=== PATIENT | male | born 1955 | race Caucasian/White ===

== ENCOUNTER → 2016-10-13 | Outpatient (CLI) | payer OTHER ==
[~2016-10-13] MED LIST: ATEN50TA PO; CIPR-255 PO; COLC0.6T54 PO; LISI2.5T5 PO; ROSU5TAB PO; SENNTAB23 PO; TAMS0.4C59 PO; potassium PO; trilipix PO
--- NOTE | 2016-10-13 13:36 | DIAGNOSTIC IMAGING REPORT ---
WHOLE BODY BONE SCAN HISTORY: Renal carcinoma. RADIOTRACER: 26 mCi Tc-99m MDP STUDY/IMAGES: Planar anterior and posterior whole body imaging was performed 3 hours following the intravenous administration of radiotracer. COMPARISON: Abdomen and pelvis CT 09/24/2015. FINDINGS: Radiotracer uptake seen within the shoulders, AC joint, right L4-L5 facet, knees, ankles, and feet are likely due to degenerative change. The left kidney is surgically absent. No suspicious areas of radiotracer uptake to suggest metastatic disease. Faint area of radiotracer uptake seen within the proximal right tibia is likely due to an old, healed fracture. IMPRESSION: 1. No evidence for metastatic disease within the axial or appendicular skeleton. 2. Patchy area of faint radiotracer uptake seen within the proximal shaft of the right tibia favors an old, healed fracture. Clinical correlation or radiographic follow up can be used for confirmation. Electronically signed by: Misha Cardona M.D. 10/13/2016 1:35 PM Dictated Date/Time: 10/13/2016 1:32 PM
== END | disposition home or self-care (01) ==
LOC: C.NUCL 09:30
PROVIDERS: ATTEND Urology
DX: C64.9 Malignant neoplasm of unspecified kidney, except renal pelvis (principal)

== ENCOUNTER 2019-04-15 13:21 | Observation (INO) ==
[2019-04-15 14:24] LABS: Basophils # (auto) 0.04 K/uL (0-0.2); Basophils % (auto) 0.4 %; Eosinophils # (auto) 0.18 K/uL (0-0.5); Eosinophils % (auto) 1.9 %; Hematocrit (blood only) 36.5 % (42-52); Hemoglobin 12.2 g/dL (14.0-18.0); Immature Granulocytes # (auto) 0.04 K/uL (0.00-0.02); Immature Granulocytes % (auto) 0.4 %; Lymphocytes # (auto) 1.27 K/uL (1.2-3.4); Lymphocytes % (auto) 13.3 %; Mean Corpuscular Hemoglobin 28.4 pg (25-34); Mean Corpuscular Hgb Conc 33.4 g/dL (32-36); Mean Corpuscular Volume 85.1 fL (80-100); Mean Platelet Volume 11.8 fL (7.4-10.4); Monocytes # (auto) 1.04 K/uL (0.11-0.59); Monocytes % (auto) 10.9 %; Neutrophils % (auto) 73.1 %; Platelet Count 193 K/uL (130-400); RDW Coefficient of Variation 16.4 % (11.5-14.5); RDW Standard Deviation 50.5 fL (36.4-46.3); Red Blood Count 4.29 M/uL (4.7-6.1); White Blood Count 9.57 K/uL (4.8-10.8)
[2019-04-15 14:34] LABS: Alanine Aminotransferase 19 U/L (12-78); Albumin Level 3.9 gm/dl (3.4-5.0); Aspartate Aminotransferase 14 U/L (15-37); BUN Creatinine Ratio 16.4 (10-20); Blood Urea Nitrogen 30 mg/dl (7-18); Calcium 9.8 mg/dl (8.5-10.1); Carbon Dioxide 19 mmol/L (21-32); Chloride 114 mmol/L (98-107); Creatinine Clr Calc Pharmacy 57.7 ml/min; Est GFR (African American) 44.8; Est GFR (Non-African American) 38.7; Glucose 96 mg/dl (70-99); Lipase 306 U/L (73-393); Magnesium 2.2 mg/dl (1.8-2.4); Potassium 4.4 mmol/L (3.5-5.1); Sodium 141 mmol/L (136-145)
--- NOTE | 2019-04-15 14:39 | XRay Report ---
XR chest 1V portable CLINICAL HISTORY: Chest pain. COMPARISON STUDY: Chest CT August 03, 2012. FINDINGS: Lung volumes are normal. There is no pneumothorax or pleural effusion. Note is made of mode rate cardiomegaly. There is no evidence for pulmonary edema. IMPRESSION: 1. No acute cardiopulmonary findings. 2. Moderate cardiomegaly. Electronically signed by: Terrell Jefferson M.D. 04/15/2019 2:38 PM
[2019-04-15] MEDS ORDERED: ACETAMINOPHEN 1,000 MG/100 ML VIAL IV STA (14:41)
[2019-04-15] MEDS ORDERED: FAMOTIDINE 20MG/5ML IV PUSH IV STA (14:41)
[2019-04-15 14:45] LABS: Albumin Globulin Ratio 1.1 (0.9-2); Alkaline Phosphatase 55 U/L (45-117); Bilirubin,Total 0.4 mg/dl (0.2-1); Globulin 3.5 gm/dl (2.5-4.0); NT Pro B Type Natriuretic Pept 357 pg/ml (0-900); Total Protein 7.4 gm/dl (6.4-8.2); Troponin I < 0.015 ng/ml (0-0.045)
--- NOTE | 2019-04-15 15:42 | Emergency Department Note ---
Entered by Joni Hoyt acting as a scribe for History of Present Illness General Chief complaint: Chest Pain Time Seen by Provider: 04/15/19 13:36 Source: patient History of Present Illness Provider complaint: Chest pain Onset (ago): week(s) (1.5) Location: chest and left Radiation: back Pain Consistency: + constant Maximum Pain Intensity: 2 Current Pain Intensity: 2 Relieved By: + none Exacerbated By: + movement and + other (Deep breaths) Associated symptoms: + shortness of breath; no cough and no fever/chills The patient is a 63 year old male who presents to the Emergency Room with complaints of constant left sided chest pain that started about a week and a half ago. The patient currently rates the pain as a 2/10 but notes it was more severe last night. The patient reports the pain radiates into his back and is worse with movement and deep breaths. The patient endorses some shortness of breath with the pain. The patient has a history of CAD and has needed a cardiac cath in the past however he has never had symptoms like this in the past. The patient denies any lower extremity swelling or family history of blood clots. The patient follows with Dr. Brooks for cardiology. His last visit with him was about a month ago and he mentioned that he had an echo done in May as well as one scheduled for June 2019. The patient also has a history of CML for the past 2 years as well as renal carcinoma that required a nephrectomy. The patient has a family history of CAD and [place] with both his father and brother passing away at a young age from [facility]. Home Medications Home Medications Medication Instructions Recorded Confirmed Type aspirin [Aspirin Low Dose] 81 mg PO DAILY 08/28/18 04/15/19 History docusate sodium [Stool Softener] 100 mg PO BID 08/28/18 04/15/19 History febuxostat [Uloric] 40 mg PO DAILY 08/28/18 04/15/19 History gemfibrozil 600 mg PO BIDM 08/28/18 04/15/19 History hydrochlorothiazide 50 mg PO BID 08/28/18 04/15/19 History omega-3 acid ethyl esters 1 tab PO BID 08/28/18 04/15/19 History rosuvastatin [Crestor] 10 mg PO DAILY 08/28/18 04/15/19 History tamsulosin 0.4 mg capsule 0.4 mg PO DAILY #90 cap 12/22/18 04/15/19 Rx bosutinib 500 mg tablet 500 mg PO DAILY tab 02/04/19 04/15/19 History metformin 1,000 mg tablet,extended 500 mg PO BID tab 02/04/19 04/15/19 History release 24hr Bosulif 100 mg PO DAILY 04/15/19 04/15/19 History amlodipine 10 mg PO DAILY 04/15/19 04/15/19 History lisinopril 10 mg PO DAILY 04/15/19 04/15/19 History carvedilol 3.125 mg PO BID 30 Days #60 tab 04/16/19 Rx hydralazine 50 mg PO TID 30 Days #90 tab 04/16/19 Rx Allergies Allergy/AdvReac Type Severity Reaction Status Date / Time allopurinol Allergy Unknown ` Verified 04/15/19 15:00 Past Med/Surg History Medical History Aortic stenosis, mild BPH (benign prostatic hyperplasia) Chronic kidney disease, stage 3 (Chronic) CML (chronic myelocytic leukemia) (Chronic) Diabetes mellitus, type II Gout History of nephrolithiasis (Chronic) Hyperlipidemia (Chronic) Hypertension (Chronic) MEE (obstructive sleep apnea) Renal carcinoma (Chronic) Renal cell carcinoma Vitamin D deficiency (Chronic) Surgical History (Updated 04/15/19 @ 18:13 by Destiny Reilly PA-C) History of cataract surgery History of nephrectomy 2011 Family History (Updated 04/15/19 @ 18:14 by Destiny Reilly PA-C) Brother Coronary heart disease fatal [place] age 51 Father FH: brain aneurysm age 60 Social History (Updated 04/15/19 @ 18:14 by Destiny Reilly PA-C) Preferred Language: Argentine Communication Ability: Effective 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 and A total of 10 systems reviewed and were otherwise negative Physical Exam Vital Signs Vital Signs - 24 hr 04/15/19 13:25 04/15/19 13:30 04/15/19 13:35 Temperature 36.8 C Temperature Source Oral Pulse Rate 55 L 54 L 55 L Pulse Rate [Apical] Pulse Rate from SpO2 Sensor 53 L 54 L Pulse Rhythm [Apical] Respiratory Rate 20 23 19 Respiratory Effort / Characteristics SOB on Exertion Respiratory Depth Normal Respiratory Pattern Blood Pressure 151/72 H 151/72 H Blood Pressure [Right Arm] Blood Pressure Mean 98 110 Blood Pressure Mean [Right Arm] Blood Pressure Position Sitting Blood Pressure Position [Right Arm] Pulse Oximetry 98 97 97 Oxygen Delivery Method Room Air Sepsis Recent Fever Within 48 Hours No Sepsis New/Unexplained Change in Mental Status No Sepsis Action Taken by Nursing No Action Required 04/15/19 14:00 04/15/19 14:03 04/15/19 15:00 Temperature Temperature Source Pulse Rate 49 L 48 L 47 L Pulse Rate [Apical] Pulse Rate from SpO2 Sensor 49 L 49 L 46 L Pulse Rhythm [Apical] Respiratory Rate 17 16 18 Respiratory Effort / Characteristics Respiratory Depth Respiratory Pattern Blood Pressure 147/84 H Blood Pressure [Right Arm] Blood Pressure Mean 117 Blood Pressure Mean [Right Arm] Blood Pressure Position Blood Pressure Position [Right Arm] Pulse Oximetry 95 95 94 Oxygen Delivery Method Sepsis Recent Fever Within 48 Hours Sepsis New/Unexplained Change in Mental Status Sepsis Action Taken by Nursing 04/15/19 15:01 04/15/19 15:10 04/15/19 15:20 Temperature Temperature Source Pulse Rate 46 L 46 L 44 L Pulse Rate [Apical] 45 L Pulse Rate from SpO2 Sensor 46 L 46 L 44 L Pulse Rhythm [Apical] Regular Respiratory Rate 14 17 16 Respiratory Effort / Characteristics Non-Labored Respiratory Depth Normal Respiratory Pattern Regular Blood Pressure 132/64 Blood Pressure [Right Arm] 132/64 Blood Pressure Mean 88 Blood Pressure Mean [Right Arm] 86 Blood Pressure Position Blood Pressure Position [Right Arm] Sitting Pulse Oximetry 95 96 96 Oxygen Delivery Method Room Air Sepsis Recent Fever Within 48 Hours Sepsis New/Unexplained Change in Mental Status Sepsis Action Taken by Nursing 04/15/19 15:30 04/15/19 15:31 Temperature Temperature Source Pulse Rate 46 L 46 L Pulse Rate [Apical] Pulse Rate from SpO2 Sensor 46 L 46 L Pulse Rhythm [Apical] Respiratory Rate 21 20 Respiratory Effort / Characteristics Respiratory Depth Respiratory Pattern Blood Pressure 141/68 H Blood Pressure [Right Arm] Blood Pressure Mean 107 Blood Pressure Mean [Right Arm] Blood Pressure Position Blood Pressure Position [Right Arm] Pulse Oximetry 96 97 Oxygen Delivery Method Sepsis Recent Fever Within 48 Hours Sepsis New/Unexplained Change in Mental Status Sepsis Action Taken by Nursing GENERAL: alert, well appearing, well nourished, no distress, non-toxic EYE EXAM: normal conjunctiva, PERRL and EOM's grossly intact OROPHARYNX: no exudate, no erythema, lips, buccal mucosa, and tongue normal and mucous membranes are moist NECK: supple, no nuchal rigidity, no adenopathy, non-tender LUNGS: Clear to auscultation. Normal chest wall mechanics, no w/r/r HEART: no murmurs, S1 normal and S2 normal CHEST: No reproducible chest wall tenderness. ABDOMEN: abdomen soft, non-tender, normo-active bowel sounds, no masses, no re bound or guarding. BACK: Back is symmetrical on inspection and there is no deformity, no midline tenderness, no CVA tenderness. SKIN: no rashes and no bruising UPPER EXTREMITIES: upper extremities are grossly normal. FROM, nml pulses b/l. LOWER EXTREMITIES: No pitting edema. FROM, nml pulses b/l. NEURO EXAM: Normal sensorium, cranial nerves II-XII grossly intact, normal speech, no gross weakness of arms, no gross weakness of legs. Course Course 1340: Past medical records reviewed. The patient was evaluated in room B04B, and a complete history and physical examination were performed. 1535: Pt updated on results so far. Pt awaiting V/Q scan. States felt improved after tylenol. Discussed plan. If V/Q negative, I feel pt could be safely discharged to outpt f/u unless symptoms returned. 1645: Pt signed out to Dr Bonilla awaiting V/Q scan. Administered Medications Discontinued Medications Amlodipine Besylate (Norvasc) 10 mg PO DAILY [facility], [facility]1983 Stop: 05/16/19 08:59 Last Admin: 04/16/19 09:05 Dose: 10 mg Documented by: [id number] Aspirin (Ecotrin Ectab) 81 mg PO DAILY [facility], [facility]1983 Stop: 05/16/19 08:59 Last Admin: 04/16/19 09:04 Dose: 81 mg Documented by: [id number] Carvedilol (Coreg) 6.25 mg PO NOW STA Stop: 04/15/19 18:36 Last Admin: 04/15/19 19:45 Dose: 6.25 mg Documented by: [id number] Carvedilol (Coreg) 6.25 mg PO BID [facility], [facility]1983 Stop: 05/15/19 20:59 Last Admin: 04/16/19 09:04 Dose: Not Given Documented by: [id number] Admin: 04/15/19 21:54 Dose: Not Given Documented by: [id number] Carvedilol (Coreg) 3.125 mg PO BID [facility]1983 Stop: 05/16/19 11:44 Last Admin: 04/16/19 12:11 Dose: 3.125 mg Documented by: [id number] Docusate Sodium (Colace) 100 mg PO BID [facility]1983 Stop: 05/15/19 20:59 Last Admin: 04/16/19 09:04 Dose: 100 mg Documented by: [id number] Admin: 04/15/19 21:49 Dose: 100 mg Documented by: [id number] Famotidine (Pepcid 20mg Iv Push) 20 mg IV ONE STA Stop: 04/15/19 14:42 Last Admin: 04/15/19 15:09 Dose: 20 mg Documented by: [id number] Fish Oil (David-3 (Purified Fish Oil)) 1 gm PO BID [facility] Stop: 05/16/19 08:59 Last Admin: 04/16/19 09:05 Dose: 1 gm Documented by: [id number] Gadobutrol (Gadavist 65ml) 12 ml IV ONCE PRN PRN Reason: Interaction Checking Stop: 04/19/19 20:27 Last Admin: 04/15/19 20:28 Dose: 12 ml Documented by: [id number] Gemfibrozil (Lopid) 600 mg PO BIDM [facility]1983 Stop: 05/16/19 07:59 Last Admin: 04/16/19 09:03 Dose: 600 mg Documented by: [id number] Hydralazine HCl (Apresoline) 25 mg PO NOW STA Stop: 04/15/19 18:36 Last Admin: 04/15/19 19:45 Dose: 25 mg Documented by: [id number] Hydralazine HCl (Apresoline) 25 mg PO TID [facility] Stop: 05/15/19 20:59 Last Admin: 04/16/19 09:03 Dose: 25 mg Documented by: [id number] Admin: 04/15/19 21:49 Dose: 25 mg Documented by: [id number] Hydralazine HCl (Apresoline) 50 mg PO TID SÁNCHEZ Stop: 05/16/19 13:59 Last Admin: 04/16/19 13:31 Dose: 50 mg Documented by: [id number] Hydrochlorothiazide (Hctz) 50 mg PO NOW STA Stop: 04/15/19 18:36 Last Admin: 04/15/19 22:48 Dose: 50 mg Documented by: [id number] Hydrochlorothiazide (Hctz) 50 mg PO BID17 SÁNCHEZ Stop: 05/16/19 08:59 Last Admin: 04/16/19 10:18 Dose: 50 mg Documented by: [id number] Acetaminophen (Ofirmev) 1,000 mg in 100 mls @ 400 mls/hr IV NOW STA Stop: 04/15/19 14:55 Last Infusion: 04/15/19 15:34 Dose: 0 mls/hr Documented by: [id number] Admin: 04/15/19 15:09 Dose: 400 mls/hr Documented by: [id number] Sodium Chloride (Nss 1000ml) 1,000 mls @ 125 mls/hr IV .Q8H SÁNCHEZ Stop: 05/15/19 18:44 Last Admin: 04/15/19 21:16 Dose: Not Given Documented by: [id number] Insulin Aspart (Novolog Flexpen) 0 units SC ACHS SÁNCHEZ Stop: 05/15/19 20:59 Last Admin: 04/16/19 12:10 Dose: 4 units Documented by: [id number] Cosigned by: [id number] Admin: 04/16/19 09:02 Dose: Not Given Documented by: [id number] Cosigned by: [id number] Admin: 04/15/19 21:54 Dose: 4 units Documented by: [id number] Cosigned by: [id number] Lisinopril (Zestril) 10 mg PO DAILY SÁNCHEZ Stop: 05/16/19 08:59 Last Admin: 04/16/19 09:06 Dose: 10 mg Documented by: [id number] Lorazepam (Ativan) 0.5 mg PO Q6H PRN PRN Reason: Anxiety Last Admin: 04/15/19 19:45 Dose: 0.5 mg Documented by: [id number] Miscellaneous (Order Awaiting Action) 1 ea N/A QS SÁNCHEZ Stop: 05/16/19 00:00 Last Admin: 04/16/19 09:03 Dose: Not Given Documented by: [id number] Admin: 04/15/19 23:20 Dose: Not Given Documented by: [id number] Miscellaneous (Order Awaiting Action) 1 ea N/A QS SÁNCHEZ Stop: 05/16/19 00:00 Last Admin: 04/16/19 09:03 Dose: Not Given Documented by: [id number] Admin: 04/15/19 23:20 Dose: Not Given Documented by: [id number] Nitroglycerin (Nitro-Bid 2%) 0.5 inch EXT Q6 SÁNCHEZ Stop: 05/15/19 18:27 Last Admin: 04/16/19 12:14 Dose: Not Given Documented by: [id number] Admin: 04/16/19 05:46 Dose: 0.5 inch Documented by: [id number] Admin: 04/16/19 00:17 Dose: 0.5 inch Documented by: [id number] Admin: 04/15/19 20:54 Dose: 0.5 inch Documented by: [id number] Rosuvastatin Calcium (Crestor) 10 mg PO DAILY SÁNCHEZ Stop: 05/16/19 08:59 Last Admin: 04/16/19 09:04 Dose: 10 mg Documented by: [id number] Tamsulosin HCl (Flomax) 0.4 mg PO DAILY SÁNCHEZ Stop: 05/16/19 08:59 Last Admin: 04/16/19 09:05 Dose: 0.4 mg Documented by: [id number] Medical Decision Making Differential Diagnosis Differential diagnoses includes but is not limited to acute coronary syndrome, myocardial infarction, pericarditis, pulmonary embolus, aortic dissection, pneumonia, pneumothorax, musculoskeletal, shingles, esophageal. Medical Records Attestation: I reviewed the patient's medical records. Home Medications Current Medication List: was personally reviewed by me Laboratory Data Attestation: I reviewed the patient's lab results. Result diagrams: 04/16/19 03:21 04/16/19 03:21 Lab Results 04/15/19 04/15/19 04/15/19 Range/Units 14:00 14:00 14:00 WBC 9.57 (4.8-10.8) K/uL RBC 4.29 L (4.7-6.1) M/uL Hgb 12.2 L (14.0-18.0) g/dL Hct 36.5 L (42-52) % MCV 85.1 (80-100) fL MCH 28.4 (25-34) pg MCHC 33.4 (32-36) g/dL RDW Std Deviation 50.5 H (36.4-46.3) fL RDW Coeff of Joce 16.4 H (11.5-14.5) % Plt Count 193 (130-400) K/uL MPV 11.8 H (7.4-10.4) fL Immature Gran % (Auto) 0.4 % Neut % (Auto) 73.1 % Lymph % (Auto) 13.3 % [place] % (Auto) 10.9 % Eos % (Auto) 1.9 % Baso % (Auto) 0.4 % Immature Gran # (Auto) 0.04 H (0.00-0.02) K/uL Neut # (Auto) 7.00 H (1.4-6.5) K/uL Lymph # (Auto) 1.27 (1.2-3.4) K/uL [place] # (Auto) 1.04 H (0.11-0.59) K/uL Eos # (Auto) 0.18 (0-0.5) K/uL Baso # (Auto) 0.04 (0-0.2) K/uL D-Dimer 540 H* (0-500) ug/L FEU Sodium 141 (136-145) mmol/L Potassium 4.4 (3.5-5.1) mmol/L Chloride 114 H (98-107) mmol/L Carbon Dioxide 19 L (21-32) mmol/L Anion Gap 8.0 (3-11) BUN 30 H (7-18) mg/dl Creatinine 1.82 H (0.6-1.4) mg/dl Est Cr Clr Drug Dosing 57.7 ml/min Est GFR ( Amer) 44.8 Est GFR (Non-Af Amer) 38.7 BUN/Creatinine Ratio 16.4 (10-20) Glucose 96 (70-99) mg/dl Calcium 9.8 (8.5-10.1) mg/dl Magnesium 2.2 (1.8-2.4) mg/dl Total Bilirubin 0.4 (0.2-1) mg/dl AST 14 L (15-37) U/L ALT 19 (12-78) U/L Alkaline Phosphatase 55 (45-117) U/L Troponin I < 0.015 (0-0.045) ng/ml NT-Pro-B Natriuret Pep 357 (0-900) pg/ml Total Protein 7.4 (6.4-8.2) gm/dl Albumin 3.9 (3.4-5.0) gm/dl Globulin 3.5 (2.5-4.0) gm/dl Albumin/Globulin Ratio 1.1 (0.9-2) Lipase 306 (73-393) U/L TSH 2.070 (0.300-4.500) uIu/ml Imaging Data Radiologist's Impression: Radiology results as stated below per my review and the radiologist's interpretation: XR chest 1V portable CLINICAL HISTORY: Chest pain. COMPARISON STUDY: Chest CT August 03, 2012. FINDINGS: Lung volumes are normal. There is no pneumothorax or pleural effusion. Note is made of moderate cardiomegaly. There is no evidence for pulmonary edema. IMPRESSION: 1. No acute cardiopulmonary findings. 2. Moderate cardiomegaly. Electronically signed by: Terrell Jefferson M.D. 04/15/2019 2:38 PM ECG Data Attestation: I personally reviewed and interpreted this ECG as follows: Indication: + chest pain Rate (beats per minute): 57 Rhythm: + sinus bradycardia ECG Intervals/blocks: + Normal QRS, + Normal QT, + Normal [place] and + Normal QT-c ECG [place]: + Normal ECG ST segments: no ST elevation ECG Findings: no PACs and no PVCs Blood Pressure Blood Pressure Findings: Elevated blood pressure Blood Pressure Disposition: Referred to patients primary care provider [facility] [place] Narrative Pt presenting with symptoms for 9 days. Pt with risk factors and already sees cards. Labs here reassuring. Due to hx of RCC and elevated dimer, V/Q ordered. Pt signed out awaiting this. Pt here improved with tylenol, VS stable, no ectopy noted on tele. If V/Q negative, I feel pt could be discharged to close outpt f/u. Pt has had recent outpt stress test and echo which were reassuring. I do not suspect dissection/worsening aneursym. I feel pt overall is less likely to have dvt/PE. VS stable while in the ER. Impression & Plan Atypical chest pain, Chronic kidney disease, stage 3 Discharge Plan Visit Data *Final* Discharge Date/Time: 04/15/19 19:47 Chief Complaint: Chest Pain ED Provider: Darwin Bonilla Discharge Problem: Atypical chest pain, Chronic kidney disease, stage 3 Patient Disposition: Home - Self-Care Condition: Good Discharge Instructions Interventions: ED Discharge Assessment Last Done: 04/15/19 19:47 Risk - HEART Scoring HEART Score for Major Cardiac Events History: Slightly Suspicious EKG: Normal Age: 45-64 Years of Age Risk Factors: >2 Risk Factors Initial Troponin: Normal Limit Total Points: 3 Risk Level: Low Risk for Major Adverse Cardiac Event HEART Score Interpretation: Score interpretation (as per derivation study): HEART Adverse Cardiac Score Event Risk Management 0-3 0.9-1.7% In the HEART Score study, these patients were discharged. 4-6 12-16.6% In the HEART Score study, these patients were admitted to the hospital. 7-10 50-65% In the HEART Score study, these patients were candidates for early invasive measurements. Original Source: 1. Toño AJ, [place] BE, Beatriz VINH. Chest pain in the emergency room: value of the HEART score. Neth Heart J. 2008; 16(6):191-6. The scribe's documentation has been prepared under my direction and personally reviewed by me in its entirety. I confirm that the note above accurately reflects all work, treatment, procedures, and medical decision making performed by me.
[2019-04-15 16:34] LABS: D Dimer 540 ug/L FEU (0-500)
--- NOTE | 2019-04-15 16:36 | Nuclear Medicine Report ---
NM pul vent and perfuse CLINICAL HISTORY: 63 years-old Male presenting with pleuritic chest pain, hx renal ca. TECHNIQUE: Immediately following the inhalation of 35.4 mCi of technetium 99 M DTPA for the ventilati on scan and the intravenous administration of 6.5 mCi of technetium 99 M MAA for the perfusion scan, anterior, oblique, lateral, and posterior views of the chest were obtained. Modified PIOPED II criter ia were used for interpretation. COMPARISON: Chest x-ray performed earlier today. FINDINGS: No mismatched defects are identified on this examination. Perfusion and ventilation to both lungs is preserved. Radiotracer identified in the region of the stomach consistent with ingestion of ventilati on tracer. No extensive central airway deposition. Reference: Modified PIOPED II criteria Normal: No perfusion defects. Very low likelihood ratio: Nonsegmental, perfusion defect < chest x-ray lesion, 1-3 small segmental d efects, solitary triple matched defect (< or = 1 segment) in mid or upper lung, stripe sign, solitary large pleural effusion, > or = to 2 matched defects with regionally normal chest x-ray. High likelihood ratio: > or = 2 large mismatch segmental defects. Nondiagnostic: All other findings. IMPRESSION: Normal. Electronically signed by: Calin Burt M.D. 04/15/2019 4:35 PM
--- NOTE | 2019-04-15 18:00 | History & Physical Report ---
Date of Service April 15, 2019 Assessment & Plan (1) Chest pain: Pt is 63 y/o M with PMH renal cell carcinoma s/p left nephrectomy in 2011, CKD III, CML, HTN, mild aortic stenosis, dyslipidemia, DM II, BPH, gout presented to ER with c/o aching chest pain to anterior mid and left chest with radiation to upper back with exertion x 1.5 weeks that resolves in 15-20 minutes with rest. Also c/o SOB with walking 100-200 yards x 1 month. C/O indigestion relieved with TUMS x 1.5 weeks. Denies associated diaphoresis, N/V, dizziness. Today was given aspirin 324mg and 1 SL nitro. Reports given 2 sprays nitro en route with resolution of CP In ER P: 55, R: 20, BP: 151/72, 96%. No leukocytosis. Negative troponin. D- Dimer: 540. EKG sinus bradycardia, 57, no acute ST changes CXR: cardiomegaly, otherwise no acute changes VQ Scan: normal CHEST PAIN R/O ACS. Risk factors: HTN, hyperlipidemia, DM, obesity, FH. DDX: aortic dissection, musculoskeletal etiology, GERD -Monitor Vitals -Will obtain MRA chest to r/o dissection, as want to avoid CTA and IVP dye with pt's h/o solitary kidney -Repeat EKG in am -Will trend troponin -Echo -lipid panel in am, continue statin -Continue aspirin & beta keara -Nitro paste -Cardiology consult (2) Elevated d-dimer: D-Dimer: 540 PE considered, and VQ scan ordered secondary to pt's h/o CKD III and solitary kidney. VQ scan normal (3) Hypertension: SBP's 140's-160s in ER. Pt missed afternoon dose hydralazine -Continue hydralazine, lisinopril, HCTZ, carvedilol -Nitropaste added -Monitor BP (4) Hyperlipidemia: -Continue statin, gemfibrozil (5) Diabetes mellitus, type II: A1c: 5.8 in 08/2018 -A1c in AM -Hold metformin -Novolog sliding scale per protocol (6) Renal cell carcinoma: (7) History of nephrectomy: S/P Left nephrectomy in [address] Bell - Hematology/Oncology (8) Chronic kidney disease, stage 3: Cr: 1.8. Baseline ~1.[address] Dhaliwal -Monitor renal functions -Avoid nephrotoxic agents when possible (9) CML (chronic myelocytic leukemia): Follows with Dr Bell (10) MEE (obstructive sleep apnea): -CPAP HS (11) Gout: -Continue febuxostat (12) Hematuria: Has been having hematuria. Following with Dr Felix- Urology. 02/[address] Soft tissue density 2.3 cm lesion at the lower pole the right kidney. This could either represent a proteinaceous or hemorrhagic cyst versus a solid renal lesion.new since 2016. 03/2019 Abdominal MRI: Heterogeneously enhancing 2.0 x 1.8 cm nodule inferior pole right kidney. Possible neoplastic process is not excluded. everal small to small to characterize right renal cystic-like nodules. DVT Prophylaxis -SCDs for now Full Code as per discussion with pt. Pt reports would not want prolonged life support if poor prognosis. Follows with Dr Flores for routine care Pt was seen and care coordinated with Dr Dickinson. See addendum History of Present Illness Chief Complaint: CP Primary Care Provider: Steven Flores, Pt is 63 y/o M with PMH renal cell carcinoma s/p left nephrectomy in 2011, CKD III, CML, HTN, mild aortic stenosis, dyslipidemia, DM II, BPH, gout presented to ER with c/o CP x 1.5 weeks. Pt reports aching chest pain to anterior mid and left chest with radiation to upper back with exertion. Reports walking through house causes pain. Pain resolves in 15-20 minutes with rest. Denies associated diaphoresis, N/V, dizziness. Pt reports SOB with walking approx 100-200 yards for the past month. C/O indigestion for past 1.5 weeks relieved with TUMS. In clinic he was given aspirin 324mg and 1 SL nitro. Reports given 2 sprays nitro en route with resolution of CP. Pt reports has been following with urology - Dr Felix for hematuria and is to have cystoscopy soon. Denies injury/trauma, fever/chills, diarrhea, MIXON, syncope, vision changes, neck pain, orthopnea, palpitations, cough, sore throat, choking, otalgia, rhinorrhea, abdominal pain, paresthesias, weakness, extremity weakness, extremity edema, rashes, dysuria, urinary retention, urinary frequency. 06/2018 Echo: EF: 60-64%, grade II diastolic dysfunction, proximal ascending thoracic aorta mildly enlarged at 3.9cm 06/2018 Stress echo with no ischemia Allergies Allergy/AdvReac Type Severity Reaction Status Date / Time allopurinol Allergy Unknown ` Verified 04/15/19 15:00 Home Medications Home Medications Medication Instructions Recorded Confirmed Type aspirin [Aspirin Low Dose] 81 mg PO DAILY 08/28/18 04/15/19 History carvedilol 6.25 mg PO BID 08/28/18 04/15/19 History docusate sodium [Stool Softener] 100 mg PO BID 08/28/18 04/15/19 History febuxostat [Uloric] 40 mg PO DAILY 08/28/18 04/15/19 History gemfibrozil 600 mg PO BIDM 08/28/18 04/15/19 History hydrochlorothiazide 50 mg PO BID 08/28/18 04/15/19 History omega-3 acid ethyl esters 1 tab PO BID 08/28/18 04/15/19 History rosuvastatin [Crestor] 10 mg PO DAILY 08/28/18 04/15/19 History tamsulosin 0.4 mg capsule 0.4 mg PO DAILY #90 cap 12/22/18 04/15/19 Rx bosutinib 500 mg tablet 500 mg PO DAILY tab 02/04/19 04/15/19 History metformin 1,000 mg tablet,extended 500 mg PO BID tab 02/04/19 04/15/19 History release 24hr hydralazine 25 mg tablet 25 mg PO TID #90 tab 03/18/19 04/15/19 Rx amlodipine 10 mg PO DAILY 04/15/19 04/15/19 History bosutinib [Bosulif] 100 mg PO DAILY 04/15/19 04/15/19 History lisinopril 10 mg PO DAILY 04/15/19 04/15/19 History Past Med/Surg History Medical History Aortic stenosis, mild BPH (benign prostatic hyperplasia) Chronic kidney disease, stage 3 (Chronic) CML (chronic myelocytic leukemia) (Chronic) Diabetes mellitus, type II Gout History of nephrolithiasis (Chronic) Hyperlipidemia (Chronic) Hypertension (Chronic) MEE (obstructive sleep apnea) Renal carcinoma (Chronic) Renal cell carcinoma Vitamin D deficiency (Chronic) Surgical History (Updated 04/15/19 @ 18:13 by Destiny Reilly PA-C) History of cataract surgery History of nephrectomy 2011 Family History (Updated 04/15/19 @ 18:14 by Destiny Reilly PA-C) Brother Coronary heart disease fatal [place] age 51 Father FH: brain aneurysm age 60 Social History (Updated 04/15/19 @ 18:14 by Destiny Reilly PA-C) Preferred Language: Romanian marital status: Current Living Situation: Spouse current occupational status: employed Feels Safe at Home: Yes Smoking Status: Never smoker Hx Alcohol Use: No Hx Substance Use: No Review of Systems Review of Systems: All systems reviewed & are unremarkable except as noted in HPI & below Physical Exam Physical Exam: General: no distress, obese Head: normocephalic, atraumatic Eyes: PERRL, EOM's intact, conjunctiva non-injected, anicteric ENT: normal inspection external ears, nose, mucous membranes moist Neck: supple, trachea midline Lungs: clear, no respiratory distress, no wheezing/rhonchi/rales CV: RRR, systolic murmur, no pretibial edema Chest wall: no rashes or discolorations; mild tenderness to palpation left chest Abd: normal BS, soft, non-tender Ext: no cyanosis, no calf tenderness Neuro: A&O x 3, no focal deficits noted, normal affect Skin: warm, dry; dry scaly plaques to hands Results & Data Vital Signs (Past 12 Hours) Vital Signs Temp Pulse Pulse Resp BP BP Pulse Ox 04/15/19 17:31 48 L 17 192/86 H 98 04/15/19 17:30 47 L 19 96 04/15/19 17:20 45 L 22 97 04/15/19 17:10 43 L 12 96 04/15/19 17:01 44 L 15 96 04/15/19 17:00 45 L 17 149/79 H 97 04/15/19 16:50 45 L 16 98 04/15/19 16:40 44 L 14 96 04/15/19 16:31 59 L 14 97 04/15/19 16:30 46 L 14 161/83 H 96 04/15/19 16:28 51 L 17 96 04/15/19 15:31 46 L 20 97 04/15/19 15:30 46 L 21 141/68 H 96 04/15/19 15:20 44 L 16 96 04/15/19 15:10 46 L 17 96 04/15/19 15:01 46 L 45 L 14 132/64 132/64 95 04/15/19 15:00 47 L 18 94 04/15/19 14:03 48 L 16 147/84 H 95 04/15/19 14:00 49 L 17 95 04/15/19 13:35 55 L 19 97 04/15/19 13:30 54 L 23 151/72 H 97 04/15/19 13:25 36.8 C 55 L 20 151/72 H 98 Laboratory Results Short CBC 04/15/19 04/15/19 Range/Units 14:00 14:00 WBC 9.57 (4.8-10.8) K/uL Hgb 12.2 L (14.0-18.0) g/dL Hct 36.5 L (42-52) % Plt Count 193 (130-400) K/uL BUN 30 H (7-18) mg/dl Creatinine 1.82 H (0.6-1.4) mg/dl Est GFR (Non-Af Amer) 38.7 BMP 04/15/19 14:00 Sodium 141 Potassium 4.4 Chloride 114 H Carbon Dioxide 19 L BUN 30 H Creatinine 1.82 H Glucose 96 Calcium 9.8 Cardiac Enzymes 04/15/19 Range/Units 14:00 Troponin I < 0.015 (0-0.045) ng/ml Liver Function 04/15/19 Range/Units 14:00 Total Bilirubin 0.4 (0.2-1) mg/dl AST 14 L (15-37) U/L ALT 19 (12-78) U/L Alkaline Phosphatase 55 (45-117) U/L Albumin 3.9 (3.4-5.0) gm/dl Diagnostic Findings CXR: IMPRESSION: 1. No acute cardiopulmonary findings. 2. Moderate cardiomegaly. VQ SCAN: IMPRESSION: Normal. ECG Rate (beats per minute): 57 Rhythm: sinus bradycardia Code Status & VTE Plan VTE Prophylaxis Plan VTE Prophylaxis will be ordered: Yes Supervising Physician Co-Signing Physician Notes Attending Addendum: care coordinated with DEJAH Allen please refer to her notes for full details, I agree with her notes patient seen and examined, records reviewed by myself as well on exam, patient seen sitting up in bed, comfortable Not in distress States chest discomfort is much better, only 1 out of 10 Denies shortness of breath, dizziness, palpitations, nausea vomiting Reports dark yellow urine today, not bloody no other symptoms VS noted and reviewed oriented x 3 , not in distress, speaks in sentences with no effort nor accessory muscle use normal rate, regular rhythm, no murmurs clear breath sounds bilaterally non distended, soft, nontender no bipedal edema, erythema, warmth no neuro deficits WBC 9.5 Hg 12.2 Crea 1.8 troponin < 0.015 ASSESSMENT AND PLAN> CHEST PAIN R/O ACS R/O AORTIC DISSECTION Check serial troponins, EKG, echo Cannot perform CT angiogram in light of CKD, discussed with radiologist, MRI o rdered to rule out aortic dissection HYPERTENSION Monitor closely, continue usual lisinopril, amlodipine, carvedilol other diagnoses and plan of care as per DEJAH Dickinson MD
[2019-04-15] MEDS ORDERED: hydroCHLOROthiazide 25 MG TAB PO STA (18:35)
[2019-04-15] MEDS ORDERED: carvediloL 6.25 MG TAB PO STA (18:35)
[2019-04-15] MEDS ORDERED: SODIUM CHLORIDE 0.9% 1000ML 1,000 ML IV SCH (18:45)
[2019-04-15] MEDS ORDERED: LORazepam 0.5 MG TAB PO PRN (18:50)
[2019-04-15] MEDS ORDERED: GADOBUTROL 65ML VIAL IV PRN (20:28)
[2019-04-15] MEDS ORDERED: GLUCOSE 40% GEL 15 GM TUBE PO PRN (20:49)
[2019-04-15] MEDS ORDERED: DEXTROSE 50% 50 ML SYRINGE IV PRN (20:49)
[2019-04-15] MEDS ORDERED: GLUCOSE 10 TABS/TUBE PO PRN (20:49)
[2019-04-15] MEDS ORDERED: GLUCAGON FOR INJ 1 MG VIAL SQ PRN (20:49)
[2019-04-15] MEDS ORDERED: CARBOHYDRATES FOR HYPOGLYCEMIA PO PRN (20:49)
[2019-04-15] MEDS ORDERED: ONDANSETRON INJ 2 MG/ML 2 ML VIAL IV PRN (20:49)
[2019-04-15] MEDS ORDERED: ACETAMINOPHEN 325 MG TAB PO PRN (20:49)
--- NOTE | 2019-04-15 20:50 | Magnetic Resonance Report ---
MR angio chest wo/w con CLINICAL HISTORY: 63 years-old Male presenting with chest pain for a week and a half, history of issa l cell carcinoma status post nephrectomy, history of CML. TECHNIQUE: MR angiography of the chest was performed without the use of intravenous contrast using 3- D [id number] technique. 3-D volumetric and/or maximum intensity projection (MIP) images were subs equently reconstructed for review. IV contrast: 12 mL of Gadavist. Stenosis measurements were based o n NASCET-like criteria. COMPARISON: CT chest from 08/03/2012. FINDINGS: Localizer images: Unremarkable. The aorta is normal in course and caliber. No evidence of aneurysm or dissection. Ascending aorta fadi sures 3.8 cm in diameter and the descending thoracic aorta measures 2.6 cm in diameter. Common origin of the innominate and left common carotid artery. Pulmonary arteries patent. Mesenteric vessels bishop nt. Abdominal aorta patent and normal in caliber. Small right pleural effusion. Minimal associated atelectasis. Trace left pleural effusion. Cardiomedi astinal silhouette normal. Upper abdomen are remarkable for cholelithiasis. Cystic lesion in the pancreatic tail measuring 13 mm . Few hepatic cysts noted. IMPRESSION: 1. No acute aortic injury. 2. No pulmonary embolism. 3. Small right and trace left pleural effusions. 4. 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 Follow-up per [place] criteria below. Summary of [place] (Ramona) Criteria for IPMN Surveillance "High-risk stigmata": 1) obstructive jaundice in a patient with cystic lesion of the head of the panc reas, 2) enhancing mural nodule > or = 5 mm, 3) main pancreatic duct > or = 10 mm. * Consider surgery "Worrisome features": Clinical: 1) pancreatitis, 2) increased serum level of CA 19-9; Imagin) cys t > or = 3 cm, 2) enhancing mural nodule < 5 mm, 3) thickened/enhancing cyst dietz, 4) main duct size 5-9 mm, 5) abrupt change in caliber of pancreatic duct with distal pancreatic atrophy, 6) lymphadeno mary, 7) cyst growth rate > or = 5 mm in 2 years. * Endoscopic ultrasound (EUS) Surveillance if no "high-risk stigmata" or "worrisome features": * Largest cyst < 1 cm: CT or MRI/MRCP in 6 months, then every 2 years if no change. * Largest cyst 1-2 cm: CT or MRI/MRCP in 6 months x 1 year, yearly x 2 years, then lengthen interval up to 2 years if no change. * Largest cyst 2-3 cm: Endoscopic ultrasound (EUS) in 3-6 months, then lengthen interval up to 1 yea r, alternating MRI with EUS as appropriate. Consider surgery in young, fit patients with need for pro longed surveillance. * Largest cyst > 3 cm: Close surveillance alternating MRI with EUS every 3-6 months. Strongly consid er surgery in young, fit patients. Ramona M, Subramanian-Prerna C, Kamisawa T, et al. Revisions of international consensus [place] g uidelines for the management of IPMN of the pancreas. Pancreatology. 2017; 17:738-753. Electronically signed by: Calin Burt M.D. 04/15/2019 8:48 PM
[2019-04-15] MEDS: NITROGLYCERIN 2% OINTMENT 30GM TUBE EXT SCH (20:54)
--- NOTE | 2019-04-15 21:19 | Emergency Department Note ---
ED Visit Note Received patient in signout. History and physical verified by me. The patient is continuing to have chest pain and he is concerned that it is only during exertion. I give the patient the option of being discharged home or being admitted and having his case run by cardiology. He was given his evening blood pressure medications. I did discuss the case with both cardiology as well as the hospitalist service who did agree to admit the patient. .
[2019-04-15] MEDS: DOCUSATE SODIUM 100 MG CAP PO SCH (21:49)
[2019-04-15] MEDS: INSULIN ASPART 100 UNITS/ML 3 ML PEN SC SCH (21:54)
[2019-04-15] MEDS: carvediloL 6.25 MG TAB PO SCH (21:54)
--- NOTE | 2019-04-15 21:54 | Ultrasound Report ---
US venous doppler LE CLINICAL HISTORY: 63 years-old Male presenting with elevated d*dimer, concern for DVT. TECHNIQUE: Real-time grayscale and color and spectral Doppler ultrasound imaging of the veins of the bilateral lower extremities was performed. Compression and augmentation were also utilized. COMPARISON: None. FINDINGS: RIGHT: Common femoral vein: Patent. Greater saphenous vein (superficial): Patent. Deep femoral vein: Patent. Femoral vein: Patent. Popliteal vein: Patent. Calf veins: Patent. LEFT: Common femoral vein: Patent. Greater saphenous vein (superficial): Patent. Deep femoral vein: Patent. Femoral vein: Patent. Popliteal vein: Patent. Calf veins: Patent. Other: None. IMPRESSION: No evidence of deep venous thrombosis. Electronically signed by: Calin Burt M.D. 04/15/2019 9:52 PM
[2019-04-16] MEDS: NITROGLYCERIN 2% OINTMENT 30GM TUBE EXT SCH ×3 (00:17→12:14)
[2019-04-16 03:56] LABS: Hematocrit (blood only) 33.6 % (42-52); Hemoglobin 11.4 g/dL (14.0-18.0); Mean Corpuscular Hemoglobin 28.9 pg (25-34); Mean Corpuscular Hgb Conc 33.9 g/dL (32-36); Mean Corpuscular Volume 85.3 fL (80-100); Mean Platelet Volume 11.5 fL (7.4-10.4); Platelet Count 169 K/uL (130-400); RDW Coefficient of Variation 16.4 % (11.5-14.5); RDW Standard Deviation 51.7 fL (36.4-46.3); Red Blood Count 3.94 M/uL (4.7-6.1)
[2019-04-16 04:20] LABS: Blood Urea Nitrogen 30 mg/dl (7-18); Carbon Dioxide 21 mmol/L (21-32); Chloride 113 mmol/L (98-107); Creatinine Clr Calc Pharmacy 57.9 ml/min; Est GFR (African American) 45.7; Est GFR (Non-African American) 39.4; Glucose 92 mg/dl (70-99); Potassium 3.9 mmol/L (3.5-5.1); Sodium 140 mmol/L (136-145)
[2019-04-16 04:27] LABS: Chol HDL Ratio 6; Cholesterol 133 mg/dl (0-200); HDL Cholesterol 21 mg/dl; LDL Cholesterol Calculated 71 mg/dl; Triglycerides 203 mg/dl (0-150); Troponin I < 0.015 ng/ml (0-0.045); VLDL Cholesterol 41 mg/dl
[2019-04-16 07:27] LABS: Estimated Average Glucose 120 mg/dl; Hemoglobin A1C 5.8 % (4.5-5.6)
[2019-04-16] MEDS ORDERED: GEMFIBROZIL 600 MG TAB PO SCH (08:00)
[2019-04-16] MEDS ORDERED: OMEGA-3 (PURIFIED FISH OIL) 1 GM CAP PO SCH (09:00)
[2019-04-16] MEDS ORDERED: AMLODIPINE BESYLATE 5 MG TAB PO SCH (09:00)
[2019-04-16] MEDS ORDERED: ASPIRIN 81 MG ECTAB PO SCH (09:00)
[2019-04-16] MEDS ORDERED: ROSUVASTATIN CALCIUM 10 MG TAB PO SCH (09:00)
[2019-04-16] MEDS ORDERED: hydroCHLOROthiazide 25 MG TAB PO SCH (09:00)
[2019-04-16] MEDS ORDERED: lisinopriL 10 MG TAB PO SCH (09:00)
[2019-04-16] MEDS ORDERED: TAMSULOSIN HCL 0.4 MG CAP PO SCH (09:00)
[2019-04-16] MEDS: INSULIN ASPART 100 UNITS/ML 3 ML PEN SC SCH ×2 (09:02→12:10)
[2019-04-16] MEDS: carvediloL 6.25 MG TAB PO SCH (09:04)
[2019-04-16] MEDS: DOCUSATE SODIUM 100 MG CAP PO SCH (09:04)
[2019-04-16] MEDS ORDERED: BOSUTINIB 500 MG PO SCH (11:00)
[2019-04-16] MEDS ORDERED: BOSUTINIB 100 MG PO SCH (11:00)
--- NOTE | 2019-04-16 11:40 | Cardiology Consultation ---
Date of Consultation April 16, 2019 Assessment & Plan (1) Chest pain: Patient with extended episodes of chest discomfort for several days duration though without any sign of cardiac etiology by enzyme EKG or echocardiogram. Suspect multifactorial in origin including hypertension possible due to recent increase in Bosulif. Stress test in June 2018- for ischemia Patient stable this morning wishes to be discharged Plan: Decrease carvedilol to 3.125 mg twice per day. Increase hydralazine to 50 mg 3 times daily Outpatient follow-up with nephrology and cardiology (2) Hypertension: (3) CML (chronic myelocytic leukemia): (4) Aortic stenosis, mild: History of Present Illness Reason for Consultation: Chest pain Requesting Physician: Dr. Bazan Attending Physician: Jese Bazan MD History of Present Illness Patient is a 63-year-old male complex ongoing medical issues which include 1. Hypertension 2. 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 Mild calcific aortic stenosis 4. Chronic myelocytic leukemia on Bosulif Patient presents today noting several days history of chest pressure pain. Notes symptoms severe on lasted the entire day and recurred multiple times during the day on Thursday sometimes worse with movement or activity most times at rest. No diaphoresis syncope or near syncope. Symptoms once again severe yesterday and resulted in ER presentation. Evaluation unremarkable for myocardial injury or ischemia by EKG and and enzymatic criteria. MRI of the chest reveals no evidence of aortic dissection or pulmonary emboli. Blood pressure significantly elevated on presentation. Clinical history notable for recent increase in stressors association with intermittent hematuria, notable elevation in blood pressures in the past month as well as recent increase in Bosulif therapy. Patient currently comfortable this morning. Echocardiogram demonstrates preserved LV systolic function and no wall motion abnormalities. Mild aortic stenosis as previously known Allergies Allergy/AdvReac Type Severity Reaction Status Date / Time allopurinol Allergy Unknown ` Verified 04/15/19 15:00 Home Medications Home Medications Medication Instructions Recorded Confirmed Type aspirin [Aspirin Low Dose] 81 mg PO DAILY 08/28/18 04/15/19 History carvedilol 6.25 mg PO BID 08/28/18 04/15/19 History docusate sodium [Stool Softener] 100 mg PO BID 08/28/18 04/15/19 History febuxostat [Uloric] 40 mg PO DAILY 08/28/18 04/15/19 History gemfibrozil 600 mg PO BIDM 08/28/18 04/15/19 History hydrochlorothiazide 50 mg PO BID 08/28/18 04/15/19 History omega-3 acid ethyl esters 1 tab PO BID 08/28/18 04/15/19 History rosuvastatin [Crestor] 10 mg PO DAILY 08/28/18 04/15/19 History tamsulosin 0.4 mg capsule 0.4 mg PO DAILY #90 cap 12/22/18 04/15/19 Rx bosutinib 500 mg tablet 500 mg PO DAILY tab 02/04/19 04/15/19 History metformin 1,000 mg tablet,extended 500 mg PO BID tab 02/04/19 04/15/19 History release 24hr hydralazine 25 mg tablet 25 mg PO TID #90 tab 03/18/19 04/15/19 Rx amlodipine 10 mg PO DAILY 04/15/19 04/15/19 History bosutinib [Bosulif] 100 mg PO DAILY 04/15/19 04/15/19 History lisinopril 10 mg PO DAILY 04/15/19 04/15/19 History Patient History Medical History Aortic stenosis, mild BPH (benign prostatic hyperplasia) Chronic kidney disease, stage 3 (Chronic) CML (chronic myelocytic leukemia) (Chronic) Diabetes mellitus, type II Gout History of nephrolithiasis (Chronic) Hyperlipidemia (Chronic) Hypertension (Chronic) MEE (obstructive sleep apnea) Renal carcinoma (Chronic) Renal cell carcinoma Vitamin D deficiency (Chronic) Surgical History (Updated 04/15/19 @ 18:13 by Destiny Reilly PA-C) History of cataract surgery History of nephrectomy 2012 Family History (Updated 04/15/19 @ 18:14 by Destiny Reilly PA-C) Brother Coronary heart disease fatal [place] age 51 Father FH: brain aneurysm age 60 Social History (Updated 04/15/19 @ 18:14 by Destiny Reilly PA-C) Preferred Language: Tamazight Communication Ability: Effective [employer] Trimmer Required: No Beliefs That Will Affect Care: None marital status: Current Living Situation: Spouse and Family current occupational status: employed Other Information That Helps Us Care for You: No Feels Safe at Home: Yes Safety Concerns: Feels Safe At This Time Smoking Status: Never smoker Do You Dip or Chew Tobacco: No ; Second Hand Exposure: No ; Tobacco Cessation Education Requested by Patient: No Hx Alcohol Use: No Hx Substance Use: No Physical Exam Constitutional: WD/WN, vitals as above + obese Eyes: PERRL, conjunctivae normal, anicteric sclerae ENMT: external ear and nose normal, oropharynx normal Neck: trachea midline, no thyromegaly + thick neck Respiratory: normal respiratory effort, lungs clear to auscultation Cardiovascular: Rate/Rhythm: regular rate and regular rhythm Heart Sounds: normal S1 and normal S2; no gallop and no murmur Palpation: normal PMI Vessels: normal carotid upstroke and radial pulses present; no JVD and no alexandra tid bruit Extremities: no edema Gastrointestinal (Abdomen): normal bowel sounds, soft, nontender, no hepatosplenomegaly Musculoskeletal: no cyanosis or clubbing, extremities motor strength 5/5 Skin: no rashes, warm and dry Neurologic: PERRL, EOMI, accommodation nl, no face palsy, no dysarthria Psychiatric: A+Ox3, euthymic affect Results & Data Vital Signs (Past 12 Hours) Vital Signs Temp Pulse Resp BP BP Pulse Ox 04/16/19 11:06 36.6 C 44 L 19 156/72 H 97 04/16/19 07:40 36.2 C L 42 L 20 122/51 L 96 04/16/19 04:58 36.5 C 43 L 20 127/71 95 04/16/19 04:18 14 94 04/16/19 00:00 36.6 C 44 L 20 111/64 96 Laboratory Results Laboratory Results - last 24 hr 04/15/19 04/15/19 04/15/19 14:00 14:00 14:00 WBC 9.57 RBC 4.29 L Hgb 12.2 L Hct 36.5 L MCV 85.1 MCH 28.4 MCHC 33.4 RDW Std Deviation 50.5 H RDW Coeff of Joce 16.4 H Plt Count 193 MPV 11.8 H Immature Gran % (Auto) 0.4 Neut % (Auto) 73.1 Lymph % (Auto) 13.3 Sandoval % (Auto) 10.9 Eos % (Auto) 1.9 Baso % (Auto) 0.4 Immature Gran # (Auto) 0.04 H Neut # (Auto) 7.00 H Lymph # (Auto) 1.27 Sandoval # (Auto) 1.04 H Eos # (Auto) 0.18 Baso # (Auto) 0.04 D-Dimer 540 H* Sodium 141 Potassium 4.4 Chloride 114 H Carbon Dioxide 19 L Anion Gap 8.0 BUN 30 H Creatinine 1.82 H Est Cr Clr Drug Dosing 57.7 Est GFR ( Amer) 44.8 Est GFR (Non-Af Amer) 38.7 BUN/Creatinine Ratio 16.4 Glucose 96 POC Glucose Estimat Average Glucose Hemoglobin A1c Calcium 9.8 Magnesium 2.2 Total Bilirubin 0.4 AST 14 L ALT 19 Alkaline Phosphatase 55 Troponin I < 0.015 NT-Pro-B Natriuret Pep 357 Total Protein 7.4 Albumin 3.9 Globulin 3.5 Albumin/Globulin Ratio 1.1 Triglycerides Cholesterol LDL Cholesterol, Calc VLDL Cholesterol, Calc HDL Cholesterol Cholesterol/HDL Ratio Lipase 306 TSH 2.070 04/15/19 04/15/19 04/16/19 20:39 21:47 03:21 WBC RBC Hgb Hct MCV MCH MCHC RDW Std Deviation RDW Coeff of Joce Plt Count MPV Immature Gran % (Auto) Neut % (Auto) Lymph % (Auto) Sandoval % (Auto) Eos % (Auto) Baso % (Auto) Immature Gran # (Auto) Neut # (Auto) Lymph # (Auto) Sandoval # (Auto) Eos # (Auto) Baso # (Auto) D-Dimer Sodium 140 Potassium 3.9 Chloride 113 H Carbon Dioxide 21 Anion Gap 6.0 BUN 30 H Creatinine 1.79 H Est Cr Clr Drug Dosing 57.9 Est GFR ( Amer) 45.7 Est GFR (Non-Af Amer) 39.4 BUN/Creatinine Ratio 17.0 Glucose 92 POC Glucose 125 H Estimat Average Glucose Hemoglobin A1c Calcium 9.0 Magnesium Total Bilirubin AST ALT Alkaline Phosphatase Troponin I < 0.015 < 0.015 NT-Pro-B Natriuret Pep Total Protein Albumin Globulin Albumin/Globulin Ratio Triglycerides 203 H Cholesterol 133 LDL Cholesterol, Calc 71 VLDL Cholesterol, Calc 41 HDL Cholesterol 21 Cholesterol/HDL Ratio 6 Lipase TSH 04/16/19 04/16/19 04/16/19 03:21 03:21 07:24 WBC 9.10 RBC 3.94 L Hgb 11.4 L Hct 33.6 L MCV 85.3 MCH 28.9 MCHC 33.9 RDW Std Deviation 51.7 H RDW Coeff of Joce 16.4 H Plt Count 169 MPV 11.5 H Immature Gran % (Auto) Neut % (Auto) Lymph % (Auto) Sandoval % (Auto) Eos % (Auto) Baso % (Auto) Immature Gran # (Auto) Neut # (Auto) Lymph # (Auto) Sandoval # (Auto) Eos # (Auto) Baso # (Auto) D-Dimer Sodium Potassium Chloride Carbon Dioxide Anion Gap BUN Creatinine Est Cr Clr Drug Dosing Est GFR ( Amer) Est GFR (Non-Af Amer) BUN/Creatinine Ratio Glucose POC Glucose 90 Estimat Average Glucose 120 Hemoglobin A1c 5.8 H Calcium Magnesium Total Bilirubin AST ALT Alkaline Phosphatase Troponin I NT-Pro-B Natriuret Pep Total Protein Albumin Globulin Albumin/Globulin Ratio Triglycerides Cholesterol LDL Cholesterol, Calc VLDL Cholesterol, Calc HDL Cholesterol Cholesterol/HDL Ratio Lipase TSH Diagnostic Findings 16-APR-2019 07:14:28 [facility]-CCU ROUTINE RETRIEVAL Marked sinus bradycardia Abnormal ECG When compared with ECG of 15-APR-2019 13:24, No significant change was found
[2019-04-16] MEDS ORDERED: carvediloL 3.125 MG TAB PO SCH (11:45)
--- NOTE | 2019-04-16 13:25 | Hospitalist Progress Note ---
Date of Service April 16, 2019 Assessment & Plan (1) Chest pain: Atypical Chest Pain, Hypertension, Bradycardia, mild Aortic stenosis -Pt is 63 y/o M with PMH renal cell carcinoma s/p left nephrectomy in 2011, CKD III, CML, HTN, mild aortic stenosis, dyslipidemia, DM II, BPH, gout presented to ER with c/o aching chest pain to anterior mid and left chest with radiation to upper back with exertion x 1.5 weeks that resolves in 15-20 minutes with rest. Also c/o SOB with walking 100-200 yards x 1 month. C/O indigestion relieved with TUMS x 1.5 weeks. Denies associated diaphoresis, N/V, dizziness. Today was given aspirin 324mg and 1 SL nitro. Reports given 2 sprays nitro en route with resolution of CP -In ER P: 55, R: 20, BP: 151/72, 96%. No leukocytosis. Negative troponin. D- Dimer: 540. EKG sinus bradycardia, 57, no acute ST changes -asymptomatic bradycardia on telemetry around the 40 beats per minute to low 50 beats per minutes -Echocardiogram 04/16/19 The left ventricle is normal in size There is moderate concentric left ventricular hypertrophy The left ventricular wall motion is normal Ejection Fraction = 60 to 65% The aortic valve leaflets are moderately calcified Mild valvular aortic stenosis The aortic root is normal size There is no pericardial effusion -as per cardiology 04/16/19:Patient with extended episodes of chest discomfort for several days duration though without any sign of cardiac etiology by enzyme EKG or echocardiogram. Suspect multifactorial in origin including hypertension possible due to recent increase in Bosulif. Stress test in June 2018 negative for ischemia -Cardiology recommends to Decrease carvedilol to 3.125 mg twice per day. Increase hydralazine to 50 mg 3 times daily -New discharge medications changes sent electronically to [facility] [address], [place] [address] Primary Care doctor follow up 04/18/2019 2:[address] Jose C Vaughn at [address] [place] [address] Patient has follow up appointments previously made for Thursday04/22/19 to on cology and urology 06/14/2019 1:00 PM Provider Planogrammer [facility] Department Cardiac Studies, [facility] (2) Elevated d-dimer: -admission D-Dimer: 540 -Pulmonary embolism and Deep Vein thrombosis is ruled out by Pulmonary Perfusion imaging and ultrasound of lower extremities, no aortic dissection on Chest MRA (3) Hypertension: SBP's 140's-160s in ER. 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 -Follows with Dr Dhaliwal of [facility] nephrology (7) Renal cell carcinoma: Chronic kidney disease stage 3 with single kidney 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 -Follows with Dr Dhaliwal of [facility] nephrology (8) History of nephrectomy: Chronic kidney disease stage 3 with single kidney 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 Suspect multifactorial in origin including hypertension possible due to recent increase in Bosulif. Stress test in June 2018 neg ative for ischemia (10) Hematuria: -Has been having hematuria. Following with Dr Felix- Urology. -02/[address] Soft tissue density 2.3 cm lesion at the lower pole the right kidney. This could either represent a proteinaceous or hemorrhagic cyst versus a solid renal lesion.new since 2015. -03/2019 Abdominal MRI: Heterogeneously enhancing 2.0 x 1.8 cm nodule inferior pole right kidney. Possible neoplastic process is not excluded. 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 no headache. no dizziness. no back pain today. no chest pain today. no abdominal pain. no nausea. no profuse bleeding Review of Systems Review of Systems: All systems reviewed & are unremarkable except as noted in HPI & below Physical Exam Constitutional: comfortable Eyes: PERRL, conjunctivae normal, anicteric sclerae EOM intact bilaterally ENMT: external ear and nose normal, oropharynx normal Neck: normal visual inspection Respiratory: normal respiratory effort, lungs clear to auscultation Gastrointestinal (Abdomen): normal bowel sounds, soft, nontender, no hepatosplenomegaly Musculoskeletal: Head/Neck/Chest: normocephalic and head atraumatic Neurologic: PERRL, EOMI, accommodation nl, no face palsy, no dysarthria CN's II-XI intact bilaterally Psychiatric: A+Ox3, euthymic affect Results & Data Vital Signs (Past 12 Hours) Vital Signs Temp Pulse Resp BP BP Pulse Ox 04/16/19 13:08 36.6 C 44 L 19 156/72 H 122/51 L 97 04/16/19 11:06 36.6 C 44 L 19 156/72 H 97 04/16/19 07:40 36.2 C L 42 L 20 122/51 L 96 04/16/19 04:58 36.5 C 43 L 20 127/71 95 04/16/19 04:18 14 94
--- NOTE | 2019-04-16 13:50 | Discharge Summary ---
Date of Service April 16, 2019 Admission HPI Per Admitting Provider Pt is 63 y/o M with PMH renal cell carcinoma s/p left nephrectomy in 2011, CKD III, CML, HTN, mild aortic stenosis, dyslipidemia, DM II, BPH, gout presented to ER with c/o CP x 1.5 weeks. Pt reports aching chest pain to anterior mid and left chest with radiation to upper back with exertion. Reports walking through house causes pain. Pain resolves in 15-20 minutes with rest. Denies associated diaphoresis, N/V, dizziness. Pt reports SOB with walking approx 100-200 yards for the past month. C/O indigestion for past 1.5 weeks relieved with TUMS. In clinic he was given aspirin 324mg and 1 SL nitro. Reports given 2 sprays nitro en route with resolution of CP. Pt reports has been following with urology - Dr Felix for hematuria and is to have cystoscopy soon. Denies injury/trauma, fever/chills, diarrhea, MIXON, syncope, vision changes, neck pain, orthopnea, palpitations, cough, sore throat, choking, otalgia, rhinorrhea, abdominal pain, paresthesias, weakness, extremity weakness, extremity edema, rashes, dysuria, urinary retention, urinary frequency. 06/2018 Echo: EF: 60-64%, grade II diastolic dysfunction, proximal ascending thoracic aorta mildly enlarged at 3.9cm 06/2018 Stress echo with no ischemia Admission Exam Per Admitting Provider General: no distress, obese Head: normocephalic, atraumatic Eyes: PERRL, EOM's intact, conjunctiva non-injected, anicteric ENT: normal inspection external ears, nose, mucous membranes moist Neck: supple, trachea midline Lungs: clear, no respiratory distress, no wheezing/rhonchi/rales CV: RRR, systolic murmur, no pretibial edema Chest wall: no rashes or discolorations; mild tenderness to palpation left chest Abd: normal BS, soft, non-tender Ext: no cyanosis, no calf tenderness Neuro: A&O x 3, no focal deficits noted, normal affect Skin: warm, dry; dry scaly plaques to hands Principal Diagnosis Atypical Chest Pain, Hypertension, Bradycardia, mild Aortic stenosis, CML (chronic myelocytic leukemia), Chronic kidney disease stage 3 with single kidney 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, Elevated d-dimer (Pulmonary embolism and Deep Vein thrombosis is ruled out by Pulmonary Perfusion imaging and ultrasound of lower extremities, no aortic dissection on Chest MRA), Controlled Type 2 diabetes mellitus without complication and without retirement current use of insulin Discharge Exam Constitutional comfortable Eyes PERRL, conjunctivae normal, anicteric sclerae EOM intact bilaterally ENMT external ear and nose normal, oropharynx normal Neck trachea midline, no thyromegaly normal visual inspection Respiratory normal respiratory effort, lungs clear to auscultation Cardiovascular Rate/Rhythm: regular rhythm and + bradycardic Gastrointestinal (Abdomen) normal bowel sounds, soft, nontender, no hepatosplenomegaly Musculoskeletal Head/Neck/Chest: normocephalic and head atraumatic Neurologic PERRL, EOMI, accommodation nl, no face palsy, no dysarthria CN's II-XI intact bilaterally Psychiatric A+Ox3, euthymic affect Discharge Data Allergies Allergy/AdvReac Type Severity Reaction Status Date / Time allopurinol Allergy Unknown ` Verified 04/15/19 15:00 Consultations 04/15/19 16:56 ED Decision to Admit Stat 04/15/19 20:49 Consult Cardiology Routine Consult Case Management - Discharge Planning Routine Ordered Studies 04/15/19 18:30 MR angio chest wo/w con Urgent 04/15/19 20:49 US venous doppler [facility] Urgent Hospital Course (1) Chest pain: Atypical Chest Pain, Hypertension, Bradycardia, mild Aortic stenosis -Pt is 63 y/o M with PMH renal cell carcinoma s/p left nephrectomy in 2011, CKD III, CML, HTN, mild aortic stenosis, dyslipidemia, DM II, BPH, gout presented to ER with c/o aching chest pain to anterior mid and left chest with radiation to upper back with exertion x 1.5 weeks that resolves in 15-20 minutes with rest. Also c/o SOB with walking 100-200 yards x 1 month. C/O indigestion relieved with TUMS x 1.5 weeks. Denies associated diaphoresis, N/V, dizziness. Today was given aspirin 324mg and 1 SL nitro. Reports given 2 sprays nitro en route with resolution of CP -In ER P: 55, R: 20, BP: 151/72, 96%. No leukocytosis. Negative troponin. D- Dimer: 540. EKG sinus bradycardia, 57, no acute ST changes -asymptomatic bradycardia on telemetry around the 40 beats per minute to low 50 beats per minutes -Echocardiogram 04/16/19 The left ventricle is normal in size There is moderate concentric left ventricular hypertrophy The left ventricular wall motion is normal Ejection Fraction = 60 to 65% The aortic valve leaflets are moderately calcified Mild valvular aortic stenosis The aortic root is normal size There is no pericardial effusion -as per cardiology 04/16/19:Patient with extended episodes of chest discomfort for several days duration though without any sign of cardiac etiology by enzyme EKG or echocardiogram. Suspect multifactorial in origin including hypertension possible due to recent increase in Bosulif. Stress test in June 2018 negative for ischemia -Cardiology recommends to Decrease carvedilol to 3.125 mg twice per day. Increase hydralazine to 50 mg 3 times daily -New discharge medications changes sent electronically to [facility] [address], [place] [address] Primary Care doctor follow up 04/18/2019 2:[address] Jose C Vaughn at [address] [place] [address] Patient has follow up appointments previously made for Thursday04/22/19 to oncology and urology 06/14/2019 1:00 PM Provider Crew Leader/Control Room Operator 1 Department Cardiac Studies, [facility] (2) Elevated d-dimer: -admission D-Dimer: 540 -Pulmonary embolism and Deep Vein thrombosis is ruled out by Pulmonary Perfusion imaging and ultrasound of lower extremities, no aortic dissection on Chest MRA (3) Hypertension: -Cardiology recommends to Decrease carvedilol to 3.125 mg twice per day. Increase hydralazine to 50 mg 3 times daily. 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 -Follows with Dr Dhaliwal of [facility] nephrology (7) Renal cell carcinoma: Chronic kidney disease stage 3 with single kidney 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 -Follows with Dr Dhaliwal of [facility] nephrology (8) History of nephrectomy: Chronic kidney disease stage 3 with single kidney 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 Suspect multifactorial in origin including hypertension possible due to recent increase in Bosulif. Stress test in June 2018 negative for ischemia (10) Hematuria: -Has been having hematuria. Following with Dr Felix- Urology. -02/[address] Soft tissue density 2.3 cm lesion at the lower pole the right kidney. This could either represent a proteinaceous or hemorrhagic cyst versus a solid renal lesion.new since 2015. -03/2019 Abdominal MRI: Heterogeneously enhancing 2.0 x 1.8 cm nodule inferior pole right kidney. Possible neoplastic process is not excluded. 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, Elevated d-dimer (Pulmonary embolism and Deep Vein thrombosis is ruled out by Pulmonary Perfusion imaging and ultrasound of lower extremities, no aortic dissection on Chest MRA), Controlled Type 2 diabetes mellitus without complication and without pet walker current use of insulin (11) MEE (obstructive sleep apnea): -CPAP HS (12) Gout: -Continue febuxostat Total Time Total Time Spent Total Time Spent (In Minutes): 40 minutes Total Time Includes: Examination of the Patient, Discharge Planning, Medication Reconciliation and Communication With Other Providers Discharge Plan Discharge Items Patient Disposition: Home - Self-Care Reason For Visit: CP Discharge Diagnosis: Atypical Chest Pain, Hypertension, Bradycardia, mild Aortic stenosis, CML (chronic myelocytic leukemia), Chronic kidney disease stage 3 with single kidney 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, Elevated d-dimer (Pulmonary embolism and Deep Vein thrombosis is ruled out by Pulmonary Perfusion imaging and ultrasound of lower extremities, no aortic dissection on Chest MRA), Controlled Type 2 diabetes mellitus without complication and without retirement current use of insulin Condition on Discharge: Good Activity: Resume your previous activity Non-emergency contact: Primary Care Provider and Specialist Call non-emergency contact if: you have any medication questions Follow-up/Referrals: Steven Flores DO [Primary Care Provider] - Diet: Carb Consistent or DM2 Addtl Attending Provider Instructions: as per cardiology 04/16/19:Patient with extended episodes of chest discomfort for several days duration though without any sign of cardiac etiology by enzyme EKG or echocardiogram. Suspect multifactorial in origin including hypertension possible due to recent increase in Bosulif. Stress test in June 2018 negative for ischemia Cardiology recommends to Decrease carvedilol to 3.125 mg twice per day. Increase hydralazine to 50 mg 3 times daily New discharge medications changes sent electronically to [facility] [address] [facility] [place] [address] Primary Care doctor follow up 04/18/2019 2:[address] Jsoe C Vaughn at [address] [place] [address] Patient has follow up appointments previously made for Thursday04/22/19 to oncology 06/14/2019 1:00 PM Provider Crew Leader/Control Room Operator 1 Department Cardiac Studies, [facility] Add Director Of Catering Sales Provider Instructions: Echocardiogram 04/16/19 The left ventricle is normal in size There is moderate concentric left ventricular hypertrophy The left ventricular wall motion is normal Ejection Fraction = 60 to 65% The aortic valve leaflets are moderately calcified Mild valvular aortic stenosis The aortic root is normal size There is no pericardial effusion Pending Studies at Discharge: No Stand-Alone Forms: Call Back Authorization, [facility], Smoking Cessation Medications and DC Order Prescriptions: Continued tamsulosin 0.4 mg capsule 0.4 mg PO DAILY Qty: 90 RF: 3 lisinopril 20 mg tablet 10 mg PO DAILY RF: 0 amlodipine 10 mg tablet 10 mg PO DAILY RF: 0 Bosulif 100 mg tablet 100 mg PO DAILY RF: 0 hydrochlorothiazide 50 mg Tablet 50 mg PO BID RF: 0 aspirin [Aspirin Low Dose] 81 mg Tablet,Delayed Release (Dr/Ec) 81 mg PO DAILY RF: 0 gemfibrozil 600 mg tablet 600 mg PO BIDM RF: 0 docusate sodium [Stool Softener] 100 mg Capsule 100 mg PO BID RF: 0 rosuvastatin [Crestor] 10 mg Tablet 10 mg PO DAILY RF: 0 omega-3 acid ethyl esters 1 gram capsule 1 tab PO BID RF: 0 febuxostat [Uloric] 40 mg tablet 40 mg PO DAILY RF: 0 Bosulif 500 mg tablet 500 mg PO DAILY RF: 0 metformin 1,000 mg tablet extended release 24hr 500 mg PO BID RF: 0 Discontinued hydralazine 25 mg tablet 25 mg PO TID Qty: 90 RF: 5 carvedilol 6.25 mg Tablet 6.25 mg PO BID RF: 0 Discharge Orders: Discharge Order (Routine); Ordered 04/16/19 Ordered By: Jese Bazan Admission Data Admit Date/Time: 04/15/19 17:54 Attending Provider: Jese Bazan Admit Provider: Sanchez Dickinson Primary Care Provider: Steven Flores Other Providers: Sanchez Dickinson ; John Sharp Other Interventions: Discharge Summary Assessment (RN) Last Done: 04/16/19 13:08 DC Date/Time DO NOT enter until pt leaves facility: 04/16/19 13:33
[2019-04-16] MEDS ORDERED: HydrALAZINE TAB 50 MG TAB PO SCH (14:00)
== END 2019-04-16 13:33 | disposition home or self-care (01) ==
LOC: ED 13:21 → 2S 13:21 → SUATTDRO 17:54 → 2S 19:47

== ENCOUNTER 2020-03-26 11:27 | Inpatient (IN) ==
--- NOTE | 2020-03-26 12:55 | Emergency Department Note ---
History of Present Illness General Chief complaint: Shortness of Breath/Dyspnea Stated complaint: SOB,COUGH,HEADACHE, NAUSEA,VOMITING Time Seen by Provider: 03/26/20 12:16 Source: patient History of Present Illness Provider complaint: Shortness of breath Onset (ago): month(s) Location: chest Severity: moderate Pain Consistency: + constant Maximum Pain Intensity: 0 Quality: + other (Short of breath) Relieved By: + none Exacerbated By: + other (Using CPAP at night) Associated symptoms: + cough, + headaches and + shortness of breath; no chest pain, no fever/chills and no nausea/vomiting This is a 64-year-old male who presents with difficulty breathing. He has had difficulty breathing for several months but states that it has been getting worse recently. He states it is worse when he tries to use his CPAP at night. It is associated with a cough which he has had for over a month which is nonproductive. He denies any associated chest discomfort or pain, fevers or chills, loss of taste or smell, known exposure to COVID-19 or leg swelling or pain. He has had no vomiting or diarrhea or abdominal pain. He does complain of the headache. He has not been tested for COVID-19. 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 Home Medications Medication Instructions Recorded Confirmed Type aspirin [Aspirin Low Dose] 81 mg PO DAILY 08/28/18 03/26/20 History febuxostat [Uloric] 40 mg PO DAILY 08/28/18 03/26/20 History gemfibrozil 600 mg PO BIDM 08/28/18 03/26/20 History hydrochlorothiazide 50 mg PO BID 08/28/18 03/26/20 History omega-3 acid ethyl esters 1 g PO BID 08/28/18 03/26/20 History rosuvastatin [Crestor] 10 mg PO DAILY 08/28/18 03/26/20 History amlodipine 10 mg PO DAILY 04/15/19 03/26/20 History hydralazine 50 mg tablet 50 mg PO TID #90 tab 06/08/19 03/26/20 Rx dutasteride 0.5 mg capsule 0.5 mg PO DAILY #90 cap 10/26/19 03/26/20 Rx tamsulosin 0.4 mg capsule 0.4 mg PO DAILY #90 cap 10/26/19 03/26/20 Rx carvedilol 3.125 mg tablet 3.125 mg PO BID 11/09/19 03/26/20 History docusate sodium 50 mg capsule 50 mg PO DAILY 11/09/19 03/26/20 History metformin 500 mg tablet,extended 500 mg PO BID 11/09/19 03/26/20 History release 24 hr ergocalciferol (vitamin D2) 1,250 mcg PO DIRECTED 03/26/20 03/26/20 History hydralazine 25 mg PO TID 03/26/20 03/26/20 History lisinopril 10 mg PO DAILY 03/26/20 03/26/20 History nilotinib [Tasigna] 400 mg PO Q12H 03/26/20 03/26/20 History prochlorperazine maleate 10 mg PO Q6H PRN 03/26/20 03/26/20 History Allergies Allergy/AdvReac Type Severity Reaction Status Date / Time allopurinol Allergy Unknown Unknown Verified 03/26/20 17:20 Past Med/Surg History Medical History (Updated 03/26/20 @ 16:19 by Merrill Patel MD) Aortic stenosis, mild BPH (benign prostatic hyperplasia) Chronic kidney disease, stage 3 CML (chronic myelocytic leukemia) Diabetes mellitus, type II Gout History of nephrolithiasis Hyperlipidemia Hypertension MEE (obstructive sleep apnea) Renal carcinoma Renal cell carcinoma Vitamin D deficiency Surgical History History of cataract surgery History of nephrectomy 2011 Family History Brother Coronary heart disease fatal [place] age 51 Father FH: brain aneurysm age 60 Social History Smoking Status: Never smoker Second Hand Exposure: No; Hx Alcohol Use: No Hx Substance Use: No Preferred Language: Vietnamese Communication Ability: Effective 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 and A total of 10 systems reviewed and were otherwise negative Physical Exam Vital Signs Vital Signs - 24 hr 03/26/20 11:37 03/26/20 12:26 03/26/20 14:15 Pulse Rate 60 Pulse Rate [Apical] 69 Pulse Rate from SpO2 Sensor Pulse Rhythm [Apical] Pulse Strength [Apical] Respiratory Rate 18 20 Respiratory Effort / Characteristics Non-Labored Respiratory Depth Normal Respiratory Pattern Blood Pressure 152/71 H Blood Pressure [Right Arm] 181/88 H Blood Pressure Mean 98 Blood Pressure Mean [Right Arm] 119 Pulse Oximetry 96 96 95 Oxygen Delivery Method Room Air Room Air Room Air Sepsis Recent Fever Within 48 Hours Yes Sepsis New/Unexplained Change in Mental Status N/A Sepsis Action Taken by Nursing No Action Required 03/26/20 14:53 03/26/20 15:00 03/26/20 15:24 Pulse Rate 67 76 Pulse Rate [Apical] 67 Pulse Rate from SpO2 Sensor 68 Pulse Rhythm [Apical] Regular Pulse Strength [Apical] Normal Respiratory Rate 18 21 21 Respiratory Effort / Characteristics Non-Labored Spontaneous Respiratory Depth Normal Respiratory Pattern Regular Blood Pressure 162/69 H Blood Pressure [Right Arm] 165/76 H Blood Pressure Mean 117 Blood Pressure Mean [Right Arm] 105 Pulse Oximetry 96 96 Oxygen Delivery Method Room Air Sepsis Recent Fever Within 48 Hours Sepsis New/Unexplained Change in Mental Status Sepsis Action Taken by Nursing 03/26/20 15:30 03/26/20 15:31 03/26/20 15:40 Pulse Rate 66 70 68 Pulse Rate [Apical] Pulse Rate from SpO2 Sensor 66 70 68 Pulse Rhythm [Apical] Pulse Strength [Apical] Respiratory Rate 21 20 22 Respiratory Effort / Characteristics Respiratory Depth Respiratory Pattern Blood Pressure 155/67 H Blood Pressure [Right Arm] Blood Pressure Mean 97 Blood Pressure Mean [Right Arm] Pulse Oximetry 95 96 96 Oxygen Delivery Method Sepsis Recent Fever Within 48 Hours Sepsis New/Unexplained Change in Mental Status Sepsis Action Taken by Nursing 03/26/20 15:50 03/26/20 16:00 03/26/20 16:01 Pulse Rate 66 67 65 Pulse Rate [Apical] Pulse Rate from SpO2 Sensor 66 67 65 Pulse Rhythm [Apical] Pulse Strength [Apical] Respiratory Rate 21 19 19 Respiratory Effort / Characteristics Respiratory Depth Respiratory Pattern Blood Pressure 151/71 H Blood Pressure [Right Arm] Blood Pressure Mean 102 Blood Pressure Mean [Right Arm] Pulse Oximetry 96 96 96 Oxygen Delivery Method Sepsis Recent Fever Within 48 Hours Sepsis New/Unexplained Change in Mental Status Sepsis Action Taken by Nursing 03/26/20 16:10 03/26/20 16:20 03/26/20 16:30 Pulse Rate 71 67 63 Pulse Rate [Apical] Pulse Rate from SpO2 Sensor 71 67 63 Pulse Rhythm [Apical] Pulse Strength [Apical] Respiratory Rate 23 24 24 Respiratory Effort / Characteristics Respiratory Depth Respiratory Pattern Blood Pressure 154/61 H Blood Pressure [Right Arm] Blood Pressure Mean 89 Blood Pressure Mean [Right Arm] Pulse Oximetry 96 96 96 Oxygen Delivery Method Sepsis Recent Fever Within 48 Hours Sepsis New/Unexplained Change in Mental Status Sepsis Action Taken by Nursing 03/26/20 16:31 03/26/20 16:40 03/26/20 16:50 Pulse Rate 65 69 72 Pulse Rate [Apical] Pulse Rate from SpO2 Sensor 65 69 67 Pulse Rhythm [Apical] Pulse Strength [Apical] Respiratory Rate 20 20 20 Respiratory Effort / Characteristics Respiratory Depth Respiratory Pattern Blood Pressure Blood Pressure [Right Arm] Blood Pressure Mean Blood Pressure Mean [Right Arm] Pulse Oximetry 96 96 96 Oxygen Delivery Method Sepsis Recent Fever Within 48 Hours Sepsis New/Unexplained Change in Mental Status Sepsis Action Taken by Nursing 03/26/20 17:00 03/26/20 17:01 03/26/20 17:10 Pulse Rate 62 63 65 Pulse Rate [Apical] Pulse Rate from SpO2 Sensor 62 63 65 Pulse Rhythm [Apical] Pulse Strength [Apical] Respiratory Rate 18 22 20 Respiratory Effort / Characteristics Respiratory Depth Respiratory Pattern Blood Pressure 150/65 H Blood Pressure [Right Arm] Blood Pressure Mean 94 Blood Pressure Mean [Right Arm] Pulse Oximetry 96 96 96 Oxygen Delivery Method Sepsis Recent Fever Within 48 Hours Sepsis New/Unexplained Change in Mental Status Sepsis Action Taken by Nursing Constitutional: Vital signs reviewed. Coughing. Eyes: Pupils are equal round reactive to light. Conjunctiva are noninjected. ENT: Pharynx is clear without erythema or exudate. Mucous membranes are moist. Neck supple without meningeal signs. Respiratory: Clear to auscultation bilaterally. Breath sounds are equal bilaterally. Cardiovascular: Regular rate and rhythm. No rubs or gallops. GI: Soft, nondistended with left lower quadrant tenderness. Bowel sounds are present. Musculoskeletal: No peripheral edema. No lower extremity tenderness. Integumentary: No cyanosis. or jaundice. Neurological: The patient is awake and alert. No focal deficits. Psychiatric: Normal affect. Not anxious appearing. Course Administered Medications Discontinued Medications Piperacillin Sod/Tazobactam Sod (Zosyn) 4.5 gm in 120 mls @ 240 mls/hr IV NOW ONE Stop: 03/26/20 14:54 Last Infusion: 03/26/20 15:56 Dose: 0 mls/hr Documented by: [id number] Admin: 03/26/20 14:50 Dose: 240 mls/hr Documented by: [id number] Prochlorperazine 10 mg/ (Syringe) 10 mls @ 5 mls/min IV ONE ONE Stop: 03/26/20 16:12 Last Admin: 03/26/20 16:31 Dose: 5 mls/min Documented by: [id number] Ondansetron HCl (Ondansetron Inj 2 Mg/Ml 2 Ml Vial) 4 mg IV NOW STA Stop: 03/26/20 15:58 Last Admin: 03/26/20 16:31 Dose: Not Given Documented by: [id number] Medical Decision Making Differential Diagnosis COVID-19, pneumonia, anemia, bronchitis, viral syndrome Medical Records Attestation: I reviewed the patient's medical records. I did perform a limited focused review of portions of the patient's old chart on the electronic medical record. The patient had blood work 3 days ago which showed chronic anemia and chronic elevation of his creatinine. Home Medications Current Medication List: was personally reviewed by me Laboratory Data Attestation: I reviewed the patient's lab results. Result diagrams: 03/26/20 13:12 03/26/20 13:12 Lab Results 03/26/20 03/26/20 03/26/20 Range/Units 13:12 13:12 13:12 WBC 12.64 H (4.8-10.8) K/uL RBC 4.32 L (4.7-6.1) M/uL Hgb 12.1 L (14.0-18.0) g/dL Hct 37.2 L (42-52) % MCV 86.1 (80-100) fL MCH 28.0 (25-34) pg MCHC 32.5 (32-36) g/dL RDW Std Deviation 49.3 H (36.4-46.3) fL RDW Coeff of Joce 15.5 H (11.5-14.5) % Plt Count 338 (130-400) K/uL MPV 10.8 H (7.4-10.4) fL Immature Gran % (Auto) 0.3 % Neut % (Auto) 81.4 % Lymph % (Auto) 8.9 % [place] % (Auto) 8.3 % Eos % (Auto) 0.8 % Baso % (Auto) 0.3 % Neut # (Auto) 10.29 H (1.4-6.5) K/uL Lymph # (Auto) 1.12 L (1.2-3.4) K/uL [place] # (Auto) 1.05 H (0.11-0.59) K/uL Eos # (Auto) 0.10 (0-0.5) K/uL Baso # (Auto) 0.04 (0-0.2) K/uL Immature Gran # (Auto) 0.04 H (0.00-0.02) K/uL PT 11.7 (9.0-12.0) Seconds INR 1.1 (0.9-1.1) APTT 26.5 (21.0-31.0) Seconds PTT Ratio 0.9 Sodium 138 (136-145) mmol/L Potassium 4.1 (3.5-5.1) mmol/L Chloride 111 H (98-107) mmol/L Carbon Dioxide 19 L (21-32) mmol/L Anion Gap 8.0 (3-11) BUN 48 H (7-18) mg/dl Creatinine 2.19 H (0.6-1.4) mg/dl Est Cr Clr Drug Dosing 45.6 ml/min Est GFR ( Amer) 35.6 Est GFR (Non-Af Amer) 30.7 BUN/Creatinine Ratio 21.9 H (10-20) Glucose 140 H (70-99) mg/dl Calcium 9.5 (8.5-10.1) mg/dl Total Bilirubin 1.0 (0.2-1) mg/dl AST 13 L (15-37) U/L ALT 23 (12-78) U/L Alkaline Phosphatase 81 (45-117) U/L Troponin I < 0.015 (0-0.045) ng/ml Total Protein 7.6 (6.4-8.2) gm/dl Albumin 3.9 (3.4-5.0) gm/dl Globulin 3.7 (2.5-4.0) gm/dl Albumin/Globulin Ratio 1.1 (0.9-2) Urine Color Urine Appearance (Clear) Urine pH (4.5-7.5) Ur Specific Power (1.000-1.030) Urine Protein (Negative) Urine Glucose (UA) (Negative) Urine Ketones (Negative) Urine Blood (Negative) Urine Nitrite (Negative) Urine Bilirubin (Negative) Urine Urobilinogen (Negative) Ur Leukocyte Esterase (Negative) Urine WBC (Auto) (0-5) /hpf Urine RBC (Auto) (0-4) /hpf U Hyaline Cast (Auto) (0-5) /lpf U Epithel Cells (Auto) (0-5) /lpf Urine Bacteria (Auto) (Negative) Granular Casts (0) /lpf Urine Yeast COVID-19 Eval Order SARS-CoV-2 Ag (Rapid) (Negative) 03/26/20 03/26/20 03/26/20 Range/Units 14:05 14:10 Unknown WBC (4.8-10.8) K/uL RBC (4.7-6.1) M/uL Hgb (14.0-18.0) g/dL Hct (42-52) % MCV (80-100) fL MCH (25-34) pg MCHC (32-36) g/dL RDW Std Deviation (36.4-46.3) fL RDW Coeff of Joce (11.5-14.5) % Plt Count (130-400) K/uL MPV (7.4-10.4) fL Immature Gran % (Auto) % Neut % (Auto) % Lymph % (Auto) % [place] % (Auto) % Eos % (Auto) % Baso % (Auto) % Neut # (Auto) (1.4-6.5) K/uL Lymph # (Auto) (1.2-3.4) K/uL [place] # (Auto) (0.11-0.59) K/uL Eos # (Auto) (0-0.5) K/uL Baso # (Auto) (0-0.2) K/uL Immature Gran # (Auto) (0.00-0.02) K/uL PT (9.0-12.0) Seconds INR (0.9-1.1) APTT (21.0-31.0) Seconds PTT Ratio Sodium (136-145) mmol/L Potassium (3.5-5.1) mmol/L Chloride (98-107) mmol/L Carbon Dioxide (21-32) mmol/L Anion Gap (3-11) BUN (7-18) mg/dl Creatinine (0.6-1.4) mg/dl Est Cr Clr Drug Dosing ml/min Est GFR ( Amer) Est GFR (Non-Af Amer) BUN/Creatinine Ratio (10-20) Glucose (70-99) mg/dl Calcium (8.5-10.1) mg/dl Total Bilirubin (0.2-1) mg/dl AST (15-37) U/L ALT (12-78) U/L Alkaline Phosphatase (45-117) U/L Troponin I (0-0.045) ng/ml Total Protein (6.4-8.2) gm/dl Albumin (3.4-5.0) gm/dl Globulin (2.5-4.0) gm/dl Albumin/Globulin Ratio (0.9-2) Urine Color Yellow Urine Appearance Cloudy A (Clear) Urine pH 5.0 (4.5-7.5) Ur Specific Power 1.018 (1.000-1.030) Urine Protein 2+ H (Negative) Urine Glucose (UA) Negative (Negative) Urine Ketones Negative (Negative) Urine Blood 2+ H (Negative) Urine Nitrite Negative (Negative) Urine Bilirubin Negative (Negative) Urine Urobilinogen Negative (Negative) Ur Leukocyte Esterase Negative (Negative) Urine WBC (Auto) 1-5 (0-5) /hpf Urine RBC (Auto) >30 H (0-4) /hpf U Hyaline Cast (Auto) 1-5 (0-5) /lpf U Epithel Cells (Auto) 20-30 H (0-5) /lpf Urine Bacteria (Auto) Negative (Negative) Granular Casts 1-5 H (0) /lpf Urine Yeast Not Reportable COVID-19 Eval Order Covid19 Sent to [facility] SARS-CoV-2 Ag (Rapid) Negative (Negative) Imaging Data Radiologist's Impression: XR chest 1V portable CLINICAL HISTORY: Dyspnea COMPARISON STUDY: 04/15/2019 FINDINGS: The heart is mildly enlarged. There is mild elevation of interstitium. There is a new right basilar opacity. This could represent a subpulmonic pleural effusion with right lower lobe consolidation, or elevation right hemidiaphragm with right basilar consolidation. There is mild right hilar prominence. Adenopathy cannot be excluded.[ IMPRESSION: 1. Abnormal opacity at the right lung base. This could represent a subpulmonic pleural effusion with right lower lobe consolidation, or an elevated right hemidiaphragm with right basilar consolidation. 2. Mild right hilar prominence 3. Mild diffuse elevation of the interstitium 4. Clinical and imaging follow-up is recommended given the nonspecificity of the pulmonary findings. ACT 112: Negative or not required by law. Electronically signed by: Blake Dallas M.D. 03/26/2020 2:16 PM Dictated: 03/26/201413 Transcribed: 03/26/201413 CT SCAN OF THE ABDOMEN AND PELVIS WITHOUT CONTRAST CLINICAL HISTORY: LLQ pain COMPARISON STUDY: February 2019 TECHNIQUE: CT scan of the abdomen and pelvis was performed from the lung bases to the proximal femurs. Images are reviewed in the axial, sagittal, and coronal planes. IV contrast was not administered for this examination. A dose lowering technique was utilized adhering to the principles of ALARA. CT DOSE: 1077.42 mGycm FINDINGS: Lower chest: Since the prior study, the patient has developed a moderate to large right pleural effusion with right middle and lower lobe atelectasis. There is mild septal edema. There are minor left basilar atelectatic changes. There is a small pericardial effusion. Liver: No focal hepatic masses are visualized in this noncontrast study. Early cirrhotic changes cannot be excluded. Gallbladder: Cholelithiasis Spleen: Mildly enlarged measuring 13 cm Pancreas: Unremarkable. Adrenal glands: Unremarkable. Kidneys: The left kidney is surgically absent. There are punctate right renal calculi. There is a stable 2 cm lower pole right renal mass. Bowel: There are no transition zones indicate bowel obstruction. There is no e vidence of acute diverticulitis. There is no evidence of acute appendicitis. Peritoneum: There is low volume ascites. There is no free intraperitoneal air. Vasculature: The abdominal aorta is normal in course and caliber. Adenopathy: None. Pelvic viscera: The prostate is enlarged measuring 61 mm. Skeletal structures: No destructive osseous lesions are seen. There is a stable nonspecific 9 mm sclerotic lesion within the left iliac bone. IMPRESSION: 1. Moderate to large right pleural effusion with right basilar compressive atelectasis 2. Mild lower lung zone septal edema 3. Small pericardial effusion 4. Cholelithiasis 5. No evidence of bowel obstruction. No evidence of free air 6. Mild splenomegaly 7. Low volume ascites 8. No evidence of acute diverticulitis. No evidence of acute appendicitis 9. Prostatomegaly 10. Right-sided nephrolithiasis 11. Indeterminate 2 cm lower pole right renal mass 12. Surgically absent left kidney ACT 112: Negative or not required by law. Electronically signed by: Blake Dallas M.D. 03/26/2020 3:34 PM ECG Data Attestation: I personally reviewed and interpreted this ECG as follows: Indication: + SOB/dyspnea Rate (beats per minute): 69 Rhythm: + normal sinus ECG ST segments: no ST elevation ECG Findings: + PACs; no Q waves MDM Narrative I did evaluate the patient as noted above. The patient was initially placed in respiratory isolation. A COVID-19 test was obtained and sent to the [facility]. IV access was established. I did place an order for continuous cardiac monitoring. The monitor showed normal sinus rhythm at a rate of 68 bpm. I did order and personally review the patient's 12-lead EKG as described above. No acute ischemia is noted. I did order and personally reviewed the images of the patient's chest x-ray as described above. Chest x-ray demonstrates a right lower lobe pneumonia. I did order blood cultures and treated him with Zosyn IV. Given the likelihood of admission with this finding I did order a rapid Covid test which was negative. I did order and review the patient's blood work as noted in the electronic medical record. His white blood cell count is elevated. His hemoglobin is 12.9. Electrolytes demonstrate a low CO2. He has chronic elevation of his BUN and creatinine. Troponin is negative. I did order a CT of the abdomen and pelvis. I did review the images myself as well as the radiology report as described above. There is no evidence of acute process within the abdomen pelvis. He does appear to have a moderate to large right pleural effusion with right basilar compressive atelectasis. There is also a small pericardial effusion and cholelithiasis. He also has incidental finding as noted above. I did discuss the test results with the patient. He will be hospitalized for further care and evaluation. He had an episode of vomiting here and was given Compazine IV. I did discuss the case with the hospitalist and case management specialist. Impression & Plan Pleural effusion on right, Chronic kidney disease, stage 3, Effusion, pericardium, Abdominal pain Discharge Plan Visit Data Chief Complaint: Shortness of Breath/Dyspnea Stated Complaint: SOB,COUGH,HEADACHE, NAUSEA,VOMITING ED Provider: Merrill Patel Discharge Problem: Pleural effusion on right, Chronic kidney disease, stage 3, Effusion, pericardium, Abdominal pain Patient Disposition: Being Evaluated by Hospitalist Forms Stand Alone Forms: My [facility] Prescriptions Prescriptions: No Action hydralazine 50 mg tablet 50 mg PO TID Qty: 90 RF: 5 dutasteride 0.5 mg capsule 0.5 mg PO DAILY Qty: 90 RF: 3 tamsulosin 0.4 mg capsule 0.4 mg PO DAILY Qty: 90 RF: 3 docusate sodium 50 mg capsule 50 mg PO DAILY RF: 0 metformin 500 mg tablet extended release 24 hr 500 mg PO BID RF: 0 carvedilol 3.125 mg tablet 3.125 mg PO BID RF: 0 amlodipine 10 mg tablet 10 mg PO DAILY RF: 0 hydrochlorothiazide 50 mg Tablet 50 mg PO BID RF: 0 aspirin [Aspirin Low Dose] 81 mg Tablet,Delayed Release (Dr/Ec) 81 mg PO DAILY RF: 0 gemfibrozil 600 mg tablet 600 mg PO BIDM RF: 0 rosuvastatin [Crestor] 10 mg Tablet 10 mg PO DAILY RF: 0 omega-3 acid ethyl esters 1 gram capsule 1 g PO BID RF: 0 febuxostat [Uloric] 40 mg tablet 40 mg PO DAILY RF: 0 prochlorperazine maleate 10 mg tablet 10 mg PO Q6H PRN (Reason: Nausea) RF: 0 Tasigna 200 mg capsule 400 mg PO Q12H RF: 0 hydralazine 25 mg tablet 25 mg PO TID RF: 0 lisinopril 10 mg tablet 10 mg PO DAILY RF: 0 ergocalciferol (vitamin D2) 1,250 mcg (50,000 unit) capsule 1,250 mcg PO DIRECTED RF: 0 Referrals Referrals: Jose C Vaughn MD [Primary Care Provider] - Discharge Problem: Chronic kidney disease, stage 3 Qualifiers: Chronic kidney disease stage 3 subtype: unspecified whether 3a or 3b Qualified Code(s): N18.30 - Chronic kidney disease, stage 3 unspecified Abdominal pain Qualifiers: Abdominal location: left lower quadrant Qualified Code(s): R10.32 - Left lower quadrant pain
[2020-03-26 13:45] LABS: Basophils # (auto) 0.04 K/uL (0-0.2); Basophils % (auto) 0.3 %; Eosinophils % (auto) 0.8 %; Hematocrit (blood only) 37.2 % (42-52); Hemoglobin 12.1 g/dL (14.0-18.0); Immature Granulocytes # (auto) 0.04 K/uL (0.00-0.02); Immature Granulocytes % (auto) 0.3 %; Lymphocytes # (auto) 1.12 K/uL (1.2-3.4); Lymphocytes % (auto) 8.9 %; Mean Corpuscular Hgb Conc 32.5 g/dL (32-36); Mean Corpuscular Volume 86.1 fL (80-100); Mean Platelet Volume 10.8 fL (7.4-10.4); Monocytes # (auto) 1.05 K/uL (0.11-0.59); Monocytes % (auto) 8.3 %; Neutrophils # (auto) 10.29 K/uL (1.4-6.5); Neutrophils % (auto) 81.4 %; Platelet Count 338 K/uL (130-400); RDW Coefficient of Variation 15.5 % (11.5-14.5); RDW Standard Deviation 49.3 fL (36.4-46.3); Red Blood Count 4.32 M/uL (4.7-6.1); White Blood Count 12.64 K/uL (4.8-10.8)
[2020-03-26 14:04] LABS: Alanine Aminotransferase 23 U/L (12-78); Albumin Level 3.9 gm/dl (3.4-5.0); Aspartate Aminotransferase 13 U/L (15-37); BUN Creatinine Ratio 21.9 (10-20); Blood Urea Nitrogen 48 mg/dl (7-18); Calcium 9.5 mg/dl (8.5-10.1); Carbon Dioxide 19 mmol/L (21-32); Chloride 111 mmol/L (98-107); Creatinine Clr Calc Pharmacy 45.6 ml/min; Est GFR (African American) 35.6; Est GFR (Non-African American) 30.7; Glucose 140 mg/dl (70-99); Potassium 4.1 mmol/L (3.5-5.1); Sodium 138 mmol/L (136-145)
[2020-03-26 14:05] LABS: INR 1.1 (0.9-1.1); Partial Thromboplastin Ratio 0.9; Partial Thromboplastin Time 26.5 Seconds (21.0-31.0); Prothrombin Time 11.7 Seconds (9.0-12.0)
[2020-03-26 14:08] LABS: Albumin Globulin Ratio 1.1 (0.9-2); Alkaline Phosphatase 81 U/L (45-117); Globulin 3.7 gm/dl (2.5-4.0); Total Protein 7.6 gm/dl (6.4-8.2); Troponin I < 0.015 ng/ml (0-0.045)
--- NOTE | 2020-03-26 14:17 | XRay Report ---
XR chest 1V portable CLINICAL HISTORY: Dyspnea COMPARISON STUDY: 04/15/2019 FINDINGS: The heart is mildly enlarged. There is mild elevation of interstitium. There is a new right basilar opacity. This could represent a subpulmonic pleural effusion with right lower lobe consolida tion, or elevation right hemidiaphragm with right basilar consolidation. There is mild right hilar pr ominence. Adenopathy cannot be excluded.[ IMPRESSION: 1. Abnormal opacity at the right lung base. This could represent a subpulmonic pleural effusion with right lower lobe consolidation, or an elevated right hemidiaphragm with right basilar consolidation. 2. Mild right hilar prominence 3. Mild diffuse elevation of the interstitium 4. Clinical and imaging follow-up is recommended given the nonspecificity of the pulmonary findings. ACT 112: Negative or not required by law. Electronically signed by: Blake Dallas M.D. 03/26/2020 2:16 PM
[2020-03-26] MEDS ORDERED: PIPERACILLIN/TAZOBACTAM 4.5 GM/120 ML BAG IV ONE (14:25)
[2020-03-26] MEDS ORDERED: PIPERACILL/TAZOBAC CONSULT ACTIVE PRN (14:25)
[2020-03-26 14:58] LABS: Appearance Urine Cloudy (Clear); Bacteria Urine Automated Negative (Negative); Bilirubin Urine Negative (Negative); Blood Urine 2+ (Negative); Color Urine Yellow; Epithelial Cell Urine Auto 20-30 /lpf (0-5); Glucose Urine UA Negative (Negative); Ketones Urine Negative (Negative); Leukocyte Esterase Urine Negative (Negative); Nitrite Urine Negative (Negative); Protein Urine 2+ (Negative); RBC Urine Automated >30 /hpf (0-4); Specific Gravity Urine 1.018 (1.000-1.030); Urobilinogen Urine Negative (Negative)
--- NOTE | 2020-03-26 15:35 | CT Scan Report ---
CT SCAN OF THE ABDOMEN AND PELVIS WITHOUT CONTRAST CLINICAL HISTORY: LLQ pain COMPARISON STUDY: February 2019 TECHNIQUE: CT scan of the abdomen and pelvis was performed from the lung bases to the proximal femurs . Images are reviewed in the axial, sagittal, and coronal planes. IV contrast was not administered fo r this examination. A dose lowering technique was utilized adhering to the principles of ALARA. CT DOSE: 1077.42 mGycm FINDINGS: Lower chest: Since the prior study, the patient has developed a moderate to large right pleural effus ion with right middle and lower lobe atelectasis. There is mild septal edema. There are minor left ba silar atelectatic changes. There is a small pericardial effusion. Liver: No focal hepatic masses are visualized in this noncontrast study. Early cirrhotic changes misha ot be excluded. Gallbladder: Cholelithiasis Spleen: Mildly enlarged measuring 13 cm Pancreas: Unremarkable. Adrenal glands: Unremarkable. Kidneys: The left kidney is surgically absent. There are punctate right renal calculi. There is a sta ble 2 cm lower pole right renal mass. Bowel: There are no transition zones indicate bowel obstruction. There is no evidence of acute divert iculitis. There is no evidence of acute appendicitis. Peritoneum: There is low volume ascites. There is no free intraperitoneal air. Vasculature: The abdominal aorta is normal in course and caliber. Adenopathy: None. Pelvic viscera: The prostate is enlarged measuring 61 mm. Skeletal structures: No destructive osseous lesions are seen. There is a stable nonspecific 9 mm scle rotic lesion within the left iliac bone. IMPRESSION: 1. Moderate to large right pleural effusion with right basilar compressive atelectasis 2. Mild lower lung zone septal edema 3. Small pericardial effusion 4. Cholelithiasis 5. No evidence of bowel obstruction. No evidence of free air 6. Mild splenomegaly 7. Low volume ascites 8. No evidence of acute diverticulitis. No evidence of acute appendicitis 9. Prostatomegaly 10. Right-sided nephrolithiasis 11. Indeterminate 2 cm lower pole right renal mass 12. Surgically absent left kidney ACT 112: Negative or not required by law. Electronically signed by: Blake Dallas M.D. 03/26/2020 3:34 PM
[2020-03-26] MEDS ORDERED: ONDANSETRON INJ 2 MG/ML 2 ML VIAL IV STA (15:57)
[2020-03-26] MEDS ORDERED: PROCHLORPERAZINE 10 MG in SYRINGE 8 ML IV ONE (16:11)
[2020-03-26] MEDS ORDERED: hydrALAZINE HCL 20 MG/ML VIAL IV PRN (19:23)
--- NOTE | 2020-03-26 19:33 | History & Physical Report ---
Date of Service March 26, 2020 Assessment & Plan (1) Pleural effusion on right: Admission and Anticipated Discharge Date Admission Date: 64-year-old male with history of CML, on nilotinib, diabetes type 2, hypertension, CKD stage III, status post nephrectomy for renal cell cancer, obstructive sleep apnea Presenting for aggressive shortness of breath times times few weeks. SHORTNESS OF BREATH LIKELY SECONDARY TO LARGE RIGHT-SIDED PLEURAL EFFUSION POSSIBLE PNEUMONIA, COMMUNITY-ACQUIRED RULE OUT COVID-19 INFECTION Currently saturating 96% on room air but will place on 2 L of oxygen via nasal cannula for comfort Check CT chest without contrast Nasal MRSA: Pending Sputum culture: Pending Covid antigen test: Negative Blood cultures: Pending Empiric IV Zosyn and doxycycline Spinner Open End consulted Contact and airborne isolation for now until Covid PCR results are HEMOPTYSIS Check CT chest Hold aspirin Spinner Open End consulted DIARRHEA Stool cultures and C. difficile CML Hold nilotinib Diabetes type 2 Usually on Metformin Start insulin sliding scale Hypertension Elevated Continue usual amlodipine, hydralazine, carvedilol, hold lisinopril and HCTZ in light of acute renal failure Hydralazine IV as needed ordered Acute renal failure CKD stage III Creatinine 1.8, today 2.1 We will hold off on IV fluids in light of large right-sided pleural effusion Encourage oral fluid intake Monitor creatinine Gout Continue Febuxostat Obstructive sleep apnea Continue CPAP BPH Continue tamsulosin and dutasteride Recent PSA elevated Outpatient follow up Abnormal CT findings Pericardial effusion: We will check echocardiogram DVT prophylaxis SCDs only for now in light of hemoptysis Disposition Lives at home with family History of Present Illness 64-year-old male with history of CML, diabetes type 2, hypertension, dyslipidemia CKD stage III, renal cell carcinoma, status post nephrectomy positive sleep apnea, other problems are below presenting with shortness of breath x3 weeks. Patient states that he has been having progressive exertional dyspnea for the past few weeks, associated with weakness, cough, and nausea. Symptoms have progressed to the point that patient has difficulty ambulating distance of a few feet. He has also been having a couple episodes of vomiting starting yesterday associated with productive cough, sweats, chills, dizziness and diarrhea of loose bowel movements-nonbloody. Patient reports that 2 weeks ago, he was started on nilotinib for CML. He denies having any chest pain, headache, abdominal pain, problems with urination. At the ER, patient was received afebrile, blood pressure elevated, saturating 93% on room air. Chest x-ray showed: 1. Abnormal opacity at the right lung base. This could represent a subpulmonic pleural effusion with right lower lobe consolidation, or an elevated right hemidiaphragm with right basilar consolidation. 2. Mild right hilar prominence 3. Mild diffuse elevation of the interstitium 4. Clinical and imaging follow-up is recommended given the nonspecificity of the pulmonary findings. CT chest abdomen and pelvis showed: 1. Moderate to large right pleural effusion with right basilar compressive atelectasis 2. Mild lower lung zone septal edema 3. Small pericardial effusion 4. Cholelithiasis 5. No evidence of bowel obstruction. No evidence of free air 6. Mild splenomegaly 7. Low volume ascites 8. No evidence of acute diverticulitis. No evidence of acute appendicitis 9. Prostatomegaly 10. Right-sided nephrolithiasis 11. Indeterminate 2 cm lower pole right renal mass 12. Surgically absent left kidney Exam, the patient was seen resting in bed, sitting up, not in distress, speaks in sentences with no effort or accessory muscle use. He reports having some mild dyspnea, but no active chest pain, nausea improving with antiemetic given earlier. No other symptoms. Primary Care Provider: Jose C Vaughn MD Allergies Allergy/AdvReac Type Severity Reaction Status Date / Time allopurinol Allergy Unknown Unknown Verified 03/26/20 17:20 Home Medications Medication Instructions Recorded Confirmed Type aspirin [Aspirin Low Dose] 81 mg PO DAILY 08/28/18 03/26/20 History febuxostat [Uloric] 40 mg PO DAILY 08/28/18 03/26/20 History gemfibrozil 600 mg PO BIDM 08/28/18 03/26/20 History hydrochlorothiazide 50 mg PO BID 08/28/18 03/26/20 History omega-3 acid ethyl esters 1 g PO BID 08/28/18 03/26/20 History rosuvastatin [Crestor] 10 mg PO DAILY 08/28/18 03/26/20 History amlodipine 10 mg PO DAILY 04/15/19 03/26/20 History hydralazine 50 mg tablet 50 mg PO TID #90 tab 06/08/19 03/26/20 Rx dutasteride 0.5 mg capsule 0.5 mg PO DAILY #90 cap 10/26/19 03/26/20 Rx tamsulosin 0.4 mg capsule 0.4 mg PO DAILY #90 cap 10/26/19 03/26/20 Rx carvedilol 3.125 mg tablet 3.125 mg PO BID 11/09/19 03/26/20 History docusate sodium 50 mg capsule 50 mg PO DAILY 11/09/19 03/26/20 History metformin 500 mg tablet,extended 500 mg PO BID 11/09/19 03/26/20 History release 24 hr ergocalciferol (vitamin D2) 1,250 mcg PO DIRECTED 03/26/20 03/26/20 History hydralazine 25 mg PO TID 03/26/20 03/26/20 History lisinopril 10 mg PO DAILY 03/26/20 03/26/20 History nilotinib [Tasigna] 400 mg PO Q12H 03/26/20 03/26/20 History prochlorperazine maleate 10 mg PO Q6H PRN 03/26/20 03/26/20 History Past Med/Surg History Medical History (Updated 03/26/20 @ 16:19 by Merrill Patel MD) Aortic stenosis, mild BPH (benign prostatic hyperplasia) Chronic kidney disease, stage 3 CML (chronic myelocytic leukemia) Diabetes mellitus, type II Gout History of nephrolithiasis Hyperlipidemia Hypertension MEE (obstructive sleep apnea) Renal carcinoma Renal cell carcinoma Vitamin D deficiency Surgical History History of cataract surgery History of nephrectomy 2011 Family History Brother Coronary heart disease fatal [place] age 51 Father FH: brain aneurysm age 60 Social History Smoking Status: Never smoker Second Hand Exposure: No; Hx Alcohol Use: No Hx Substance Use: No Preferred Language: Romanian Communication Ability: Effective 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 Required: No Beliefs That Will Affect Care: None marital status: Current Living Situation: Spouse current occupational status: employed How many Children do You have: 2 Other Information That Helps Us Care for You: No Feels Safe at Home: Yes Safety Concerns: Feels Safe At This Time Assistive Devices: None Review of Systems Review of Systems: All systems reviewed & are unremarkable except as noted in Subjective Physical Exam Physical Exam: General- oriented x 3, not in distress, speaks in sentences with no effort or accessory muscle use Head- atraumatic Eyes- PERRL, EOMI, anicteric ENT- oropharynx clear Dry oral mucosa Neck- supple, no JVD, no adenopathy, no thyromegaly; carotids +2/2, no bruits appreciated Lungs-decreased breath sounds right mid to base Left clear to auscultation Heart- normal rate, regular rhythm; no murmur, no gallop, no rub appreciated Abdomen- normal bowel sounds, nondistended, soft, nontender, no masses or hepatosplenomegaly Extremities- no pretibial edema, no calf tenderness; peripheral pulses intact Neuro- alert, oriented x 3; CN 2-12 grossly intact; motor 5/5 bilaterally;sensation 100% on all extremities; no other gross focal neurologic deficits Skin- warm & dry Results & Data Results & Data ([facility]) Vital Signs (Past 12 Hours) Vital Signs Pulse Pulse Resp BP BP Pulse Ox 03/26/20 19:10 63 17 98 03/26/20 19:02 81 24 03/26/20 18:40 95 03/26/20 18:31 95 03/26/20 18:30 159/78 H 95 03/26/20 18:20 95 03/26/20 18:10 96 03/26/20 18:08 94 03/26/20 18:00 177/100 H 03/26/20 17:50 96 03/26/20 17:40 97 03/26/20 17:31 66 14 95 03/26/20 17:30 63 16 152/80 H 96 03/26/20 17:20 65 20 96 03/26/20 17:10 65 20 96 03/26/20 17:01 63 22 96 03/26/20 17:00 62 18 150/65 H 96 03/26/20 16:50 72 20 96 03/26/20 16:40 69 20 96 03/26/20 16:31 65 20 96 03/26/20 16:30 63 24 154/61 H 96 03/26/20 16:20 67 24 96 03/26/20 16:10 71 23 96 03/26/20 16:01 65 19 96 11/23/20 16:00 67 19 151/71 H 96 03/26/20 15:50 66 21 96 03/26/20 15:40 68 22 96 03/26/20 15:31 70 20 96 03/26/20 15:30 66 21 155/67 H 95 03/26/20 15:24 76 21 03/26/20 15:00 67 21 162/69 H 96 03/26/20 14:53 67 18 165/76 H 96 03/26/20 14:15 69 20 181/88 H 95 03/26/20 12:26 96 03/26/20 11:37 60 18 152/71 H 96 Laboratory Results Laboratory Results - last 24 hr 03/26/20 03/26/20 03/26/20 13:12 13:12 13:12 WBC 12.64 H RBC 4.32 L Hgb 12.1 L Hct 37.2 L MCV 86.1 MCH 28.0 MCHC 32.5 RDW Std Deviation 49.3 H RDW Coeff of Joce 15.5 H Plt Count 338 MPV 10.8 H Immature Gran % (Auto) 0.3 Neut % (Auto) 81.4 Lymph % (Auto) 8.9 [place] % (Auto) 8.3 Eos % (Auto) 0.8 Baso % (Auto) 0.3 Neut # (Auto) 10.29 H Lymph # (Auto) 1.12 L [place] # (Auto) 1.05 H Eos # (Auto) 0.10 Baso # (Auto) 0.04 Immature Gran # (Auto) 0.04 H PT 11.7 INR 1.1 APTT 26.5 PTT Ratio 0.9 Sodium 138 Potassium 4.1 Chloride 111 H Carbon Dioxide 19 L Anion Gap 8.0 BUN 48 H Creatinine 2.19 H Est Cr Clr Drug Dosing 45.6 Est GFR ( Amer) 35.6 Est GFR (Non-Af Amer) 30.7 BUN/Creatinine Ratio 21.9 H Glucose 140 H Calcium 9.5 Total Bilirubin 1.0 AST 13 L ALT 23 Alkaline Phosphatase 81 Troponin I < 0.015 Total Protein 7.6 Albumin 3.9 Globulin 3.7 Albumin/Globulin Ratio 1.1 Urine Color Urine Appearance Urine pH Ur Specific [place] Urine Protein Urine Glucose (UA) Urine Ketones Urine Blood Urine Nitrite Urine Bilirubin Urine Urobilinogen Ur Leukocyte Esterase Urine WBC (Auto) Urine RBC (Auto) U Hyaline Cast (Auto) U Epithel Cells (Auto) Urine Bacteria (Auto) Granular Casts Urine Yeast COVID-19 Eval Order Nasopharyn COVID-19 PCR SARS-CoV-2 Ag (Rapid) 03/26/20 03/26/20 03/26/20 14:05 14:05 14:10 WBC RBC Hgb Hct MCV MCH MCHC RDW Std Deviation RDW Coeff of Joce Plt Count MPV Immature Gran % (Auto) Neut % (Auto) Lymph % (Auto) [place] % (Auto) Eos % (Auto) Baso % (Auto) Neut # (Auto) Lymph # (Auto) [place] # (Auto) Eos # (Auto) Baso # (Auto) Immature Gran # (Auto) PT INR APTT PTT Ratio Sodium Potassium Chloride Carbon Dioxide Anion Gap BUN Creatinine Est Cr Clr Drug Dosing Est GFR ( Amer) Est GFR (Non-Af Amer) BUN/Creatinine Ratio Glucose Calcium Total Bilirubin AST ALT Alkaline Phosphatase Troponin I Total Protein Albumin Globulin Albumin/Globulin Ratio Urine Color Yellow Urine Appearance Cloudy A Urine pH 5.0 Ur Specific [place] 1.018 Urine Protein 2+ H Urine Glucose (UA) Negative Urine Ketones Negative Urine Blood 2+ H Urine Nitrite Negative Urine Bilirubin Negative Urine Urobilinogen Negative Ur Leukocyte Esterase Negative Urine WBC (Auto) 1-5 Urine RBC (Auto) >30 H U Hyaline Cast (Auto) 1-5 U Epithel Cells (Auto) 20-30 H Urine Bacteria (Auto) Negative Granular Casts 1-5 H Urine Yeast Not Reportable COVID-19 Eval Order Covid19 Sent to [facility] COVID-19 PCR Pending SARS-CoV-2 Ag (Rapid) 03/26/20 Unknown WBC RBC Hgb Hct MCV MCH MCHC RDW Std Deviation RDW Coeff of Joce Plt Count MPV Immature Gran % (Auto) Neut % (Auto) Lymph % (Auto) [place] % (Auto) Eos % (Auto) Baso % (Auto) Neut # (Auto) Lymph # (Auto) [place] # (Auto) Eos # (Auto) Baso # (Auto) Immature Gran # (Auto) PT INR APTT PTT Ratio Sodium Potassium Chloride Carbon Dioxide Anion Gap BUN Creatinine Est Cr Clr Drug Dosing Est GFR ( Amer) Est GFR (Non-Af Amer) BUN/Creatinine Ratio Glucose Calcium Total Bilirubin AST ALT Alkaline Phosphatase Troponin I Total Protein Albumin Globulin Albumin/Globulin Ratio Urine Color Urine Appearance Urine pH Ur Specific [place] Urine Protein Urine Glucose (UA) Urine Ketones Urine Blood Urine Nitrite Urine Bilirubin Urine Urobilinogen Ur Leukocyte Esterase Urine WBC (Auto) Urine RBC (Auto) U Hyaline Cast (Auto) U Epithel Cells (Auto) Urine Bacteria (Auto) Granular Casts Urine Yeast COVID-19 Eval Order Nasopharyn COVID-19 PCR SARS-CoV-2 Ag (Rapid) Negative Code Status & VTE Plan Code Status Full code VTE Prophylaxis Plan VTE Prophylaxis will be ordered: Yes
[2020-03-27] MEDS ORDERED: DEXTROSE 50% 50 ML SYRINGE IV PRN (01:55)
[2020-03-27] MEDS ORDERED: GLUCOSE 10 TABS/TUBE PO PRN (01:55)
[2020-03-27] MEDS ORDERED: GLUCAGON FOR INJ 1 MG VIAL SQ PRN (01:55)
[2020-03-27] MEDS ORDERED: CARBOHYDRATES FOR HYPOGLYCEMIA PO PRN (01:55)
[2020-03-27] MEDS ORDERED: GLUCOSE 40% GEL 15 GM TUBE PO PRN (01:55)
[2020-03-27] MEDS ORDERED: DOXYCYCLINE PHARMACY CONSULT IN PROGRESS PRN (01:58)
[2020-03-27] MEDS: carvediloL 3.125 MG TAB PO SCH ×4 (02:01→21:43)
[2020-03-27] MEDS: hydrALAZINE TAB 50 MG TAB PO SCH ×5 (02:01→21:43)
[2020-03-27] MEDS: INSULIN ASPART 100 UNITS/ML 3 ML PEN SC SCH ×5 (02:38→21:23)
[2020-03-27] MEDS ORDERED: PROMETHAZINE HCL 12.5 MG in SODIUM CHLORIDE 0.9% 50 ML IV PRN (02:42)
[2020-03-27] MEDS ORDERED: LORazepam 0.25 MG/0.5 ML VIAL IV STA (02:43)
[2020-03-27] MEDS ORDERED: MELATONIN 3 MG TAB PO PRN (02:43)
[2020-03-27] MEDS: PIPERACILLIN/TAZOBACTAM 3.375 GM in DEXTROSE 5% 100 ML IV SCH ×3 (02:58→18:07)
[2020-03-27 06:15] LABS: Basophils # (auto) 0.05 K/uL (0-0.2); Basophils % (auto) 0.4 %; Eosinophils # (auto) 0.16 K/uL (0-0.5); Eosinophils % (auto) 1.4 %; Hematocrit (blood only) 34.4 % (42-52); Hemoglobin 11.1 g/dL (14.0-18.0); Immature Granulocytes # (auto) 0.02 K/uL (0.00-0.02); Immature Granulocytes % (auto) 0.2 %; Lymphocytes # (auto) 0.96 K/uL (1.2-3.4); Lymphocytes % (auto) 8.5 %; Mean Corpuscular Hemoglobin 27.8 pg (25-34); Mean Corpuscular Hgb Conc 32.3 g/dL (32-36); Mean Corpuscular Volume 86.2 fL (80-100); Mean Platelet Volume 10.8 fL (7.4-10.4); Monocytes % (auto) 10.6 %; Neutrophils # (auto) 8.92 K/uL (1.4-6.5); Neutrophils % (auto) 78.9 %; Platelet Count 312 K/uL (130-400); RDW Coefficient of Variation 15.4 % (11.5-14.5); RDW Standard Deviation 49.4 fL (36.4-46.3); Red Blood Count 3.99 M/uL (4.7-6.1); White Blood Count 11.31 K/uL (4.8-10.8)
--- NOTE | 2020-03-27 06:19 | Electrocardiogram Report ---
Test Reason : Blood Pressure : / mmHG Vent. Rate : 069 BPM Atrial Rate : 069 BPM P-R Int : 152 ms QRS Dur : 100 ms QT Int : 438 ms P-R-T Axes : 090 -11 046 degrees QTc Int : 469 ms Sinus rhythm with Premature supraventricular complexes Otherwise normal ECG When compared with ECG of 23-MAR-2020 10:11, Premature supraventricular complexes are now Present Questionable change in QRS axis Confirmed by Ronny Coley ([id number]) on 03/27/2020 6:18:59 AM Referred By: REFERRED SELF Confirmed By:Ronny Coley
[2020-03-27] MEDS: DOXYCYCLINE HYCLATE 100 MG in DEXTROSE 5% 100 ML IV SCH ×2 (06:27→16:10)
[2020-03-27 06:50] LABS: Calcium 9.2 mg/dl (8.5-10.1); Creatinine Clr Calc Pharmacy 51.8 ml/min; Est GFR (African American) 42.2; Est GFR (Non-African American) 36.4; Magnesium 2.3 mg/dl (1.8-2.4); Potassium 3.8 mmol/L (3.5-5.1)
[2020-03-27] MEDS: amLODIPine BESYLATE 5 MG TAB PO SCH (08:45)
[2020-03-27] MEDS: TAMSULOSIN HCL 0.4 MG CAP PO SCH (08:45)
[2020-03-27] MEDS: FEBUXOSTAT 40 MG TABLET PO SCH (08:45)
[2020-03-27] MEDS: ROSUVASTATIN CALCIUM 10 MG TAB PO SCH (08:45)
[2020-03-27] MEDS: AVODART~ORDER AWAITING ACTION SCH ×4 (08:49→22:26)
--- NOTE | 2020-03-27 12:09 | Procedure Note ---
Procedure Note Date of Service March 27, 2020 Procedure: Diagnostic therapeutic ultrasound-guided catheter thoracentesis, right Collision Technician: Dr. Eduardo Seay Indication: Pleural effusion Consent: Signed by patient and verified with timeout prior to procedure Anesthesia: 8 mL's 1% lidocaine without epinephrine local. Procedure: Consent was verified and timeout performed. Appropriate imaging studies were reviewed prior to the procedure. Patient was placed in a seated position and limited thoracic ultrasound was performed of the bilateral chest. Due to technical issues, the images were not able to be uploaded into the PACS system. Site appropriate for thoracentesis was selected. The skin was prepped and draped in normal sterile fashion. Lidocaine was used for local analgesia. Fluid was aspirated via the finder needle. A small skin joe was made with the scalpel and the catheter over the needle apparatus was advanced over the rib into the pleural space. Using the syringe one-way valve system, a total of 1200 mL's of henry cloudy fluid was removed. Procedure was terminated due to patient coughing. The catheter was removed and observed to be intact. A sterile dressing was applied. Post procedure chest x-ray was ordered. Post procedure ultrasound did demonstrate some residual pleural fluid on the ri ght lateral Fluid was sent for cell count differential, Gram stain and culture, LDH, pH, glucose, and cytology. The patient tolerated the procedure well without obvious complication Coding CPT Codes Pulmonary/Thoracic - Pulmonary and Thoracic: 35725 Pleural drainage w/imaging ([id number]) [facility] [place] Procedure Codes (Charges) Pulmonary/Thoracic Procedure 1: Pulmonary and Thoracic: 53573 Pleural drainage w/imaging
--- NOTE | 2020-03-27 12:12 | Pulmonary Consultation ---
Date of Consultation March 27, 2020 Assessment & Plan (1) Pleural effusion on right: Impression: 64-year-old male with history of CLL on chemotherapy admitted with enlarging right-sided pleural effusion of unclear etiology. Sampling is indicated. Recommendations: 1. Patient will undergo ultrasound-guided catheter drainage on the right. Fluid will be sent for microbiologic and chemical analysis as well as cytology. Follow-up imaging will be performed after the thoracentesis. 2. Would consider echocardiogram given the presence of the pleural effusion and the pericardial effusion. 3. Patient tested negative for Covid with an antigen test in the emergency room. Unclear why that nasopharyngeal test was ordered. It does not appear to be indicated currently. I do not see an indication to keep the patient in isolation for now but will defer this to the providers that ordered the diagnostic testing. Will follow up with the pleural fluid studies. Contact us if we can be of additional assistance in the interim. History of Present Illness Attending Physician: Sanchez Dickinson MD History of Present Illness Asked by the hospitalist to assist in management this patient with pleural effusion. History is obtained from review electronic medical record as well as interview the patient. The patient is a 64-year-old male with a prior history of renal cell carcinoma and a history of CLL. He is currently under the care of Dr. Juan Miguel Bell and is rec eiving chemotherapy. He had his chemotherapy adjusted in January. He was initially treated with Gleevec and then transition to bosutinib and recently to nilotinib. Patient reports that he has had shortness of breath which has been progressive over the last several weeks associated with as well as some intermittent vomiting. He is not had any Covid contacts. In the emergency room he was noted to be hypertensive but not hypoxemic. Chest x-ray demonstrated a right basilar infiltrate which was confirmed on CT of the abdomen and pelvis. He had a negative Covid antigen test in the emergency room which should rule out Covid however the admitting hospitalist then ordered a nasopharyngeal swab to be sent to the [facility] of [facility] which is currently pending. There are notes that indicate hemoptysis in the admission H&P however the patient does not report any significant hemoptysis. Allergies Allergy/AdvReac Type Severity Reaction Status Date / Time allopurinol Allergy Unknown Unknown Verified 03/26/20 17:20 Home Medications Medication Instructions Recorded Confirmed Type aspirin [Aspirin Low Dose] 81 mg PO DAILY 08/28/18 03/26/20 History febuxostat [Uloric] 40 mg PO DAILY 08/28/18 03/26/20 History gemfibrozil 600 mg PO BIDM 08/28/18 03/26/20 History hydrochlorothiazide 50 mg PO BID 08/28/18 03/26/20 History omega-3 acid ethyl esters 1 g PO BID 08/28/18 03/26/20 History rosuvastatin [Crestor] 10 mg PO DAILY 08/28/18 03/26/20 History amlodipine 10 mg PO DAILY 04/15/19 03/26/20 History hydralazine 50 mg tablet 50 mg PO TID #90 tab 06/08/19 03/26/20 Rx dutasteride 0.5 mg capsule 0.5 mg PO DAILY #90 cap 10/26/19 03/26/20 Rx tamsulosin 0.4 mg capsule 0.4 mg PO DAILY #90 cap 10/26/19 03/26/20 Rx carvedilol 3.125 mg tablet 3.125 mg PO BID 11/09/19 03/26/20 History docusate sodium 50 mg capsule 50 mg PO DAILY 11/09/19 03/26/20 History metformin 500 mg tablet,extended 500 mg PO BID 11/09/19 03/26/20 History release 24 hr ergocalciferol (vitamin D2) 1,250 mcg PO DIRECTED 03/26/20 03/26/20 History hydralazine 25 mg PO TID 03/26/20 03/26/20 History lisinopril 10 mg PO DAILY 03/26/20 03/26/20 History nilotinib [Tasigna] 400 mg PO Q12H 03/26/20 03/26/20 History prochlorperazine maleate 10 mg PO Q6H PRN 03/26/20 03/26/20 History Patient History Medical History (Updated 03/26/20 @ 16:19 by Merrill Patel MD) Aortic stenosis, mild BPH (benign prostatic hyperplasia) Chronic kidney disease, stage 3 CML (chronic myelocytic leukemia) Diabetes mellitus, type II Gout History of nephrolithiasis Hyperlipidemia Hypertension MEE (obstructive sleep apnea) Renal carcinoma Renal cell carcinoma Vitamin D deficiency Surgical History History of cataract surgery History of nephrectomy 2011 Family History Brother Coronary heart disease fatal [place] age 51 Father FH: brain aneurysm age 60 Social History Smoking Status: Never smoker Second Hand Exposure: No; Hx Alcohol Use: No Hx Substance Use: No Preferred Language: Chinese Communication Ability: Effective Viscosity Inspector Required: No Beliefs That Will Affect Care: None marital status: Current Living Situation: Spouse current occupational status: employed How many Children do You have: 2 Other Information That Helps Us Care for You: No Feels Safe at Home: Yes Safety Concerns: Feels Safe At This Time Assistive Devices: None Review of Systems Review of Systems: Please refer to the admission H&P. I have no additions or deletions Physical Exam Constitutional: WD/WN, vitals as above Neck: trachea midline, no thyromegaly Respiratory: normal respiratory effort Decreased breath sounds at the right lung base Cardiovascular: RRR, no murmur, no edema Gastrointestinal (Abdomen): normal bowel sounds, soft, nontender, no hepatosplenomegaly Musculoskeletal: Extremities: extremities normal to inspection Skin: no rashes, warm and dry Neurologic: Nonfocal exam Lymphatic: no cervical lymphadenopathy Results & Data Results & Data ([facility]) Vital Signs (Past 12 Hours) Vital Signs Temp Pulse Pulse Resp BP BP Pulse Ox 03/27/20 11:17 37 C 61 18 155/88 H 95 03/27/20 07:31 37.5 C 73 20 160/63 H 94 03/27/20 03:11 65 14 151/72 H 94 03/27/20 02:00 36.6 C 66 73 20 182/86 H 96 Laboratory Results 03/27/20 05:25 03/27/20 05:25 INR: 1.1 Diagnostic Findings Imaging studies were independently reviewed. Chest x-ray from 03/26/2020 was reviewed which demonstrated a density at the right lung base. This was confirmed on CT of the abdomen and pelvis. Small amount of ascites was noted. Small pericardial effusion. PG Care Time/CCT Total # of Minutes Spent Total Time Spent with Patient: Total time spent is greater than 50% in coordination of care (as documented) at patient's floor/unit and/or counseling patient: Coding Level of Care Code 28955 Office/OBS Consult Lvl 4 Diagnoses Pleural effusion on right J90 Time Spent (min) 40
[2020-03-27 12:44] LABS: Total Protein Pleural Fluid 3.7 g/dl
--- NOTE | 2020-03-27 13:04 | XRay Report ---
XR chest 1V portable HISTORY: 64 years-old Male S/P Thoracentesis follow-up study in a patient with pleural effusions COMPARISON: Chest radiograph and CT abdomen and pelvis 03/26/2020 TECHNIQUE: Portable AP view of the chest FINDINGS: Cardiac silhouette is enlarged. Moderately decreased size of the right pleural effusion. Mildly impro mckenzie aeration of the right lung base. Small right and trace left pleural effusions with right lung bas e consolidation. Pulmonary vascular congestion. No pneumothorax. Degenerative changes of the shoulder s and spine. IMPRESSION: 1. Decreased size of the right pleural effusion status post thoracentesis. No postprocedural pneumoth orax. 2. Cardiomegaly with pulmonary vascular congestion. 3. Persistent right lung base opacities suggest probable atelectasis. ACT 112: Negative or not required by law. The above report was generated using voice recognition software. It may contain grammatical, syntax o r spelling errors. Electronically signed by: Bradley Booker M.D. 03/27/2020 1:03 PM
[2020-03-27 13:19] LABS: Appearance Pleural Fluid CLOUDY; Basophils, Fluid 0 %; Color Pleural Fluid AMBER; Eosinophils, Fluid 0 %; Lymphocytes, Fluid 77 %; Mono,Macrophage,Mesothelial 22 %; Neutrophils, Fluid 1 %; RBC Pleural Fluid (A) 9000 /uL; Source Pleural Fluid RIGHT LUNG; WBC Pleural Fluid (A) 903 /uL
[2020-03-27] MEDS: DOXYCYCLINE HYCLATE 100 MG CAP PO SCH (18:07)
--- NOTE | 2020-03-27 20:11 | Hospitalist Progress Note ---
Date of Service March 27, 2020 Assessment & Plan (1) Pleural effusion on right: Admission Date: 64-year-old male with history of CML, on nilotinib, diabetes type 2, hypertension, CKD stage III, status post nephrectomy for renal cell cancer, obstructive sleep apnea Presenting for aggressive shortness of breath times times few weeks. SHORTNESS OF BREATH LIKELY SECONDARY TO LARGE RIGHT-SIDED PLEURAL EFFUSION POSSIBLE PNEUMONIA, COMMUNITY-ACQUIRED RULE OUT COVID-[address] chest without contrast Nasal MRSA: Negative Sputum culture: Pending Covid antigen test: Negative Covid PCR sent to [facility]: Pending Blood cultures: Pending Echocardiogram: 65 to 70%, small circumferential pericardial effusion No diastolic compression of the right ventricle to suggest cardiac tamponade Possible mild right atrial compression during asystole No evidence of diastolic RA compression Recommend serial imaging Status post thoracentesis today, draining 1.2 L of henry fluid, pathology and cultures pending Empiric IV Zosyn and doxycycline Conventional Underwriter consulted Contact and airborne isolation for now until Covid PCR sent to [facility] is available HEMOPTYSIS Check CT chest Hold aspirin for now given elevated RBCs in pleural fluid Conventional Underwriter consulted No hemoptysis today DIARRHEA Resolved Stool cultures and C. difficile if diarrhea recurs CML Discussed with Dr. Bell Symptoms unlikely related to patient's Nilotinib, will resume while patient is admitted Dr. Bell consulted in light of pleural effusion which may be related to underlying malignancy Diabetes type 2 Usually on Metformin insulin sliding scale Hypertension Elevated Continue usual amlodipine, hydralazine, carvedilol, hold lisinopril and HCTZ in light of acute renal failure Hydralazine IV as needed ordered Acute renal failure CKD stage III Creatinine at baseline is 1.8, on admission 2.1, now 1.9 We will hold off on IV fluids in light of large right-sided pleural effusion Encourage oral fluid intake Monitor creatinine Follows with Dr. [facility] Gout Continue Febuxostat Obstructive sleep apnea Continue CPAP BPH Continue tamsulosin and dutasteride Recent PSA elevated Outpatient follow up Abnormal CT findings Pericardial effusion: Echocardiogram showed small pericardial effusion Cholelithiasis Mild splenomegaly Prostatomegaly Right-sided nephrolithiasis Indeterminate 2 cm lower pole right renal mass --Further evaluation and management,, follow-up as an outpatient DVT prophylaxis SCDs only for now in light of hemoptysis Disposition Lives at home with family PT and OT evaluation Admission and Anticipated Discharge Date Admission Date: March 26, 2020 Subjective Follow-up for shortness of breath, large right-sided pleural effusion, etc. Seen sitting up in bed, comfortable, on room air, Status post thoracentesis this morning States he feels improved today compared to yesterday Less dyspnea, no cough, no hemoptysis No fevers or chills Abdominal pain and diarrhea has resolved Tolerating regular diet well No other symptoms Review of Systems Review of Systems: All systems reviewed & are unremarkable except as noted in Subjective Physical Exam Physical Exam: General- oriented x 3, not in distress, speaks in sentences with no effort or accessory muscle use Eyes- anicteric Neck- no JVD Lungs-mildly decreased breath sounds at the right base, clear on the left Good air entry bilaterally Heart- normal rate, regular rhythm; no murmurs Abdomen- normal bowel sounds, nondistended, soft, nontender Extremities- no pretibial edema, no calf tenderness Neuro- alert, oriented x 3; no gross focal neurologic deficits Skin- warm & dry Results & Data Results & Data ([facility]) Vital Signs (Past 12 Hours) Vital Signs Temp Pulse Resp BP BP Pulse Ox 03/27/20 15:17 36.5 C 65 18 138/69 94 03/27/20 11:17 37 C 61 18 155/88 H 95 Laboratory Results Laboratory Results - last 24 hr 03/27/20 03/27/20 03/27/20 01:59 03:05 05:25 WBC 11.31 H RBC 3.99 L Hgb 11.1 L Hct 34.4 L MCV 86.2 MCH 27.8 MCHC 32.3 RDW Std Deviation 49.4 H RDW Coeff of Joce 15.4 H Plt Count 312 MPV 10.8 H Immature Gran % (Auto) 0.2 Neut % (Auto) 78.9 Lymph % (Auto) 8.5 [place] % (Auto) 10.6 Eos % (Auto) 1.4 Baso % (Auto) 0.4 Neut # (Auto) 8.92 H Lymph # (Auto) 0.96 L [place] # (Auto) 1.20 H Eos # (Auto) 0.16 Baso # (Auto) 0.05 Immature Gran # (Auto) 0.02 Sodium Potassium Chloride Carbon Dioxide Anion Gap BUN Creatinine Est Cr Clr Drug Dosing Est GFR ( Amer) Est GFR (Non-Af Amer) BUN/Creatinine Ratio Glucose POC Glucose 109 H Calcium Magnesium Fluid Neutrophils % Fluid Lymphocytes % Fluid Eosinophils % Fluid Basophils % Fluid [place] % Pleural Fluid Source Pleural Color Pleural Appearance Pleural WBC Pleural RBC Pleural Total Protein Pleural LDH Pleural Glucose Nasal Screen MRSA (PCR) Negative Hepatitis C Ab Screen 03/27/20 03/27/20 03/27/20 05:25 05:25 07:29 WBC RBC Hgb Hct MCV MCH MCHC RDW Std Deviation RDW Coeff of Joce Plt Count MPV Immature Gran % (Auto) Neut % (Auto) Lymph % (Auto) [place] % (Auto) Eos % (Auto) Baso % (Auto) Neut # (Auto) Lymph # (Auto) [place] # (Auto) Eos # (Auto) Baso # (Auto) Immature Gran # (Auto) Sodium 140 Potassium 3.8 Chloride 113 H Carbon Dioxide 20 L Anion Gap 7.0 BUN 42 H Creatinine 1.90 H Est Cr Clr Drug Dosing 51.8 Est GFR ( Amer) 42.2 Est GFR (Non-Af Amer) 36.4 BUN/Creatinine Ratio 22.0 H Glucose 107 H POC Glucose 116 H Calcium 9.2 Magnesium 2.3 Fluid Neutrophils % Fluid Lymphocytes % Fluid Eosinophils % Fluid Basophils % Fluid [place] % Pleural Fluid Source Pleural Color Pleural Appearance Pleural WBC Pleural RBC Pleural Total Protein Pleural LDH Pleural Glucose Nasal Screen MRSA (PCR) Hepatitis C Ab Screen Neg 03/27/20 03/27/20 03/27/20 11:16 16:52 Unknown WBC RBC Hgb Hct MCV MCH MCHC RDW Std Deviation RDW Coeff of Joce Plt Count MPV Immature Gran % (Auto) Neut % (Auto) Lymph % (Auto) [place] % (Auto) Eos % (Auto) Baso % (Auto) Neut # (Auto) Lymph # (Auto) [place] # (Auto) Eos # (Auto) Baso # (Auto) Immature Gran # (Auto) Sodium Potassium Chloride Carbon Dioxide Anion Gap BUN Creatinine Est Cr Clr Drug Dosing Est GFR ( Amer) Est GFR (Non-Af Amer) BUN/Creatinine Ratio Glucose POC Glucose 108 H 121 H Calcium Magnesium Fluid Neutrophils % 1 Fluid Lymphocytes % 77 Fluid Eosinophils % 0 Fluid Basophils % 0 Fluid [place] % 22 Pleural Fluid Source RIGHT LUNG Pleural Color HENRY Pleural Appearance CLOUDY Pleural WBC 903 Pleural RBC 9000 Pleural Total Protein Pleural LDH Pleural Glucose Nasal Screen MRSA (PCR) Hepatitis C Ab Screen 03/27/20 Unknown WBC RBC Hgb Hct MCV MCH MCHC RDW Std Deviation RDW Coeff of Joce Plt Count MPV Immature Gran % (Auto) Neut % (Auto) Lymph % (Auto) [place] % (Auto) Eos % (Auto) Baso % (Auto) Neut # (Auto) Lymph # (Auto) [place] # (Auto) Eos # (Auto) Baso # (Auto) Immature Gran # (Auto) Sodium Potassium Chloride Carbon Dioxide Anion Gap BUN Creatinine Est Cr Clr Drug Dosing Est GFR ( Amer) Est GFR (Non-Af Amer) BUN/Creatinine Ratio Glucose POC Glucose Calcium Magnesium Fluid Neutrophils % Fluid Lymphocytes % Fluid Eosinophils % Fluid Basophils % Fluid [place] % Pleural Fluid Source Pleural Color Pleural Appearance Pleural WBC Pleural RBC Pleural Total Protein 3.7 Pleural LDH 100 Pleural Glucose 117 Nasal Screen MRSA (PCR) Hepatitis C Ab Screen
[2020-03-27] MEDS: NILOTINIB HCL PO SCH (21:44)
[2020-03-28] MEDS: PIPERACILLIN/TAZOBACTAM 3.375 GM in DEXTROSE 5% 100 ML IV SCH ×3 (02:00→09:54)
[2020-03-28] MEDS: DOXYCYCLINE HYCLATE 100 MG in DEXTROSE 5% 100 ML IV SCH (05:56)
[2020-03-28] MEDS: DOXYCYCLINE HYCLATE 100 MG CAP PO SCH (06:18)
[2020-03-28] MEDS: INSULIN ASPART 100 UNITS/ML 3 ML PEN SC SCH ×4 (07:58→20:46)
[2020-03-28] MEDS: TAMSULOSIN HCL 0.4 MG CAP PO SCH (07:59)
[2020-03-28] MEDS: FEBUXOSTAT 40 MG TABLET PO SCH (07:59)
[2020-03-28] MEDS: amLODIPine BESYLATE 5 MG TAB PO SCH (07:59)
[2020-03-28] MEDS: carvediloL 3.125 MG TAB PO SCH ×2 (07:59→20:45)
[2020-03-28] MEDS: ROSUVASTATIN CALCIUM 10 MG TAB PO SCH (07:59)
[2020-03-28] MEDS: hydrALAZINE TAB 50 MG TAB PO SCH ×3 (08:00→20:45)
[2020-03-28] MEDS: AVODART~ORDER AWAITING ACTION SCH ×3 (08:01→23:02)
--- NOTE | 2020-03-28 09:14 | Consultation Report ---
DATE OF CONSULTATION: 03/28/2020 REASON FOR CONSULTATION: Right-sided pleural effusion in a 64-year-old gentleman with chronic myelogenous leukemia. HISTORY OF PRESENT ILLNESS: The patient is a pleasant 64-year-old gentleman well known to [facility], currently under my care for a 3-year history of chronic myelogenous leukemia. Apparently over the past several weeks, he had become progressively short of breath, got to the point where he could barely do daily activities and thus decided to come to the Emergency Room. He also relates nausea and vomiting which started yesterday, associated productive cough, but denied fever or chills. He was subsequently seen in our Emergency Room and admitted under the medical service. He has been screened for COVID-19 x2, found to be negative. However, screening chest x-ray done revealed an abnormal right basilar opacity thought to represent either a subpulmonic pleural effusion or right lower lobe consolidation. CT of the abdomen and pelvis was also performed revealing moderate to large right pleural effusion with right basilar compressive atelectasis, cholelithiasis, mild splenomegaly and low volume ascites also noted. Again, the patient is well known to [facility], was diagnosed with chronic myelogenous leukemia in 2018. He was originally started on imatinib 400 mg p.o. daily until side effects required switching to dasatinib which he was only on briefly because of further side effects. He was subsequently switched to bosutinib 500 mg p.o. daily until RT-PCR suggested a resistance. I had actually sent him out to [place] to see my dear friend and colleague, Dr. Nathaniel Duggan for an opinion and Dr. Duggan concurred with my opinion that it would be reasonable to switch him to Nilotinib which he has been on for the past couple of weeks. He had EKG x2, rule out QT prolongation. In general, tyrosine kinase inhibitors in this class are known to cause pleural effusion. However, Pulmonary performed a thoracentesis yesterday, yielding 1.2 liters of henry-colored fluid. Henry coloration is always suspicious for possible secondary malignancy. Thus, we will not discontinue the patient's current therapy until cytology proves his pleural effusion is not neoplastic. PAST MEDICAL HISTORY: Significant for nephrolithiasis, hydrocele, hypercalcemia, hypertriglyceridemia, CML, monoclonal gammopathy of unclear significance, renal carcinoma in situ and vitamin D deficiency. PAST SURGICAL HISTORY: Includes renal lithotripsy and cardiac catheterization. MEDICATIONS: Prior to admission include aspirin 81 mg p.o. daily, Uloric 40 mg p.o. daily, gemfibrozil 600 mg p.o. b.i.d., hydrochlorothiazide 50 mg p.o. b.i.d., omega-3 fish oils 1 gram p.o. b.i.d., Crestor 10 mg p.o. daily, amlodipine 10 mg p.o. daily, hydralazine 50 mg p.o. t.i.d., dutasteride 0.5 mg p.o. daily, tamsulosin 0.4 mg p.o. daily, carvedilol 3.125 mg p.o. b.i.d., docusate sodium 50 mg p.o. daily, metformin 500 mg p.o. b.i.d., vitamin D2 1250 mcg p.o. as directed, hydralazine 25 mg p.o. t.i.d., lisinopril 10 mg p.o. daily, Nilotinib 400 mg p.o. q. 12 hours and Compazine 10 mg p.o. q. 6 hours p.r.n. ALLERGIES: ALLOPURINOL. SOCIAL HISTORY: The patient resides with his spouse. 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 He is a nonsmoker, nondrinker, nonsubstance abuser. FAMILY HISTORY: Brother of a fatal CT at 51. His father suffered an aneurysm at age 64. REVIEW OF SYSTEMS: GENERAL: As per HPI, most notably for dyspnea on exertion and shortness of breath. He denies fevers, chills or sweats. He is not anorexic or losing weight. SKIN: No rashes or lesions. No history of dermatoses. HEENT: Denies headaches, lightheadedness or dizziness. No acute visual or hearing deficits. No sinus symptoms, sore throat or dysphagia. LYMPH: No history of lymphoproliferative disease. CARDIAC: Positive history of coronary artery disease. No current angina or palpitations. PULMONARY: As per HPI. GASTROINTESTINAL: Positive for occasional nausea. No abdominal pain, diarrhea or constipation, hematochezia or melena stools. GENITOURINARY: History of BPH. No current hematuria, dysuria, urinary incontinence. PSYCHIATRIC: Negative for anxiety, depression or psychoses. ENDOCRINE: Positive for diabetes mellitus. MUSCULOSKELETAL: No focal muscle weakness. No arthralgias. NEUROLOGIC: Negative for seizure, stroke, or migraine headache. HEMATOLOGIC: History of CML not yet in remission. His peripheral blood counts on admission actually looked relatively normal. PHYSICAL EXAMINATION: GENERAL: A very pleasant 64-year-old gentleman, awake, alert and appropriate, in no acute distress. VITAL SIGNS: Temperature 36.4, pulse 54, respiratory rate 18, blood pressure 132/64. SKIN: Warm, dry, noncyanotic without petechia, rash or ecchymosis. HEENT: Head is atraumatic, normocephalic. Eyes: PERRLA, EOMI. Sclerae nonicteric. No conjunctival injection. Nares patent without rhinorrhea or discharge. Throat is clear. Tongue is midline. Mucous membranes are moist. NECK: Supple without JVD or thyromegaly. HEART: Regular rate and rhythm. LUNGS: Diminished breath sounds in the right posterior base. No rales or rhonchi appreciated otherwise. ABDOMEN: Soft, nontender, nondistended. Bowel sounds are active. EXTREMITIES: Musculoskeletal strength and pulses are equal in all 4 quadrants. No clubbing, cyanosis or edema. NEUROLOGICALLY: He is awake, alert and oriented x3. Cranial nerves are grossly intact. LABORATORY DATA: WBC count 11,310, hemoglobin 11.1, platelet count 312,000, has got 8920 neutrophils. Sodium 140, potassium 3.8, chloride 113, carbon dioxide 20, creatinine 1.90, BUN 42. IMPRESSION: 1. Right-sided pleural effusion. 2. Shortness of breath and dyspnea on exertion attributable to right sided pleural effusion. 3. Nausea. 4. Chronic myelogenous leukemia, not yet in remission. 5. Acute renal injury. PLAN: In summary, it was my pleasure to visit with the patient at bedside. I have known this gentleman for 3 years when he was diagnosed with chronic myelogenous leukemia. He was initially treated with Gleevec, but unfortunately developed both the skin and GI side effects. He was then switched to dasatinib which unfortunately created more significant side effects and the patient was only on therapy for a brief period of time. Most recently, he was placed on bosutinib. Unfortunately, his disease is become resistant with nearly 3% clone on last RT-PCR determination. Thus sent him to [place] to visit with my colleague, Dr. Nathaniel Duggan and Dr. Duggan concurred with my recommendation to proceed to Nilotinib. He has been on Nilotinib for about 2-3 weeks. He underwent screening EKGs as this drug is a notorious for QT interval prolongation. He now presents to [facility] with subacute onset shortness of breath and admits he has been struggling with breathing for about a couple of months. It finally got to the point where he could barely do daily activities, thus prompting his visit to our Emergency Room. Pleural effusion was seen both on CT of the abdomen and pelvis and chest x-ray. Appropriately, Pulmonary was consulted and performed a thoracentesis yielding 1.2 liters of fluid. The fluid is described as henry which is certainly concerning. We will await formal cytology results to make a determination as tyrosine kinase inhibitors can also result in effusions. The patient has expressed interest in going home and I have no issue as long as he is able to ambulate without difficulty. He is instructed to contact my office first thing Thursday morning to follow up pleural fluid results. He is to continue Nilotinib on a current dose. I have nothing further to add and agree with medical management otherwise. Thank you very much for allowing me to participate in his care. BAHMAN
[2020-03-28 09:24] LABS: Basophils # (auto) 0.06 K/uL (0-0.2); Basophils % (auto) 0.6 %; Eosinophils # (auto) 0.17 K/uL (0-0.5); Eosinophils % (auto) 1.8 %; Hematocrit (blood only) 35.9 % (42-52); Hemoglobin 11.8 g/dL (14.0-18.0); Immature Granulocytes # (auto) 0.01 K/uL (0.00-0.02); Immature Granulocytes % (auto) 0.1 %; Lymphocytes # (auto) 0.82 K/uL (1.2-3.4); Lymphocytes % (auto) 8.6 %; Mean Corpuscular Hgb Conc 32.9 g/dL (32-36); Mean Corpuscular Volume 85.1 fL (80-100); Mean Platelet Volume 9.9 fL (7.4-10.4); Monocytes # (auto) 0.72 K/uL (0.11-0.59); Monocytes % (auto) 7.5 %; Neutrophils # (auto) 7.77 K/uL (1.4-6.5); Neutrophils % (auto) 81.4 %; Platelet Count 274 K/uL (130-400); RDW Coefficient of Variation 15.3 % (11.5-14.5); RDW Standard Deviation 47.5 fL (36.4-46.3); Red Blood Count 4.22 M/uL (4.7-6.1); White Blood Count 9.55 K/uL (4.8-10.8)
[2020-03-28 09:45] LABS: BUN Creatinine Ratio 20.4 (10-20); Calcium 9.3 mg/dl (8.5-10.1); Creatinine Clr Calc Pharmacy 54.9 ml/min; Est GFR (African American) 45.4; Est GFR (Non-African American) 39.2; Potassium 3.3 mmol/L (3.5-5.1)
[2020-03-28] MEDS: NILOTINIB HCL PO SCH ×2 (09:47→20:52)
[2020-03-28] MEDS ORDERED: POTASSIUM CHLORIDE 20 MEQ/15 ML UDC PO STA (10:00)
--- NOTE | 2020-03-28 12:19 | Pulmonology Progress Note ---
Date of Service March 28, 2020 Assessment & Plan (1) Pleural effusion on right: Impression: 64-year-old male with history of CML on chemotherapy admitted with enlarging right-sided pleural effusion of unclear etiology. Patient is status post thoracentesis 03/27/2020 with cytology pending. Fluid studies appear to show a lymphocyte predominant borderline exudate of unclear etiology Recommendations: 1. Discussed with medical oncology as well as with pathology. Await cytology specimen. Patient does not necessarily need to be an inpatient until those results are finalized and he can follow-up with his medical oncologist in the outpatient setting or with pulmonary in the outpatient setting. 2. There is some residual pleural fluid present. Discussed with the patient options to include repeat thoracentesis versus definitive procedure with Pleurx catheter. The patient would like to get out of the hospital and feels well currently so it seems reasonable to follow him clinically in the outpatient setting. If he should develop increasing shortness of breath cough or chest t ightness, repeat imaging and consideration for repeat thoracentesis may be appropriate. Could also consider long-term management strategies including pleurodesis or Pleurx catheter placement although we like to know the etiology of the pleural fluid 3. I would be happy to see this patient back in the outpatient setting in a few weeks with follow-up chest x-ray to follow-up on his pleural fluid studies. Disposition per the primary service. We remain available to see this patient if needed. Please call if questions. Admission and Anticipated Discharge Date Admission Date: March 26, 2020 Subjective Patient reports that his breathing is better after the pleural procedure yesterday. No chest pain. No palpitations. No cough or wheezing. Review of Systems Review of Systems: Unchanged from prior Physical Exam Constitutional: WD/WN, vitals as above Neck: trachea midline, no thyromegaly Respiratory: normal respiratory effort Cardiovascular: RRR, no murmur, no edema Gastrointestinal (Abdomen): normal bowel sounds, soft, nontender, no hepatosplenomegaly Musculoskeletal: Extremities: extremities normal to inspection Skin: no rashes, warm and dry Lymphatic: no cervical lymphadenopathy Results & Data Results & Data ([facility]) Vital Signs (Past 12 Hours) Vital Signs Temp Pulse Pulse Resp BP BP Pulse Ox 03/28/20 09:19 55 L 03/28/20 07:52 36.5 C 60 18 154/73 H 97 03/28/20 02:18 36.4 C L 54 L 18 132/64 97 03/28/20 02:00 67 03/28/20 00:22 36.7 C 62 17 127/55 L 96 Laboratory Results 03/28/20 09:08 03/28/20 09:08 Pleural fluid studies: 903 white blood cells, 77% lymphocytes and 22% mesothelial cells Cytology currently pending Total protein 3.7 LDH 100 Glucose 117 Gram stain and culture negative to date Diagnostic Findings Postthoracentesis chest x-ray demonstrated improved aeration with some residual right pleural effusion. No pneumothorax PG Care Time/CCT Total # of Minutes Spent Total Time Spent with Patient: Total time spent is greater than 50% in coordination of care (as documented) at patient's floor/unit and/or counseling patient: Coding Level of Care Code 14567 Subseq Hosp Care Lvl 3 Diagnoses Pleural effusion on right J90
--- NOTE | 2020-03-28 14:29 | Hospitalist Progress Note ---
Date of Service March 28, 2020 Assessment & Plan (1) Pleural effusion on right: 64-year-old male with history of CML, on nilotinib, diabetes type 2, hypertension, CKD stage III, status post nephrectomy for renal cell cancer, obstructive sleep apnea Presenting for worsening shortness of breath Shortness of breath secondary to large right-sided pleural effusion ?Community acquired pneumonia Nasal MRSA: Negative Sputum culture: Pending Covid antigen test: Negative Covid PCR sent to [facility]: Negative Blood cultures: Negative Echocardiogram: 65 to 70%, small circumferential pericardial effusion No diastolic compression of the right ventricle to suggest cardiac tamponade Possible mild right atrial compression during asystole No evidence of diastolic RA compression Status post thoracentesis yesterday, draining 1.2 L of henry fluid, pathology and cultures pending Air borne isolation discontinued Will discontinue antibiotics and monitor Encouraged patient to ambulate Will plan to discharge in AM CML Dr Bell's recommendations noted Patient will follow up with him outpatient. He will also follow-up pathology report Diabetes type 2 Usually on Metformin insulin sliding scale Hypertension Continue usual amlodipine, hydralazine, carvedilol, hold lisinopril and HCTZ in light of acute renal failure Hydralazine IV as needed ordered Acute renal failure on CKD stage III Creatinine at baseline is 1.8, on admission 2.1, now 1.79 Encourage oral fluid intake Monitor creatinine Follows with Dr. [facility] service Gout Continue Febuxostat Obstructive sleep apnea Continue CPAP BPH Continue tamsulosin and dutasteride Recent PSA elevated Outpatient follow up Abnormal CT findings Pericardial effusion: Echocardiogram showed small pericardial effusion Cholelithiasis Mild splenomegaly Prostatomegaly Right-sided nephrolithiasis Indeterminate 2 cm lower pole right renal mass Follow-up as an outpatient DVT prophylaxis SCDs only for now in light of hemoptysis Disposition Lives at home with family Possible discharge tomorrow AM Admission and Anticipated Discharge Date Admission Date: March 26, 2020 Subjective Patient seen on examined this morning Reports significant improvement in symptoms since thoracentesis. Denies any cough Reports shortness of breath is resolved Denies any chest pain No fevers, chills, nausea vomiting No abdominal pain, diarrhea Denies dysuria, frequency or urgency Physical Exam Constitutional: + well hydrated; no acute distress Eyes: PERRL, conjunctivae normal, anicteric sclerae ENMT: external ear and nose normal, oropharynx normal Respiratory: normal respiratory effort; no respiratory distress Reduced breath sounds in lung bases Cardiovascular: Rate/Rhythm: regular rate and regular rhythm S1 S2 Gastrointestinal (Abdomen): normal bowel sounds, soft, nontender, no hepatosplenomegaly Musculoskeletal: no cyanosis or clubbing, extremities motor strength 5/5 Neurologic: PERRL, EOMI, accommodation nl, no face palsy, no dysarthria Psychiatric: A+Ox3, euthymic affect Results & Data Results & Data ([facility]) Vital Signs (Past 12 Hours) Vital Signs Temp Pulse Pulse Resp BP Pulse Ox 03/28/20 11:30 58 L 03/28/20 09:19 55 L 03/28/20 07:52 36.5 C 60 18 154/73 H 97 Laboratory Results Laboratory Results - last 24 hr 03/26/20 03/27/20 03/27/20 14:05 16:52 20:53 WBC RBC Hgb Hct MCV MCH MCHC RDW Std Deviation RDW Coeff of Joce Plt Count MPV Immature Gran % (Auto) Neut % (Auto) Lymph % (Auto) [place] % (Auto) Eos % (Auto) Baso % (Auto) Neut # (Auto) Lymph # (Auto) [place] # (Auto) Eos # (Auto) Baso # (Auto) Immature Gran # (Auto) Sodium Potassium Chloride Carbon Dioxide Anion Gap BUN Creatinine Est Cr Clr Drug Dosing Est GFR ( Amer) Est GFR (Non-Af Amer) BUN/Creatinine Ratio Glucose POC Glucose 121 H 96 Calcium Nasopharyn COVID-19 PCR Not Detected 03/28/20 03/28/20 03/28/20 07:50 09:08 09:08 WBC 9.55 RBC 4.22 L Hgb 11.8 L Hct 35.9 L MCV 85.1 MCH 28.0 MCHC 32.9 RDW Std Deviation 47.5 H RDW Coeff of Joce 15.3 H Plt Count 274 MPV 9.9 Immature Gran % (Auto) 0.1 Neut % (Auto) 81.4 Lymph % (Auto) 8.6 [place] % (Auto) 7.5 Eos % (Auto) 1.8 Baso % (Auto) 0.6 Neut # (Auto) 7.77 H Lymph # (Auto) 0.82 L [place] # (Auto) 0.72 H Eos # (Auto) 0.17 Baso # (Auto) 0.06 Immature Gran # (Auto) 0.01 Sodium 135 L Potassium 3.3 L Chloride 108 H Carbon Dioxide 21 Anion Gap 6.0 BUN 37 H Creatinine 1.79 H Est Cr Clr Drug Dosing 54.9 Est GFR ( Amer) 45.4 Est GFR (Non-Af Amer) 39.2 BUN/Creatinine Ratio 20.4 H Glucose 167 H POC Glucose 101 H Calcium 9.3 Nasopharyn COVID-19 PCR 03/28/20 12:34 WBC RBC Hgb Hct MCV MCH MCHC RDW Std Deviation RDW Coeff of Joce Plt Count MPV Immature Gran % (Auto) Neut % (Auto) Lymph % (Auto) [place] % (Auto) Eos % (Auto) Baso % (Auto) Neut # (Auto) Lymph # (Auto) [place] # (Auto) Eos # (Auto) Baso # (Auto) Immature Gran # (Auto) Sodium Potassium Chloride Carbon Dioxide Anion Gap BUN Creatinine Est Cr Clr Drug Dosing Est GFR ( Amer) Est GFR (Non-Af Amer) BUN/Creatinine Ratio Glucose POC Glucose 152 H Calcium Nasopharyn COVID-19 PCR
[2020-03-29 07:20] LABS: Basophils # (auto) 0.06 K/uL (0-0.2); Basophils % (auto) 0.6 %; Eosinophils # (auto) 0.32 K/uL (0-0.5); Eosinophils % (auto) 3.2 %; Hematocrit (blood only) 34.6 % (42-52); Hemoglobin 11.6 g/dL (14.0-18.0); Immature Granulocytes # (auto) 0.02 K/uL (0.00-0.02); Immature Granulocytes % (auto) 0.2 %; Lymphocytes # (auto) 1.72 K/uL (1.2-3.4); Lymphocytes % (auto) 17.4 %; Mean Corpuscular Hemoglobin 28.2 pg (25-34); Mean Corpuscular Hgb Conc 33.5 g/dL (32-36); Monocytes # (auto) 0.55 K/uL (0.11-0.59); Monocytes % (auto) 5.5 %; Neutrophils # (auto) 7.24 K/uL (1.4-6.5); Neutrophils % (auto) 73.1 %; Platelet Count 282 K/uL (130-400); RDW Coefficient of Variation 15.1 % (11.5-14.5); RDW Standard Deviation 46.5 fL (36.4-46.3); Red Blood Count 4.12 M/uL (4.7-6.1); White Blood Count 9.91 K/uL (4.8-10.8)
[2020-03-29] MEDS: AVODART~ORDER AWAITING ACTION SCH (07:57)
[2020-03-29] MEDS: INSULIN ASPART 100 UNITS/ML 3 ML PEN SC SCH (07:59)
[2020-03-29 08:07] LABS: BUN Creatinine Ratio 25.1 (10-20); Calcium 9.4 mg/dl (8.5-10.1); Creatinine Clr Calc Pharmacy 62.5 ml/min; Est GFR (African American) 53.2; Est GFR (Non-African American) 45.9; Magnesium 2.2 mg/dl (1.8-2.4); Phosphorus 3.1 mg/dl (2.5-4.9); Potassium 3.8 mmol/L (3.5-5.1)
[2020-03-29] MEDS: amLODIPine BESYLATE 5 MG TAB PO SCH (08:07)
[2020-03-29] MEDS: ROSUVASTATIN CALCIUM 10 MG TAB PO SCH (08:07)
[2020-03-29] MEDS: FEBUXOSTAT 40 MG TABLET PO SCH (08:07)
[2020-03-29] MEDS: carvediloL 3.125 MG TAB PO SCH (08:08)
[2020-03-29] MEDS: TAMSULOSIN HCL 0.4 MG CAP PO SCH (08:08)
[2020-03-29] MEDS: hydrALAZINE TAB 50 MG TAB PO SCH (08:08)
--- NOTE | 2020-03-29 09:54 | Discharge Summary ---
Date of Service March 29, 2020 Admission HPI Per Admitting Provider 64-year-old male with history of CML, diabetes type 2, hypertension, dyslipidemia CKD stage III, renal cell carcinoma, status post nephrectomy positive sleep apnea, other problems are below presenting with shortness of breath x3 weeks. Patient states that he has been having progressive exertional dyspnea for the past few weeks, associated with weakness, cough, and nausea. Symptoms have progressed to the point that patient has difficulty ambulating distance of a few feet. He has also been having a couple episodes of vomiting starting yesterday associated with productive cough, sweats, chills, dizziness and diarrhea of loose bowel movements-nonbloody. Patient reports that 2 weeks ago, he was started on nilotinib for CML. He denies having any chest pain, headache, abdominal pain, problems with urination. At the ER, patient was received afebrile, blood pressure elevated, saturating 93% on room air. Admission Exam Per Admitting Provider General- oriented x 3, not in distress, speaks in sentences with no effort or accessory muscle use Head- atraumatic Eyes- PERRL, EOMI, anicteric ENT- oropharynx clear Dry oral mucosa Neck- supple, no JVD, no adenopathy, no thyromegaly; carotids +2/2, no bruits appreciated Lungs-decreased breath sounds right mid to base Left clear to auscultation Heart- normal rate, regular rhythm; no murmur, no gallop, no rub appreciated Abdomen- normal bowel sounds, nondistended, soft, nontender, no masses or hepatosplenomegaly Extremities- no pretibial edema, no calf tenderness; peripheral pulses intact Neuro- alert, oriented x 3; CN 2-12 grossly intact; motor 5/5 bilaterally;sensation 100% on all extremities; no other gross focal neurologic deficits Skin- warm & dry Principal Diagnosis Right pleural effusion VERONICA on CKD3 Discharge Exam Constitutional + well hydrated; no acute distress Eyes PERRL, conjunctivae normal, anicteric sclerae ENMT external ear and nose normal, oropharynx normal Respiratory normal respiratory effort; no respiratory distress Auscultation: lungs clear to auscultation bilaterally Cardiovascular Rate/Rhythm: regular rate and regular rhythm Gastrointestinal (Abdomen) normal bowel sounds, soft, nontender, no hepatosplenomegaly Musculoskeletal no cyanosis or clubbing, extremities motor strength 5/5 Neurologic PERRL, EOMI, accommodation nl, no face palsy, no dysarthria Psychiatric A+Ox3, euthymic affect Discharge Data Allergies Allergy/AdvReac Type Severity Reaction Status Date / Time allopurinol Allergy Unknown Unknown Verified 03/26/20 17:20 Consultations 03/26/20 15:48 ED Decision to Admit Stat 03/27/20 01:55 Consult Pulmonology Routine 03/27/20 16:56 Consult Oncology Routine Ordered Studies 03/26/20 12:42 CT abd pelvis wo con Stat Lower chest: Since the prior study, the patient has developed a moderate to large right pleural effusion with right middle and lower lobe atelectasis. There is mild septal edema. There are minor left basilar atelectatic changes. There is a small pericardial effusion. Liver: No focal hepatic masses are visualized in this noncontrast study. Early cirrhotic changes cannot be excluded. Gallbladder: Cholelithiasis Spleen: Mildly enlarged measuring 13 cm Pancreas: Unremarkable. Adrenal glands: Unremarkable. Kidneys: The left kidney is surgically absent. There are punctate right renal calculi. There is a stable 2 cm lower pole right renal mass. Bowel: There are no transition zones indicate bowel obstruction. There is no evidence of acute diverticulitis. There is no evidence of acute appendicitis. Peritoneum: There is low volume ascites. There is no free intraperitoneal air. Vasculature: The abdominal aorta is normal in course and caliber. Adenopathy: None. Pelvic viscera: The prostate is enlarged measuring 61 mm. Skeletal structures: No destructive osseous lesions are seen. There is a stable nonspecific 9 mm sclerotic lesion within the left iliac bone. IMPRESSION: 1. Moderate to large right pleural effusion with right basilar compressive atelectasis 2. Mild lower lung zone septal edema 3. Small pericardial effusion 4. Cholelithiasis 5. No evidence of bowel obstruction. No evidence of free air 6. Mild splenomegaly 7. Low volume ascites 8. No evidence of acute diverticulitis. No evidence of acute appendicitis 9. Prostatomegaly 10. Right-sided nephrolithiasis 11. Indeterminate 2 cm lower pole right renal mass 12. Surgically absent left kidney 03/27/20 11:17 US point of care ultrasound Stat Hospital Course (1) Pleural effusion on right: 64-year-old male with history of CML, on nilotinib, diabetes type 2, hypertension, CKD stage III, status post nephrectomy for renal cell cancer, obstructive sleep apnea Presenting for worsening shortness of breath Shortness of breath secondary to large right-sided pleural effusion Nasal MRSA: Negative Sputum culture: Pending Covid antigen test: Negative Covid PCR sent to [facility]: Negative Blood cultures: Negative Echocardiogram: 65 to 70%, small circumferential pericardial effusion No diastolic compression of the right ventricle to suggest cardiac tamponade Possible mild right atrial compression during asystole No evidence of diastolic RA compression Status post thoracentesis on 03/27/20 draining 1.2 L of henry fluid Got empirical antibiotics which has been discontinued CML Patient to follow up with his oncologist Follow up pathology report Diabetes type 2 Continue home diabetic medications Hypertension Continue usual amlodipine, hydralazine, carvedilol Lisinopril and HCTZ was initially held in light of acute renal failure. Resumed on discharge Acute renal failure on CKD stage III Creatinine at baseline is 1.8, on admission 2.1, now 1.57 Continue follow up with Dr[facility] Gout Continue Febuxostat Obstructive sleep apnea Continue CPAP BPH Continue tamsulosin and dutasteride Outpatient follow up Abnormal CT findings Pericardial effusion: Echocardiogram showed small pericardial effusion Cholelithiasis Mild splenomegaly Prostatomegaly Right-sided nephrolithiasis Indeterminate 2 cm lower pole right renal mass Follow-up as an outpatient Total Time Total Time Spent Total Time Spent (In Minutes): 45 Total Time Includes: Examination of the Patient, Discharge Planning and Medication Reconciliation Discharge Plan Discharge Items Patient Disposition: Home - Self-Care Reason For Visit: Shortness of breath Discharge Diagnosis: Right pleural effusion Acute on chronic renal failure Activity: Resume your previous activity Non-emergency contact: Primary Care Provider, Cloud Operations Engineer and Oncologist Call non-emergency contact if: you have any medication questions Follow-up/Referrals: Jose C Vaughn MD [Primary Care Provider] - Diet: Carb Consistent or DM2, Heart Healthy and Low Sodium (2gm) Addtl Attending Provider Instructions: Mr Del Angel You came to the hospital complaining of worsening shortness of breath. You were evaluated and found to have right pleural effusion. You had thoracentesis with removal of pleural fluid. Your symptoms resolved. You do have small residual fluid and possibility of this to recur especially in the background of your other medical problems. It is very important that you follow with your Oncologist for continued management. Please follow up with your Primary Doctor and cabin equipment supervisor as well It was a pleasure taking care of you. Pending Studies at Discharge: No Stand-Alone Forms: My [facility], Smoking Cessation Medications and DC Order Prescriptions: Continued hydralazine 50 mg tablet 50 mg PO TID Qty: 90 RF: 5 dutasteride 0.5 mg capsule 0.5 mg PO DAILY Qty: 90 RF: 3 tamsulosin 0.4 mg capsule 0.4 mg PO DAILY Qty: 90 RF: 3 docusate sodium 50 mg capsule 50 mg PO DAILY RF: 0 metformin 500 mg tablet extended release 24 hr 500 mg PO BID RF: 0 carvedilol 3.125 mg tablet 3.125 mg PO BID RF: 0 amlodipine 10 mg tablet 10 mg PO DAILY RF: 0 hydrochlorothiazide 50 mg Tablet 50 mg PO BID RF: 0 aspirin [Aspirin Low Dose] 81 mg Tablet,Delayed Release (Dr/Ec) 81 mg PO DAILY RF: 0 gemfibrozil 600 mg tablet 600 mg PO BIDM RF: 0 rosuvastatin [Crestor] 10 mg Tablet 10 mg PO DAILY RF: 0 omega-3 acid ethyl esters 1 gram capsule 1 g PO BID RF: 0 febuxostat [Uloric] 40 mg tablet 40 mg PO DAILY RF: 0 prochlorperazine maleate 10 mg tablet 10 mg PO Q6H PRN (Reason: Nausea) RF: 0 Tasigna 200 mg capsule 400 mg PO Q12H RF: 0 hydralazine 25 mg tablet 25 mg PO TID RF: 0 lisinopril 10 mg tablet 10 mg PO DAILY RF: 0 ergocalciferol (vitamin D2) 1,250 mcg (50,000 unit) capsule 1,250 mcg PO DIRECTED RF: 0 Discharge Orders: Discharge Order (Routine); Ordered 03/29/20 Ordered By: Ella Mathews Admission Data Admit Date/Time: 03/26/20 16:29 Attending Provider: Ella Mathews I. Admit Provider: Sanchez Dickinson Primary Care Provider: Jose C Vaughn Other Providers: Sanchez Dickinson ; Eduardo Seay ; Nathaniel Bell V. Other Interventions: Discharge Summary Assessment (RN) Last Done: 03/29/20 10:23
[2020-03-29] MEDS: NILOTINIB HCL PO SCH (10:00)
== END 2020-03-29 12:55 | disposition home or self-care (01) | DRG 187 ==
LOC: ED 11:27 → 2S 16:29 → SUATTDRO 16:29 → 2S 03-27 01:08 → 2W 03-28 11:26

== ENCOUNTER 2021-06-29 09:14 | Inpatient (IN) ==
--- NOTE | 2021-06-29 09:30 | Emergency Department Note ---
Impression & Plan Acute foot pain, Chronic kidney disease, stage 3, Osteomyelitis ED Provider Note NAME: WILNER Giron SHARER AGE: 65 SEX: M : 1955 ARRIVES VIA: Walk-In INFORMANT: Patient, ED PROVIDER(S): Ford Armendariz MD Chief Complaint: Foot pain, gouty flare, shortness of breath HPI: Patient does present with above complaints. Patient states that he thought he had a bout of gout approximately week ago had been started on some prednisone through Dr. Metzger's office on Thursday. The patient had seen one of his infusion rn who had performed removal of a callus over the right medial ball of the foot. Patient states that the pain is gotten progressively worse especially over the last 2 days. The patient denies any fevers but has had chills. Patient is a diabetic has a known history of RCC status post nephrectomy and CML. Patient denies any chest pains but has had shortness of breath she states is been ongoing for several days. Patient states is exertional but occasionally present at rest. The patient does feel very thirsty and has [place] at this time. Patient states that the pain in his right foot has been sharp and worse with palpation. The patient states it has been so severe that it caused him to vomit. Patient denies any abdominal pains. ROS: See HPI for pertinent positives and negatives. A total of 10 systems were reviewed and otherwise negative. Past medical history: See below Surgical history: See below Social history: See below Physical Exam: GENERAL: Ill in appearance. EYE EXAM: Normal conjunctiva. PERRL, no anisocoria and EOM's grossly intact w/o pain. OROPHARYNX: Dry mucus membranes. Grossly normal dentition. NECK: Supple, no nuchal rigidity, no adenopathy, non-tender. No signs of meningismus. LUNGS: Clear to auscultation. Normal chest wall mechanics. HEART: NSR, no MRG. ABDOMEN: Abdomen soft, non-tender, normo-active bowel sounds, no masses, no rebound or guarding. BACK: No CVA TTP. SKIN: No rashes and no bruising. UPPER EXTREMITIES: Upper extremities are grossly normal. LOWER EXTREMITIES: Open ulcer to the right MTP with associated podagra, erythema and warmth noted, no crepitus, pain to palpation. No pain in the calf NEURO EXAM: A&O x3, cranial nerves II-XII grossly intact, normal speech, moves all 4 extremities on command w/o issue. Differential diagnoses: Cellulitis, abscess, MRSA infection, DVT, necrotizing fasciitis, dermatitis, drug eruption, allergic reaction, as well as other pathologies. Course: Patient was seen and evaluated the bedside. Full history physical exam was performed. EKG interpreted by me Right normal sinus rhythm, rate of 70, no obvious ST changes. Imaging Studies: See Below Cardiac monitoring: An order was placed for continuous cardiac monitoring. The monitor shows a rate of 65 with sinus rhythm. MDM: Patient was seen due to concern for possible gouty flare the patient was complaining of associated shortness of breath and does have significant likely cellulitis with associated foot wound. Patient was ordered cefepime along with blood work right foot x-ray and associated chest x-ray. The patient was ordered additional antiemetics as the patient was still dry heaving. Patient is a white count of 22 with a normal hemoglobin and platelet count. The patient's kidney function does show an elevated BUN to creatinine ratio with creat of 1.8 today. This is at virtual baseline. The patient's BNP is somewhat elevated but the patient does appear to be dry. Troponin is detectable but not elevated. Pro-C al is elevated at 1.8. Vancomycin was ordered for more broad-spectrum given the possibility of osteomyelitis given the patient's foot wound. Patient's plain film does state that the likely has an element of gout along with erosions of the first metatarsal head. There is comment about the possibility of gas. Patient does not have any overt crepitus on exam. I did speak with the on-call hospitalist Allison Logan PA-C will add a foot MRI. Past Med/Surg History Medical History Aortic stenosis, mild BPH (benign prostatic hyperplasia) Cardiac murmur follows with Dr. Brooks Chronic kidney disease, stage 3 CML (chronic myelocytic leukemia) diagnosed 2017--oral chemo Diabetes mellitus, type II lost weight, taken off meds Gout Hyperlipidemia Hypertension Nausea and vomiting after administration of anesthetic agent MEE (obstructive sleep apnea) cpap Pleural effusion on right hx of 03/2020--had thoracentesis Renal cell carcinoma 2011--removed left kidney Vitamin D deficiency Surgical History History of cardiac cath 2001 @ [facility] [place] no stents History of cataract surgery [place] History of colonoscopy with polypectomy History of nephrectomy left 2012 History of prostate biopsy benign History of surgery on extremity right leg compound fx repair History of thoracentesis (~03/27/20) History of wisdom tooth extraction Family History Brother Coronary heart disease fatal [place] age 51 Father FH: brain aneurysm age 60 Other No family history of adverse response to anesthesia Social History Smoking Status: Never smoker Second Hand Exposure: No; Hx Alcohol Use: No Hx Substance Use: No Preferred Language: Colombian Communication Ability: Effective Cook Mess Required: No Beliefs That Will Affect Care: None marital status: Current Living Situation: Spouse and Family Current Living Situation Comment: Lives with and 2 adult children current occupational status: employed How many Children do You have: 2 Feels Safe at Home: Yes Assistive Devices: CPAP Allergies Allergies Allergy/AdvReac Type Severity Reaction Status Date / Time allopurinol Allergy Unknown Unknown Verified 06/29/21 11:21 Home Meds Home Medications Medication Instructions Recorded Confirmed aspirin 81 mg tablet,delayed 81 mg PO HS 08/28/18 06/29/21 release (Aspirin Low Dose) febuxostat 40 mg tablet (Uloric) 40 mg PO QAM 08/28/18 06/29/21 carvedilol 3.125 mg tablet 3.125 mg PO BID 11/09/19 06/29/21 docusate sodium 50 mg capsule 50 mg PO HS 11/09/19 06/29/21 nilotinib 200 mg capsule (Tasigna) 400 mg PO Q12H 03/26/20 06/29/21 dutasteride 0.5 mg capsule 0.5 mg PO HS 07/06/20 06/29/21 atorvastatin 40 mg tablet 40 mg PO HS 08/02/20 06/29/21 furosemide 40 mg tablet 60 mg PO BID tab 09/28/20 06/29/21 sennosides 8.6 mg capsule (senna) 8.6 mg PO BID 10/18/20 06/29/21 empagliflozin 10 mg tablet 10 mg PO QAM 01/31/21 06/29/21 (Jardiance) hydralazine 100 mg tablet 100 mg PO TID tab 01/31/21 06/29/21 losartan 25 mg tablet 25 mg PO QAM 06/29/21 06/29/21 prednisone 20 mg tablet 0 mg PO .TAPER DOSE 06/29/21 06/29/21 tamsulosin 0.4 mg capsule 0.4 mg PO HS 06/29/21 06/29/21 Previous Rx's Medication Instructions Recorded amlodipine 5 mg tablet 5 mg PO QAM #90 tab 06/13/21 potassium chloride 10 mEq 10 meq PO .COMPLEX #48 tabs 06/13/21 tablet,extended release (Klor-Con) Results & Data (ED) Vital Signs Vital Signs - 24 hr 06/29/21 09:25 06/29/21 10:00 06/29/21 10:30 Temperature 36.4 C L Temperature Source Temporal Artery Scan Pulse Rate 93 H 73 69 Pulse Rate from SpO2 Sensor 70 Respiratory Rate 18 21 17 Respiratory Effort / Characteristics Non-Labored Respiratory Depth Normal Blood Pressure 172/73 H 169/109 H 148/97 H Blood Pressure Mean 106 129 114 Pulse Oximetry 94 97 97 Oxygen Delivery Method Room Air Room Air Room Air Sepsis Recent Fever Within 48 Hours No Sepsis New/Unexplained Change in Mental Status No Sepsis Action Taken by Nursing No Action Required 06/29/21 11:00 06/29/21 11:30 06/29/21 12:00 Temperature Temperature Source Pulse Rate 71 75 72 Pulse Rate from SpO2 Sensor 73 75 71 Respiratory Rate 16 23 19 Respiratory Effort / Characteristics Respiratory Depth Blood Pressure 120/71 138/63 116/65 Blood Pressure Mean 87 88 82 Pulse Oximetry 97 95 93 Oxygen Delivery Method Room Air Room Air Room Air Sepsis Recent Fever Within 48 Hours Sepsis New/Unexplained Change in Mental Status Sepsis Action Taken by [facility] Medications Current Medication List: was personally reviewed by me Laboratory Data Result diagrams: 06/29/21 09:52 06/29/21 09:52 Lab Results 06/29/21 06/29/21 06/29/21 Range/Units 09:52 09:52 09:52 WBC 22.00 H (4.8-10.8) K/uL RBC 4.51 L (4.7-6.1) M/uL Hgb 14.0 (14.0-18.0) g/dL Hct 40.0 L (42-52) % MCV 88.7 (80-100) fL MCH 31.0 (25-34) pg MCHC 35.0 (32-36) g/dL RDW Std Deviation 43.6 (36.4-46.3) fL RDW Coeff of Joce 13.4 (11.5-14.5) % Plt Count 347 (130-400) K/uL MPV 10.4 (7.4-10.4) fL Immature Gran % (Auto) 3.5 % Neut % (Auto) 88.6 % Lymph % (Auto) 2.6 % [place] % (Auto) 4.7 % Eos % (Auto) 0.4 % Baso % (Auto) 0.2 % Neut # (Auto) 19.51 H (1.4-6.5) K/uL Lymph # (Auto) 0.57 L (1.2-3.4) K/uL [place] # (Auto) 1.04 H (0.11-0.59) K/uL Eos # (Auto) 0.08 (0-0.5) K/uL Baso # (Auto) 0.04 (0-0.2) K/uL Immature Gran # (Auto) 0.76 H (0.00-0.02) K/uL Sodium 131 L (136-145) mmol/L Potassium 4.2 (3.5-5.1) mmol/L Chloride 97 L (98-107) mmol/L Carbon Dioxide 20 L (21-32) mmol/L Anion Gap 14 H (3-11) BUN 61 H (6-23) mg/dl Creatinine 1.80 H (0.6-1.4) mg/dl Est Cr Clr Drug Dosing 54.5 ml/min Est GFR ( Amer) 44.8 ml/min Est GFR (Non-Af Amer) 38.6 ml/min BUN/Creatinine Ratio 33.9 H (10-20) Glucose 258 H (70-99(Fasting)) mg/dl Uric Acid (2.6-7.2) mg/dl Calcium 9.7 (8.5-10.1) mg/dl Total Bilirubin 1.5 H (0.2-1.0) mg/dl AST 14 (13-39) U/L ALT 24 (7-52) U/L Alkaline Phosphatase 88 (34-104) U/L Troponin I 0.04 (0-0.04) ng/ml B-Natriuretic Peptide (0-100) pg/ml Total Protein 7.3 (6.0-8.3) gm/dl Albumin 4.2 (3.4-5.0) gm/dl Globulin 3.1 (2.5-4.0) gm/dl Albumin/Globulin Ratio 1.4 (0.9-2) Procalcitonin 1.81 H (0-0.5) ng/ml Urine Color Urine Appearance (Clear) Urine pH (4.5-7.5) Ur Specific [place] (1.000-1.030) Urine Protein (Negative) Urine Glucose (UA) (Negative) Urine Ketones (Negative) Urine Blood (Negative) Urine Nitrite (Negative) Urine Bilirubin (Negative) Urine Urobilinogen (Negative) Ur Leukocyte Esterase (Negative) Urine WBC (Auto) (0-5) /hpf Urine RBC (Auto) (0-4) /hpf U Hyaline Cast (Auto) (0-5) /lpf U Epithel Cells (Auto) (0-5) /lpf Urine Bacteria (Auto) (Negative) SARS-CoV-2, RNA, NAAT (NEGATIVE) 06/29/21 06/29/21 06/29/21 Range/Units 09:52 09:53 09:57 WBC (4.8-10.8) K/uL RBC (4.7-6.1) M/uL Hgb (14.0-18.0) g/dL Hct (42-52) % MCV (80-100) fL MCH (25-34) pg MCHC (32-36) g/dL RDW Std Deviation (36.4-46.3) fL RDW Coeff of Joce (11.5-14.5) % Plt Count (130-400) K/uL MPV (7.4-10.4) fL Immature Gran % (Auto) % Neut % (Auto) % Lymph % (Auto) % [place] % (Auto) % Eos % (Auto) % Baso % (Auto) % Neut # (Auto) (1.4-6.5) K/uL Lymph # (Auto) (1.2-3.4) K/uL [place] # (Auto) (0.11-0.59) K/uL Eos # (Auto) (0-0.5) K/uL Baso # (Auto) (0-0.2) K/uL Immature Gran # (Auto) (0.00-0.02) K/uL Sodium (136-145) mmol/L Potassium (3.5-5.1) mmol/L Chloride (98-107) mmol/L Carbon Dioxide (21-32) mmol/L Anion Gap (3-11) BUN (6-23) mg/dl Creatinine (0.6-1.4) mg/dl Est Cr Clr Drug Dosing ml/min Est GFR ( Amer) ml/min Est GFR (Non-Af Amer) ml/min BUN/Creatinine Ratio (10-20) Glucose (70-99(Fasting)) mg/dl Uric Acid 9.1 H (2.6-7.2) mg/dl Calcium (8.5-10.1) mg/dl Total Bilirubin (0.2-1.0) mg/dl AST (13-39) U/L ALT (7-52) U/L Alkaline Phosphatase (34-104) U/L Troponin I (0-0.04) ng/ml B-Natriuretic Peptide (0-100) pg/ml Total Protein (6.0-8.3) gm/dl Albumin (3.4-5.0) gm/dl Globulin (2.5-4.0) gm/dl Albumin/Globulin Ratio (0.9-2) Procalcitonin (0-0.5) ng/ml Urine Color Yellow Urine Appearance Clear (Clear) Urine pH 5.0 (4.5-7.5) Ur Specific [place] 1.023 (1.000-1.030) Urine Protein 1+ H (Negative) Urine Glucose (UA) 3+ H (Negative) Urine Ketones Negative (Negative) Urine Blood Negative (Negative) Urine Nitrite Negative (Negative) Urine Bilirubin Negative (Negative) Urine Urobilinogen Negative (Negative) Ur Leukocyte Esterase Negative (Negative) Urine WBC (Auto) 1-5 (0-5) /hpf Urine RBC (Auto) 0-4 (0-4) /hpf U Hyaline Cast (Auto) 0 (0-5) /lpf U Epithel Cells (Auto) 5-10 H (0-5) /lpf Urine Bacteria (Auto) Negative (Negative) SARS-CoV-2, RNA, NAAT NEGATIVE (NEGATIVE) 06/29/21 Range/Units 10:32 WBC (4.8-10.8) K/uL RBC (4.7-6.1) M/uL Hgb (14.0-18.0) g/dL Hct (42-52) % MCV (80-100) fL MCH (25-34) pg MCHC (32-36) g/dL RDW Std Deviation (36.4-46.3) fL RDW Coeff of Joce (11.5-14.5) % Plt Count (130-400) K/uL MPV (7.4-10.4) fL Immature Gran % (Auto) % Neut % (Auto) % Lymph % (Auto) % [place] % (Auto) % Eos % (Auto) % Baso % (Auto) % Neut # (Auto) (1.4-6.5) K/uL Lymph # (Auto) (1.2-3.4) K/uL [place] # (Auto) (0.11-0.59) K/uL Eos # (Auto) (0-0.5) K/uL Baso # (Auto) (0-0.2) K/uL Immature Gran # (Auto) (0.00-0.02) K/uL Sodium (136-145) mmol/L Potassium (3.5-5.1) mmol/L Chloride (98-107) mmol/L Carbon Dioxide (21-32) mmol/L Anion Gap (3-11) BUN (6-23) mg/dl Creatinine (0.6-1.4) mg/dl Est Cr Clr Drug Dosing ml/min Est GFR ( Amer) ml/min Est GFR (Non-Af Amer) ml/min BUN/Creatinine Ratio (10-20) Glucose (70-99(Fasting)) mg/dl Uric Acid (2.6-7.2) mg/dl Calcium (8.5-10.1) mg/dl Total Bilirubin (0.2-1.0) mg/dl AST (13-39) U/L ALT (7-52) U/L Alkaline Phosphatase (34-104) U/L Troponin I (0-0.04) ng/ml B-Natriuretic Peptide 133 H (0-100) pg/ml Total Protein (6.0-8.3) gm/dl Albumin (3.4-5.0) gm/dl Globulin (2.5-4.0) gm/dl Albumin/Globulin Ratio (0.9-2) Procalcitonin (0-0.5) ng/ml Urine Color Urine Appearance (Clear) Urine pH (4.5-7.5) Ur Specific [place] (1.000-1.030) Urine Protein (Negative) Urine Glucose (UA) (Negative) Urine Ketones (Negative) Urine Blood (Negative) Urine Nitrite (Negative) Urine Bilirubin (Negative) Urine Urobilinogen (Negative) Ur Leukocyte Esterase (Negative) Urine WBC (Auto) (0-5) /hpf Urine RBC (Auto) (0-4) /hpf U Hyaline Cast (Auto) (0-5) /lpf U Epithel Cells (Auto) (0-5) /lpf Urine Bacteria (Auto) (Negative) SARS-CoV-2, RNA, NAAT (NEGATIVE) Administered Medications Carvedilol (Carvedilol 3.125 Mg Tab) 3.125 mg PO BID SÁNCHEZ Stop: 07/29/21 12:13 Last Admin: 06/29/21 13:05 Dose: 3.125 mg Documented by: [id number] Morphine Sulfate (Morphine Sulfate 2 Mg/Ml Carp) 2 mg IV Q2H PRN PRN Reason: Pain (1-5) Stop: 07/13/21 15:50 Last Admin: 06/29/21 16:05 Dose: 2 mg Documented by: [id number] Ondansetron HCl (Ondansetron Inj 2 Mg/Ml 2 Ml Vial) 4 mg IV Q4H PRN PRN Reason: Nausea And Vomiting Stop: 07/29/21 15:32 Last Admin: 06/29/21 16:00 Dose: 4 mg Documented by: [id number] Discontinued Medications Sodium Chloride (Nss) 500 mls @ 999 mls/hr IV .Q31M STA Stop: 06/29/21 10:08 Last Infusion: 06/29/21 10:24 Dose: 0 mls/hr Documented by: [id number] Admin: 06/29/21 09:52 Dose: 999 mls/hr Documented by: [id number] Cefepime HCl (Maxipime) 2,000 mg in 20 mls @ 5 mls/min IV NOW STA; Protocol Stop: 06/29/21 09:41 Last Admin: 06/29/21 10:05 Dose: 5 mls/min Documented by: [id number] Prochlorperazine (Compazine) 2 mls @ 1 mls/min IV ONE ONE Stop: 06/29/21 10:27 Last Admin: 06/29/21 10:49 Dose: 1 mls/min Documented by: [id number] Famotidine (Pepcid 20mg Iv Push) 20 mg in 5 mls @ 2.5 mls/min IV NOW STA Stop: 06/29/21 10:27 Last Admin: 06/29/21 10:49 Dose: 2.5 mls/min Documented by: [id number] Vancomycin HCl 2,750 mg/ (Sodium Chloride) 555 mls @ 200 mls/hr IV NOW ONE Stop: 06/29/21 14:11 Last Infusion: 06/29/21 15:53 Dose: 0 mls/hr Documented by: [id number] Admin: 06/29/21 13:05 Dose: 200 mls/hr Documented by: [id number] Ondansetron HCl (Ondansetron Inj 2 Mg/Ml 2 Ml Vial) 4 mg IV NOW STA Stop: 06/29/21 09:39 Last Admin: 06/29/21 09:53 Dose: 4 mg Documented by: [id number] Imaging Data Radiologist's Impression: Chest X-Ray 06/29/21 09:38 XR chest 1V portable CLINICAL HISTORY: Dyspnea. COMPARISON STUDY: Chest radiograph March 14, 2021. MRI of the chest April 15, 2019. FINDINGS: Lung volumes are normal. Lungs are clear. There is no pneumothorax or pleural effusion. Moderate cardiomegaly is unchanged. Mediastinal contours are normal. There is no evidence for pulmonary edema. IMPRESSION: No acute cardiopulmonary findings. Stable cardiomegaly. ACT 112: Negative or not required by law. Electronically signed by: Terrell Jefferson M.D. 06/29/2021 10:54 AM Foot X-Ray 06/29/21 09:39 XR foot RT min 3V routine CLINICAL HISTORY: gouty flare?, erythematous, ulcer to ball of foot COMPARISON: None FINDINGS: Tarsometatarsal joints are intact. No acute fracture within the right foot. Note is made of pronounced soft tissue swelling along the medial and plantar aspect of the right first metatarsophalangeal joint. Small associated calcifications are present. 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 There are are suspected erosions of the medial aspect of the right first metatarsal head. Possible soft tissue gas projecting along the medial aspect of the right first metatarsal shaft is noted. There is extensive vascular calcification. Plantar calcaneal spurring is noted. Severe osteoarthritis within the right midfoot and hindfoot are also present. IMPRESSION: 1. Pronounced soft tissue swelling along the medial and plantar aspect of the right first metatarsophalangeal joint with associated soft tissue calcifications. This favors gout. Possible associated erosions of the right first metatarsal head. Given possible soft tissue gas, an infectious process is also within the differential. 2. Severe osteoarthritis within the right first metatarsophalangeal joint and multiple articulations of the right mid and hindfoot. ACT 112: Negative or not required by law. Electronically signed by: Terrell Jefferson M.D. 06/29/2021 11:06 AM Foot MRI 06/29/21 11:30 MRI OF THE RIGHT FOOT WITHOUT CONTRAST CLINICAL HISTORY: Concern for osteomyelitis, ulceration, cellulitis. Right first toe wound. COMPARISON STUDY: Right foot radiographs performed earlier today. TECHNIQUE: Utilizing a 1.5 Renetta magnet and dedicated coil, multiplanar, multiecho imaging of the right forefoot was performed without intravenous contrast. FINDINGS: Tarsometatarsal joints are intact. Note is made of joint space narrowing and osteophytosis of the right first metatarsophalangeal joint with mild increased fluid within the joint space. Note is made of a 4.1 x 1.6 cm density within the subcutaneous tissues overlying the medial aspect of the right first metatarsophalangeal joint. This contains hypointense foci which correspond to faint calcifications by radiography. This favors gout. In addition, there is erosion of the adjacent medial right first metatarsal head. This favors gout although osteomyelitis could appear similar. Note is made of a wound of the plantar aspect of the right first toe which overlies the medial sesamoid. There is associated cellulitis and diminished T1 signal within the medial sesamoid suggestive of osteomyelitis. There is a 1.7 x 1.2 x 0.6 cm fluid collection between the distal shafts of the right first and second metatarsals. There is increased fluid within the tendon sheath for abductor hallucis. Hypointense foci within the tendon sheath likely correspond to gas shown radiographs of June 29, 2021. This may reflect an infectious tenosynovitis. There is increased intramuscular T2 signal within the right midfoot. Degenerative changes within the right midfoot are incidentally noted IMPRESSION: 1. Overall, findings suggestive of right first digit gout with superimposed infection, including wound, cellulitis and osteomyelitis. 2. 4.1 x 1.6 cm focus along the medial aspect of the right first metata rsophalangeal joint which contains calcifications, as shown on radiograph. This favors gout. Erosion of the adjacent medial right first metatarsal head likely related to gout however osteomyelitis could appear similar. 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 3. Would overlying the plantar aspect of the right first metatarsophalangeal joint with associated abnormal signal within the medial sesamoid of the great toe suggestive of osteomyelitis. Associated cellulitis. 4. 1.7 cm fluid collection between the distal shaft of the right first and second metatarsals. This is nonspecific and may reflect an abscess. 5. Increased fluid and probable gas within the tendon sheath for abductor hallucis. This represents tenosynovitis, likely infectious. ACT 112: Negative or not required by law. Electronically signed by: Terrell Jefferson M.D. 06/29/2021 1:35 PM Discharge Plan Visit Data Chief Complaint: Foot Injury/Pain Stated Complaint: GOUT ED Provider: Ford Armendariz Discharge Problem: Acute foot pain, Chronic kidney disease, stage 3, Osteomyelitis Patient Disposition: Admitted As Inpatient Discharge Instructions Interventions: ED Discharge Assessment Last Done: 06/29/21 13:49
[2021-06-29] MEDS ORDERED: ONDANSETRON INJ 2 MG/ML 2 ML VIAL IV STA (09:38)
[2021-06-29] MEDS ORDERED: CEFEPIME 2,000 MG/20 ML VIAL IV STA (09:38)
[2021-06-29] MEDS ORDERED: SODIUM CHLORIDE 0.9% 500 ML IV STA (09:38)
[2021-06-29 10:20] LABS: Appearance Urine Clear (Clear); Bacteria Urine Automated Negative (Negative); Bilirubin Urine Negative (Negative); Blood Urine Negative (Negative); Cast Urine Automated 0 /lpf (0-5); Color Urine Yellow; Glucose Urine UA 3+ (Negative); Ketones Urine Negative (Negative); Leukocyte Esterase Urine Negative (Negative); Nitrite Urine Negative (Negative); Protein Urine 1+ (Negative); RBC Urine Automated 0-4 /hpf (0-4); Specific Gravity Urine 1.023 (1.000-1.030); Urobilinogen Urine Negative (Negative)
[2021-06-29 10:24] LABS: Basophils # (auto) 0.04 K/uL (0-0.2); Basophils % (auto) 0.2 %; Eosinophils # (auto) 0.08 K/uL (0-0.5); Eosinophils % (auto) 0.4 %; Immature Granulocytes # (auto) 0.76 K/uL (0.00-0.02); Immature Granulocytes % (auto) 3.5 %; Lymphocytes # (auto) 0.57 K/uL (1.2-3.4); Lymphocytes % (auto) 2.6 %; Mean Corpuscular Volume 88.7 fL (80-100); Mean Platelet Volume 10.4 fL (7.4-10.4); Monocytes # (auto) 1.04 K/uL (0.11-0.59); Monocytes % (auto) 4.7 %; Neutrophils # (auto) 19.51 K/uL (1.4-6.5); Neutrophils % (auto) 88.6 %; Platelet Count 347 K/uL (130-400); RDW Coefficient of Variation 13.4 % (11.5-14.5); RDW Standard Deviation 43.6 fL (36.4-46.3); Red Blood Count 4.51 M/uL (4.7-6.1)
[2021-06-29] MEDS ORDERED: FAMOTIDINE 20MG IV PUSH 20 MG/5 ML SYR IV STA (10:26)
[2021-06-29] MEDS ORDERED: PROCHLORPERAZINE 2 ML IV ONE (10:26)
[2021-06-29 10:44] LABS: Troponin I 0.04 ng/ml (0-0.04)
[2021-06-29 10:46] LABS: Albumin Globulin Ratio 1.4 (0.9-2); Albumin Level 4.2 gm/dl (3.4-5.0); BUN Creatinine Ratio 33.9 (10-20); Bilirubin,Total 1.5 mg/dl (0.2-1.0); Calcium 9.7 mg/dl (8.5-10.1); Creatinine Clr Calc Pharmacy 54.5 ml/min; Est GFR (African American) 44.8 ml/min; Est GFR (Non-African American) 38.6 ml/min; Globulin 3.1 gm/dl (2.5-4.0); Potassium 4.2 mmol/L (3.5-5.1); Total Protein 7.3 gm/dl (6.0-8.3)
--- NOTE | 2021-06-29 10:55 | XRay Report ---
XR chest 1V portable CLINICAL HISTORY: Dyspnea. COMPARISON STUDY: Chest radiograph March 14, 2021. MRI of the chest April 15, 2019. FINDINGS: Lung volumes are normal. Lungs are clear. There is no pneumothorax or pleural effusion. Mod erate cardiomegaly is unchanged. Mediastinal contours are normal. There is no evidence for pulmonary edema. IMPRESSION: No acute cardiopulmonary findings. Stable cardiomegaly. ACT 112: Negative or not required by law. Electronically signed by: Terrell Jefferson M.D. 06/29/2021 10:54 AM
--- NOTE | 2021-06-29 11:07 | XRay Report ---
XR foot RT min 3V routine CLINICAL HISTORY: gouty flare?, erythematous, ulcer to ball of foot COMPARISON: None FINDINGS: Tarsometatarsal joints are intact. No acute fracture within the right foot. Note is made o f pronounced soft tissue swelling along the medial and plantar aspect of the right first metatarsopha langeal joint. Small associated calcifications are present. 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 There are are suspected erosions of the medial aspect of the righ t first metatarsal head. Possible soft tissue gas projecting along the medial aspect of the right fir st metatarsal shaft is noted. There is extensive vascular calcification. Plantar calcaneal spurring i s noted. Severe osteoarthritis within the right midfoot and hindfoot are also present. IMPRESSION: 1. Pronounced soft tissue swelling along the medial and plantar aspect of the right first metatarsoph alangeal joint with associated soft tissue calcifications. This favors gout. Possible associated eros ions of the right first metatarsal head. Given possible soft tissue gas, an infectious process is als o within the differential. 2. Severe osteoarthritis within the right first metatarsophalangeal joint and multiple articulations of the right mid and hindfoot. ACT 112: Negative or not required by law. Electronically signed by: Terrell Jefferson M.D. 06/29/2021 11:06 AM
--- NOTE | 2021-06-29 11:23 | History & Physical Report ---
Date of Service June 29, 2021 Assessment & Plan (1) Cellulitis of right foot: (2) Ulcer of right foot: (3) Gout: Plan: - [facility] - DM II makes him higher likelihood to have acute infection and appears to be this more so than gout. - Continue on IV cefepime and vancomycin to cover pseudomonas - White count is elevated at 20 2K, neutrophils 19.51 with left shift, pro-Niranjan is elevated at 1.81 - X-ray of the foot reviewed: Showing possible erosions of the right first metatarsal head, soft tissue gas concerning. Will obtain MRI of the foot to rule out osteomyelitis, if needed then will consult ortho - Wound culture, blood cultures obtained - Consult wound care nurse. Pt has outpt podiatry appointment scheduled for Thursday. - Question if underlying gout also involved, check uric acid, unlikely as the pt has not improved on prednisone in the past 5 days. - PT/OT consults - pt is using cane due to pain but typically does not require this (4) Diabetes mellitus, type II: Plan: - Last A1C was 9.0 earlier this week checked as an outpatient - ISS with Versafezion beard - Cecil tee (5) History of nephrectomy: (6) Chronic kidney disease, stage 3: Plan: - Cr. is stable currently at 1.8 and BUN 61 - Hx of left nephrectomy with RCC in 2018 (7) Hypertension: Plan: - Patient missed his morning medications, can resume normal antihypertensives tomorrow morning except for Coreg which will be administered now to avoid rebound tachycardia (8) Hyperlipidemia: Plan: -Continue atorvastatin daily (9) CML (chronic myelocytic leukemia): Plan: - Continue Tasigna for CML -patient took medication this morning, due for next dose this evening, patient did vomit several times earlier today. (10) Obesity: Plan: -BMI 31.7, encourage diet and exercise once further improvement of the above medical issues DVT PPx: - teds, scds, Lovenox subcu CODE: Full code Dispo: From home, likely to remain in the hospital x 2 days History of Present Illness Chief Complaint: Foot pain, injury Primary Care Provider: Jose C Vaughn MD This is a 65-year-old male with PMHx of DM type II, CKD stage III, HTN, HLD, chronic myelocytic leukemia diagnosed August 2017, history of renal cell carcinoma s/p left nephrectomy April 2012, vitamin D deficiency presents with right foot redness and ulceration on the bottom of his foot. Pt notes pain started in his foot 5 days ago. He noticed increased redness and swelling which only started 3 days ago. About 2 weeks ago he saw a freight solicitor as an outpatient to remove part of the callous on on the sole of his right first toe. It felt ok initially, but had some drainage at that point, the drainage is less at this point that last 2 weeks ago. He is very tender with minimal pressure or walking. He is still able to walk on his foot but it is painful. He has been using a cane because the pain is so bad. Pt is tired today but states he wasn't able to sleep at all last night due to pain. He is nauseous currently and has vomited "a couple times" this morning, pt denies abdominal pain. He is occasionally constipated but last BM was yesterday. Pt is asking for crackers and gingerale. He had some orangejuice and his chemo medication earlier today, no other medications. He was started on prednisone in the past 5 days for possible gout by his PCP. It did not improve swelling or pain of the foot. He denies any fever, chills, or sweats. In two days he is again scheduled to see the freight solicitor. His son is present with him at bedside and supports the history Allergies Allergy/AdvReac Type Severity Reaction Status Date / Time allopurinol Allergy Unknown Unknown Verified 06/29/21 11:21 Home Medications Medication Instructions Recorded Confirmed Type aspirin 81 mg tablet,delayed 81 mg PO HS 08/28/18 06/29/21 History release (Aspirin Low Dose) febuxostat 40 mg tablet (Uloric) 40 mg PO QAM 08/28/18 06/29/21 History carvedilol 3.125 mg tablet 3.125 mg PO BID 11/09/19 06/29/21 History docusate sodium 50 mg capsule 50 mg PO HS 11/09/19 06/29/21 History nilotinib 200 mg capsule (Tasigna) 400 mg PO Q12H 03/26/20 06/29/21 History dutasteride 0.5 mg capsule 0.5 mg PO HS 07/06/20 06/29/21 History atorvastatin 40 mg tablet 40 mg PO HS 08/02/20 06/29/21 History furosemide 40 mg tablet 60 mg PO BID tab 09/28/20 06/29/21 History sennosides 8.6 mg capsule (senna) 8.6 mg PO BID 10/18/20 06/29/21 History empagliflozin 10 mg tablet 10 mg PO QAM 01/31/21 06/29/21 History (Jardiance) hydralazine 100 mg tablet 100 mg PO TID tab 01/31/21 06/29/21 History amlodipine 5 mg tablet 5 mg PO QAM #90 tab 06/13/21 06/29/21 Rx potassium chloride 10 mEq 10 meq PO .COMPLEX #48 tabs 06/13/21 06/29/21 Rx tablet,extended release (Klor-Con) losartan 25 mg tablet 25 mg PO QAM 06/29/21 06/29/21 History prednisone 20 mg tablet 0 mg PO .TAPER DOSE 06/29/21 06/29/21 History tamsulosin 0.4 mg capsule 0.4 mg PO HS 06/29/21 06/29/21 History Past Med/Surg History Medical History Aortic stenosis, mild BPH (benign prostatic hyperplasia) Cardiac murmur follows with Dr. Brooks Chronic kidney disease, stage 3 CML (chronic myelocytic leukemia) diagnosed 2017--oral chemo Diabetes mellitus, type II lost weight, taken off meds Gout Hyperlipidemia Hypertension Nausea and vomiting after administration of anesthetic agent MEE (obstructive sleep apnea) cpap Pleural effusion on right hx of 03/2020--had thoracentesis Renal cell carcinoma 2011--removed left kidney Vitamin D deficiency Surgical History History of cardiac cath 2001 @ [facility] [place] no stents History of cataract surgery bilt History of colonoscopy with polypectomy History of nephrectomy left 2011 History of prostate biopsy benign History of surgery on extremity right leg compound fx repair History of thoracentesis (~03/27/20) History of wisdom tooth extraction Family History Brother Coronary heart disease fatal IN age 51 Father FH: brain aneurysm age 60 Other No family history of adverse response to anesthesia Social History Smoking Status: Never smoker Second Hand Exposure: No; Hx Alcohol Use: No Hx Substance Use: No Preferred Language: Welsh Communication Ability: Effective Middle School Counselor Required: No Beliefs That Will Affect Care: None marital status: Current Living Situation: Spouse and Family Current Living Situation Comment: Lives with and 2 adult children current occupational status: employed How many Children do You have: 2 Feels Safe at Home: Yes Assistive Devices: CPAP Review of Systems Review of Systems: Constitutional: No fever, sweats or chills Eyes: No diplopia, no worsening or blurred vision ENT: normal hearing, no trouble swallowing Respiratory: No cough, sputum, dyspnea at rest or on exertion Cardiovascular: No chest pain, tightness or palpitations Abdomen: No pain, nausea, vomiting, diarrhea or constipation Musculoskeletal: No joint pain, + Right foot pain as described as per HPI, no calf pain, swelling Neurologic: No weakness, numbness/tingling, or balance problems Psychiatric: No anxiety or depression Skin: No rash or itch Physical Exam Physical Exam: General: awake, alert, no apparent distress Head: Normocephalic, atraumatic ENT: PERRL, EOMI, no pharyngeal exudate, mucous membranes moist Chest: Clear to auscultation, on room air, no adventitious breath sounds Cardiac: Regular rate and rhythm, no murmur, no JVD, normal peripheral pulses, good capillary refill Abdominal: NABS x 4 quadrants, soft, nondistended, nontender to palpation, no rebound or guarding Extremities: Right foot with erythema and edema extending over great toe and up to mid foot involving bunion, + callous opened wound on sole of foot 1st metatarsal head, +serosangious drainage, no obvious purulent drainage. +tender to palpation, otherwise no peripheral edema or erythema, calfs nontender to palpation Psych: Normal mood and affect Neuro: AAO x 3, strength intact bilaterally and rated 5/5, no motor deficits, speech is clear, no peripheral sensory deficits Results & Data Results & Data ([facility]) Vital Signs (Past 12 Hours) Vital Signs Temp Pulse Resp BP Pulse Ox 06/29/21 10:00 73 21 169/109 H 97 06/29/21 09:25 36.4 C L 93 H 18 172/73 H 94 Laboratory Results 06/29/21 10:00 Aerobic Blood Culture - Pending Blood Anaerobic Blood Culture - Pending 06/29/21 09:52 Aerobic Blood Culture - Pending Blood Anaerobic Blood Culture - Pending 06/29/21 10:00 Gram Stain - Pending Foot,Right Deep Wound Culture - Pending 06/29/21 06/29/21 06/29/21 10:32 09:57 09:53 WBC RBC Hgb Hct MCV MCH MCHC RDW Std Deviation RDW Coeff of Joce Plt Count MPV Immature Gran % (Auto) Neut % (Auto) Lymph % (Auto) [place] % (Auto) Eos % (Auto) Baso % (Auto) Neut # (Auto) Lymph # (Auto) [place] # (Auto) Eos # (Auto) Baso # (Auto) Immature Gran # (Auto) Sodium Potassium Chloride Carbon Dioxide Anion Gap BUN Creatinine Est Cr Clr Drug Dosing Est GFR ( Amer) Est GFR (Non-Af Amer) BUN/Creatinine Ratio Glucose Calcium Total Bilirubin AST ALT Alkaline Phosphatase Troponin I B-Natriuretic Peptide 133 H Total Protein Albumin Globulin Albumin/Globulin Ratio Procalcitonin Urine Color Yellow Urine Appearance Clear Urine pH 5.0 Ur Specific [place] 1.023 Urine Protein 1+ H Urine Glucose (UA) 3+ H Urine Ketones Negative Urine Blood Negative Urine Nitrite Negative Urine Bilirubin Negative Urine Urobilinogen Negative Ur Leukocyte Esterase Negative Urine WBC (Auto) 1-5 Urine RBC (Auto) 0-4 U Hyaline Cast (Auto) 0 U Epithel Cells (Auto) 5-10 H Urine Bacteria (Auto) Negative SARS-CoV-2, RNA, NAAT NEGATIVE 06/29/21 06/29/21 06/29/21 09:52 09:52 09:52 WBC 22.00 H RBC 4.51 L Hgb 14.0 Hct 40.0 L MCV 88.7 MCH 31.0 MCHC 35.0 RDW Std Deviation 43.6 RDW Coeff of Joce 13.4 Plt Count 347 MPV 10.4 Immature Gran % (Auto) 3.5 Neut % (Auto) 88.6 Lymph % (Auto) 2.6 [place] % (Auto) 4.7 Eos % (Auto) 0.4 Baso % (Auto) 0.2 Neut # (Auto) 19.51 H Lymph # (Auto) 0.57 L [place] # (Auto) 1.04 H Eos # (Auto) 0.08 Baso # (Auto) 0.04 Immature Gran # (Auto) 0.76 H Sodium 131 L Potassium 4.2 Chloride 97 L Carbon Dioxide 20 L Anion Gap 14 H BUN 61 H Creatinine 1.80 H Est Cr Clr Drug Dosing 54.5 Est GFR ( Amer) 44.8 Est GFR (Non-Af Amer) 38.6 BUN/Creatinine Ratio 33.9 H Glucose 258 H Calcium 9.7 Total Bilirubin 1.5 H AST 14 ALT 24 Alkaline Phosphatase 88 Troponin I 0.04 B-Natriuretic Peptide Total Protein 7.3 Albumin 4.2 Globulin 3.1 Albumin/Globulin Ratio 1.4 Procalcitonin 1.81 H Urine Color Urine Appearance Urine pH Ur Specific [place] Urine Protein Urine Glucose (UA) Urine Ketones Urine Blood Urine Nitrite Urine Bilirubin Urine Urobilinogen Ur Leukocyte Esterase Urine WBC (Auto) Urine RBC (Auto) U Hyaline Cast (Auto) U Epithel Cells (Auto) Urine Bacteria (Auto) SARS-CoV-2, RNA, NAAT Diagnostic Findings Chest X-Ray 06/29/21 09:38 XR chest 1V portable CLINICAL HISTORY: Dyspnea. COMPARISON STUDY: Chest radiograph March 14, 2021. MRI of the chest April 15, 2019. FINDINGS: Lung volumes are normal. Lungs are clear. There is no pneumothorax or pleural effusion. Moderate cardiomegaly is unchanged. Mediastinal contours are normal. There is no evidence for pulmonary edema. IMPRESSION: No acute cardiopulmonary findings. Stable cardiomegaly. ACT 112: Negative or not required by law. Electronically signed by: Terrell Jefferson M.D. 06/29/2021 10:54 AM Foot X-Ray 06/29/21 09:39 XR foot RT min 3V routine CLINICAL HISTORY: gouty flare?, erythematous, ulcer to ball of foot COMPARISON: None FINDINGS: Tarsometatarsal joints are intact. No acute fracture within the right foot. Note is made of pronounced soft tissue swelling along the medial and plantar aspect of the right first metatarsophalangeal joint. Small associated calcifications are present. 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 There are are suspected erosions of the medial aspect of the right first metatarsal head. Possible soft tissue gas projecting along the medial aspect of the right first metatarsal shaft is noted. There is extensive vascular calcification. Plantar calcaneal spurring is noted. Severe osteoarthritis within the right midfoot and hindfoot are also present. IMPRESSION: 1. Pronounced soft tissue swelling along the medial and plantar aspect of the right first metatarsophalangeal joint with associated soft tissue calcifications. This favors gout. Possible associated erosions of the right first metatarsal head. Given possible soft tissue gas, an infectious process is also within the differential. 2. Severe osteoarthritis within the right first metatarsophalangeal joint and multiple articulations of the right mid and hindfoot. ACT 112: Negative or not required by law. Electronically signed by: Terrell Jefferson M.D. 06/29/2021 11:06 AM Code Status & VTE Plan Code Status Full code - discussed with pt and his son at bedside Supervising Physician Co-Signing Physician Notes Pt is a 65 y/o M with hx of HFpEF, Moderate , DMII, HTN, HLD, hx of Renal Cell carcinoma s/p L nephrectomy, CKD III, DDD, CML on Tasigna, BPH, R foot plantar callus s/p removal (2 weeks ago) admitted for R foot cellulitis and R foot plantar wound. PE: Mild distress, well developed Lungs: CTA, no wheezing or crackles Cards: Normal S1/S2, systolic murmur Abd: ND, NT, and soft MSK: no swelling or erythema of the b/l legs R foot: swelling and erythema of the medial foot, 1st MTP and plantar surface. Warmth to touch & TTP the area -stage III plantar surface wound with serosanguineous drainage Psych: AAOx3, normal affect A/P: R foot cellulitis and R foot plantar stage III wound: -Xray of the foot: Pronounced soft tissue swelling along the medial and plantar aspect of the right first metatarsophalangeal joint with associated soft tissue calcifications. This favors gout. Possible associated erosions of the right first metatarsal head. Given possible soft tissue gas, an infectious process is also within the differential -due to the wound and possible soft tissue gas will get MRI of the foot (w/o C) -for now will continue vanc and cefepime -will send BCx and Wound Cx -wound care consult -will get PT/OT -will hold prednisone: not suspecting acute gout attack at this time but will get uric acid level -heparin for DVT ppx Other chronic medical conditions: plan per Harleen Logan PA-C Agree with A/P by Harleen Logan PA-C (1) Chronic kidney disease, stage 3 Chronic kidney disease stage 3 subtype: unspecified whether 3a or 3b Qualified Code(s): N18.30 - Chronic kidney disease, stage 3 unspecified
[2021-06-29] MEDS ORDERED: VANCOMYCIN HCL 2,750 MG in SODIUM CHLORIDE 0.9% 500 ML IV ONE (11:25)
[2021-06-29] MEDS ORDERED: VANCOMYCIN CONSULT ACTIVE PRN ×2 (11:25→15:33)
--- NOTE | 2021-06-29 11:35 | Electrocardiogram Report ---
Test Reason : Blood Pressure : / mmHG Vent. Rate : 073 BPM Atrial Rate : 073 BPM P-R Int : 128 ms QRS Dur : 098 ms QT Int : 396 ms P-R-T Axes : 050 -10 037 degrees QTc Int : 436 ms Normal sinus rhythm Normal ECG When compared with ECG of 26-MAR-2020 14:10, Premature supraventricular complexes are no longer Present Confirmed by Anthony Sommer ([id number]) on 06/29/2021 11:35:09 AM Referred By: REFERRED SELF Confirmed By:Anthony Sommer
[2021-06-29] MEDS: carvediloL 3.125 MG TAB PO SCH ×2 (13:05→20:28)
--- NOTE | 2021-06-29 13:36 | Magnetic Resonance Report ---
MRI OF THE RIGHT FOOT WITHOUT CONTRAST CLINICAL HISTORY: Concern for osteomyelitis, ulceration, cellulitis. Right first toe wound. COMPARISON STUDY: Right foot radiographs performed earlier today. TECHNIQUE: Utilizing a 1.5 Renetta magnet and dedicated coil, multiplanar, multiecho imaging of the rig ht forefoot was performed without intravenous contrast. FINDINGS: Tarsometatarsal joints are intact. Note is made of joint space narrowing and osteophytosis of the right first metatarsophalangeal joint with mild increased fluid within the joint space. Note i s made of a 4.1 x 1.6 cm density within the subcutaneous tissues overlying the medial aspect of the r ight first metatarsophalangeal joint. This contains hypointense foci which correspond to faint calcif ications by radiography. This favors gout. In addition, there is erosion of the adjacent medial right first metatarsal head. This favors gout although osteomyelitis could appear similar. Note is made of a wound of the plantar aspect of the right first toe which overlies the medial sesamoid. There is as sociated cellulitis and diminished T1 signal within the medial sesamoid suggestive of osteomyelitis. There is a 1.7 x 1.2 x 0.6 cm fluid collection between the distal shafts of the right first and secon d metatarsals. There is increased fluid within the tendon sheath for abductor hallucis. Hypointense f oci within the tendon sheath likely correspond to gas shown radiographs of June 29, 2021. This ma y reflect an infectious tenosynovitis. There is increased intramuscular T2 signal within the right mi dfoot. Degenerative changes within the right midfoot are incidentally noted IMPRESSION: 1. Overall, findings suggestive of right first digit gout with superimposed infection, including woun d, cellulitis and osteomyelitis. 2. 4.1 x 1.6 cm focus along the medial aspect of the right first metatarsophalangeal joint which cont ains calcifications, as shown on radiograph. This favors gout. Erosion of the adjacent medial right f irst metatarsal head likely related to gout however osteomyelitis could appear similar. Severe osteoa rthritis of the right first metatarsophalangeal joint. 3. Would overlying the plantar aspect of the right first metatarsophalangeal joint with associated ab normal signal within the medial sesamoid of the great toe suggestive of osteomyelitis. Associated martha lulitis. 4. 1.7 cm fluid collection between the distal shaft of the right first and second metatarsals. This i s nonspecific and may reflect an abscess. 5. Increased fluid and probable gas within the tendon sheath for abductor hallucis. This represents t enosynovitis, likely infectious. ACT 112: Negative or not required by law. Electronically signed by: Terrell Jefferson M.D. 06/29/2021 1:35 PM
[2021-06-29] MEDS ORDERED: oxyCODONE HCL IR 5 MG TAB (IMMEDIATE RELEASE) PO PRN (15:33)
[2021-06-29] MEDS ORDERED: GLUCAGON FOR INJ 1 MG VIAL SQ PRN (15:33)
[2021-06-29] MEDS ORDERED: GLUCOSE 10 TABS/TUBE PO PRN (15:33)
[2021-06-29] MEDS ORDERED: CARBOHYDRATES FOR HYPOGLYCEMIA PO PRN (15:33)
[2021-06-29] MEDS ORDERED: GLUCOSE 40% GEL 15 GM TUBE PO PRN (15:33)
[2021-06-29] MEDS ORDERED: DEXTROSE 50% 50 ML SYRINGE IV PRN (15:33)
[2021-06-29] MEDS ORDERED: VANCOMYCIN HCL 1,750 MG in SODIUM CHLORIDE 0.9% 500 ML IV SCH (15:33)
[2021-06-29] MEDS: ONDANSETRON INJ 2 MG/ML 2 ML VIAL IV PRN (16:00)
[2021-06-29] MEDS: MoRPHine SULFATE 2 MG/ML CARP IV PRN ×2 (16:05→18:17)
[2021-06-29] MEDS: POLYETHYLENE (MIRALAX) 17 GM PACK PO SCH (16:40)
[2021-06-29] MEDS: hydrALAZINE TAB 50 MG TAB PO SCH ×2 (16:40→20:29)
[2021-06-29] MEDS: FUROSEMIDE 20 MG TAB PO SCH (16:43)
[2021-06-29] MEDS: bisacodyL 5 MG TABEC PO SCH (16:48)
[2021-06-29] MEDS: INSULIN ASPART PER UNIT SC SCH ×2 (17:09→20:30)
--- NOTE | 2021-06-29 17:19 | Communication Note ---
Date of Service: June 29, 2021 See full dictated consult. Will plan for OR tomorrow for I and D
--- NOTE | 2021-06-29 19:22 | Pharmacy Report ---
Pharmacy Vanc AUC Short Note - Date of Service June 29, 2021 - Assessment & Plan Assessment 65 year old M receiving vancomycin + cefepime for treatment of right foot cellulitis, r/o osteo. Planning for OR tomorrow for I&D. PMH significant for CKD, h/o nephrectomy, DM, CML BC and foot culture pending Plan Vancomycin * Loading dose: 2750 mg IV * Maintenance dose: 1250 mg (11 mg/kg) IV q18h * Regimen is predicted to achieve target AUC/KALYN of 400-600 mg/L.hr and may be associated with a 18 % risk of nephrotoxicity * Est AUC/KALYN at steady state: 603 * AUC/KALYN is the preferred PK/PD target for vancomycin * AUC guided dosing is effective and associated with decreased risk of nephrotoxicity compared to traditional trough targets * Trough or random level ordered for: 07/01/21 @ 1530 Pharmacy will continue to follow and will adjust dose/frequency as necessary. Thank you.
[2021-06-29] MEDS: ASPIRIN 81 MG ECTAB PO SCH (20:27)
[2021-06-29] MEDS: ATORVASTATIN 40 MG TAB PO SCH (20:27)
[2021-06-29] MEDS: DOCUSATE SODIUM 100 MG CAP PO SCH (20:29)
[2021-06-29] MEDS: SENNA 8.6 MG TAB PO SCH (20:30)
[2021-06-29] MEDS: TAMSULOSIN HCL 0.4 MG CAP PO SCH (20:30)
[2021-06-29] MEDS: CEFEPIME 2,000 MG in SYRINGE 0 ML IV SCH (20:32)
--- NOTE | 2021-06-29 20:36 | Consultation Report ---
ORTHOPEDIC CONSULTATION DATE OF SERVICE: 06/29/2021 SPECIAL ATTENTION TO: Right foot open wound. HISTORY OF PRESENT ILLNESS: This is a 65-year-old gentleman who has a progressive open wound at the base of his first metatarsal joint. This was debrided as an outpatient approximately 2 weeks ago. He had increased pain and swelling in the foot. He notes increasing pain, particularly in the MTP joint. He states he completed a prednisone course without relief and the pain is worsening and the pain has been fairly severe. PAST MEDICAL HISTORY: Type 2 diabetes, stage III kidney disease, hypertension, chronic myelocytic leukemia, history of renal cell carcinoma, status post nephrectomy, history of gout. PHYSICAL EXAMINATION: RIGHT FOOT: He has an ulceration approximately 1 cm x 5 mm at the volar and radial aspect of the first MTP joint. There is a moderate amount of serous drainage. It is exquisitely tender to palpation as is his MTP joint. MTP joint shows a very large effusion and significant tenderness to touch and shows severe pain with passive extension of the digit. He has no streaking erythema. He does have localized erythema, however. This is mostly localized to the MTP joint. REVIEW OF RADIOGRAPHS: Three views of the right foot shows gas versus air in the soft tissues medially. It shows significant destructive arthritic changes of the MTP joint. Questionable erosion on the sesamoid and on the first MTP joint, possibly concerning for early osteomyelitis. Review of MRI of the right foot does suggest a calcification consistent with gouty tophi in the region. Erosions are seen in the first metatarsal head. Arthritis seen at the MTP joint. Fluid collection seen between the first and second metatarsals, which is nonspecific in nature. Tenosynovitis is suggested in the tendon sheath of the abductor hallucis. ASSESSMENT: 1. Right diabetic foot infection. 2. Right foot plantar abscess. 3. Possible gout versus infection, right first metatarsophalangeal joint. 4. Right foot infectious tenosynovitis. PLAN: I discussed findings and treatment with him and discussed options of surgical treatment versus nonsurgical treatment. At this point in time, he is worsening despite medical treatment with steroid course. I discussed with him that the MTP joint may likely represent gout, but I cannot sure whether or not it is infected as well. He likely does have an infectious abscess in the plantar foot. Given his worsening pain and symptoms, he feels he needs something to be done for relief. He would like to proceed with: 1. Right foot incision and drainage of abscess. 2. Right foot tenosynovectomy. 3. Right first MTP joint arthrotomy and drainage. Risks and benefits have been discussed including, but not limited to infection, stiffness, failure to improve, loss of motion, need for further work including amputation, continued infection, etc. He is agreeable and wished to proceed. Plan for surgical treatment in the morning. We will hold his heparin and have him n.p.o. after midnight. [facility] [id number] [facility]
[2021-06-29] MEDS ORDERED: HEPARIN SOD 5,000 UNIT/0.5 ML VIAL SQ SCH (21:00)
[2021-06-30] MEDS: MoRPHine SULFATE 2 MG/ML CARP IV PRN ×2 (00:58→10:58)
[2021-06-30] MEDS ORDERED: VANCOMYCIN HCL 1,250 MG in SODIUM CHLORIDE 0.9% 250 ML IV SCH (04:00)
[2021-06-30] MEDS: LOSARTAN POTASSIUM 25 MG TAB PO SCH (07:32)
[2021-06-30] MEDS: FUROSEMIDE 20 MG TAB PO SCH ×2 (07:33→16:59)
[2021-06-30] MEDS: amLODIPine BESYLATE 5 MG TAB PO SCH (07:33)
[2021-06-30] MEDS: POTASSIUM CHLORIDE 10 MEQ TABCR PO SCH (07:33)
[2021-06-30] MEDS: hydrALAZINE TAB 50 MG TAB PO SCH ×3 (07:34→20:07)
[2021-06-30] MEDS: DUTASTERIDE PO SCH (07:34)
[2021-06-30] MEDS: FEBUXOSTAT 40 MG TABLET PO SCH (07:34)
[2021-06-30] MEDS: carvediloL 3.125 MG TAB PO SCH ×2 (07:44→20:05)
[2021-06-30] MEDS: INSULIN ASPART PER UNIT SC SCH ×4 (07:47→20:59)
[2021-06-30] MEDS: CEFEPIME 2,000 MG in SYRINGE 0 ML IV SCH ×2 (08:22→20:59)
[2021-06-30] MEDS ORDERED: fentaNYL citrate 100 MCG/2 ML VIAL ONE (08:36)
[2021-06-30] MEDS ORDERED: DEXAMETHASONE SOD INJ 4 MG/ML VIAL ONE (08:36)
[2021-06-30] MEDS ORDERED: PROPOFOL IV EMULSION 10 MG/ML 20 ML VIAL IV ONE (08:36)
[2021-06-30] MEDS ORDERED: MIDAZOLAM HCL 1 MG/ML 2ML VIAL ONE (08:36)
[2021-06-30] MEDS ORDERED: ONDANSETRON INJ 2 MG/ML 2 ML VIAL ONE (08:36)
[2021-06-30] MEDS ORDERED: LIDOCAINE 2% 2 ML VIAL/AMP(20MG/ML) INFIL ONE (08:36)
--- NOTE | 2021-06-30 08:39 | Anesthesiology Consultation ---
Date of Service June 30, 2021 Assessment & Plan (1) Encounter for pre-operative examination: Chart Review Chart Review: Acceptable Risk for Surgery and Patient NOT seen in Pre Admission Testing Consults Requested none History Surgery Operation Date: 06/30/21 09:45 Proposed Procedures p Incision and Drainage Right Diabetic Foot Ulcer(Right) - Da Morales MD Height/Weight Height: 6 ft 2 in Weight: 112 kg Allergies Allergy/AdvReac Type Severity Reaction Status Date / Time allopurinol Allergy Unknown Unknown Verified 06/29/21 11:21 Medications Home Medications Medication Instructions Recorded Confirmed Last Taken aspirin 81 mg tablet,delayed 81 mg PO HS 08/28/18 06/29/21 06/28/21 release (Aspirin Low Dose) febuxostat 40 mg tablet (Uloric) 40 mg PO QAM 08/28/18 06/29/21 06/28/21 carvedilol 3.125 mg tablet 3.125 mg PO BID 11/09/19 06/29/21 06/28/21 docusate sodium 50 mg capsule 50 mg PO HS 11/09/19 06/29/21 06/28/21 nilotinib 200 mg capsule (Tasigna) 400 mg PO Q12H 03/26/20 06/29/21 06/29/21 400 mg dutasteride 0.5 mg capsule 0.5 mg PO HS 07/06/20 06/29/21 06/28/21 atorvastatin 40 mg tablet 40 mg PO HS 08/02/20 06/29/21 06/28/21 furosemide 40 mg tablet 60 mg PO BID tab 09/28/20 06/29/21 06/28/21 sennosides 8.6 mg capsule (senna) 8.6 mg PO BID 10/18/20 06/29/21 06/28/21 empagliflozin 10 mg tablet 10 mg PO QAM 01/31/21 06/29/21 06/28/21 (Jardiance) hydralazine 100 mg tablet 100 mg PO TID tab 01/31/21 06/29/21 06/28/21 amlodipine 5 mg tablet 5 mg PO QAM #90 tab 06/13/21 06/29/21 06/28/21 potassium chloride 10 mEq 10 meq PO .COMPLEX #48 tabs 06/13/21 06/29/21 06/28/21 tablet,extended release (Klor-Con) losartan 25 mg tablet 25 mg PO QAM 06/29/21 06/29/21 06/28/21 prednisone 20 mg tablet 0 mg PO .TAPER DOSE 06/29/21 06/29/21 06/28/21 40 mg tamsulosin 0.4 mg capsule 0.4 mg PO HS 06/29/21 06/29/21 06/28/21 Active Medications Generic Name Dose Route Start Last Admin Trade Name Ladan PRN Reason Stop Dose Admin Amlodipine Besylate 5 mg 06/30/21 09:00 06/30/21 07:33 Amlodipine Besylate 5 Mg Tab PO 07/30/21 08:59 5 mg QAM SÁNCHEZ Administration Aspirin 81 mg 06/29/21 21:00 06/29/21 20:27 Aspirin 81 Mg Ectab PO 07/29/21 20:59 81 mg HS SÁNCHEZ Administration Atorvastatin Calcium 40 mg 06/29/21 21:00 06/29/21 20:27 Atorvastatin 40 Mg Tab PO 07/29/21 20:59 40 mg HS SÁNCHEZ Administration Bisacodyl 5 mg 06/29/21 16:00 06/29/21 16:48 Bisacodyl 5 Mg Tabec PO 07/29/21 15:59 5 mg DAILY SÁNCHEZ Administration Carvedilol 3.125 mg 06/29/21 12:14 06/30/21 07:44 Carvedilol 3.125 Mg Tab PO 07/29/21 12:13 3.125 mg BID SÁNCHEZ Administration Docusate Sodium 100 mg 06/29/21 21:00 06/29/21 20:29 Docusate Sodium 100 Mg Cap PO 07/29/21 20:59 100 mg HS SÁNCHEZ Administration Furosemide 60 mg 06/29/21 17:00 06/30/21 07:33 Furosemide 20 Mg Tab PO 07/29/21 16:59 60 mg [id number] SÁNCHEZ Administration Hydralazine HCl 100 mg 06/29/21 15:33 06/30/21 07:34 Hydralazine Tab 50 Mg Tab PO 07/29/21 15:32 100 mg TID SÁNCHEZ Administration Cefepime HCl 2,000 mg/ Syringe 20 mls @ 5 mls/min 06/29/21 22:00 06/30/21 08:22 IV 08/10/21 21:59 5 mls/min Q12H SÁNCHEZ Administration Protocol Vancomycin HCl 1,250 mg/ 275 mls @ 200 mls/hr 06/30/21 04:00 06/30/21 05:32 Sodium Chloride IV 08/11/21 03:59 Infused Q18H SÁNCHEZ Infusion Insulin Aspart 0 units 06/29/21 16:30 06/30/21 07:47 Insulin Aspart Per Unit SC 07/29/21 16:29 Not Given ACHS SÁNCHEZ Losartan Potassium 25 mg 06/30/21 09:00 06/30/21 07:32 Losartan Potassium 25 Mg Tab PO 07/30/21 08:59 25 mg QAM SÁNCHEZ Administration Miscellaneous 1 ea 06/29/21 16:00 06/30/21 07:43 *Dutasteride 0.5 Mg *Order Awaiting Action N/A 07/29/21 15:59 1 ea QS SÁNCHEZ Administration Miscellaneous 1 ea 06/29/21 16:00 06/30/21 07:43 *Febuxostat 40 Mg*Order Awaiting Action N/A 07/29/21 15:59 1 ea QS SÁNCHEZ Administration Miscellaneous 1 ea 06/29/21 16:30 06/30/21 07:38 *Nilotinib - Do Not Tube *Order Awaiting Action N/A 07/29/21 16:29 1 ea QS SÁNCHEZ Administration Morphine Sulfate 2 mg 06/29/21 15:51 06/30/21 00:58 Morphine Sulfate 2 Mg/Ml Carp IV 07/13/21 15:50 2 mg Q2H PRN Administration Pain (1-5) Ondansetron HCl 4 mg 06/29/21 15:33 06/29/21 16:00 Ondansetron Inj 2 Mg/Ml 2 Ml Vial IV 07/29/21 15:32 4 mg Q4H PRN Administration Nausea And Vomiting Polyethylene Glycol 17 gm 06/29/21 16:00 06/29/21 16:40 Polyethylene (Miralax) 17 Gm Pack PO 07/29/21 15:59 17 gm DAILY SÁNCHEZ Administration Potassium Chloride 10 meq 06/30/21 09:00 06/30/21 07:33 Potassium Chloride 10 Meq Tabcr PO 07/30/21 08:59 10 meq [id number] SÁNCHEZ Administration Sennosides 8.6 mg 06/29/21 21:00 06/29/21 20:30 Senna 8.6 Mg Tab PO 07/29/21 20:59 8.6 mg BID SÁNCHEZ Administration Tamsulosin HCl 0.4 mg 06/29/21 21:00 06/29/21 20:30 Tamsulosin Hcl 0.4 Mg Cap PO 07/29/21 20:59 0.4 mg HS SÁNCHEZ Administration Past Medical History Medical History Aortic stenosis, mild BPH (benign prostatic hyperplasia) Cardiac murmur follows with Dr. Brooks Chronic kidney disease, stage 3 CML (chronic myelocytic leukemia) diagnosed 2017--oral chemo Diabetes mellitus, type II lost weight, taken off meds Gout Hyperlipidemia Hypertension Nausea and vomiting after administration of anesthetic agent MEE (obstructive sleep apnea) cpap Pleural effusion on right hx of 03/2020--had thoracentesis Renal cell carcinoma 2011--removed left kidney Vitamin D deficiency Past Family History Family History Brother Coronary heart disease fatal [place] age 51 Father FH: brain aneurysm age 60 Other No family history of adverse response to anesthesia Past Surgical History Surgical History History of cardiac [place] [facility] [place] History of cataract surgery [place] History of colonoscopy with polypectomy History of nephrectomy left 2011 History of prostate biopsy benign History of surgery on extremity right leg compound fx repair History of thoracentesis (~03/27/20) History of wisdom tooth extraction Social History Smoking Status: Never smoker Do You Dip or Chew Tobacco: No (N/a) Hx Alcohol Use: No Hx Substance Use: No substance use type: does not use Physical Exam Vital Signs Last Vital Signs Temp 37.0 C 06/30/21 08:23 Pulse 76 06/30/21 08:23 Resp 20 06/30/21 08:23 BP 144/74 H 06/30/21 08:23 Pulse Ox 98 06/30/21 08:23 Testing Laboratory Results 06/29/21 09:52 06/29/21 09:52 Urine Color Yellow 06/29/21 09:57 Urine Appearance Clear (Clear) 06/29/21 09:57 Urine pH 5.0 (4.5-7.5) 06/29/21 09:57 Ur Specific Ulysses 1.023 (1.000-1.030) 06/29/21 09:57 Urine Protein 1+ (Negative) H 06/29/21 09:57 Urine Glucose (UA) 3+ (Negative) H 06/29/21 09:57 Urine Ketones Negative (Negative) 06/29/21 09:57 Urine Nitrite Negative (Negative) 06/29/21 09:57 Ur Leukocyte Esterase Negative (Negative) 06/29/21 09:57 Urine WBC (Auto) 1-5 /hpf (0-5) 06/29/21 09:57 Urine RBC (Auto) 0-4 /hpf (0-4) 06/29/21 09:57 U Hyaline Cast (Auto) 0 /lpf (0-5) 06/29/21 09:57 U Epithel Cells (Auto) 5-10 /lpf (0-5) H 06/29/21 09:57 Urine Bacteria (Auto) Negative (Negative) 06/29/21 09:57 06/29/21 09:52 Anaerobic Blood Culture - Preliminary Blood Gram positive cocci in chains 06/29/21 10:00 Anaerobic Blood Culture - Preliminary Blood Gram positive cocci in chains 06/29/21 10:00 Gram Stain - Final Foot,Right 06/30/21 06:17 POC Glucose 180 H Electrocardiogram Date: 06/29/21 Findings: + NSR @ (62)
--- NOTE | 2021-06-30 08:40 | History & Physical Bridge Note ---
Date of Service June 30, 2021 History & Physical Bridge Note I have examined the patient, reviewed the History & Physical and in the interval since the performance of the History & Physical I have noted the following changes of clinical significance: no changes noted will plan for right foot I and D
[2021-06-30] MEDS ORDERED: ceFAZolin 330 MG/ML 1 GM VIAL ONE (08:51)
[2021-06-30] MEDS ORDERED: BUPIVACAINE 0.5 % 5 MG/1 ML MPF 30ML VIAL ONE (08:51)
[2021-06-30] MEDS ORDERED: ePHEDrine sulfate 50 MG/ML AMP IV PRN (09:06)
[2021-06-30] MEDS ORDERED: fentaNYL citrate 100 MCG/2 ML VIAL IV PRN (09:06)
[2021-06-30] MEDS ORDERED: ATROPINE SULFATE 0.1 MG/ML 10ML SYR IV PRN (09:06)
[2021-06-30] MEDS ORDERED: ONDANSETRON INJ 2 MG/ML 2 ML VIAL IV PRN (09:06)
[2021-06-30] MEDS ORDERED: PROMETHAZINE HCL 12.5 MG in SODIUM CHLORIDE 0.9% 50 ML IV PRN (09:06)
[2021-06-30] MEDS ORDERED: FEBUXOSTAT 40 MG TABLET PO SCH (09:30)
--- NOTE | 2021-06-30 09:34 | Post Operative Brief Note ---
Immediate Post Op Note v1 Date of Surgery June 30, 2021 Pre & Post Diagnosis Operation Date: 06/30/21 09:45 Pre-Op Diagnosis: Infected Diabetic Foot Ulcer, Flexor tenosynovitis, foot abscess Post-Op Diagnosis: Same plusRight Great Toe Osteomyelitis I identified the patient and participated in the time-out.: Yes Procedure Operation Date: 06/30/21 09:45 Actual Procedures p Incision and Drainage Right Diabetic Foot Ulcer, Irrigation and Debridement extensor tenosynovitis, Arthrotomy and Drainage Great Toe Joint, Saucerization Osteomyelitis(Right) - Da Morales MD Surgeon Da Morales MD Funeral Assistant Jemma Durán PA-C Estimated Blood Loss 1 Findings See Below Moderate amount of gross purulence in the region of the first MTP joint. No gout encountered. Septic joint noted.
--- NOTE | 2021-06-30 10:05 | Anesthesiology Progress Note ---
Date of Service June 30, 2021 Anesthesia Post Procedure Vital Signs Vital Signs: Temp Pulse Pulse Pulse Resp BP BP 06/30/21 09:50 56 L 12 143/68 H 06/30/21 09:42 36.0 C L 57 L 14 146/63 H 06/30/21 08:23 37.0 C 76 20 06/30/21 04:00 70 15 06/30/21 03:39 37 C 62 18 06/30/21 00:10 65 21 06/29/21 23:23 36.9 C 59 L 18 06/29/21 23:09 45 L 06/29/21 22:19 48 L 06/29/21 20:45 59 L 20 06/29/21 19:45 36.8 C 57 L 18 06/29/21 15:26 61 06/29/21 15:23 36.8 C 62 18 06/29/21 13:30 66 22 132/65 06/29/21 13:09 73 17 06/29/21 13:08 136/67 06/29/21 12:00 72 19 116/65 06/29/21 11:30 75 23 138/63 06/29/21 11:00 71 16 120/71 06/29/21 10:30 69 17 148/97 H BP Pulse Ox 06/30/21 09:50 99 06/30/21 09:42 99 06/30/21 08:23 144/74 H 98 06/30/21 04:00 94 06/30/21 03:39 133/68 96 06/30/21 00:10 94 06/29/21 23:23 135/70 95 06/29/21 23:09 06/29/21 22:19 06/29/21 20:45 95 06/29/21 19:45 132/69 94 06/29/21 15:26 06/29/21 15:23 146/71 H 94 06/29/21 13:30 93 06/29/21 13:09 96 06/29/21 13:08 96 06/29/21 12:00 93 06/29/21 11:30 95 06/29/21 11:00 97 06/29/21 10:30 97 Pain Intensity Right Foot: Pain Intensity: 7 Transfer of Care Handoff Completed per policy Notes Mental Status: alert / awake / arousable and participated in evaluation Patient Amnestic to Procedure: Yes Nausea / Vomiting: adequately controlled Pain: adequately controlled Airway Patency, RR, SpO2: stable & adequate BP & HR: stable & adequate Hydration State: stable & adequate Anesthetic Complications: no major complications apparent and Pt Satisfied with anesthetic care
[2021-06-30] MEDS ORDERED: KETOROLAC TROMETHAMINE 15 MG/ML VIAL IV ONE (11:27)
[2021-06-30 11:35] LABS: Hematocrit (blood only) 34.6 % (42-52); Hemoglobin 12.1 g/dL (14.0-18.0); Mean Corpuscular Hemoglobin 31.1 pg (25-34); Mean Corpuscular Volume 88.9 fL (80-100); Mean Platelet Volume 10.2 fL (7.4-10.4); Platelet Count 259 K/uL (130-400); RDW Coefficient of Variation 13.6 % (11.5-14.5); RDW Standard Deviation 44.4 fL (36.4-46.3); Red Blood Count 3.89 M/uL (4.7-6.1); White Blood Count 21.61 K/uL (4.8-10.8)
[2021-06-30 12:11] LABS: Albumin Globulin Ratio 1.2 (0.9-2); Albumin Level 3.4 gm/dl (3.4-5.0); BUN Creatinine Ratio 32.4 (10-20); Bilirubin,Total 1.1 mg/dl (0.2-1.0); Creatinine Clr Calc Pharmacy 57.7 ml/min; Est GFR (Non-African American) 41.4 ml/min; Globulin 2.9 gm/dl (2.5-4.0); Potassium 4.1 mmol/L (3.5-5.1); Total Protein 6.3 gm/dl (6.0-8.3)
[2021-06-30] MEDS: MoRPHine SULFATE 4 MG/ML 1 ML CARP\\VIAL IV PRN ×2 (12:17→20:03)
[2021-06-30] MEDS: POLYETHYLENE (MIRALAX) 17 GM PACK PO SCH (12:19)
[2021-06-30] MEDS: SENNA 8.6 MG TAB PO SCH ×2 (12:19→20:07)
[2021-06-30] MEDS: bisacodyL 5 MG TABEC PO SCH (12:20)
--- NOTE | 2021-06-30 16:15 | Hospitalist Progress Note ---
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 About 2 weeks ago he saw a excavating supervisor as an outpatient to remove part of the callous on the sole of his right first toe. He was started on prednisone in the past 5 days [employer]INE[employer] for possible gout by his PCP.He is being managed for the following: #. Infected diabetic foot ulcer, flexor tenosynovitis, foot abscess #. Right great toe osteomyelitis #. 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 Admitting foot MRI: Suggestive of right first digit gout with superimposed infection including wound, cellulitis and osteomyelitis. Also suggestive of tenosynovitis of abductor hallucis tendon sheath. Admitting blood culture: GPC bacteremia, follow final results Admitting foot culture: Pending 06/30 operative foot culture: Pending s/p (06/30/21): I&D of right diabetic foot ulcer, irrigation and debridement extensor tenosynovitis, arthrotomy and drainage great toe joint, saucerization osteomyelitis [right]- Da Morales MD 06/30 MRSA negative, AR vancomycin Continue with IV cefepime. ID consult. Wound care nurse. Follow-up with podiatry as an outpatient. Follow-up with ID as an outpatient. 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 is stable - Hx of left nephrectomy with RCC in 2018 #. CML: Continue home [facility] for CML. communicated w/ RN. #. Other chronic medical conditions: HTN, HLD, obesity Continue with/resume home medication as and when appropriate. #. DVT prophylaxis: Teds, SCDs, had OR today, heparin tomorrow. CODE: Full code Dispo: From home, likely to remain in the hospital x next few days Text document was generated using voice recognition software. It may contain grammatical or spelling errors. Kindly contact undersigned for clarification of any documentation item in question. Admission and Anticipated Discharge Date Admission Date: June 29, 2021 Subjective Patient seen and examined at bedside for follow-up of GPC bacteremia and right great toe osteomyelitis. Patient came back to the room from his I&D of his right foot. Patient was in pain. On room air. In moderate distress. Patient was reporting pain in the operative site, IV morphine and IV ketorolac given. Denied fever/chills/headache/dizziness/chest pain/palpitations/belly pain/other review of symptoms. Physical Exam Physical Exam: GENERAL: Alert and oriented x3. NAD, on RA. HEENT: No pallor, no icterus. Pupils equal, round and reactive to light. Oral mucosa moist. NECK: No JVD, no neck masses. HEART: S1 and S2 heard. Regular rate and rhythm. No murmur, no gallop. RESPIRATORY SYSTEM: Normal AP diameter. No accessory muscle use. No wheezing, no crackles. ABDOMEN: Soft, bowel sounds present, nontender, no distention. CENTRAL NERVOUS SYSTEM: No facial droop. Speech is clear. Obeys simple commands. Moves extremities. EXTREMITIES: No edema, no erythema seen. Right foot with clean dressings without soakage, distal neurovascular status WNL. Results & Data Results & Data ([facility]) Vital Signs (Past 12 Hours) Vital Signs Temp Pulse Pulse Pulse Resp BP BP 06/30/21 14:20 64 06/30/21 12:50 36.7 C 68 16 179/77 H 06/30/21 11:50 36.3 C L 56 L 16 163/80 H 06/30/21 11:20 36.3 C L 53 L 16 162/77 H 06/30/21 10:50 36.4 C L 52 L 16 149/76 H 06/30/21 10:35 36.4 C L 52 L 16 152/78 H 06/30/21 10:10 36.7 C 54 L 18 142/65 H 06/30/21 10:00 55 L 18 142/67 H 06/30/21 09:50 56 L 12 143/68 H 06/30/21 09:42 36.0 C L 57 L 14 146/63 H 06/30/21 08:23 37.0 C 76 20 144/74 H 06/30/21 07:00 53 L 06/30/21 04:00 70 15 Pulse Ox 06/30/21 14:20 06/30/21 12:50 97 06/30/21 11:50 96 06/30/21 11:20 96 06/30/21 10:50 96 06/30/21 10:35 95 06/30/21 10:10 97 06/30/21 10:00 99 06/30/21 09:50 99 06/30/21 09:42 99 06/30/21 08:23 98 06/30/21 07:00 06/30/21 04:00 94 (1) Osteomyelitis Laterality: right Osteomyelitis location: foot Osteomyelitis type: other acute Qualified Code(s): M86.171 - Other acute osteomyelitis, right ankle and foot
[2021-06-30] MEDS ORDERED: Nursing to Pharmacy Communication SCH (17:15)
[2021-06-30] MEDS: ACETAMINOPHEN 325 MG TAB PO PRN (19:26)
[2021-06-30] MEDS: NILOTINIB PO SCH (20:04)
[2021-06-30] MEDS: ASPIRIN 81 MG ECTAB PO SCH (20:05)
[2021-06-30] MEDS: ATORVASTATIN 40 MG TAB PO SCH (20:05)
[2021-06-30] MEDS: DOCUSATE SODIUM 100 MG CAP PO SCH (20:07)
[2021-06-30] MEDS: TAMSULOSIN HCL 0.4 MG CAP PO SCH (20:07)
[2021-07-01] MEDS: MoRPHine SULFATE 2 MG/ML CARP IV PRN ×2 (01:20→12:52)
[2021-07-01] MEDS: ACETAMINOPHEN 325 MG TAB PO PRN (03:05)
[2021-07-01 06:37] LABS: Hematocrit (blood only) 33.7 % (42-52); Hemoglobin 11.6 g/dL (14.0-18.0); Mean Corpuscular Hemoglobin 30.9 pg (25-34); Mean Corpuscular Hgb Conc 34.4 g/dL (32-36); Mean Corpuscular Volume 89.9 fL (80-100); Mean Platelet Volume 10.3 fL (7.4-10.4); Platelet Count 257 K/uL (130-400); RDW Coefficient of Variation 13.7 % (11.5-14.5); RDW Standard Deviation 45.7 fL (36.4-46.3); Red Blood Count 3.75 M/uL (4.7-6.1); White Blood Count 21.67 K/uL (4.8-10.8)
[2021-07-01 07:03] LABS: Albumin Globulin Ratio 1.2 (0.9-2); Albumin Level 3.2 gm/dl (3.4-5.0); Bilirubin,Total 1.4 mg/dl (0.2-1.0); Calcium 8.3 mg/dl (8.5-10.1); Creatinine Clr Calc Pharmacy 55.4 ml/min; Est GFR (African American) 45.7 ml/min; Est GFR (Non-African American) 39.4 ml/min; Globulin 2.6 gm/dl (2.5-4.0); Magnesium 2.1 mg/dl (1.7-2.4); Phosphorus 2.7 mg/dl (2.5-4.9); Potassium 3.7 mmol/L (3.5-5.1); Total Protein 5.8 gm/dl (6.0-8.3)
[2021-07-01] MEDS: NILOTINIB PO SCH ×2 (08:03→19:44)
[2021-07-01] MEDS: LOSARTAN POTASSIUM 25 MG TAB PO SCH (08:05)
[2021-07-01] MEDS: hydrALAZINE TAB 50 MG TAB PO SCH ×3 (08:05→20:05)
[2021-07-01] MEDS: DUTASTERIDE PO SCH (08:06)
[2021-07-01] MEDS: FUROSEMIDE 20 MG TAB PO SCH ×2 (08:06→17:22)
[2021-07-01] MEDS: FEBUXOSTAT 40 MG TABLET PO SCH (08:07)
[2021-07-01] MEDS: amLODIPine BESYLATE 5 MG TAB PO SCH (08:09)
[2021-07-01] MEDS: SENNA 8.6 MG TAB PO SCH ×2 (08:10→20:05)
--- NOTE | 2021-07-01 08:10 | Operative Report (OR) ---
DATE OF SERVICE: 06/30/2021 PREOPERATIVE DIAGNOSES: 1. Right diabetic foot ulcer. 2. Right foot abscess. 3. Right foot septic flexor tenosynovitis. 4. Right foot septic metatarsophalangeal joint. POSTOPERATIVE DIAGNOSES: 1. Right diabetic foot ulcer. 2. Right foot abscess. 3. Right foot septic flexor tenosynovitis. 4. Right foot septic metatarsophalangeal joint. 5. Right first metatarsal osteomyelitis. PROCEDURE: 1. Incision and drainage of right foot abscess. 2. Irrigation and debridement of septic flexor tenosynovitis, right foot. 3. Arthrotomy and drainage of right foot metatarsophalangeal joint. 4. Saucerization of osteomyelitis, right first metatarsal. ANESTHESIA: General. CLOTH SHEARING SUPERVISOR: Jemma Durán PA-C who was necessary for prepping, draping, retraction, exposure setup and closure. INDICATIONS: He had progressive pain in the first MTP joint. He presented with concern for gout versus infection. He presents after failure of a prednisone dosepak. He presents with purulent drainage from the open wound in the plantar foot and a diabetic foot ulcer. The risks and benefits have been discussed including, but not limited to, risk of infection, nerve injury, stiffness, loss of motion, failure to improve, etc. Reasonable outcomes and options of treatment were discussed. An explanation of appropriate alternatives to the procedure that may be advantageous were discussed and their risks and benefits, as well as the risks and benefits of not proceeding with treatment. I offered to answer any additional inquiries concerning the treatment involved. All the patients questions were answered. The patient is agreeable, understanding of the treatment plan and alternatives, and wishes to proceed with the treatment plan. DESCRIPTION OF PROCEDURE: I made a longitudinal incision over the open wound over the plantar foot. Dissection was carried down through the skin and subcutaneous tissue. Moderate amount of purulence was encountered. I dissected down towards the area of abscess between the first and second metatarsals, which was seen on MRI. I bluntly dissected in the region and obtained a small amount of purulent drainage. This was sent for culture. I debrided the area of skin, subcutaneous tissue and fascia. I identified the flexor tendon to the great toe and this did show evidence of infection. I performed irrigation and debridement and flexor tenosynovectomy. This area was copiously irrigated and I removed any devitalized tenosynovium and infected tenosynovium. I inspected the bone. The open wound communicated down to the bone and the bone did have a mushy appearance clinically consistent with osteomyelitis. This was at the base of the first metatarsal head. I performed saucerization of osteomyelitis with curettes and rongeurs and removed any devitalized bone in the region. Attention was focused dorsally for arthrotomy of the MTP joint, I made a dorsal incision over the MTP joint. Dissection was carried down through the skin and subcutaneous tissue. Extensor tendon was identified. This was retracted free. I incised the capsule. There was a moderate amount of purulence in the joint consistent with septic joint. There were significant arthritic changes in the joint seen. I did not identify evidence of gout in the joint. I performed arthrotomy and drainage of the MTP joint with 1 liter of normal saline. I debrided skin, subcutaneous tissue, fascia and bone in the region. This completed arthrotomy and drainage of the MTP joint. All the incisions were copiously irrigated with 1 liter of normal saline. The tourniquet was let down. Hemostasis was obtained with Bovie electrocautery. Incisions were closed with monster and I placed packing in the volar and dorsal wound. I injected Marcaine in the local area for pain relief. The patient was placed in soft dressing and sent to the PACU in a stable condition. Job ID: [id number] [facility]
[2021-07-01] MEDS: INSULIN ASPART PER UNIT SC SCH ×4 (08:42→21:18)
[2021-07-01] MEDS: POLYETHYLENE (MIRALAX) 17 GM PACK PO SCH (08:43)
[2021-07-01] MEDS: bisacodyL 5 MG TABEC PO SCH (08:43)
[2021-07-01] MEDS: POTASSIUM CHLORIDE 10 MEQ TABCR PO SCH (08:43)
[2021-07-01] MEDS: carvediloL 3.125 MG TAB PO SCH ×2 (08:43→20:03)
[2021-07-01] MEDS ORDERED: FEBUXOSTAT 40 MG TABLET PO SCH (09:00)
[2021-07-01] MEDS: MoRPHine SULFATE 4 MG/ML 1 ML CARP\\VIAL IV PRN ×2 (09:55→19:51)
[2021-07-01] MEDS: CEFEPIME 2,000 MG in SYRINGE 0 ML IV SCH ×2 (12:51→21:14)
[2021-07-01] MEDS ORDERED: VANCOMYCIN TROUGH ONE (15:30)
--- NOTE | 2021-07-01 16:01 | Orthopedic Progress Note ---
Date of Service July 01, 2021 Assessment & Plan (1) Ulcer of right foot: Plan: POD #1 s/p 1. Incision and drainage of right foot abscess. 2. Irrigation and debridement of septic flexor tenosynovitis, right foot. 3. Arthrotomy and drainage of right foot metatarsophalangeal joint. 4. Saucerization of osteomyelitis, right first metatarsal All of the packing was removed from the dorsal aspect of the foot. Approximately 4 to 5 inches of packing was removed from the plantar aspect of the foot at the ulceration site. Wound was then redressed with Adaptic and gauze. Awaiting intraoperative culture results. Gram stain growing Gram-positive cocci, gram-negative bacilli, gram-positive bacilli. Non-weightbearing right lower extremity at all times. We will plan to remove the rest of the packing tomorrow. Discharge planninguncertain at this time. Discussed that the patient will require 6 weeks of IV antibiotics. Admission and Anticipated Discharge Date Admission Date: June 29, 2021 Subjective Patient states the foot is still painful. He feels he is having trouble staying ahead of the pain. Complaints today. Physical Exam Constitutional: WD/WN, vitals as above no acute distress Musculoskeletal: Right foot: Well approximated dorsal first MTP incision. Mild maceration of the skin edges. No significant drainage. Minimal erythema. The plantar aspect of the foot with approximated wound edges with monster in place. Packing still in place. No erythema. No significant drainage with dressing change. Results & Data ([facility]) Vital Signs (Past 12 Hours) Vital Signs Temp Pulse Pulse Resp BP BP Pulse Ox 07/01/21 15:29 36.8 C 59 L 18 134/70 97 07/01/21 15:00 56 L 07/01/21 10:55 36.5 C 55 L 15 118/63 97 07/01/21 07:30 36.6 C 54 L 16 138/68 98 07/01/21 07:00 51 L
[2021-07-01] MEDS: oxyCODONE/ACETAMINOPHEN 5mg/325mg TAB PO PRN ×2 (17:19→22:58)
--- NOTE | 2021-07-01 17:51 | Hospitalist Progress Note ---
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 About 2 weeks ago he saw a investigator cash shortage as an outpatient to remove part of the callous on the sole of his right first toe. 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 Infected diabetic foot ulcer, flexor tenosynovitis, foot abscess #. Right great toe osteomyelitis #. 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 Admitting foot MRI: Suggestive of right first digit gout with superimposed infection including wound, cellulitis and osteomyelitis. Also suggestive of tenosynovitis of abductor hallucis tendon sheath. Admitting blood culture: Apha Strep not S. pne/enteroco, follow final results Admitting foot culture: Pending 06/30 operative foot culture: Pending s/p (06/30/21): I&D of right diabetic foot ulcer, irrigation and debridement extensor tenosynovitis, arthrotomy and drainage great toe joint, saucerization osteomyelitis [right]- Da Morales MD 06/30 MRSA negative Continue with IV cefepime 06/29. ID consult.Await recs Wound care nurse. Follow-up with podiatry as an outpatient. Follow-up with ID as an outpatient. Pain Management, increasing pain meds. 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 is stable - Hx of left nephrectomy with RCC in 2018 #. CML: Continue home [employer] for CML. communicated w/ RN. #. Other chronic medical conditions: HTN, HLD, obesity Continue with/resume home medication as and when appropriate. #. DVT prophylaxis: Teds, SCDs, had OR today, heparin tomorrow. CODE: Full code Dispo: From home, likely to remain in the hospital x next few days Text document was generated using voice recognition software. It may contain grammatical or spelling errors. Kindly contact undersigned for clarification of any documentation item in question. Admission and Anticipated Discharge Date Admission Date: June 29, 2021 Subjective Patient seen and examined at bedside for follow-up of GPC bacteremia and right great toe osteomyelitis. Patient sitting up in chair, on room air, reports ongoing pain in his right foot which is minimally improved, will increase pain medications. Patient seems to be in mild distress. No new acute events overnight per patient. Denied fever/chills/headache/dizziness/chest pain/palpitations/belly pain/other review of symptoms. Physical Exam Physical Exam: GENERAL: Alert and oriented x3. NAD, on RA. HEENT: No pallor, no icterus. Pupils equal, round and reactive to light. Oral mucosa moist. NECK: No JVD, no neck masses. HEART: S1 and S2 heard. Regular rate and rhythm. No murmur, no gallop. RESPIRATORY SYSTEM: Normal AP diameter. No accessory muscle use. No wheezing, no crackles. ABDOMEN: Soft, bowel sounds present, nontender, no distention. CENTRAL NERVOUS SYSTEM: No facial droop. Speech is clear. Obeys simple commands. Moves extremities. EXTREMITIES: No edema, no erythema seen. Right foot with clean dressings without soakage, distal neurovascular status WNL. Results & Data Results & Data ([facility]) Vital Signs (Past 12 Hours) Vital Signs Temp Pulse Pulse Resp BP BP Pulse Ox 07/01/21 15:29 36.8 C 59 L 18 134/70 97 07/01/21 15:00 56 L 07/01/21 10:55 36.5 C 55 L 15 118/63 97 07/01/21 07:30 36.6 C 54 L 16 138/68 98 07/01/21 07:00 51 L (1) Osteomyelitis Laterality: right Osteomyelitis location: foot Osteomyelitis type: other acute Qualified Code(s): M86.171 - Other acute osteomyelitis, right ankle and foot
[2021-07-01] MEDS: ASPIRIN 81 MG ECTAB PO SCH (20:05)
[2021-07-01] MEDS: TAMSULOSIN HCL 0.4 MG CAP PO SCH (20:05)
[2021-07-01] MEDS: ATORVASTATIN 40 MG TAB PO SCH (20:05)
[2021-07-01] MEDS: DOCUSATE SODIUM 100 MG CAP PO SCH (21:13)
[2021-07-02] MEDS ORDERED: HYDROmorphone INJ 1 MG/ML SYRINGE IV PRN (00:07)
[2021-07-02] MEDS: MoRPHine SULFATE 2 MG/ML CARP IV PRN ×3 (06:25→20:49)
[2021-07-02 07:47] LABS: Hematocrit (blood only) 35.1 % (42-52); Hemoglobin 11.8 g/dL (14.0-18.0); Mean Corpuscular Hemoglobin 30.4 pg (25-34); Mean Corpuscular Hgb Conc 33.6 g/dL (32-36); Mean Corpuscular Volume 90.5 fL (80-100); Mean Platelet Volume 10.3 fL (7.4-10.4); Platelet Count 309 K/uL (130-400); RDW Coefficient of Variation 13.8 % (11.5-14.5); RDW Standard Deviation 45.3 fL (36.4-46.3); Red Blood Count 3.88 M/uL (4.7-6.1); White Blood Count 20.26 K/uL (4.8-10.8)
[2021-07-02] MEDS: NILOTINIB PO SCH ×2 (07:51→19:58)
[2021-07-02] MEDS: DUTASTERIDE PO SCH (07:51)
[2021-07-02] MEDS: hydrALAZINE TAB 50 MG TAB PO SCH ×3 (07:52→20:01)
[2021-07-02] MEDS ORDERED: VANCOMYCIN CONSULT ACTIVE PRN (07:52)
[2021-07-02] MEDS: FEBUXOSTAT 40 MG TABLET PO SCH (07:52)
[2021-07-02] MEDS: LOSARTAN POTASSIUM 25 MG TAB PO SCH (07:52)
[2021-07-02] MEDS: SENNA 8.6 MG TAB PO SCH ×2 (07:53→20:02)
[2021-07-02] MEDS: FUROSEMIDE 20 MG TAB PO SCH ×2 (07:54→17:39)
[2021-07-02 08:13] LABS: Albumin Globulin Ratio 1.1 (0.9-2); Albumin Level 3.3 gm/dl (3.4-5.0); BUN Creatinine Ratio 28.8 (10-20); Bilirubin,Total 1.5 mg/dl (0.2-1.0); Calcium 8.4 mg/dl (8.5-10.1); Creatinine Clr Calc Pharmacy 55.6 ml/min; Est GFR (African American) 45.7 ml/min; Est GFR (Non-African American) 39.4 ml/min; Potassium 3.8 mmol/L (3.5-5.1); Total Protein 6.3 gm/dl (6.0-8.3)
[2021-07-02] MEDS ORDERED: VANCOMYCIN HCL 2,750 MG in SODIUM CHLORIDE 0.9% 500 ML IV ONE (09:00)
[2021-07-02] MEDS: bisacodyL 5 MG TABEC PO SCH (10:06)
[2021-07-02] MEDS: POLYETHYLENE (MIRALAX) 17 GM PACK PO SCH (10:06)
[2021-07-02] MEDS: CEFEPIME 2,000 MG in SYRINGE 0 ML IV SCH (10:07)
[2021-07-02] MEDS: INSULIN ASPART PER UNIT SC SCH ×4 (10:07→20:01)
[2021-07-02] MEDS: amLODIPine BESYLATE 5 MG TAB PO SCH (10:16)
[2021-07-02] MEDS: carvediloL 3.125 MG TAB PO SCH ×2 (10:16→20:00)
[2021-07-02] MEDS: oxyCODONE HCL IR 5 MG TAB (IMMEDIATE RELEASE) PO PRN (10:52)
--- NOTE | 2021-07-02 11:25 | Orthopedic Progress Note ---
Date of Service July 02, 2021 Assessment & Plan (1) Ulcer of right foot: Plan: POD #1 s/p 2. Incision and drainage of right foot abscess. 2. Irrigation and debridement of septic flexor tenosynovitis, right foot. 3. Arthrotomy and drainage of right foot metatarsophalangeal joint. 4. Saucerization of osteomyelitis, right first metatarsal All of the packing was removed from the dorsal/plantar aspect of the foot. . Awaiting intraoperative culture results. Gram stain growing Gram-positive cocci, gram-negative bacilli, gram-positive bacilli. Non-weightbearing right lower extremity at all times. Discharge planninguncertain at this time. patient will require 6 weeks of IV antibiotics . Admission and Anticipated Discharge Date Admission Date: June 29, 2021 Subjective POD 2 Pt lying in bed awake, alert. States he feels cold currently. Has Bear hugger blanket on. No other complaints. Physical Exam Physical Exam: Dressings removed. Mild bloody drainage noted on plantar portion of dressing. Remainder of packing removed. Foul odor noted. No overt purulence from either wound. Small amount of slough noted on plantar wound. Minimal to no erythema. Wounds redressed. Results & Data ([facility]) Vital Signs (Past 12 Hours) Vital Signs Temp Pulse Resp BP Pulse Ox 07/02/21 08:00 36.8 C 52 L 20 150/68 H 96 07/02/21 03:40 36.8 C 52 L 20 127/68 97 07/01/21 23:24 36.7 C 56 L 20 151/68 H 94
--- NOTE | 2021-07-02 11:44 | Pharmacy Report ---
Pharmacy Vanc AUC Short Note - Date of Service July 02, 2021 - Assessment & Plan Assessment 65 year old M receiving vancomycin/cefepime for treatment of bacteremia and diabetic foot infection. Pertinent microbiologic data includes: blood culture growing Streptococcus mitis. Day # 1 of antimicrobial therapy. Plan Vancomycin * AUC/KALYN is the preferred PK/PD target for vancomycin * AUC guided dosing is effective and associated with decreased risk of nephrotoxicity compared to traditional trough targets * vancomycin 1500 mg IV q24 is predicted to achieve target AUC/KALYN of 400-600 mg/L.hr and may be associated with a 13 % risk of nephrotoxicity * Trough to be ordered if vancomycin continued beyond 24 hours Pharmacy will continue to follow and will adjust dose/frequency as necessary. Thank you.
[2021-07-02] MEDS ORDERED: PIPERACILL/TAZOBAC CONSULT ACTIVE PRN (12:02)
[2021-07-02] MEDS ORDERED: PIPERACILLIN/TAZOBACTAM 3.375 GM in DEXTROSE 5% 100 ML IV ONE (12:30)
--- NOTE | 2021-07-02 15:52 | Hospitalist Progress Note ---
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 About 2 weeks ago he saw a reading assistant as an outpatient to remove part of the callous on the sole of his right first toe. 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 Infected diabetic foot ulcer, flexor tenosynovitis, foot abscess #. Right great toe osteomyelitis #. 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 Admitting foot MRI: Suggestive of right first digit gout with superimposed infection including wound, cellulitis and osteomyelitis. Also suggestive of tenosynovitis of abductor hallucis tendon sheath. Admitting blood culture: Streptococcus mitis/oralis Admitting foot culture: Bacteroides fragilis 06/30 operative foot culture: Pending s/p (06/30/21): I&D of right diabetic foot ulcer, irrigation and debridement extensor tenosynovitis, arthrotomy and drainage great toe joint, saucerization osteomyelitis [right]- Da Morlaes MD 06/30 MRSA negative 07/01: ID evaluated the patient, repeat blood culture every 48 hours until clear, IV Vanco plus cefepime for now, check TTE, 6 weeks of IV antibiotics. IV cefepime 06/29 --> changed to Zosyn 07/02 for admitting for culture [Bacteroides fragilis]. 07/02 initiated vancomycin. Await operative foot culture, then reach out to ID again for final recommendation. Wound care nurse. Follow-up with podiatry as an outpatient. Follow-up with ID as an outpatient. sent TTE. Pain Management, continue with pain medication/PT and OT. 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 is stable - Hx of left nephrectomy with RCC in 2018 #. CML: Continue home [facility] for CML. communicated w/ RN. #. Other chronic medical conditions: HTN, HLD, obesity Continue with/resume home medication as and when appropriate. #. DVT prophylaxis: Teds, SCDs, had OR today, heparin tomorrow. CODE: Full code Downgrade to Serious Parody. Dispo: From home, likely to remain in the hospital x next few days pending improvement in his pain and finalization of his antibiotic and negative blood culture. Text document was generated using voice recognition software. It may contain grammatical or spelling errors. Kindly contact undersigned for clarification of any documentation item in question. Admission and Anticipated Discharge Date Admission Date: June 29, 2021 Subjective Patient seen and examined at bedside for follow-up of GPC bacteremia and right great toe osteomyelitis. Patient sitting up in bed, on room air, reports ongoing pain in his right foot which is slightly improved, c/w PT/OT. No new acute events overnight per patient. Denied fever/headache/dizziness/chest pain/palpitations/belly pain/other review of symptoms. Physical Exam Physical Exam: GENERAL: Alert and oriented x3. NAD, on RA. HEENT: No pallor, no icterus. Pupils equal, round and reactive to light. Oral mucosa moist. NECK: No JVD, no neck masses. HEART: S1 and S2 heard. Regular rate and rhythm. No murmur, no gallop. RESPIRATORY SYSTEM: Normal AP diameter. No accessory muscle use. No wheezing, no crackles. ABDOMEN: Soft, bowel sounds present, nontender, no distention. CENTRAL NERVOUS SYSTEM: No facial droop. Speech is clear. Obeys simple commands. Moves extremities. EXTREMITIES: No edema, no erythema seen. Right foot with clean dressings without soakage, distal neurovascular status WNL. Results & Data Results & Data ([facility]) Vital Signs (Past 12 Hours) Vital Signs Temp Pulse Resp BP Pulse Ox 07/02/21 11:49 36.3 C L 58 L 20 158/69 H 95 07/02/21 08:00 36.8 C 52 L 20 150/68 H 96 (1) Osteomyelitis Laterality: right Osteomyelitis location: foot Osteomyelitis type: other acute Qualified Code(s): M86.171 - Other acute osteomyelitis, right ankle and foot
[2021-07-02] MEDS: PIPERACILLIN/TAZOBACTAM 3.375 GM in DEXTROSE 5% 100 ML IV SCH (17:39)
[2021-07-02] MEDS: ASPIRIN 81 MG ECTAB PO SCH (19:58)
[2021-07-02] MEDS: ATORVASTATIN 40 MG TAB PO SCH (19:59)
[2021-07-02] MEDS: TAMSULOSIN HCL 0.4 MG CAP PO SCH (20:02)
[2021-07-02] MEDS: DOCUSATE SODIUM 100 MG CAP PO SCH (20:03)
[2021-07-03] MEDS: PIPERACILLIN/TAZOBACTAM 3.375 GM in DEXTROSE 5% 100 ML IV SCH ×3 (01:19→17:14)
[2021-07-03] MEDS: MoRPHine SULFATE 2 MG/ML CARP IV PRN ×3 (02:28→23:32)
[2021-07-03 06:32] LABS: Hematocrit (blood only) 31.9 % (42-52); Hemoglobin 10.9 g/dL (14.0-18.0); Mean Corpuscular Hemoglobin 30.6 pg (25-34); Mean Corpuscular Hgb Conc 34.2 g/dL (32-36); Mean Corpuscular Volume 89.6 fL (80-100); Mean Platelet Volume 10.1 fL (7.4-10.4); Platelet Count 304 K/uL (130-400); RDW Coefficient of Variation 13.6 % (11.5-14.5); RDW Standard Deviation 44.9 fL (36.4-46.3); Red Blood Count 3.56 M/uL (4.7-6.1); White Blood Count 21.25 K/uL (4.8-10.8)
[2021-07-03 07:31] LABS: Calcium 8.1 mg/dl (8.5-10.1); Creatinine Clr Calc Pharmacy 47.1 ml/min; Est GFR (African American) 37.6 ml/min; Est GFR (Non-African American) 32.4 ml/min; Potassium 3.9 mmol/L (3.5-5.1)
[2021-07-03] MEDS: DUTASTERIDE PO SCH (07:48)
[2021-07-03] MEDS: NILOTINIB PO SCH ×2 (07:48→20:01)
[2021-07-03] MEDS: oxyCODONE HCL IR 5 MG TAB (IMMEDIATE RELEASE) PO PRN ×3 (07:49→20:02)
[2021-07-03] MEDS: bisacodyL 5 MG TABEC PO SCH (07:49)
[2021-07-03] MEDS: hydrALAZINE TAB 50 MG TAB PO SCH ×3 (07:50→20:04)
[2021-07-03] MEDS: SENNA 8.6 MG TAB PO SCH ×2 (07:50→20:04)
[2021-07-03] MEDS: FUROSEMIDE 20 MG TAB PO SCH (07:50)
[2021-07-03] MEDS: FEBUXOSTAT 40 MG TABLET PO SCH (07:51)
[2021-07-03] MEDS: amLODIPine BESYLATE 5 MG TAB PO SCH (07:51)
[2021-07-03] MEDS: POLYETHYLENE (MIRALAX) 17 GM PACK PO SCH (07:52)
[2021-07-03] MEDS: LOSARTAN POTASSIUM 25 MG TAB PO SCH (07:52)
[2021-07-03] MEDS: INSULIN ASPART PER UNIT SC SCH ×4 (07:53→21:09)
[2021-07-03] MEDS: POTASSIUM CHLORIDE 10 MEQ TABCR PO SCH (08:49)
[2021-07-03] MEDS ORDERED: VANCOMYCIN HCL 1,500 MG in SODIUM CHLORIDE 0.9% 500 ML IV SCH (09:00)
[2021-07-03] MEDS ORDERED: VANCOMYCIN HCL 1,250 MG in SODIUM CHLORIDE 0.9% 250 ML IV SCH (10:00)
[2021-07-03] MEDS: carvediloL 3.125 MG TAB PO SCH ×2 (10:18→20:03)
--- NOTE | 2021-07-03 14:04 | Hospitalist Progress Note ---
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 About 2 weeks ago he saw a electro optical engineer as an outpatient to remove part of the callous on the sole of his right first toe. He was started on prednisone in the past 5 days FORGING DIE SINKER for possible gout by his PCP.He is being managed for the following: #. Infected diabetic foot ulcer, flexor tenosynovitis, foot abscess #. Right great toe osteomyelitis #. GPC bacteremia Patient presented with right foot redness and ulceration on the bottom of his foot for 3 to 5 days ago FORGING DIE SINKER Patient does not smoke tobacco, occasionally drinks alcohol, does not use recreational drugs, did not have any heart problems in the past per him, no implants in the body per patient. Admitting foot MRI: Suggestive of right first digit gout with superimposed infection including wound, cellulitis and osteomyelitis. Also suggestive of tenosynovitis of abductor hallucis tendon sheath. Admitting blood culture: Streptococcus mitis/oralis Admitting foot culture: Bacteroides fragilis 06/30 operative foot culture: Strep s/p (06/30/21): I&D of right diabetic foot ulcer, irrigation and debridement extensor tenosynovitis, arthrotomy and drainage great toe joint, saucerization osteomyelitis [right]- Da Morales MD 06/30 MRSA negative 07/01: ID evaluated the patient, repeat blood culture every 48 hours until clear, IV Vanco plus cefepime for now, check TTE, 6 weeks of IV antibiotics. IV cefepime 06/29 --> changed to Zosyn 07/02 for admitting for culture [Bacteroides fragilis]. 07/02 initiated vancomycin. Await operative foot culture, then reach out to ID again for final recommendation. Wound care nurse. Follow-up with podiatry as an outpatient. Follow-up with ID as an outpatient. sent TTE. Pain Management, continue with pain medication/PT and OT. (4) Diabetes mellitus, type II: Plan: - Last A1C was 9.0 a week ago FORGING DIE SINKER, checked as an outpatient - ISS with accuchecks achs - Hold nay (5) History of nephrectomy: (6) Chronic kidney disease, stage 3: Plan: - Cr. is up, DC Vanco - Hx of left nephrectomy with RCC in 2018 #. CML: Continue home [facility] for CML. communicated w/ RN. #. Other chronic medical conditions: HTN, HLD, obesity Continue with/resume home medication as and when appropriate. #. DVT prophylaxis: Teds, SCDs, had OR today, heparin tomorrow. CODE: Full code Downgrade to [employer]k. Dispo: From home, likely to remain in the hospital x next few days pending improvement in his pain and finalization of his antibiotic and negative blood culture. ROS-No Headache, No Visual Changes, No Nausea, No Vomiting, No Fever, No Chills, No Neck Pain or Stiffness, No Chest Pain, No Palpitations, No SOB, No KELLEY, No Cough, No Sputum, No Wheezing, No Abdominal Pain, No Diarrhea, No Hematemesis, No Hemoptysis, No Unexpected Weight Loss, No Flank pain, No Melena, No Hematochezia, No Frequency, No Urgency, No Burning, No Hematuria, No Rashes, No Diaphoresis. Appetite is Normal Physical Exam Gen-AAO x 3, NAD, Afebrile Head-NCAT, EOMI, PERRLA, Anicteric Sclera, No Posterior Pharyngeal Erythema Neck-Supple, No JVD, No Thyromegaly, No Masses, No LAD, No Bruits Lungs-Clear to Auscultation Bilaterally, No Rales, No Rhonchi, No Wheezing, No Crepitus Chest-No S4, +S1, +S2, No S3, No Murmurs, No Rubs, No Gallops, No Ectopy Abdomen-Soft, Bowel Sounds Present, Non Tender, Non Distended, No Hepatomegaly, No Splenomegaly, No Palpable Masses, No Rebound, No Rigidity, No Guarding Musculoskeletal-Full Range of Motion Bilaterally, No CVAT Extremities-R Foot Dressed and Casted Nuero-Cranial Nerves II-XII grossly intact, Motor WNL, DTRs WNL, Strength WNL, Non Focal Psych-Odd Affect Admission and Anticipated Discharge Date Admission Date: June 29, 2021 Subjective Patient seen and examined at bedside for follow-up of GPC bacteremia and right great toe osteomyelitis. Patient sitting up in bed, on room air, reports ongoing pain in his right foot which was real badlast PM, c/w PT/OT. No new acute events overnight per patient. Denied fever/headache/dizziness/chest pain/palpitations/belly pain/other review of symptoms. Results & Data Results & Data ([facility]) Vital Signs (Past 12 Hours) Vital Signs Temp Pulse Pulse Resp BP BP Pulse Ox 07/03/21 12:13 36.9 C 55 L 20 132/64 95 07/03/21 07:57 36.5 C 49 L 20 150/70 H 96 07/03/21 07:00 48 L 07/03/21 03:50 36.7 C 53 L 20 143/66 H 96 (1) Osteomyelitis Laterality: right Osteomyelitis location: foot Osteomyelitis type: other acute Qualified Code(s): M86.171 - Other acute osteomyelitis, right ankle and foot
[2021-07-03] MEDS: ASPIRIN 81 MG ECTAB PO SCH (20:03)
[2021-07-03] MEDS: DOCUSATE SODIUM 100 MG CAP PO SCH (20:04)
[2021-07-03] MEDS: TAMSULOSIN HCL 0.4 MG CAP PO SCH (20:05)
[2021-07-03] MEDS: INSULIN GLARGINE SOLOSTAR 100 UNITS/ML 3 ML PEN SC SCH (21:09)
[2021-07-03] MEDS: ONDANSETRON INJ 2 MG/ML 2 ML VIAL IV PRN (23:32)
[2021-07-04] MEDS: PIPERACILLIN/TAZOBACTAM 3.375 GM in DEXTROSE 5% 100 ML IV SCH ×2 (01:07→10:49)
[2021-07-04] MEDS ORDERED: ZOLPIDEM TARTRATE 5 MG TAB PO STA (01:13)
[2021-07-04] MEDS: amLODIPine BESYLATE 5 MG TAB PO SCH (07:50)
[2021-07-04] MEDS: DUTASTERIDE PO SCH (07:51)
[2021-07-04] MEDS: FEBUXOSTAT 40 MG TABLET PO SCH (07:52)
[2021-07-04] MEDS: NILOTINIB PO SCH ×2 (07:53→19:37)
[2021-07-04] MEDS: LOSARTAN POTASSIUM 25 MG TAB PO SCH (07:53)
[2021-07-04] MEDS: SENNA 8.6 MG TAB PO SCH ×2 (07:54→20:29)
[2021-07-04] MEDS: carvediloL 3.125 MG TAB PO SCH ×2 (07:54→20:27)
[2021-07-04] MEDS: hydrALAZINE TAB 50 MG TAB PO SCH ×3 (07:54→20:27)
[2021-07-04] MEDS: bisacodyL 5 MG TABEC PO SCH (07:58)
[2021-07-04] MEDS ORDERED: DAPTOmycin 500 MG in SYRINGE 0 ML IV SCH (09:00)
--- NOTE | 2021-07-04 09:27 | Hospitalist Progress Note ---
Date of Service July 04, 2021 Assessment & Plan (1) Osteomyelitis: Plan: 65-year-old male with PMHx of DM type II, CKD stage III, HTN, HLD, chronic myelocytic leukemia diagnosed August 2017 under [facility], renal cell carcinoma s/p left nephrectomy April 2012, vitamin D deficiency presents with right foot redness and ulceration on the bottom of his foot for 3-5 days ago CIRCULATION MAN. About 2 weeks ago he saw a leasing sales consultant as an outpatient to remove part of the callous on the sole of his right first toe. He was started on prednisone in the past 5 days CIRCULATION MAN for possible gout by his PCP.He is being managed for the following: #. Infected diabetic foot ulcer, flexor tenosynovitis, foot abscess #. Right great toe osteomyelitis #. GPC bacteremia Patient presented with right foot redness and ulceration on the bottom of his foot for 3 to 5 days ago CIRCULATION MAN Patient does not smoke tobacco, occasionally drinks alcohol, does not use recreational drugs, did not have any heart problems in the past per him, no implants in the body per patient. Admitting foot MRI: Suggestive of right first digit gout with superimposed infection including wound, cellulitis and osteomyelitis. Also suggestive of tenosynovitis of abductor hallucis tendon sheath. Admitting blood culture: Streptococcus mitis/oralis Admitting foot culture: Bacteroides fragilis 06/30 operative foot culture: Strep s/p (06/30/21): I&D of right diabetic foot ulcer, irrigation and debridement extensor tenosynovitis, arthrotomy and drainage great toe joint, saucerization osteomyelitis [right]- Da Morales MD 06/30 MRSA negative 07/01: ID evaluated the patient, repeat blood culture every 48 hours until clear, IV Vanco plus cefepime for now, check TTE, 6 weeks of IV antibiotics. IV cefepime 06/29 --> changed to Zosyn 07/02 for admitting for culture [Bacteroides fragilis]. 07/02 initiated vancomycin, DCd 07/03 sec to Cr. Wound care nurse. Follow-up with podiatry as an outpatient. Follow-up with ID as an outpatient. sent TTE. Pain Management, continue with pain medication/PT and OT. PICC consent Obtained, Placement ordered (4) Diabetes mellitus, type II: Plan: - Last A1C was 9.0 a week ago CIRCULATION MAN, checked as an outpatient - ISS with accuchecks achs - Hold januvia (5) History of nephrectomy: (6) Acute Kidney injury on Chronic kidney disease, stage 3: Hyponatremia/Solitary Kidney Plan: - Cr. is up, Off Vanco, Gentle IVFs - Hx of left nephrectomy with RCC in 2018 - Urine Lytes, SOsm, UOsm, Renal c/s #. CML: Continue home [employer] for CML. communicated w/RN. #. Other chronic medical conditions: HTN, HLD, obesity Continue with/resume home medication as and when appropriate. #. DVT prophylaxis: Teds, SCDs, had OR today, heparin tomorrow. CODE: Full code MedSurg. Labs Checked Dispo: From home, likely to remain in the hospital x next few days pending improvement in his pain and finalization of his antibiotic and negative blood culture. ROS-No Headache, No Visual Changes, No Nausea, No Vomiting, No Fever, No Chills, No Neck Pain or Stiffness, No Chest Pain, No Palpitations, No SOB, No KELLEY, No Cough, No Sputum, No Wheezing, No Abdominal Pain, No Diarrhea, No Hematemesis, No Hemoptysis, No Unexpected Weight Loss, No Flank pain, No Melena, No Hematochezia, No Frequency, No Urgency, No Burning, No Hematuria, No Rashes, No Diaphoresis. Appetite is Normal, +Foot Pain R Physical Exam Gen-AAO x 3, NAD, Afebrile Head-NCAT, EOMI, PERRLA, Anicteric Sclera, No Posterior Pharyngeal Erythema Neck-Supple, No JVD, No Thyromegaly, No Masses, No LAD, No Bruits Lungs-Clear to Auscultation Bilaterally, No Rales, No Rhonchi, No Wheezing, No Crepitus Chest-No S4, +S1, +S2, No S3, No Murmurs, No Rubs, No Gallops, No Ectopy Abdomen-Soft, Bowel Sounds Present, Non Tender, Non Distended, No Hepatomegaly, No Splenomegaly, No Palpable Masses, No Rebound, No Rigidity, No Guarding Musculoskeletal-Full Range of Motion Bilaterally, No CVAT Extremities-R Foot Dressed and Casted Nuero-Cranial Nerves II-XII grossly intact, Motor WNL, DTRs WNL, Strength WNL, Non Focal Psych-Odd Affect Admission and Anticipated Discharge Date Admission Date: June 29, 2021 Subjective Patient seen and examined at bedside for follow-up of GPC bacteremia and right great toe osteomyelitis. PICC consent Obtained Results & Data Results & Data ([facility]) Vital Signs (Past 12 Hours) Vital Signs Temp Pulse Resp BP Pulse Ox 07/04/21 03:16 37 C 64 18 141/75 H 99 07/03/21 23:06 36.9 C 62 16 136/72 99 07/03/21 23:02 36.9 C (1) Osteomyelitis Laterality: right Osteomyelitis location: foot Osteomyelitis type: other acute Qualified Code(s): M86.171 - Other acute osteomyelitis, right ankle and foot
[2021-07-04] MEDS: POLYETHYLENE (MIRALAX) 17 GM PACK PO SCH (09:28)
[2021-07-04] MEDS ORDERED: SODIUM CHLORIDE 0.9% 1000ML 1,000 ML IV SCH (09:30)
[2021-07-04] MEDS: MoRPHine SULFATE 2 MG/ML CARP IV PRN ×2 (09:45→21:13)
[2021-07-04] MEDS: INSULIN ASPART PER UNIT SC SCH ×4 (09:46→20:28)
[2021-07-04] MEDS: INSULIN GLARGINE SOLOSTAR 100 UNITS/ML 3 ML PEN SC SCH ×2 (09:46→20:28)
--- NOTE | 2021-07-04 10:57 | Anesthesiology Consultation ---
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 Height/Weight Height: 6 ft 2 in Weight: 112.2 kg Allergies Allergy/AdvReac Type Severity Reaction Status Date / Time allopurinol Allergy Unknown Unknown Verified 06/29/21 11:21 Medications Home Medications Medication Instructions Recorded Confirmed Last Taken aspirin 81 mg tablet,delayed 81 mg PO HS 08/28/18 06/29/21 06/28/21 release (Aspirin Low Dose) febuxostat 40 mg tablet (Uloric) 40 mg PO QAM 08/28/18 06/29/21 06/28/21 carvedilol 3.125 mg tablet 3.125 mg PO BID 11/09/19 06/29/21 06/28/21 docusate sodium 50 mg capsule 50 mg PO HS 11/09/19 06/29/21 06/28/21 nilotinib 200 mg capsule (Tasigna) 400 mg PO Q12H 03/26/20 06/29/21 06/29/21 400 mg dutasteride 0.5 mg capsule 0.5 mg PO HS 07/06/20 06/29/21 06/28/21 atorvastatin 40 mg tablet 40 mg PO HS 08/02/20 06/29/21 06/28/21 furosemide 40 mg tablet 60 mg PO BID tab 09/28/20 06/29/21 06/28/21 sennosides 8.6 mg capsule (senna) 8.6 mg PO BID 10/18/20 06/29/21 06/28/21 empagliflozin 10 mg tablet 10 mg PO QAM 01/31/21 06/29/21 06/28/21 (Jardiance) hydralazine 100 mg tablet 100 mg PO TID tab 01/31/21 06/29/21 06/28/21 amlodipine 5 mg tablet 5 mg PO QAM #90 tab 06/13/21 06/29/21 06/28/21 potassium chloride 10 mEq 10 meq PO .COMPLEX #48 tabs 06/13/21 06/29/21 06/28/21 tablet,extended release (Klor-Con) losartan 25 mg tablet 25 mg PO QAM 06/29/21 06/29/21 06/28/21 prednisone 20 mg tablet 0 mg PO .TAPER DOSE 06/29/21 06/29/21 06/28/21 40 mg tamsulosin 0.4 mg capsule 0.4 mg PO HS 06/29/21 06/29/21 06/28/21 Active Medications Generic Name Dose Route Start Last Admin Trade Name Freq PRN Reason Stop Dose Admin Acetaminophen 650 mg 06/29/21 15:33 07/01/21 03:05 Acetaminophen 325 Mg Tab PO 07/29/21 15:32 650 mg Q4H PRN Administration Moderate Pain Amlodipine Besylate 5 mg 06/30/21 09:00 07/04/21 07:50 Amlodipine Besylate 5 Mg Tab PO 07/30/21 08:59 5 mg QAM SÁNCHEZ Administration Aspirin 81 mg 06/29/21 21:00 07/03/21 20:03 Aspirin 81 Mg Ectab PO 07/29/21 20:59 81 mg HS SÁNCHEZ Administration Atorvastatin Calcium 40 mg 06/29/21 21:00 07/02/21 19:59 Atorvastatin 40 Mg Tab PO 07/29/21 20:59 40 mg HS SÁNCHEZ Administration Bisacodyl 5 mg 06/29/21 16:00 07/04/21 07:58 Bisacodyl 5 Mg Tabec PO 07/29/21 15:59 5 mg DAILY SÁNCHEZ Administration Carvedilol 3.125 mg 06/29/21 12:14 07/04/21 07:54 Carvedilol 3.125 Mg Tab PO 07/29/21 12:13 3.125 mg BID SÁNCHEZ Administration Docusate Sodium 100 mg 06/29/21 21:00 07/03/21 20:04 Docusate Sodium 100 Mg Cap PO 07/29/21 20:59 100 mg HS SÁNCHEZ Administration Dutasteride 1 ea 06/30/21 09:00 07/04/21 07:51 Dutasteride PO 07/30/21 08:59 1 ea QAM SÁNCHEZ Administration Febuxostat 40 mg 06/30/21 09:30 07/04/21 07:52 Febuxostat 40 Mg Tablet PO 07/30/21 09:29 40 mg QAM SÁNCHEZ Administration Furosemide 60 mg 06/29/21 17:00 07/03/21 07:50 Furosemide 20 Mg Tab PO 07/29/21 16:59 60 mg [id number] SÁNCHEZ Administration Hydralazine HCl 100 mg 06/29/21 15:33 07/04/21 07:54 Hydralazine Tab 50 Mg Tab PO 07/29/21 15:32 100 mg TID SÁNCHEZ Administration Hydromorphone HCl 1 mg 07/02/21 00:07 07/02/21 00:25 Hydromorphone Inj 1 Mg/Ml Syringe IV 07/16/21 00:06 1 mg Q4H PRN Administration Pain Piperacillin Sod/Tazobactam 115 mls @ 28.75 mls/hr 07/02/21 18:00 07/04/21 10:49 Sod 3.375 gm/ Dextrose IV 07/16/21 17:59 28.8 mls/hr Q8H SÁNCHEZ Administration Protocol Sodium Chloride 1,000 mls @ 80 mls/hr 07/04/21 09:30 07/04/21 09:45 Nss 1000ml IV 07/05/21 09:29 80 mls/hr .[id number] SÁNCHEZ Administration Insulin Aspart 0 units 06/29/21 16:30 07/04/21 09:46 Insulin Aspart Per Unit SC 07/29/21 16:29 2 units ACHS SÁNCHEZ Administration Insulin Glargine 15 units 07/03/21 21:00 07/04/21 09:46 Insulin Glargine Solostar 100 Units/Ml 3 Ml Pen SC 08/02/21 20:59 15 units BID SÁNCHEZ Administration Losartan Potassium 25 mg 06/30/21 09:00 07/04/21 07:53 Losartan Potassium 25 Mg Tab PO 07/30/21 08:59 25 mg QAM SÁNCHEZ Administration Morphine Sulfate 2 mg 06/29/21 15:51 07/04/21 09:45 Morphine Sulfate 2 Mg/Ml Carp IV 07/13/21 15:50 2 mg Q2H PRN Administration Pain (1-5) Nilotinib HCl 2 ea 06/30/21 20:00 07/04/21 07:53 Nilotinib 200 Mg Cap PO 07/30/21 19:59 2 ea BID@0800,2000 SÁNCHEZ Administration Ondansetron HCl 4 mg 06/29/21 15:33 03/02/22 23:32 Ondansetron Inj 2 Mg/Ml 2 Ml Vial IV 07/29/21 15:32 4 mg Q4H PRN Administration Nausea And Vomiting Oxycodone HCl 5 - 10 mg 07/02/21 00:07 07/03/21 20:02 Oxycodone Hcl Ir 5 Mg Tab (Immediate Release) PO 07/16/21 00:06 10 mg QID PRN Administration Pain Polyethylene Glycol 17 gm 06/29/21 16:00 07/04/21 09:28 Polyethylene (Miralax) 17 Gm Pack PO 07/29/21 15:59 Not Given DAILY SÁNCHEZ Potassium Chloride 10 meq 06/30/21 09:00 07/03/21 08:49 Potassium Chloride 10 Meq Tabcr PO 07/30/21 08:59 10 meq [id number] SÁNCHEZ Administration Sennosides 8.6 mg 06/29/21 21:00 07/04/21 07:54 Senna 8.6 Mg Tab PO 07/29/21 20:59 8.6 mg BID SÁNCHEZ Administration Tamsulosin HCl 0.4 mg 06/29/21 21:00 07/03/21 20:05 Tamsulosin Hcl 0.4 Mg Cap PO 07/29/21 20:59 0.4 mg HS SÁNCHEZ Administration NPO Date Last Intake of Fluids: 06/29/21 Time Last Intake of Fluids: 23:59 Last Intake of Fluids Comment: Sips of water with pills Date Last Intake of Solids: 06/29/21 Time Last Intake of Solids: 23:59 Past Medical History Medical History Aortic stenosis, mild BPH (benign prostatic hyperplasia) Cardiac murmur follows with Dr. Brooks Chronic kidney disease, stage 3 CML (chronic myelocytic leukemia) diagnosed 2017--oral chemo Diabetes mellitus, type II lost weight, taken off meds Gout Hyperlipidemia Hypertension Nausea and vomiting after administration of anesthetic agent MEE (obstructive sleep apnea) cpap Pleural effusion on right hx of 03/2020--had thoracentesis Renal cell carcinoma 2011--removed left kidney Vitamin D deficiency Past Family History Family History Brother Coronary heart disease fatal [place] age 51 Father FH: brain aneurysm age 60 Other No family history of adverse response to anesthesia Past Surgical History Surgical History [place] of cardiac [place] [facility] [place] History of cataract surgery bilt History of colonoscopy with polypectomy History of nephrectomy left 2012 History of prostate biopsy benign History of surgery on extremity right leg compound fx repair History of thoracentesis (~03/27/20) History of wisdom tooth extraction Social History Smoking Status: Never smoker Do You Dip or Chew Tobacco: No (N/a) Hx Alcohol Use: No Hx Substance Use: No substance use type: does not use Physical Exam Vital Signs Last Vital Signs Temp 98.6 F 07/04/21 03:16 Pulse 64 07/04/21 03:16 Resp 18 07/04/21 03:16 BP 141/75 H 07/04/21 03:16 Pulse Ox 99 07/04/21 03:16 Testing Laboratory Results 07/03/21 05:44 07/03/21 05:44 Urine Color Yellow 06/29/21 09:57 Urine Appearance Clear (Clear) 06/29/21 09:57 Urine pH 5.0 (4.5-7.5) 06/29/21 09:57 Ur Specific [place] 1.023 (1.000-1.030) 06/29/21 09:57 Urine Protein 1+ (Negative) H 06/29/21 09:57 Urine Glucose (UA) 3+ (Negative) H 06/29/21 09:57 Urine Ketones Negative (Negative) 06/29/21 09:57 Urine Nitrite Negative (Negative) 06/29/21 09:57 Ur Leukocyte Esterase Negative (Negative) 06/29/21 09:57 Urine WBC (Auto) 1-5 /hpf (0-5) 06/29/21 09:57 Urine RBC (Auto) 0-4 /hpf (0-4) 06/29/21 09:57 U Hyaline Cast (Auto) 0 /lpf (0-5) 06/29/21 09:57 U Epithel Cells (Auto) 5-10 /lpf (0-5) H 06/29/21 09:57 Urine Bacteria (Auto) Negative (Negative) 06/29/21 09:57 06/30/21 Unknown Gram Stain - Final Foot,Right Aerobic and Anaerobic Culture - Preliminary Bacteroides fragilis 07/01/21 10:22 Aerobic Blood Culture - Preliminary Blood No growth in Aerobic bottle after 48 hours. Anaerobic Blood Culture - Preliminary No growth in Anaerobic bottle after 48 hours. 07/01/21 10:35 Aerobic Blood Culture - Preliminary Blood No growth in Aerobic bottle after 48 hours. Anaerobic Blood Culture - Preliminary No growth in Anaerobic bottle after 48 hours. 06/29/21 10:00 Gram Stain - Final Foot,Right Deep Wound Culture - Final Bacteroides fragilis 06/29/21 09:52 Aerobic Blood Culture - Final Blood Streptococcus mitis/oralis Anaerobic Blood Culture - Final Streptococcus mitis/oralis 06/29/21 10:00 Aerobic Blood Culture - Final Blood Streptococcus mitis/oralis Anaerobic Blood Culture - Final Streptococcus mitis/oralis 07/04/21 06:02 POC Glucose 231 H Electrocardiogram Date: 06/29/21 Normal sinus rhythm, rate 73 bpm Normal ECG When compared with ECG of 26-MAR-2020 14:10, Premature supraventricular complexes are no longer Present Confirmed by Anthnoy Sommer ([id number]) on 06/29/2021 11:35:09 AM Chest X-Ray Date: 06/29/21 IMPRESSION: No acute cardiopulmonary findings. Stable cardiomegaly. Echocardiogram Date: 07/03/21 Normal LV chamber size with moderate concentric LVH Normal LV systolic function without regional wall motion abnormality, EF 60-65% Grade 2 diastolic dysfunction Mildly calcified AV with mild No valvular lesions consistent with endocarditis visualized within the scop of this imaging modality
[2021-07-04 12:30] LABS: Chloride Random Urine < 15 mmol/L; Potassium Random Urine 29.4 mmol/L; Sodium Random Urine 25 mmol/L
--- NOTE | 2021-07-04 12:31 | Magnetic Resonance Report ---
MR foot RT w/o con CLINICAL HISTORY: Follow-up gout with evidence for superimposed infection and osteomyelitis. Evaluat e for interval change. COMPARISON: 06/29/2021 TECHNIQUE: Multiplanar multisequence images of the right foot were performed without contrast. FINDINGS: Osseous structures:Compared to the previous examination, there are increased marrow juxta-articular e rosions are again seen characteristic of gout. Edematous changes present involving the distal shaft a nd head of the first metatarsal. However, the increased edematous changes are again suspicious for un derlying osteomyelitis. There is again marrow replacement of the medial sesamoid bone which correlate s with osteomyelitis. Increasing edematous changes are also present involving the base of the distal phalanx of the great toe, again concerning for infection. Homogeneous marrow signal seen throughout the remaining imaged bones of the foot with no other sites of marrow edema or marrow replacement. Joints: There is again marked narrowing of the first MTP joint, however, only a small joint effusion is present. Narrowing is present involving the remaining MTP joints with no joint effusions present. The IP joints are intact. Tendons: The extensor tendons along the dorsum of the foot and the flexor tendons along the plantar a spect of the foot are intact. The Achilles' tendon appears normal. Plantar fascia appears normal. Ligaments: The imaged ligaments of the foot are intact. Soft tissues: Compared to previous examination, the soft tissue focus along the medial aspect of the first MTP joint is slightly smaller in size measuring 3.7 x 1.3 cm. This has the appearance of a gout y tophus. The juxta-articular erosion of the head of the first metatarsals adjacent to this. There is again evidence for a wound overlying the plantar aspect of the first MTP joint. This abuts t he sesamoid bones with again evidence for osteomyelitis of the medial sesamoid bone. There is again a fluid collection seen between the distal shafts of the first and second metatarsals which has increased in size now measuring 2.4 cm. This is again suspicious for abscess. There is again fluid seen within the tendon sheaths of the adductor hallucis.. IMPRESSION: 1. Compared to the previous examination, there is again evidence for gout involving the first MTP jos nt. 2. However, there is again increase inflammatory changes and evidence for osteomyelitis involving the medial sesamoid bone. 3. The focus medial to the first MTP joint is most characteristic of a gouty tophus. 4. There is again evidence for a wound and edematous changes along the plantar aspect of the foot adj acent to the site of osteomyelitis of the medial sesamoid bone. 5. There has been increase in the size of the fluid collection between the distal first and second me tatarsals now measuring 2.4 cm, again suspicious for an abscess. 6. There is again fluid within the tendon sheaths of the abductor hallucis. ACT 112: Negative or not required by law. Electronically signed by: Camden Momin M.D. 07/04/2021 12:30 PM
[2021-07-04] MEDS: oxyCODONE HCL IR 5 MG TAB (IMMEDIATE RELEASE) PO PRN ×2 (12:57→19:06)
--- NOTE | 2021-07-04 14:13 | Nephrology Consultation ---
Date of Consultation July 04, 2021 History of Present Illness Reason for Consultation: hypernatremia, VERONICA on CKD, NAGMA Requesting Physician: Dr Ma Attending Physician: Jese Ma DO History of Present Illness 65 y/o M whom I'm asked to see for VERONICA on CKD /hypernatremia/non anion gap metabolic acidosis was admitted Allergies Allergy/AdvReac Type Severity Reaction Status Date / Time allopurinol Allergy Unknown Unknown Verified 06/29/21 11:21 Home Medications Medication Instructions Recorded Confirmed Type aspirin 81 mg tablet,delayed 81 mg PO HS 08/28/18 06/29/21 History release (Aspirin Low Dose) febuxostat 40 mg tablet (Uloric) 40 mg PO QAM 08/28/18 06/29/21 History carvedilol 3.125 mg tablet 3.125 mg PO BID 11/09/19 06/29/21 History docusate sodium 50 mg capsule 50 mg PO HS 11/09/19 06/29/21 History nilotinib 200 mg capsule (Tasigna) 400 mg PO Q12H 03/26/20 06/29/21 History dutasteride 0.5 mg capsule 0.5 mg PO HS 07/06/20 06/29/21 History atorvastatin 40 mg tablet 40 mg PO HS 08/02/20 06/29/21 History furosemide 40 mg tablet 60 mg PO BID tab 09/28/20 06/29/21 History sennosides 8.6 mg capsule (senna) 8.6 mg PO BID 10/18/20 06/29/21 History empagliflozin 10 mg tablet 10 mg PO QAM 01/31/21 06/29/21 History (Jardiance) hydralazine 100 mg tablet 100 mg PO TID tab 01/31/21 06/29/21 History amlodipine 5 mg tablet 5 mg PO QAM #90 tab 06/13/21 06/29/21 Rx potassium chloride 10 mEq 10 meq PO .COMPLEX #48 tabs 06/13/21 06/29/21 Rx tablet,extended release (Klor-Con) losartan 25 mg tablet 25 mg PO QAM 06/29/21 06/29/21 History prednisone 20 mg tablet 0 mg PO .TAPER DOSE 06/29/21 06/29/21 History tamsulosin 0.4 mg capsule 0.4 mg PO HS 06/29/21 06/29/21 History Patient History Medical History Aortic stenosis, mild BPH (benign prostatic hyperplasia) Cardiac murmur follows with Dr. Brooks Chronic kidney disease, stage 3 CML (chronic myelocytic leukemia) diagnosed 2017--oral chemo Diabetes mellitus, type II lost weight, taken off meds Gout Hyperlipidemia Hypertension Nausea and vomiting after administration of anesthetic agent MEE (obstructive sleep apnea) cpap Pleural effusion on right hx of 03/2020--had thoracentesis Renal cell carcinoma 2011--removed left kidney Vitamin D deficiency Surgical History History of cardiac cath 2001 @ [facility] [place] no stents History of cataract surgery bilt History of colonoscopy with polypectomy History of nephrectomy left 2011 History of prostate biopsy benign History of surgery on extremity right leg compound fx repair History of thoracentesis (~03/27/20) History of wisdom tooth extraction Family History Brother Coronary heart disease fatal [place] age 51 Father FH: brain aneurysm age 60 Other No family history of adverse response to anesthesia Social History Smoking Status: Never smoker Second Hand Exposure: No (N/a); Hx Alcohol Use: No Hx Substance Use: No Preferred Language: Bulgarian Communication Ability: Effective Fluid Pump Operator Required: No Beliefs That Will Affect Care: None marital status: Current Living Situation: Spouse Current Living Situation Comment: Lives with and 2 adult children current occupational status: employed How many Children do You have: 2 Feels Safe at Home: Yes Assistive Devices: None Results & Data ([facility]) Vital Signs (Past 12 Hours) Vital Signs Temp Pulse Resp BP Pulse Ox 07/04/21 10:57 36.4 C L 49 L 19 127/65 97 07/04/21 03:16 37 C 64 18 141/75 H 99
--- NOTE | 2021-07-04 14:18 | History & Physical Bridge Note ---
Date of Service July 04, 2021 History & Physical Bridge Note I have examined the patient, reviewed the History & Physical and in the interval since the performance of the History & Physical I have noted the following changes of clinical significance: Patient's exam and imaging is consistent with persistent right foot infection. He previously underwent an irrigation and debridement surgery by Dr. Morales on June 30, where dorsal and plantar incisions were made over the first MTP joint, and operative report noted minimal purulence was obtained from the area of abscess between the first and second metatarsals. Postoperative MRI shows persistent/enlarging abscesses between the first and second metatarsals, along the abductor hallucis, and along the flexor tendons in the deep plantar aspect of the foot. Repeat and more extensive irrigation and debridement surgery was recommended. Risks, benefits, and alternatives of surgery were explained in detail. The surgical procedure, as well as postoperative recovery and rehabilitation, was also explained in detail. Risks include bleeding; persistent infection; damage to surrounding structures such as nerves, blood vessels, and tendons that run in the area; persistent pain, weakness, or stiffness; or need for further surgery. The patient understands all of this and wishes to proceed with surgery. Informed consent was obtained.
[2021-07-04] MEDS ORDERED: ceFAZolin 2,000 MG/15 ML IV PUSH IV ONE (14:32)
[2021-07-04] MEDS ORDERED: ceFAZolin 2000MG 2,000 MG/15 ML SYR IV ONE (14:50)
[2021-07-04] MEDS ORDERED: PROPOFOL IV EMULSION 10 MG/ML 20 ML VIAL IV ONE (15:03)
[2021-07-04] MEDS ORDERED: LIDOCAINE 2% 20 MG/ML 5 ML SYR IV ONE (15:03)
[2021-07-04] MEDS ORDERED: MIDAZOLAM HCL 1 MG/ML 2ML VIAL ONE (15:04)
[2021-07-04] MEDS ORDERED: fentaNYL citrate 100 MCG/2 ML VIAL ONE (15:04)
[2021-07-04] MEDS ORDERED: ATROPINE SULFATE 0.1 MG/ML 10ML SYR IV PRN (15:15)
[2021-07-04] MEDS ORDERED: fentaNYL citrate 100 MCG/2 ML VIAL IV PRN (15:15)
[2021-07-04] MEDS ORDERED: ONDANSETRON INJ 2 MG/ML 2 ML VIAL IV PRN (15:15)
[2021-07-04] MEDS ORDERED: ePHEDrine sulfate 50 MG/ML AMP IV PRN (15:15)
[2021-07-04] MEDS ORDERED: ONDANSETRON INJ 2 MG/ML 2 ML VIAL ONE (15:45)
[2021-07-04] MEDS ORDERED: ePHEDrine sulfate 50 MG/ML SYR ONE (15:45)
[2021-07-04] MEDS ORDERED: BUPIVACAINE 0.5 % 5 MG/1 ML MPF 30ML VIAL INFIL ONE (16:32)
[2021-07-04] MEDS ORDERED: LIDOCAINE 1% LOCAL 20 ML VIAL INJ ONE (16:35)
--- NOTE | 2021-07-04 16:41 | Post Operative Brief Note ---
Immediate Post Op Note v1 Date of Surgery July 04, 2021 Pre & Post Diagnosis Operation Date: 07/04/21 11:05 Pre-Op Diagnosis: 1. Right foot first intermetatarsal space abscess 2. Infectious flexor tenosynovitis 3. Abductor hallucis longus abscess 4. Septic first metatarsophalangeal joint Post-Op Diagnosis: 1. Right foot first intermetatarsal space abscess 2. Infectious flexor tenosynovitis 3. Abductor hallucis longus abscess 4. Septic first metatarsophalangeal joint I identified the patient and participated in the time-out.: Yes Procedure Operation Date: 07/04/21 11:05 Actual Procedures 1. Right foot irrigation and debridement of first intermetatarsal space abscess 2. Irrigation and debridement of infectious flexor tenosynovitis 3. Irrigation and debridement of abductor hallucis longus abscess 4. Irrigation and debridement of septic first metatarsophalangeal joint - Steven Liu M.D. Surgeon Steven Liu Infant Babysitter Dean Beard PA-C Estimated Blood Loss 5 Findings Consistent with Post-Op Diagnosis
--- NOTE | 2021-07-04 16:45 | Operative Report ---
Post Operative Report Pre & Post Diagnosis Operation Date: 07/04/21 11:05 Pre-Op Diagnosis: 1. Right foot first intermetatarsal space abscess 2. Infectious flexor tenosynovitis 3. Abductor hallucis longus abscess 4. Septic first metatarsophalangeal joint Post-Op Diagnosis: 1. Right foot first intermetatarsal space abscess 2. Infectious flexor tenosynovitis 3. Abductor hallucis longus abscess 4. Septic first metatarsophalangeal joint I identified the patient and participated in the time-out.: Yes Procedure Operation Date: 07/04/21 11:05 Actual Procedures 1. Right foot irrigation and debridement of first intermetatarsal space abscess (76567) 2. Irrigation and debridement of infectious flexor tenosynovitis 3. Irrigation and debridement of abductor hallucis longus abscess 4. Irrigation and debridement of septic first metatarsophalangeal joint ([id number]) - Steven Liu M.D. Surgeon Steven Liu Cream Dumper Dean Beard PA-C Estimated Blood Loss 5 Findings Consistent with Post-Op Diagnosis Specimens 1. Culture swab of first intermetatarsal webspace abscess 2. Culture swab of abductor pollicis longus abscess 3. Culture swab of infectious flexor tenosynovitis Drains Iodoform packing x 5 strips Anesthesia Type General Complications none Disposition Disposition: Recovery Room Indications Mr. Arce is a 65-year-old male with persistent infection in his right foot despite previous irrigation debridement surgery. History, clinical exam, and imaging were consistent with the above diagnosis. Risks, benefits, and alternatives of surgery were explained in detail. The patient understood all this and wished to proceed. Description of Procedure Patient was identified in the preoperative holding area. Operative extremity was marked. Patient was then brought back to the operating room, and general anesthesia was induced without complication. Appropriate weight-based dose of Ancef was infused intravenously for antibiotic prophylaxis. Tourniquet was placed on the right lower leg. Lower leg was then prepped and draped in a standard sterile fashion using Betadine prep due to the previous open wounds. The lower leg was then exsanguinated with an Esmarch starting just proximal to the foot abscess area, and the tourniquet was inflated. The foot was inspected. There was a small longitudinal incision over the dorsal aspect of the MTP joint, and a slightly longer longitudinal incision along the plantar aspect of the MTP joint. The plantar incision was directly through a very thick callus area immediately plantar to the MTP joint. There appeared to be a central necrotic area where the incision was centered. Both of the dorsal and volar incisions had previously been closed with monster; these were removed as they were encountered. There was some immediate purulent drainage from both wounds, dorsal greater than plantar. Preoperative MRI had shown 3 separate abscesses still present after the previous irrigation and debridement surgery. I extended the dorsal MTP joint incision proximally and laterally to directed over the first intermetatarsal space where the abscess was located on preoperative MRI. I dissected through subcutaneous tissues. There was some purulence fluid around the first MTP joint, which did appear open, consistent with a septic joint. Proximally along this incision, I divided through the deep fascia to get into the space between the first and second metatarsals where the abscess was located on MRI. As I dissected through this deep fascial layer, there was an abundant gush of purulent fluid from this abscess. I aggressively but carefully debrided this abscess cavity with curette and rongeur to remove all necrotic looking tissue. I then made a longitudinal incision along the medial aspect of the foot along the course of the abductor hallucis longus tendon, where preoperative MRI showed a separate abscess. Immediately upon incision of the skin and dissection through subcutaneous tissues, there was an abundant gush of purulent fluid surrounding the AHL tendon. This area was aggressively but carefully debrided with curette and rongeur. This abscess did appear to communicate with the wound on the plantar aspect of the first MTP joint. I then dissected deeper into the midfoot to access the abscess around the flexor tendons seen on preoperative MRI. As I dissected deep into the medialplantar aspect of the foot, identified the FHL tendon, as well as the flexor tendons in a separate subsheath. As of flexor tendons were opened, there was fluid surrounding the tendons, but slightly more serous and less thick than the other 2 abscess cavities. Finally, I focused on the very thick callus on the plantar aspect of the first MTP joint. This callus was several millimeters thick, and with the necrotic area in the center, I suspect that this was the epicenter of the entire infection. I therefore debrided the callus down to more normal skin to help prevent recurrence of this type of infection. After all 3 separate abscesses were decompressed and the abscess cavities debrided, I then copiously irrigated all wounds and the open first MTP joint with sterile saline via gravity irrigation. I then packed all the abscess cavities with iodoform packing strips. Skin was closed with 4-0 Prolene. I then anesthetized the wound bed with a 50/50 mixture of 1% lidocaine and 0.5% Marcaine without epinephrine. Sterile dressings were then applied with Xeroform, sterile gauze, sterile Webril, and Alirio wrap. The drapes were removed, the patient was awakened from anesthesia, and taken to the Post Anesthesia Care Unit in stable condition. There were no immediate complications from the procedure. I was present and sc rubbed for the entire procedure. Due to the complex nature of the procedure, the entire surgery was performed with the operational assistance of Dean Beard PA-C. The sales office assistant, under direct supervision, was involved in the performance of all aspects of the surgical procedure including hemostasis, tissue incision and retraction, instrument management, patient positioning, and wound closure. I attest to the content of the Intraoperative Record and any orders documented therein. Any exceptions are noted below.
[2021-07-04 17:09] LABS: Albumin Level 3.2 gm/dl (3.4-5.0); BUN Creatinine Ratio 25.2 (10-20); Calcium 9.2 mg/dl (8.5-10.1); Creatinine Clr Calc Pharmacy 48.6 ml/min; Est GFR (Non-African American) 33.6 ml/min; Phosphorus 2.7 mg/dl (2.5-4.9); Potassium 4.1 mmol/L (3.5-5.1)
--- NOTE | 2021-07-04 17:11 | Anesthesiology Progress Note ---
Date of Service July 04, 2021 Anesthesia Post Procedure Vital Signs Vital Signs: Temp Pulse Pulse Resp BP BP Pulse Ox 07/04/21 17:00 59 L 16 141/67 H 94 07/04/21 16:50 60 16 136/62 97 07/04/21 16:43 98.1 F 68 16 127/58 L 96 07/04/21 10:57 97.5 F L 49 L 19 127/65 97 07/04/21 03:16 98.6 F 64 18 141/75 H 99 07/03/21 23:06 98.4 F 62 16 136/72 99 07/03/21 23:02 98.4 F 07/03/21 18:41 98.4 F 58 L 18 142/69 H 95 Pain Intensity Right Foot: Pain Intensity: 5 Transfer of Care Handoff Completed per policy Notes Mental Status: alert / awake / arousable and participated in evaluation Patient Amnestic to Procedure: Yes Nausea / Vomiting: adequately controlled Pain: adequately controlled Airway Patency, RR, SpO2: stable & adequate BP & HR: stable & adequate Hydration State: stable & adequate Anesthetic Complications: no major complications apparent and Pt Satisfied with anesthetic care
[2021-07-04] MEDS ORDERED: cefTRIAXone SODIUM 2,000 MG in DEXTROSE 5% 50 ML IV SCH (18:00)
--- NOTE | 2021-07-04 18:27 | Nephrology Consultation ---
Date of Consultation July 04, 2021 Assessment & Plan (1) Chronic kidney disease, stage 3: (2) History of nephrectomy: (3) Renal cell carcinoma: (4) CML (chronic myelocytic leukemia): (5) Hypertension: (6) Diabetes mellitus, type II: (7) Ulcer of right foot: Mr. Dominguez is a 65 year-old male with CKD IIIb A3 attributed to DKD. He has a single right kidney s/p left nephrectomy for RCC in . Baseline creatinine ~1.7-2.1 mg/dL. Medical history also notable for CML for which he is maintained on nilotinib. He has undergone 2 surgeries for extensive I&D of the foot this admission. Blood cultures on admission +GPC. Blood pressure and volume status are acceptable. IVF infusing overnight to encourage a slightly positive fluid balance. Alberto was found to be slightly intravascularly depleted following surgery. PO intake reduced. He has a mild chronic hyponatremia. Urine osmolality inappropriately elevated. Urine output acceptable. Electrolytes within normal limits. Medications are appropriately dosed for kidney dysfunction. Remains on losartan. Empagliflozin appropriately held. Document I/O's and repeat metabolic profile tomorrow AM. History of Present Illness Reason for Consultation: VERONICA, CKD, single kidney Requesting Physician: Jese Ma DO Attending Physician: Jese Ma DO History of Present Illness Mr. Dominguez Shareloli is a 65-year-old male with chronic kidney disease and a single kidney. Alberto follows with Dr. Dhaliwal in the CKD clinic. CKD IIIb A3. Baseline creatinine has been ~2.0 mg/dL. CKD attributed to DKD. s/p L nephrectomy in 2011 for RCC confined to kidney. Lesion in the right kidney being monitored by urology since 2019. Medical history is also notable for DMII, obesity, MEE, hypertension, CML managed with Tasigna, and gout. During Alberto's follow up with Dr. Dhaliwal earlier this month a referral to podiatry was made for an ulcerated lesion involving the foot. At that time, kidney function was stable with a creatinine of 1.7 mg/dL. Alberto presented to the ER at [facility] and was admitted on 06/29 with an infected diabetic foot wound and bacteremia. MRI on admission suggestive of right first digit gout with superimposed infection with cellulitis and osteomyelitis, as well as tenosynvovitis of the abductor hallucis tendon sheath. Admitting blood culture + strep and operative cultures from I&D + strep. I&D initially performed on . Alberto went back to the OR today for additional I&D. He tolerated the procedure well and was seen and evaluated in his hospital room this evening following surgery. TTE negative for vegetation. Blood cultures have cleared. Current antibiotic therapy is ceftriaxone. Allergies Allergy/AdvReac Type Severity Reaction Status Date / Time allopurinol Allergy Unknown Unknown Verified 06/29/21 11:21 Home Medications Medication Instructions Recorded Confirmed Type aspirin 81 mg tablet,delayed 81 mg PO HS 08/28/18 06/29/21 History release (Aspirin Low Dose) febuxostat 40 mg tablet (Uloric) 40 mg PO QAM 08/28/18 06/29/21 History carvedilol 3.125 mg tablet 3.125 mg PO BID 11/09/19 06/29/21 History docusate sodium 50 mg capsule 50 mg PO HS 11/09/19 06/29/21 History nilotinib 200 mg capsule (Tasigna) 400 mg PO Q12H 03/26/20 06/29/21 History dutasteride 0.5 mg capsule 0.5 mg PO HS 07/06/20 06/29/21 History atorvastatin 40 mg tablet 40 mg PO HS 08/02/20 06/29/21 History furosemide 40 mg tablet 60 mg PO BID tab 09/28/20 06/29/21 History sennosides 8.6 mg capsule (senna) 8.6 mg PO BID 10/18/20 06/29/21 History empagliflozin 10 mg tablet 10 mg PO QAM 01/31/21 06/29/21 History (Jardiance) hydralazine 100 mg tablet 100 mg PO TID tab 01/31/21 06/29/21 History amlodipine 5 mg tablet 5 mg PO QAM #90 tab 06/13/21 06/29/21 Rx potassium chloride 10 mEq 10 meq PO .COMPLEX #48 tabs 06/13/21 06/29/21 Rx tablet,extended release (Klor-Con) losartan 25 mg tablet 25 mg PO QAM 06/29/21 06/29/21 History prednisone 20 mg tablet 0 mg PO .TAPER DOSE 06/29/21 06/29/21 History tamsulosin 0.4 mg capsule 0.4 mg PO HS 06/29/21 06/29/21 History Patient History Medical History Aortic stenosis, mild BPH (benign prostatic hyperplasia) Cardiac murmur follows with Dr. Brooks Chronic kidney disease, stage 3 CML (chronic myelocytic leukemia) diagnosed 2017--oral chemo Diabetes mellitus, type II lost weight, taken off meds Gout Hyperlipidemia Hypertension Nausea and vomiting after administration of anesthetic agent MEE (obstructive sleep apnea) cpap Pleural effusion on right hx of 03/2020--had thoracentesis Renal cell carcinoma 2011--removed left kidney Vitamin D deficiency Surgical History [place] of [place] [facility] [place] History of cataract surgery bilt History of colonoscopy with polypectomy History of nephrectomy left 2011 History of prostate biopsy benign History of surgery on extremity right leg compound fx repair History of thoracentesis (~03/27/20) History of wisdom tooth extraction Family History Brother Coronary heart disease fatal MS age 51 Father FH: brain aneurysm age 60 Other No family history of adverse response to anesthesia Social History Smoking Status: Never smoker Second Hand Exposure: No (N/a); Hx Alcohol Use: No Hx Substance Use: No Preferred Language: Armenian Communication Ability: Effective Order Planner Required: No Beliefs That Will Affect Care: None marital status: Current Living Situation: Spouse Current Living Situation Comment: Lives with and 2 adult children current occupational status: employed How many Children do You have: 2 Feels Safe at Home: Yes Assistive Devices: None Review of Systems Review of Systems: All systems reviewed & are unremarkable except as noted in HPI & below Constitutional: + weakness Musculoskeletal: + joint pain and + stiffness Physical Exam Constitutional: well developed; no acute distress Eyes: no scleral abnormality and no corneal abnormality ENMT: Mouth: no oral mucosal abnormality and oral mucous membranes not dry Neck: normal visual inspection and trachea midline Respiratory: normal respiratory effort Auscultation: lungs clear to auscultation bilaterally Cardiovascular: Rate/Rhythm: regular rate Heart Sounds: normal S1, normal S2 and + murmur Extremities: + pedal edema Musculoskeletal: Extremities: no cyanosis and no clubbing Skin: normal turgor; no lesions Neurologic: Motor/Sensory: no tremor and no asterixis Psychiatric: Orientation: alert and oriented x 3 Results & Data ([facility]) Vital Signs (Past 12 Hours) Vital Signs Temp Pulse Pulse Resp BP BP Pulse Ox 07/04/21 17:10 36.4 C L 61 16 140/63 94 07/04/21 17:00 59 L 16 141/67 H 94 07/04/21 16:50 60 16 136/62 97 07/04/21 16:43 36.7 C 68 16 127/58 L 96 07/04/21 10:57 36.4 C L 49 L 19 127/65 97 Laboratory Results Laboratory Results - last 24 hr 07/04/21 07/04/21 07/04/21 06:02 10:03 10:08 Sodium 130 L Potassium 4.1 Chloride 102 Carbon Dioxide 20 L Anion Gap 8 BUN 51 H Creatinine 2.02 H Est Cr Clr Drug Dosing 48.6 Est GFR ( Amer) 39.0 Est GFR (Non-Af Amer) 33.6 BUN/Creatinine Ratio 25.2 H Glucose 202 H POC Glucose 231 H Osmolality 296 Calcium 9.2 Phosphorus 2.7 Albumin 3.2 L Urine Osmolality Ur Random Sodium Ur Random Potassium Ur Random Chloride 07/04/21 07/04/21 07/04/21 10:54 10:54 10:54 Sodium Potassium Chloride Carbon Dioxide Anion Gap BUN Creatinine Est Cr Clr Drug Dosing Est GFR ( Amer) Est GFR (Non-Af Amer) BUN/Creatinine Ratio Glucose POC Glucose Osmolality Calcium Phosphorus Albumin Urine Osmolality 445 L Ur Random Sodium 25 Ur Random Potassium 29.4 Ur Random Chloride Cancelled < 15 07/04/21 07/04/21 07/04/21 10:54 12:05 15:10 Sodium Potassium Chloride Carbon Dioxide Anion Gap BUN Creatinine Est Cr Clr Drug Dosing Est GFR ( Amer) Est GFR (Non-Af Amer) BUN/Creatinine Ratio Glucose POC Glucose 202 H 153 H Osmolality Calcium Phosphorus Albumin Urine Osmolality Ur Random Sodium Ur Random Potassium Cancelled Ur Random Chloride 07/04/21 07/04/21 07/04/21 16:44 17:40 20:16 Sodium Potassium Chloride Carbon Dioxide Anion Gap BUN Creatinine Est Cr Clr Drug Dosing Est GFR ( Amer) Est GFR (Non-Af Amer) BUN/Creatinine Ratio Glucose POC Glucose 198 H 187 H 180 H Osmolality Calcium Phosphorus Albumin Urine Osmolality Ur Random Sodium Ur Random Potassium Ur Random Chloride PG Care Time/CCT Total # of Minutes Spent Total Time Spent with Patient: Total time spent is greater than 50% in coordination of care (as documented) at patient's floor/unit and/or counseling patient: Coding Level of Care Code 20680 Inpt Consult Level 4 Diagnoses Chronic kidney disease, stage 3 N18.30 Chronic kidney disease stage 3 subtype: unspecified whether 3a or 3b History of nephrectomy Z90.5 Renal cell carcinoma C64.9 CML (chronic myelocytic leukemia) C92.10 Hypertension I10 Diabetes mellitus, type II E11.9 Ulcer of right foot L97.519 (1) Chronic kidney disease, stage 3 Chronic kidney disease stage 3 subtype: unspecified whether 3a or 3b Qualified Code(s): N18.30 - Chronic kidney disease, stage 3 unspecified
[2021-07-04] MEDS: NORMOSOL-R 1,000 ML IV SCH (19:16)
[2021-07-04] MEDS: DOCUSATE SODIUM 100 MG CAP PO SCH (20:26)
[2021-07-04] MEDS: ASPIRIN 81 MG ECTAB PO SCH (20:26)
[2021-07-04] MEDS: metroNIDAZOLE 500 MG TAB PO SCH (20:29)
[2021-07-04] MEDS: TAMSULOSIN HCL 0.4 MG CAP PO SCH (20:30)
[2021-07-04] MEDS: MELATONIN 3 MG TAB PO PRN (21:40)
[2021-07-04] MEDS: CLINDAMYCIN 600 MG in DEXTROSE 5% 50 ML IV SCH (21:49)
[2021-07-05] MEDS: MoRPHine SULFATE 2 MG/ML CARP IV PRN ×2 (00:50→21:22)
[2021-07-05] MEDS: oxyCODONE HCL IR 5 MG TAB (IMMEDIATE RELEASE) PO PRN (04:13)
[2021-07-05] MEDS: CLINDAMYCIN 600 MG in DEXTROSE 5% 50 ML IV SCH ×2 (05:01→13:07)
[2021-07-05] MEDS: DUTASTERIDE PO SCH (07:57)
[2021-07-05] MEDS: FEBUXOSTAT 40 MG TABLET PO SCH (07:59)
[2021-07-05] MEDS: NILOTINIB PO SCH ×2 (07:59→20:22)
[2021-07-05] MEDS: carvediloL 3.125 MG TAB PO SCH ×2 (08:00→20:26)
[2021-07-05] MEDS: SENNA 8.6 MG TAB PO SCH ×2 (08:00→20:23)
[2021-07-05] MEDS: metroNIDAZOLE 500 MG TAB PO SCH ×2 (08:00→13:08)
[2021-07-05] MEDS: NORMOSOL-R 1,000 ML IV SCH ×2 (08:01→20:55)
[2021-07-05] MEDS: amLODIPine BESYLATE 5 MG TAB PO SCH (08:01)
[2021-07-05] MEDS: LOSARTAN POTASSIUM 25 MG TAB PO SCH (08:01)
[2021-07-05] MEDS: INSULIN GLARGINE SOLOSTAR 100 UNITS/ML 3 ML PEN SC SCH ×2 (08:02→20:56)
[2021-07-05] MEDS: hydrALAZINE TAB 50 MG TAB PO SCH ×3 (08:02→20:24)
[2021-07-05] MEDS: bisacodyL 5 MG TABEC PO SCH (08:05)
[2021-07-05] MEDS: POLYETHYLENE (MIRALAX) 17 GM PACK PO SCH (08:05)
[2021-07-05] MEDS: POTASSIUM CHLORIDE 10 MEQ TABCR PO SCH (08:05)
[2021-07-05 08:11] LABS: Basophils # (auto) 0.04 K/uL (0-0.2); Basophils % (auto) 0.2 %; Eosinophils # (auto) 0.18 K/uL (0-0.5); Eosinophils % (auto) 0.8 %; Hematocrit (blood only) 31.1 % (42-52); Hemoglobin 10.3 g/dL (14.0-18.0); Immature Granulocytes # (auto) 0.78 K/uL (0.00-0.02); Immature Granulocytes % (auto) 3.3 %; Lymphocytes # (auto) 0.86 K/uL (1.2-3.4); Lymphocytes % (auto) 3.7 %; Mean Corpuscular Hgb Conc 33.1 g/dL (32-36); Mean Corpuscular Volume 90.7 fL (80-100); Mean Platelet Volume 9.8 fL (7.4-10.4); Monocytes # (auto) 2.59 K/uL (0.11-0.59); Neutrophils # (auto) 19.05 K/uL (1.4-6.5); Platelet Count 316 K/uL (130-400); RDW Coefficient of Variation 13.8 % (11.5-14.5); RDW Standard Deviation 46.3 fL (36.4-46.3); Red Blood Count 3.43 M/uL (4.7-6.1)
[2021-07-05] MEDS: INSULIN ASPART PER UNIT SC SCH ×4 (08:14→20:42)
[2021-07-05] MEDS ORDERED: Nursing to Pharmacy Communication SCH ×3 (08:30)
[2021-07-05 08:33] LABS: Albumin Globulin Ratio 0.9 (0.9-2); Bilirubin,Total 1.1 mg/dl (0.2-1.0); Calcium 8.3 mg/dl (8.5-10.1); Est GFR (African American) 47.3 ml/min; Est GFR (Non-African American) 40.8 ml/min; Globulin 3.3 gm/dl (2.5-4.0); Total Protein 6.3 gm/dl (6.0-8.3)
[2021-07-05] MEDS ORDERED: IBUPROFEN 800 MG TAB PO PRN ×2 (08:51→08:52)
[2021-07-05] MEDS ORDERED: traMADol HCL 50 MG TABLET PO PRN (08:53)
[2021-07-05] MEDS: ACETAMINOPHEN 500 MG TAB PO SCH ×2 (09:45→13:07)
--- NOTE | 2021-07-05 11:09 | Orthopedic Progress Note ---
Date of Service July 05, 2021 Assessment & Plan (1) Acute foot pain: Plan: POD 1 s/p repeat I&D Right foot. (1. Right foot irrigation and debridement of first intermetatarsal space abscess (37226)2. Irrigation and debridement of infectious flexor tenosynovitis 3. Irrigation and debridement of abductor hallucis longus abscess 4. Irrigation and debridement of septic first metatarsophalangeal joint (24491) PT/OT. Heel WB only RLE Pain management as written DVT prophylaxis as per Med Service Dressing change Thursday Admission and Anticipated Discharge Date Admission Date: June 29, 2021 Subjective POD 1 s/p Repeat I&D right foot abscess Pt resting comfortably. No new complaints. Physical Exam Physical Exam: Dressings C/D/I. Toes pink/warm. Results & Data ([facility]) Vital Signs (Past 12 Hours) Vital Signs Temp Pulse Resp BP Pulse Ox 07/05/21 10:43 37.2 C 59 L 19 145/57 H 94 07/05/21 07:27 36.5 C 59 L 19 155/69 H 95 07/05/21 04:02 36.8 C 65 18 176/75 H 95 07/04/21 23:23 36.7 C 74 18 151/57 H 94 Laboratory Results 07/05/21 07/05/21 07/05/21 Range/Units 07:51 07:51 07:28 WBC 23.50 H (4.8-10.8) K/uL RBC 3.43 L (4.7-6.1) M/uL Hgb 10.3 L (14.0-18.0) g/dL Hct 31.1 L (42-52) % MCV 90.7 (80-100) fL MCH 30.0 (25-34) pg MCHC 33.1 (32-36) g/dL RDW Std Deviation 46.3 (36.4-46.3) fL RDW Coeff of Joce 13.8 (11.5-14.5) % Plt Count 316 (130-400) K/uL MPV 9.8 (7.4-10.4) fL Immature Gran % (Auto) 3.3 % Neut % (Auto) 81.0 % Lymph % (Auto) 3.7 % [place] % (Auto) 11.0 % Eos % (Auto) 0.8 % Baso % (Auto) 0.2 % Neut # (Auto) 19.05 H (1.4-6.5) K/uL Lymph # (Auto) 0.86 L (1.2-3.4) K/uL [place] # (Auto) 2.59 H (0.11-0.59) K/uL Eos # (Auto) 0.18 (0-0.5) K/uL Baso # (Auto) 0.04 (0-0.2) K/uL Immature Gran # (Auto) 0.78 H (0.00-0.02) K/uL Sodium 130 L (136-145) mmol/L Potassium 4.0 (3.5-5.1) mmol/L Chloride 101 (98-107) mmol/L Carbon Dioxide 20 L (21-32) mmol/L Anion Gap 9 (3-11) BUN 43 H (6-23) mg/dl Creatinine 1.72 H D (0.6-1.4) mg/dl Est Cr Clr Drug Dosing 57.0 ml/min Est GFR ( Amer) 47.3 ml/min Est GFR (Non-Af Amer) 40.8 ml/min BUN/Creatinine Ratio 25.0 H (10-20) Glucose 197 H (70-99(Fasting)) mg/dl POC Glucose 198 H (70-99) mg/dl Osmolality (280-300) mOsm/kg Calcium 8.3 L (8.5-10.1) mg/dl Phosphorus (2.5-4.9) mg/dl Total Bilirubin 1.1 H (0.2-1.0) mg/dl AST 79 H (13-39) U/L ALT 97 H (7-52) U/L Alkaline Phosphatase 115 H (34-104) U/L Total Protein 6.3 (6.0-8.3) gm/dl Albumin 3.0 L (3.4-5.0) gm/dl Globulin 3.3 (2.5-4.0) gm/dl Albumin/Globulin Ratio 0.9 (0.9-2) Urine Osmolality (500-800) mOsm/kg Ur Random Sodium mmol/L Ur Random Potassium mmol/L Ur Random Chloride 07/04/21 07/04/21 07/04/21 Range/Units 20:16 17:40 16:44 WBC (4.8-10.8) K/uL RBC (4.7-6.1) M/uL Hgb (14.0-18.0) g/dL Hct (42-52) % MCV (80-100) fL MCH (25-34) pg MCHC (32-36) g/dL RDW Std Deviation (36.4-46.3) fL RDW Coeff of Joce (11.5-14.5) % Plt Count (130-400) K/uL MPV (7.4-10.4) fL Immature Gran % (Auto) % Neut % (Auto) % Lymph % (Auto) % [place] % (Auto) % Eos % (Auto) % Baso % (Auto) % Neut # (Auto) (1.4-6.5) K/uL Lymph # (Auto) (1.2-3.4) K/uL [place] # (Auto) (0.11-0.59) K/uL Eos # (Auto) (0-0.5) K/uL Baso # (Auto) (0-0.2) K/uL Immature Gran # (Auto) (0.00-0.02) K/uL Sodium (136-145) mmol/L Potassium (3.5-5.1) mmol/L Chloride (98-107) mmol/L Carbon Dioxide (21-32) mmol/L Anion Gap (3-11) BUN (6-23) mg/dl Creatinine (0.6-1.4) mg/dl Est Cr Clr Drug Dosing ml/min Est GFR ( Amer) ml/min Est GFR (Non-Af Amer) ml/min BUN/Creatinine Ratio (10-20) Glucose (70-99(Fasting)) mg/dl POC Glucose 180 H 187 H 198 H (70-99) mg/dl Osmolality (280-300) mOsm/kg Calcium (8.5-10.1) mg/dl Phosphorus (2.5-4.9) mg/dl Total Bilirubin (0.2-1.0) mg/dl AST (13-39) U/L ALT (7-52) U/L Alkaline Phosphatase (34-104) U/L Total Protein (6.0-8.3) gm/dl Albumin (3.4-5.0) gm/dl Globulin (2.5-4.0) gm/dl Albumin/Globulin Ratio (0.9-2) Urine Osmolality (500-800) mOsm/kg Ur Random Sodium mmol/L Ur Random Potassium mmol/L Ur Random Chloride 07/04/21 07/04/21 07/04/21 Range/Units 15:10 12:05 10:54 WBC (4.8-10.8) K/uL RBC (4.7-6.1) M/uL Hgb (14.0-18.0) g/dL Hct (42-52) % MCV (80-100) fL MCH (25-34) pg MCHC (32-36) g/dL RDW Std Deviation (36.4-46.3) fL RDW Coeff of Joce (11.5-14.5) % Plt Count (130-400) K/uL MPV (7.4-10.4) fL Immature Gran % (Auto) % Neut % (Auto) % Lymph % (Auto) % [place] % (Auto) % Eos % (Auto) % Baso % (Auto) % Neut # (Auto) (1.4-6.5) K/uL Lymph # (Auto) (1.2-3.4) K/uL [place] # (Auto) (0.11-0.59) K/uL Eos # (Auto) (0-0.5) K/uL Baso # (Auto) (0-0.2) K/uL Immature Gran # (Auto) (0.00-0.02) K/uL Sodium (136-145) mmol/L Potassium (3.5-5.1) mmol/L Chloride (98-107) mmol/L Carbon Dioxide (21-32) mmol/L Anion Gap (3-11) BUN (6-23) mg/dl Creatinine (0.6-1.4) mg/dl Est Cr Clr Drug Dosing ml/min Est GFR ( Amer) ml/min Est GFR (Non-Af Amer) ml/min BUN/Creatinine Ratio (10-20) Glucose (70-99(Fasting)) mg/dl POC Glucose 153 H 202 H (70-99) mg/dl Osmolality (280-300) mOsm/kg Calcium (8.5-10.1) mg/dl Phosphorus (2.5-4.9) mg/dl Total Bilirubin (0.2-1.0) mg/dl AST (13-39) U/L ALT (7-52) U/L Alkaline Phosphatase (34-104) U/L Total Protein (6.0-8.3) gm/dl Albumin (3.4-5.0) gm/dl Globulin (2.5-4.0) gm/dl Albumin/Globulin Ratio (0.9-2) Urine Osmolality (500-800) mOsm/kg Ur Random Sodium mmol/L Ur Random Potassium Cancelled mmol/L Ur Random Chloride 07/04/21 07/04/21 07/04/21 Range/Units 10:54 10:54 10:54 WBC (4.8-10.8) K/uL RBC (4.7-6.1) M/uL Hgb (14.0-18.0) g/dL Hct (42-52) % MCV (80-100) fL MCH (25-34) pg MCHC (32-36) g/dL RDW Std Deviation (36.4-46.3) fL RDW Coeff of Joce (11.5-14.5) % Plt Count (130-400) K/uL MPV (7.4-10.4) fL Immature Gran % (Auto) % Neut % (Auto) % Lymph % (Auto) % [place] % (Auto) % Eos % (Auto) % Baso % (Auto) % Neut # (Auto) (1.4-6.5) K/uL Lymph # (Auto) (1.2-3.4) K/uL [place] # (Auto) (0.11-0.59) K/uL Eos # (Auto) (0-0.5) K/uL Baso # (Auto) (0-0.2) K/uL Immature Gran # (Auto) (0.00-0.02) K/uL Sodium (136-145) mmol/L Potassium (3.5-5.1) mmol/L Chloride (98-107) mmol/L Carbon Dioxide (21-32) mmol/L Anion Gap (3-11) BUN (6-23) mg/dl Creatinine (0.6-1.4) mg/dl Est Cr Clr Drug Dosing ml/min Est GFR ( Amer) ml/min Est GFR (Non-Af Amer) ml/min BUN/Creatinine Ratio (10-20) Glucose (70-99(Fasting)) mg/dl POC Glucose (70-99) mg/dl Osmolality (280-300) mOsm/kg Calcium (8.5-10.1) mg/dl Phosphorus (2.5-4.9) mg/dl Total Bilirubin (0.2-1.0) mg/dl AST (13-39) U/L ALT (7-52) U/L Alkaline Phosphatase (34-104) U/L Total Protein (6.0-8.3) gm/dl Albumin (3.4-5.0) gm/dl Globulin (2.5-4.0) gm/dl Albumin/Globulin Ratio (0.9-2) Urine Osmolality 445 L (500-800) mOsm/kg Ur Random Sodium 25 mmol/L Ur Random Potassium 29.4 mmol/L Ur Random Chloride < 15 Cancelled 07/04/21 07/04/21 Range/Units 10:08 10:03 WBC (4.8-10.8) K/uL RBC (4.7-6.1) M/uL Hgb (14.0-18.0) g/dL Hct (42-52) % MCV (80-100) fL MCH (25-34) pg MCHC (32-36) g/dL RDW Std Deviation (36.4-46.3) fL RDW Coeff of Joce (11.5-14.5) % Plt Count (130-400) K/uL MPV (7.4-10.4) fL Immature Gran % (Auto) % Neut % (Auto) % Lymph % (Auto) % [place] % (Auto) % Eos % (Auto) % Baso % (Auto) % Neut # (Auto) (1.4-6.5) K/uL Lymph # (Auto) (1.2-3.4) K/uL [place] # (Auto) (0.11-0.59) K/uL Eos # (Auto) (0-0.5) K/uL Baso # (Auto) (0-0.2) K/uL Immature Gran # (Auto) (0.00-0.02) K/uL Sodium 130 L (136-145) mmol/L Potassium 4.1 (3.5-5.1) mmol/L Chloride 102 (98-107) mmol/L Carbon Dioxide 20 L (21-32) mmol/L Anion Gap 8 (3-11) BUN 51 H (6-23) mg/dl Creatinine 2.02 H (0.6-1.4) mg/dl Est Cr Clr Drug Dosing 48.6 ml/min Est GFR ( Amer) 39.0 ml/min Est GFR (Non-Af Amer) 33.6 ml/min BUN/Creatinine Ratio 25.2 H (10-20) Glucose 202 H (70-99(Fasting)) mg/dl POC Glucose (70-99) mg/dl Osmolality 296 (280-300) mOsm/kg Calcium 9.2 (8.5-10.1) mg/dl Phosphorus 2.7 (2.5-4.9) mg/dl Total Bilirubin (0.2-1.0) mg/dl AST (13-39) U/L ALT (7-52) U/L Alkaline Phosphatase (34-104) U/L Total Protein (6.0-8.3) gm/dl Albumin 3.2 L (3.4-5.0) gm/dl Globulin (2.5-4.0) gm/dl Albumin/Globulin Ratio (0.9-2) Urine Osmolality (500-800) mOsm/kg Ur Random Sodium mmol/L Ur Random Potassium mmol/L Ur Random Chloride (1) Acute foot pain Laterality: right Qualified Code(s): M79.671 - Pain in right foot
--- NOTE | 2021-07-05 12:28 | Nephrology Progress Note ---
Date of Service July 05, 2021 Assessment & Plan (1) Chronic kidney disease, stage 3: (2) History of nephrectomy: (3) Renal cell carcinoma: (4) CML (chronic myelocytic leukemia): (5) Hypertension: (6) Diabetes mellitus, type II: (7) Ulcer of right foot: Plan: Mr. Dominguez is a 65 year-old male with CKD IIIb A3 attributed to DKD. He has a single right kidney s/p left nephrectomy for RCC in . Baseline creatinine ~1.7-2.1 mg/dL. Medical history also notable for CML for which he is maintained on nilotinib. He has undergone 2 surgeries for extensive I&D of the foot this admission. Blood cultures on admission +GPC. Blood pressure and volume status are acceptable. IVF infusing overnight to encourage a slightly positive fluid balance. Fluids can be stopped at this time. Alberto was found to be slightly intravascularly depleted following surgery. PO intake reduced. Urine output acceptable. Electrolytes within normal limits, accounting for some degree of chronic hyponatremia. Medications are appropriately dosed for kidney dysfunction. Remains on losartan. Empagliflozin appropriately held. Document I/O's and monitor metabolic profile daily while inpatient. Admission and Anticipated Discharge Date Admission Date: June 29, 2021 Subjective No acute events overnight. No fevers or chills. Alberto was sleeping comfortably in bed this AM. He denies pain. Appetite is good. Review of Systems Constitutional: + weakness Musculoskeletal: + joint pain and + stiffness Physical Exam Constitutional: well developed; no acute distress Eyes: no scleral abnormality and no corneal abnormality ENMT: Mouth: no oral mucosal abnormality and oral mucous membranes not dry Neck: normal visual inspection and trachea midline Respiratory: normal respiratory effort Auscultation: lungs clear to auscultation bilaterally Cardiovascular: Rate/Rhythm: regular rate Heart Sounds: normal S1, normal S2 and + murmur Extremities: + pedal edema Musculoskeletal: Extremities: no cyanosis and no clubbing Skin: normal turgor; no lesions Neurologic: Motor/Sensory: no tremor and no asterixis Psychiatric: Orientation: alert and oriented x 3 Results & Data ([facility]) Vital Signs (Past 12 Hours) Vital Signs Temp Pulse Resp BP Pulse Ox 07/05/21 10:43 37.2 C 59 L 19 145/57 H 94 07/05/21 07:27 36.5 C 59 L 19 155/69 H 95 03/04/22 04:02 36.8 C 65 18 176/75 H 95 Laboratory Results Laboratory Results - last 24 hr 07/04/21 07/04/21 07/04/21 10:08 10:54 15:10 WBC RBC Hgb Hct MCV MCH MCHC RDW Std Deviation RDW Coeff of Joce Plt Count MPV Immature Gran % (Auto) Neut % (Auto) Lymph % (Auto) [place] % (Auto) Eos % (Auto) Baso % (Auto) Neut # (Auto) Lymph # (Auto) [place] # (Auto) Eos # (Auto) Baso # (Auto) Immature Gran # (Auto) Sodium 130 L Potassium 4.1 Chloride 102 Carbon Dioxide 20 L Anion Gap 8 BUN 51 H Creatinine 2.02 H Est Cr Clr Drug Dosing 48.6 Est GFR ( Amer) 39.0 Est GFR (Non-Af Amer) 33.6 BUN/Creatinine Ratio 25.2 H Glucose 202 H POC Glucose 153 H Calcium 9.2 Phosphorus 2.7 Total Bilirubin AST ALT Alkaline Phosphatase Total Protein Albumin 3.2 L Globulin Albumin/Globulin Ratio Ur Random Sodium 25 Ur Random Potassium 29.4 Ur Random Chloride < 15 07/04/21 07/04/21 07/04/21 16:44 17:40 20:16 WBC RBC Hgb Hct MCV MCH MCHC RDW Std Deviation RDW Coeff of Joce Plt Count MPV Immature Gran % (Auto) Neut % (Auto) Lymph % (Auto) [place] % (Auto) Eos % (Auto) Baso % (Auto) Neut # (Auto) Lymph # (Auto) [place] # (Auto) Eos # (Auto) Baso # (Auto) Immature Gran # (Auto) Sodium Potassium Chloride Carbon Dioxide Anion Gap BUN Creatinine Est Cr Clr Drug Dosing Est GFR ( Amer) Est GFR (Non-Af Amer) BUN/Creatinine Ratio Glucose POC Glucose 198 H 187 H 180 H Calcium Phosphorus Total Bilirubin AST ALT Alkaline Phosphatase Total Protein Albumin Globulin Albumin/Globulin Ratio Ur Random Sodium Ur Random Potassium Ur Random Chloride 07/05/21 07/05/21 07/05/21 07:28 07:51 07:51 WBC 23.50 H RBC 3.43 L Hgb 10.3 L Hct 31.1 L MCV 90.7 MCH 30.0 MCHC 33.1 RDW Std Deviation 46.3 RDW Coeff of Joce 13.8 Plt Count 316 MPV 9.8 Immature Gran % (Auto) 3.3 Neut % (Auto) 81.0 Lymph % (Auto) 3.7 [place] % (Auto) 11.0 Eos % (Auto) 0.8 Baso % (Auto) 0.2 Neut # (Auto) 19.05 H Lymph # (Auto) 0.86 L [place] # (Auto) 2.59 H Eos # (Auto) 0.18 Baso # (Auto) 0.04 Immature Gran # (Auto) 0.78 H Sodium 130 L Potassium 4.0 Chloride 101 Carbon Dioxide 20 L Anion Gap 9 BUN 43 H Creatinine 1.72 H D Est Cr Clr Drug Dosing 57.0 Est GFR ( Amer) 47.3 Est GFR (Non-Af Amer) 40.8 BUN/Creatinine Ratio 25.0 H Glucose 197 H POC Glucose 198 H Calcium 8.3 L Phosphorus Total Bilirubin 1.1 H AST 79 H ALT 97 H Alkaline Phosphatase 115 H Total Protein 6.3 Albumin 3.0 L Globulin 3.3 Albumin/Globulin Ratio 0.9 Ur Random Sodium Ur Random Potassium Ur Random Chloride 07/05/21 11:30 WBC RBC Hgb Hct MCV MCH MCHC RDW Std Deviation RDW Coeff of Joce Plt Count MPV Immature Gran % (Auto) Neut % (Auto) Lymph % (Auto) [place] % (Auto) Eos % (Auto) Baso % (Auto) Neut # (Auto) Lymph # (Auto) [place] # (Auto) Eos # (Auto) Baso # (Auto) Immature Gran # (Auto) Sodium Potassium Chloride Carbon Dioxide Anion Gap BUN Creatinine Est Cr Clr Drug Dosing Est GFR ( Amer) Est GFR (Non-Af Amer) BUN/Creatinine Ratio Glucose POC Glucose 204 H Calcium Phosphorus Total Bilirubin AST ALT Alkaline Phosphatase Total Protein Albumin Globulin Albumin/Globulin Ratio Ur Random Sodium Ur Random Potassium Ur Random Chloride PG Care Time/CCT Total # of Minutes Spent Total Time Spent with Patient: Total time spent is greater than 50% in coordination of care (as documented) at patient's floor/unit and/or counseling patient: Coding Level of Care Code 12089 Subseq Hosp Care Lvl 3 Diagnoses Chronic kidney disease, stage 3 N18.30 Chronic kidney disease stage 3 subtype: unspecified whether 3a or 3b History of nephrectomy Z90.5 Renal cell carcinoma C64.9 CML (chronic myelocytic leukemia) C92.10 Hypertension I10 Diabetes mellitus, type II E11.9 Ulcer of right foot L97.519 (1) Chronic kidney disease, stage 3 Chronic kidney disease stage 3 subtype: unspecified whether 3a or 3b Qualified Code(s): N18.30 - Chronic kidney disease, stage 3 unspecified
--- NOTE | 2021-07-05 12:39 | Discharge Summary ---
Date of Service July 05, 2021 Admission HPI Per Admitting Provider This is a 65-year-old male with PMHx of DM type II, CKD stage III, HTN, HLD, chronic myelocytic leukemia diagnosed August 2017, history of renal cell carcinoma s/p left nephrectomy April 2012, vitamin D deficiency presents with right foot redness and ulceration on the bottom of his foot. Pt notes pain started in his foot 5 days ago. He noticed increased redness and swelling which only started 3 days ago. About 2 weeks ago he saw a paraprofessional education assistant as an outpatient to remove part of the callous on on the sole of his right first toe. It felt ok initially, but had some drainage at that point, the drainage is less at this point that last 2 weeks ago. He is very tender with minimal pressure or walking. He is still able to walk on his foot but it is painful. He has been using a cane because the pain is so bad. Pt is tired today but states he wasn't able to sleep at all last night due to pain. He is nauseous currently and has vomited "a couple times" this morning, pt denies abdominal pain. He is occasionally constipated but last BM was yesterday. Pt is asking for crackers and gingerale. He had some orangejuice and his chemo medication earlier today, no other medications. He was started on prednisone in the past 5 days for possible gout by his PCP. It did not improve swelling or pain of the foot. He denies any fever, chills, or sweats. In two days he is again scheduled to see the paraprofessional education assistant. His son is present with him at bedside and supports the history Admission Exam Per Admitting Provider General: awake, alert, no apparent distress Head: Normocephalic, atraumatic ENT: PERRL, EOMI, no pharyngeal exudate, mucous membranes moist Chest: Clear to auscultation, on room air, no adventitious breath sounds Cardiac: Regular rate and rhythm, no murmur, no JVD, normal peripheral pulses, good capillary refill Abdominal: NABS x 4 quadrants, soft, nondistended, nontender to palpation, no rebound or guarding Extremities: Right foot with erythema and edema extending over great toe and up to mid foot involving bunion, + callous opened wound on sole of foot 1st metatarsal head, +serosangious drainage, no obvious purulent drainage. +tender to palpation, otherwise no peripheral edema or erythema, calfs nontender to palpation Psych: Normal mood and affect Neuro: AAO x 3, strength intact bilaterally and rated 5/5, no motor deficits, speech is clear, no peripheral sensory deficits Principal Diagnosis Infected diabetic foot ulcer, flexor tenosynovitis, foot abscess Right great toe osteomyelitis GPC bacteremia Diabetes mellitus, type II: History of nephrectomy: Acute Kidney injury on Chronic kidney disease, stage 3: Hyponatremia/Solitary Kidney CML: Continue home [facility] for CML. communicated w/RN. HTN HLD Obesity Discharge Data Allergies Allergy/AdvReac Type Severity Reaction Status Date / Time allopurinol Allergy Unknown Unknown Verified 06/29/21 11:21 Consultations 06/29/21 11:26 ED Decision to Admit Stat 06/29/21 15:42 Consult Orthopedic Surgery Routine 06/30/21 08:35 Consult Infectious Diseases Routine 07/04/21 09:15 Consult Nephrology Routine 07/04/21 14:44 Consult Nephrology Routine Procedures Performed Operation Date: 06/30/21 09:45 Actual Procedures p Incision and Drainage Right Diabetic Foot Ulcer, Irrigation and Debridement extensor tenosynovitis, Arthrotomy and Drainage Great Toe Joint, Saucerization Osteomyelitis(Right) - Da Morales MD Operation Date: 07/04/21 11:05 Actual Procedures p Right foot irrigation and debridement of first intermetatarsal space abscess, Irrigation and debridement of infectious flexor tenosynovitis, Irrigation and debridement of abductor hallucis longus abscess, Irrigation and debridement of septic first metatarsophalangeal joint(Right) - Steven Liu M.D. Ordered Studies 06/29/21 11:30 MR foot RT w/o con Stat 07/04/21 09:39 MR foot RT w/o con Urgent Current Diagnoses Malignant neoplasm of unspecified kidney, except renal pelvis (06/29/21) Chronic myeloid leukemia, BCR/ABL-positive, not having achieved remission (06/29/21) Type 2 diabetes mellitus without complications (06/29/21) Obesity, unspecified (06/29/21) Hyperlipidemia, unspecified (06/29/21) Essential (primary) hypertension (06/29/21) Cellulitis of right lower limb (06/29/21) Non-pressure chronic ulcer of other part of right foot with unspecified severity (06/29/21) Gout, unspecified (06/29/21) Other acute osteomyelitis, right ankle and foot (06/29/21) Chronic kidney disease, stage 3 unspecified (06/29/21) Encounter for other preprocedural examination (06/29/21) Acquired absence of kidney (06/29/21) Allergies allopurinol Allergy (Unknown, Verified 06/29/21 11:21) Unknown Height/Weight/Isolation Height 6 ft 2 in Weight 112 kg Chemistry 07/04/21 07/05/21 10:08 07:51 Sodium 130 L 130 L Potassium 4.1 4.0 Chloride 102 101 Carbon Dioxide 20 L 20 L Anion Gap 8 9 BUN 51 H 43 H Creatinine 2.02 H 1.72 H D Glucose 202 H 197 H Microbiology 07/04/21 Unknown Foot,Right Gram Stain - Final 07/04/21 Unknown Foot,Right Aerobic and Anaerobic Culture - Preliminary Pin-point growth present, reincubating. 07/04/21 Unknown Foot,Right Gram Stain - Final 07/04/21 Unknown Foot,Right Aerobic and Anaerobic Culture - Preliminary No growth to date. 07/04/21 Unknown Foot,Right Gram Stain - Final 07/04/21 Unknown Foot,Right Aerobic and Anaerobic Culture - Pending 06/30/21 Unknown Foot,Right Gram Stain - Final 06/30/21 Unknown Foot,Right Aerobic and Anaerobic Culture - Preliminary Bacteroides fragilis 07/01/21 10:22 Blood Aerobic Blood Culture - Preliminary No growth in Aerobic bottle after 48 hours. 07/01/21 10:22 Blood Anaerobic Blood Culture - Preliminary No growth in Anaerobic bottle after 48 hours. 07/01/21 10:35 Blood Aerobic Blood Culture - Preliminary No growth in Aerobic bottle after 48 hours. 07/01/21 10:35 Blood Anaerobic Blood Culture - Preliminary No growth in Anaerobic bottle after 48 hours. Hospital Course (1) Osteomyelitis: 65-year-old male with PMHx of DM type II, CKD stage III, HTN, HLD, chronic myelocytic leukemia diagnosed August 2017 under [facility], renal cell carcinoma s/p left nephrectomy April 2012, vitamin D deficiency presents with right foot redness and ulceration on the bottom of his foot for 3-5 days ago [employer]. About 2 weeks ago he saw a paraprofessional education assistant as an outpatient to remove part of the callous on the sole of his right first toe. He was started on prednisone in the past 5 days [employer] for possible gout by his PCP.He is being managed for the following: #. Infected diabetic foot ulcer, flexor tenosynovitis, foot abscess #. Right great toe osteomyelitis #. GPC bacteremia Patient presented with right foot redness and ulceration on the bottom of his foot for 3 to 5 days ago [employer] Patient does not smoke tobacco, occasionally drinks alcohol, does not use recreational drugs, did not have any heart problems in the past per him, no implants in the body per patient. Admitting foot MRI: Suggestive of right first digit gout with superimposed infection including wound, cellulitis and osteomyelitis. Also suggestive of tenosynovitis of abductor hallucis tendon sheath. Admitting blood culture: Streptococcus mitis/oralis Admitting foot culture: Bacteroides fragilis 06/30 operative foot culture: Strep s/p (06/30/21): I&D of right diabetic foot ulcer, irrigation and debridement extensor tenosynovitis, arthrotomy and drainage great toe joint, saucerization osteomyelitis [right]- Da Morales MD 06/30 MRSA negative 07/01: ID evaluated the patient, repeat blood culture every 48 hours until clear, IV Vanco plus cefepime for now, check TTE, 6 weeks of IV antibiotics. IV cefepime 06/29 --> changed to Zosyn 07/02 for admitting for culture [Bacteroides fragilis]. 07/02 initiated vancomycin, DCd 07/03 sec to Cr. Wound care nurse. Follow-up with podiatry as an outpatient. Follow-up with ID as an outpatient. sent TTE. Pain Management, continue with pain medication/PT and OT. PICC consent Obtained, Placement ordered (4) Diabetes mellitus, type II: Plan: - Last A1C was 9.0 a week ago [employer], checked as an outpatient - ISS with acczion renos - Cecil tee (5) History of nephrectomy: (6) Acute Kidney injury on Chronic kidney disease, stage 3: Hyponatremia/Solitary Kidney Plan: - Cr. is up, Off Vanco, Gentle IVFs - Hx of left nephrectomy with RCC in 2018 - Urine Lytes, SOsm, UOsm, Renal c/s #. CML: Continue home [employer] for CML. communicated w/RN. #. Other chronic medical conditions: HTN, HLD, obesity Continue with/resume home medication as and when appropriate. #. DVT prophylaxis: Teds, SCDs, SC Heparin CODE: Full code MedSurg. Labs Checked Dispo: Transfer to [facility]-No Headache, No Visual Changes, No Nausea, No Vomiting, No Fever, No Chills, No Neck Pain or Stiffness, No Chest Pain, No Palpitations, No SOB, No KELLEY, No Cough, No Sputum, No Wheezing, No Abdominal Pain, No Diarrhea, No Hematemesis, No Hemoptysis, No Unexpected Weight Loss, No Flank pain, No Melena, No Hematochezia, No Frequency, No Urgency, No Burning, No Hematuria, No Rashes, No Diaphoresis. Appetite is Normal, +Foot Pain R Physical Exam Gen-AAO x 3, NAD, Afebrile Head-NCAT, EOMI, PERRLA, Anicteric Sclera, No Posterior Pharyngeal Erythema Neck-Supple, No JVD, No Thyromegaly, No Masses, No LAD, No Bruits Lungs-Clear to Auscultation Bilaterally, No Rales, No Rhonchi, No Wheezing, No Crepitus Chest-No S4, +S1, +S2, No S3, No Murmurs, No Rubs, No Gallops, No Ectopy Abdomen-Soft, Bowel Sounds Present, Non Tender, Non Distended, No Hepatomegaly, No Splenomegaly, No Palpable Masses, No Rebound, No Rigidity, No Guarding Musculoskeletal-Full Range of Motion Bilaterally, No CVAT Extremities-R Foot Dressed and Casted Nuero-Cranial Nerves II-XII grossly intact, Motor WNL, DTRs WNL, Strength WNL, Non Focal Psych-Odd Affect Total Time Total Time Spent Total Time Spent (In Minutes): 45 mins Total Time Includes: Examination of the Patient, Discharge Planning, Medication Reconciliation and Communication With Other Providers Discharge Plan Discharge Items Patient Disposition: Transfer Inpatient Rehab Fac Reason For Visit: CELLULITIS, FOOT ULCER Discharge Diagnosis: Infected diabetic foot ulcer, flexor tenosynovitis, foot abscess Right great toe osteomyelitis GPC bacteremia Diabetes mellitus, type II: History of nephrectomy: Acute Kidney injury on Chronic kidney disease, stage 3: Hyponatremia/Solitary Kidney CML: Continue home [employer] for CML. communicated w/RN. HTN HLD Obesity Condition on Discharge: Good Health Concerns: Infection not clearing Activity: Per Instructions section Activity Comment: Walking with walking boot, Partial weight bearing or as per Orthopedics Lifting: Gradually increase as tolerated Bathing: Keep incision dry Sexual Activity: When tolerated Exercise/Sports: None Driving/Machine Use: No limitations Weightbearing: Left weightbearing, Right partial and Right toe touch Non-emergency contact: Primary Care Provider and Surgeon Call non-emergency contact if: you have any medication questions Follow-up/Referrals: Da Morales MD [Physician] - (Call for instructions) Jose C Vaughn MD [Primary Care Provider] - [facility] [Non-Staff] - Tino Srivastava II, DO [Physician] - (Call for first Opening any Dr in the group) Diet: Carb Consistent or DM2 and Heart Healthy Addtl Attending Provider Instructions: Stop date for Rocephin and Clindamycin 12/16/21 Follow up with Hobbyradha IGLESIAS-Call for appt, First available Dr Pending Studies at Discharge: No Stand-Alone Forms: My [facility] Skilled Items Patient informed of condition?: Yes DNR: No Discharge Level of Care: Acute rehab Communicable Disease: No Discharge Prognosis: Improving Lines: PICC Urinary Catheter: No Medications and DC Order Prescriptions: New metronidazole 500 mg Tablet 500 mg PO TID Qty: 30 RF: 0 acetaminophen [Tylenol Extra Strength] 500 mg Tablet 500 mg PO Q4H Qty: 90 RF: 0 tramadol 50 mg Tablet 50 mg PO Q6H PRN (Reason: pain) Qty: 60 RF: 0 bisacodyl [Gentle Laxative (bisacodyl)] 5 mg Tablet,Delayed Release (Dr/Ec) 5 mg PO DAILY Qty: 30 RF: 0 polyethylene glycol 3350 [Miralax] 17 gram Powder In Packet 17 g PO DAILY Qty: 30 RF: 0 Lantus Solostar U-100 Insulin 100 unit/mL (3 mL) Insulin Pen 15 unit SC BID Qty: 15 RF: 0 ceftriaxone 2 gram recon soln 2 g IV Q12H Qty: 10 RF: 0 clindamycin in 0.9 % sod chlor 600 mg/50 mL piggyback 600 mg IV Q8H Qty: 1200 RF: 0 Continued furosemide 40 mg tablet 60 mg PO BID RF: 0 potassium chloride [Klor-Con 10] 10 mEq tablet extended release 10 meq PO .COMPLEX Qty: 48 RF: 3 amlodipine 5 mg tablet 5 mg PO QAM Qty: 90 RF: 3 Jardiance 10 mg tablet 10 mg PO QAM RF: 0 hydralazine 100 mg tablet 100 mg PO TID RF: 0 docusate sodium 50 mg capsule 50 mg PO HS RF: 0 carvedilol 3.125 mg tablet 3.125 mg PO BID RF: 0 atorvastatin 40 mg tablet 40 mg PO HS RF: 0 senna 8.6 mg capsule 8.6 mg PO BID RF: 0 dutasteride 0.5 mg capsule 0.5 mg PO HS RF: 0 aspirin [Aspirin Low Dose] 81 mg Tablet,Delayed Release (Dr/Ec) 81 mg PO HS RF: 0 febuxostat [Uloric] 40 mg tablet 40 mg PO QAM RF: 0 [facility]a 200 mg capsule 400 mg PO Q12H RF: 0 tamsulosin 0.4 mg capsule 0.4 mg PO HS RF: 0 Discontinued prednisone 20 mg tablet 0 mg PO .TAPER DOSE RF: 0 losartan 25 mg tablet 25 mg PO QAM RF: 0 Discharge Orders: Discharge Order (Routine); Ordered 07/05/21 Ordered By: Jese Ma Admission Data Admit Date/Time: 06/29/21 12:14 Attending Provider: Jese Ma Admit Provider: Lydia Elmore Primary Care Provider: Jose C Vaughn Other Providers: Janki Garsia ; [facility] ; Lydia Elmore ; Da Morales Carlos M. ; Stefan Summers ; Jose Millre I. ; Tino Srivastava II ; Amanda Zelaya ; Peterson Khalil ; Joni Zhu ; Zuhair Dhaliwal
--- NOTE | 2021-07-05 14:35 | Hospitalist Progress Note ---
Date of Service July 05, 2021 Assessment & Plan (1) Osteomyelitis: Plan: 65-year-old male with PMHx of DM type II, CKD stage III, HTN, HLD, chronic myelocytic leukemia diagnosed August 2017 under [facility], renal cell carcinoma s/p left nephrectomy April 2012, vitamin D deficiency presents with right foot redness and ulceration on the bottom of his foot for 3-5 days ago [employer]UCK[employer]. About 2 weeks ago he saw a hired help as an outpatient to remove part of the callous on the sole of his right first toe. He was started on prednisone in the past 5 days SHUCKER for possible gout by his PCP.He is being managed for the following: #. Infected diabetic foot ulcer, flexor tenosynovitis, foot abscess #. Right great toe osteomyelitis #. GPC bacteremia Patient presented with right foot redness and ulceration on the bottom of his foot for 3 to 5 days ago SHUCKER Patient does not smoke tobacco, occasionally drinks alcohol, does not use recreational drugs, did not have any heart problems in the past per him, no implants in the body per patient. Admitting foot MRI: Suggestive of right first digit gout with superimposed infection including wound, cellulitis and osteomyelitis. Also suggestive of tenosynovitis of abductor hallucis tendon sheath. Admitting blood culture: Streptococcus mitis/oralis Admitting foot culture: Bacteroides fragilis 06/30 operative foot culture: Strep s/p (06/30/21): I&D of right diabetic foot ulcer, irrigation and debridement extensor tenosynovitis, arthrotomy and drainage great toe joint, saucerization osteomyelitis [right]- Da Morales MD 06/30 MRSA negative 07/01: ID evaluated the patient, repeat blood culture every 48 hours until clear, IV Vanco plus cefepime for now, check TTE, 6 weeks of IV antibiotics. IV cefepime 06/29 --> changed to Zosyn 07/02 for admitting for culture [Bacteroides fragilis]. 07/02 initiated vancomycin, DCd 07/03 sec to Cr. Wound care nurse. Follow-up with podiatry as an outpatient. Follow-up with ID as an outpatient. sent TTE. Pain Management, continue with pain medication/PT and OT. PICC placed (4) Diabetes mellitus, type II: Plan: - Last A1C was 9.0 a week ago SHUCKER, checked as an outpatient - ISS with accuchecks achs - Hold januvia (5) History of nephrectomy: (6) Acute Kidney injury on Chronic kidney disease, stage 3: Hyponatremia/Solitary Kidney-Hold NSAIDS (7) Elevated LFTs-GB US, Lipase, Hep Panel, Hold Tylenol Plan: - Cr. is up, Off Vanco, Gentle IVFs - Hx of left nephrectomy with RCC in 2018 - Urine Lytes, SOsm, UOsm, Renal c/s #. CML: Continue home [employer] for CML. communicated w/RN. #. Other chronic medical conditions: HTN, HLD, obesity Continue with/resume home medication as and when appropriate. #. DVT prophylaxis: Teds, SCDs, SC Heparin CODE: Full code MedSurg. Labs Checked Dispo: Transfer to [facility]-No Headache, No Visual Changes, No Nausea, No Vomiting, No Fever, No Chills, No Neck Pain or Stiffness, No Chest Pain, No Palpitations, No SOB, No KELLEY, No Cough, No Sputum, No Wheezing, No Abdominal Pain, No Diarrhea, No Hematemesis, No Hemoptysis, No Unexpected Weight Loss, No Flank pain, No Melena, No Hematochezia, No Frequency, No Urgency, No Burning, No Hematuria, No Rashes, No Diaphoresis. Appetite is Normal, +Foot Pain R Physical Exam Gen-AAO x 3, NAD, Afebrile Head-NCAT, EOMI, PERRLA, Anicteric Sclera, No Posterior Pharyngeal Erythema Neck-Supple, No JVD, No Thyromegaly, No Masses, No LAD, No Bruits Lungs-Clear to Auscultation Bilaterally, No Rales, No Rhonchi, No Wheezing, No Crepitus Chest-No S4, +S1, +S2, No S3, No Murmurs, No Rubs, No Gallops, No Ectopy Abdomen-Soft, Bowel Sounds Present, Non Tender, Non Distended, No Hepatomegaly, No Splenomegaly, No Palpable Masses, No Rebound, No Rigidity, No Guarding Musculoskeletal-Full Range of Motion Bilaterally, No CVAT Extremities-R Foot Dressed and Casted Nuero-Cranial Nerves II-XII grossly intact, Motor WNL, DTRs WNL, Strength WNL, Non Focal Psych-Odd Affect Admission and Anticipated Discharge Date Admission Date: June 29, 2021 Subjective DC cancelled, Elev LFTs Results & Data Results & Data ([facility]) Vital Signs (Past 12 Hours) Vital Signs Temp Pulse Pulse Resp BP BP Pulse Ox 07/05/21 13:26 37.2 C 59 L 49 L 19 145/57 H 127/65 94 07/05/21 10:43 37.2 C 59 L 19 145/57 H 94 07/05/21 07:27 36.5 C 59 L 19 155/69 H 95 07/05/21 04:02 36.8 C 65 18 176/75 H 95 (1) Osteomyelitis Laterality: right Osteomyelitis location: foot Osteomyelitis type: other acute Qualified Code(s): M86.171 - Other acute osteomyelitis, right ankle and foot
[2021-07-05 15:46] LABS: Hepatitis B Surf Ag Rflx Conf Neg (Neg)
[2021-07-05] MEDS: AMPICILLIN/SULBACTAM SOD 3,000 MG in 0.9 % SODIUM CHLORIDE 100 ML IV SCH ×2 (16:05→20:56)
--- NOTE | 2021-07-05 16:05 | Gastrointestinal Consultation ---
Date of Consultation July 05, 2021 Assessment & Plan (1) Elevated LFTs: (2) Acute foot pain: 65 year-old male with history of DM, CML, RCC s/p left nephrectomy, diastolic heart failure, HTN, valvular heart disease, others admitted with right foot osteomyelitis, tenosynovitis, s/p I&D x 2, on IV antibiotics. We are consulted for rising LFTs, he has a mild transaminitis, hepatocellular pattern. Normal lipase. No liver imaging. On exam abd nontender, he's afebrile. Diff dx = related to underlying infection/bacteremia, DILI (multiple ABX, APAP), less likely AIH, viral hepatitis, congestive hepatopathy (doesn't have evidence of volume overload on exam). - Check INR - US ABD - r/o mariella dil - Check APAP level - Avoid hepatotoxins, APAP - Trend daily LFTs, INR Thank you for allowing us to participate in the care of this patient. Please call with any acute changes, questions or concerns. Please see addendum below with additional recommendation from my supervising physician. Supervising Physician Co-Signing Physician Notes Attg add: I interviewed and examined pt, reviewed chart and labs. Pt with mild transaminase elevation since 07/01. Asymptomatic. DDX = DILI, sludge. Consider holding Unasyn to see if LFT"s resolve, agree with holding statin. Please follow up ultrasound results. Please follow LFT's every 3 days, and notify us if rising. Please re-consult as needed. History of Present Illness Reason for Consultation: Rising LFTs, Requesting Physician: Dr. Ma Attending Physician: Jese Ma DO History of Present Illness This is a 65-year-old male with PMHx of T2DM, CKD stage III, HTN, HLD, chronic myelocytic leukemia diagnosed August 2017 on Tasigna, RCC s/p left nephrectomy April 2012, diastolic heart failure, valvular heart disease with moderate left ear dyslipidemia, and others. Admitted w/ right foot redness/ulceration, found to have infected diabetic foot ulcer, flexor tenosynovitis, foot abscess, right great toe osteomyelitis, GPC bacteremia - on Zosyn, initially was on cefepime + vanc. Underwent I&D 06/30/2021 and repeat on 07/04/21. We are consulted for rising LFTs. At baseline has normal LFTs. Started to rise on 2/28, has mild transaminitis, at present AST 79, ALT 97, ALP 115, T bili 1.1, no INR. Had a bump in his creatinine, now 1.72, has worsening leukocytosis WBC 20 3K, hyponatremia with sodium of 130, normal K, BUN 3.0. Prior to admission he was given prednisone for 5 days for possible gout. He has been getting Tylenol 650 mg ordered every 6 hours. Is on a statin chronically as an outpatient. Hasn't had BM in 1 week. Feels like he may have one soon. Prior to that was having BMs every 3-4 days, brown, formed. Denies abd pain, melena, hematochezia, hematemesis, n/v, fever, chills, jaundice, icterus, dark urine, fever, rashes, CP, SOB. He does have a tattoo. Denies ETOH, tobacco, IV/IN drug use, piercings, herbal meds. No other new meds as an OP. No prior h/o liver disease, no fam hx liver disease. History of colonic adenomatous polyps, last colonoscopy as follows: Colonoscopy 04/16/2021 Dr. Rodrigues: Preparation of the colon was fair. - Melanosis in the colon. - Two 1 to 2 mm polyps in the ascending colon, removed with a cold biopsy forceps. Resected and retrieved. - Seven 3 to 5 mm polyps in the transverse colon and in the ascending colon, removed with a cold snare. Resected and retrieved. - The examination was otherwise normal. Repeat 1 year. Consider 2-day prep Allergies Allergy/AdvReac Type Severity Reaction Status Date / Time allopurinol Allergy Unknown Unknown Verified 06/29/21 11:21 Home Medications Medication Instructions Recorded Confirmed Type aspirin 81 mg tablet,delayed 81 mg PO HS 08/28/18 06/29/21 History release (Aspirin Low Dose) febuxostat 40 mg tablet (Uloric) 40 mg PO QAM 08/28/18 06/29/21 History carvedilol 3.125 mg tablet 3.125 mg PO BID 11/09/19 06/29/21 History docusate sodium 50 mg capsule 50 mg PO HS 11/09/19 06/29/21 History nilotinib 200 mg capsule (Tasigna) 400 mg PO Q12H 03/26/20 06/29/21 History dutasteride 0.5 mg capsule 0.5 mg PO HS 07/06/20 06/29/21 History furosemide 40 mg tablet 60 mg PO BID tab 09/28/20 06/29/21 History sennosides 8.6 mg capsule (senna) 8.6 mg PO BID 10/18/20 06/29/21 History hydralazine 100 mg tablet 100 mg PO TID tab 01/31/21 06/29/21 History amlodipine 5 mg tablet 5 mg PO QAM #90 tab 06/13/21 06/29/21 Rx potassium chloride 10 mEq 10 meq PO .COMPLEX #48 tabs 06/13/21 06/29/21 Rx tablet,extended release (Klor-Con) tamsulosin 0.4 mg capsule 0.4 mg PO HS 06/29/21 06/29/21 History bisacodyl 5 mg tablet,delayed 5 mg PO DAILY #30 tab 07/05/21 Rx release (Gentle Laxative (bisacodyl)) ceftriaxone 2 gram intravenous 2 g IV Q12H #10 ea 07/05/21 Rx solution clindamycin 600 mg/50 mL in 0.9% 600 mg IV Q8H #1200 ml 07/05/21 Rx sodium chloride intravenous piggyback insulin glargine 100 unit/mL (3 15 unit SC BID #15 ml 07/05/21 Rx mL) subcutaneous pen (Lantus Solostar U-100 Insulin) metronidazole 500 mg tablet 500 mg PO TID #30 tab 07/05/21 Rx polyethylene glycol 3350 17 gram 17 g PO DAILY #30 ea 07/05/21 Rx oral powder packet (Miralax) tramadol 50 mg tablet 50 mg PO Q6H PRN #60 tab 07/05/21 Rx Patient History Medical History Aortic stenosis, mild BPH (benign prostatic hyperplasia) Cardiac murmur follows with Dr. Brooks Chronic kidney disease, stage 3 CML (chronic myelocytic leukemia) diagnosed 2017--oral chemo Diabetes mellitus, type II lost weight, taken off meds Gout Hyperlipidemia Hypertension Nausea and vomiting after administration of anesthetic agent MEE (obstructive sleep apnea) cpap Pleural effusion on right hx of 03/2020--had thoracentesis Renal cell carcinoma 2011--removed left kidney Vitamin D deficiency Surgical History History of cardiac cath 2001 @ [facility] [place] no stents History of cataract surgery [place] History of colonoscopy with polypectomy History of nephrectomy left 2012 History of prostate biopsy benign History of surgery on extremity right leg compound fx repair History of thoracentesis (~03/27/20) History of wisdom tooth extraction Family History Brother Coronary heart disease fatal [place] age 51 Father FH: brain aneurysm age 60 Other No family history of adverse response to anesthesia Social History Smoking Status: Never smoker Second Hand Exposure: No (N/a); Hx Alcohol Use: No Hx Substance Use: No Preferred Language: [place] Communication Ability: Effective Mass Communications Instructor Required: No Beliefs That Will Affect Care: None marital status: Current Living Situation: Spouse Current Living Situation Comment: Lives with and 2 adult children current occupational status: employed How many Children do You have: 2 Feels Safe at Home: Yes Assistive Devices: None Review of Systems Review of Systems: All systems reviewed & are unremarkable except as noted in HPI & below Physical Exam Constitutional: WD/WN, vitals as above Eyes: PERRL, conjunctivae normal, anicteric sclerae Respiratory: normal respiratory effort, lungs clear to auscultation Cardiovascular: Rate/Rhythm: regular rate + systolic murmur, no leg edema Gastrointestinal (Abdomen): normal bowel sounds, soft, nontender, no hepatosplenomegaly Skin: no rashes, warm and dry Psychiatric: A+Ox3, euthymic affect Results & Data ([facility]) Vital Signs (Past 12 Hours) Vital Signs Temp Pulse Pulse Resp BP BP Pulse Ox 07/05/21 15:23 36.5 C 55 L 17 142/65 H 95 07/05/21 13:26 37.2 C 59 L 49 L 19 145/57 H 127/65 94 07/05/21 10:43 37.2 C 59 L 19 145/57 H 94 07/05/21 07:27 36.5 C 59 L 19 155/69 H 95 07/05/21 04:02 36.8 C 65 18 176/75 H 95 Laboratory Results 07/05/21 07/05/21 07/05/21 Range/Units 14:37 14:37 11:30 WBC (4.8-10.8) K/uL RBC (4.7-6.1) M/uL Hgb (14.0-18.0) g/dL Hct (42-52) % MCV (80-100) fL MCH (25-34) pg MCHC (32-36) g/dL RDW Std Deviation (36.4-46.3) fL RDW Coeff of Joce (11.5-14.5) % Plt Count (130-400) K/uL MPV (7.4-10.4) fL Immature Gran % (Auto) % Neut % (Auto) % Lymph % (Auto) % Hooker % (Auto) % Eos % (Auto) % Baso % (Auto) % Neut # (Auto) (1.4-6.5) K/uL Lymph # (Auto) (1.2-3.4) K/uL Hooker # (Auto) (0.11-0.59) K/uL Eos # (Auto) (0-0.5) K/uL Baso # (Auto) (0-0.2) K/uL Immature Gran # (Auto) (0.00-0.02) K/uL Sodium (136-145) mmol/L Potassium (3.5-5.1) mmol/L Chloride (98-107) mmol/L Carbon Dioxide (21-32) mmol/L Anion Gap (3-11) BUN (6-23) mg/dl Creatinine (0.6-1.4) mg/dl Est Cr Clr Drug Dosing ml/min Est GFR ( Amer) ml/min Est GFR (Non-Af Amer) ml/min BUN/Creatinine Ratio (10-20) Glucose (70-99(Fasting)) mg/dl POC Glucose 204 H (70-99) mg/dl Calcium (8.5-10.1) mg/dl Phosphorus (2.5-4.9) mg/dl Total Bilirubin (0.2-1.0) mg/dl AST (13-39) U/L ALT (7-52) U/L Alkaline Phosphatase (34-104) U/L Total Protein (6.0-8.3) gm/dl Albumin (3.4-5.0) gm/dl Globulin (2.5-4.0) gm/dl Albumin/Globulin Ratio (0.9-2) Lipase (11-82) U/L Hepatitis A IgM Ab Pending Hep Bs Antigen Neg (Neg) Hep B Core IgM Ab Pending Hepatitis C Antibody Pending 07/05/21 07/05/21 07/05/21 Range/Units 07:51 07:51 07:51 WBC 23.50 H (4.8-10.8) K/uL RBC 3.43 L (4.7-6.1) M/uL Hgb 10.3 L (14.0-18.0) g/dL Hct 31.1 L (42-52) % MCV 90.7 (80-100) fL MCH 30.0 (25-34) pg MCHC 33.1 (32-36) g/dL RDW Std Deviation 46.3 (36.4-46.3) fL RDW Coeff of Joce 13.8 (11.5-14.5) % Plt Count 316 (130-400) K/uL MPV 9.8 (7.4-10.4) fL Immature Gran % (Auto) 3.3 % Neut % (Auto) 81.0 % Lymph % (Auto) 3.7 % Hooker % (Auto) 11.0 % Eos % (Auto) 0.8 % Baso % (Auto) 0.2 % Neut # (Auto) 19.05 H (1.4-6.5) K/uL Lymph # (Auto) 0.86 L (1.2-3.4) K/uL Hooker # (Auto) 2.59 H (0.11-0.59) K/uL Eos # (Auto) 0.18 (0-0.5) K/uL Baso # (Auto) 0.04 (0-0.2) K/uL Immature Gran # (Auto) 0.78 H (0.00-0.02) K/uL Sodium 130 L (136-145) mmol/L Potassium 4.0 (3.5-5.1) mmol/L Chloride 101 (98-107) mmol/L Carbon Dioxide 20 L (21-32) mmol/L Anion Gap 9 (3-11) BUN 43 H (6-23) mg/dl Creatinine 1.72 H D (0.6-1.4) mg/dl Est Cr Clr Drug Dosing 57.0 ml/min Est GFR ( Amer) 47.3 ml/min Est GFR (Non-Af Amer) 40.8 ml/min BUN/Creatinine Ratio 25.0 H (10-20) Glucose 197 H (70-99(Fasting)) mg/dl POC Glucose (70-99) mg/dl Calcium 8.3 L (8.5-10.1) mg/dl Phosphorus (2.5-4.9) mg/dl Total Bilirubin 1.1 H (0.2-1.0) mg/dl AST 79 H (13-39) U/L ALT 97 H (7-52) U/L Alkaline Phosphatase 115 H (34-104) U/L Total Protein 6.3 (6.0-8.3) gm/dl Albumin 3.0 L (3.4-5.0) gm/dl Globulin 3.3 (2.5-4.0) gm/dl Albumin/Globulin Ratio 0.9 (0.9-2) Lipase 28 (11-82) U/L Hepatitis A IgM Ab Hep Bs Antigen (Neg) Hep B Core IgM Ab Hepatitis C Antibody 07/05/21 07/04/21 07/04/21 Range/Units 07:28 20:16 17:40 WBC (4.8-10.8) K/uL RBC (4.7-6.1) M/uL Hgb (14.0-18.0) g/dL Hct (42-52) % MCV (80-100) fL MCH (25-34) pg MCHC (32-36) g/dL RDW Std Deviation (36.4-46.3) fL RDW Coeff of Joce (11.5-14.5) % Plt Count (130-400) K/uL MPV (7.4-10.4) fL Immature Gran % (Auto) % Neut % (Auto) % Lymph % (Auto) % Hooker % (Auto) % Eos % (Auto) % Baso % (Auto) % Neut # (Auto) (1.4-6.5) K/uL Lymph # (Auto) (1.2-3.4) K/uL Hooker # (Auto) (0.11-0.59) K/uL Eos # (Auto) (0-0.5) K/uL Baso # (Auto) (0-0.2) K/uL Immature Gran # (Auto) (0.00-0.02) K/uL Sodium (136-145) mmol/L Potassium (3.5-5.1) mmol/L Chloride (98-107) mmol/L Carbon Dioxide (21-32) mmol/L Anion Gap (3-11) BUN (6-23) mg/dl Creatinine (0.6-1.4) mg/dl Est Cr Clr Drug Dosing ml/min Est GFR ( Amer) ml/min Est GFR (Non-Af Amer) ml/min BUN/Creatinine Ratio (10-20) Glucose (70-99(Fasting)) mg/dl POC Glucose 198 H 180 H 187 H (70-99) mg/dl Calcium (8.5-10.1) mg/dl Phosphorus (2.5-4.9) mg/dl Total Bilirubin (0.2-1.0) mg/dl AST (13-39) U/L ALT (7-52) U/L Alkaline Phosphatase (34-104) U/L Total Protein (6.0-8.3) gm/dl Albumin (3.4-5.0) gm/dl Globulin (2.5-4.0) gm/dl Albumin/Globulin Ratio (0.9-2) Lipase (11-82) U/L Hepatitis A IgM Ab Hep Bs Antigen (Neg) Hep B Core IgM Ab Hepatitis C Antibody 07/04/21 07/04/21 Range/Units 16:44 10:08 WBC (4.8-10.8) K/uL RBC (4.7-6.1) M/uL Hgb (14.0-18.0) g/dL Hct (42-52) % MCV (80-100) fL MCH (25-34) pg MCHC (32-36) g/dL RDW Std Deviation (36.4-46.3) fL RDW Coeff of Joce (11.5-14.5) % Plt Count (130-400) K/uL MPV (7.4-10.4) fL Immature Gran % (Auto) % Neut % (Auto) % Lymph % (Auto) % Hooker % (Auto) % Eos % (Auto) % Baso % (Auto) % Neut # (Auto) (1.4-6.5) K/uL Lymph # (Auto) (1.2-3.4) K/uL Hooker # (Auto) (0.11-0.59) K/uL Eos # (Auto) (0-0.5) K/uL Baso # (Auto) (0-0.2) K/uL Immature Gran # (Auto) (0.00-0.02) K/uL Sodium 130 L (136-145) mmol/L Potassium 4.1 (3.5-5.1) mmol/L Chloride 102 (98-107) mmol/L Carbon Dioxide 20 L (21-32) mmol/L Anion Gap 8 (3-11) BUN 51 H (6-23) mg/dl Creatinine 2.02 H (0.6-1.4) mg/dl Est Cr Clr Drug Dosing 48.6 ml/min Est GFR ( Amer) 39.0 ml/min Est GFR (Non-Af Amer) 33.6 ml/min BUN/Creatinine Ratio 25.2 H (10-20) Glucose 202 H (70-99(Fasting)) mg/dl POC Glucose 198 H (70-99) mg/dl Calcium 9.2 (8.5-10.1) mg/dl Phosphorus 2.7 (2.5-4.9) mg/dl Total Bilirubin (0.2-1.0) mg/dl AST (13-39) U/L ALT (7-52) U/L Alkaline Phosphatase (34-104) U/L Total Protein (6.0-8.3) gm/dl Albumin 3.2 L (3.4-5.0) gm/dl Globulin (2.5-4.0) gm/dl Albumin/Globulin Ratio (0.9-2) Lipase (11-82) U/L Hepatitis A IgM Ab Hep Bs Antigen (Neg) Hep B Core IgM Ab Hepatitis C Antibody (1) Acute foot pain Laterality: right Qualified Code(s): M79.671 - Pain in right foot
[2021-07-05 16:15] LABS: Hepatitis C IgG 13Yrs+Old_Rflx Neg (Neg)
[2021-07-05 16:24] LABS: INR 1.2 (0.9-1.1); Prothrombin Time 12.3 Seconds (9.0-12.0)
[2021-07-05] MEDS: traMADol HCL 50 MG TABLET PO PRN (20:24)
[2021-07-05] MEDS: TAMSULOSIN HCL 0.4 MG CAP PO SCH (20:24)
[2021-07-05] MEDS: ASPIRIN 81 MG ECTAB PO SCH (20:25)
[2021-07-05] MEDS: MELATONIN 3 MG TAB PO PRN (20:38)
[2021-07-05] MEDS: DOCUSATE SODIUM 100 MG CAP PO SCH (20:39)
--- NOTE | 2021-07-05 20:42 | Ultrasound Report ---
US gallbladder LIMITED ABDOMEN CLINICAL HISTORY: Elevated LFTs. COMPARISON: Renal ultrasound from 04/01/[address] abdomen and pelvis from 03/26/2020 TECHNIQUE: Multiple grayscale and color images of the right upper quadrant of the abdomen. FINDINGS: This is a limited examination due to overlying bowel gas. Pancreas: The head and body of the pancreas pancreas are within normal limits with no focal mass or p eripancreatic fluid collection identified. The tail is obscured by overlying bowel gas. Liver: The liver is mildly enlarged and mildly heterogeneous in echogenicity. It measures 19 cm in gr eatest length. There is no evidence for a focal mass. There is no intrahepatic biliary duct dilatatio n. Gallbladder: The gallbladder is well distended with cholelithiasis. There is no evidence for wall th ickening or pericholecystic edema. There was reportedly a negative sonographic Martin sign. Common Bile Duct: (CBD): It is normal in size measuring 4 mm. Inferior Vena Cava (IVC): The imaged IVC is patent. Right kidney: There is no evidence for renal calculus or hydronephrosis. However, there is a 2.1 x 2 .0 x 1.7 cm hyperechoic lesion within the lower pole of the right kidney. Posterior acoustic shadowin g is seen representing a solid lesion. It was noted on previous renal ultrasound essentially unchange d. The kidney is normal in size. IMPRESSION: 1. Cholelithiasis with no ultrasound evidence for cholecystitis. 2. Mild hepatomegaly with fatty infiltration of liver. 3. Stable lesion within the right kidney which has been seen on previous ultrasounds and CT. ACT 112: Negative or not required by law. Electronically signed by: Camden Momin M.D. 07/05/2021 8:40 PM
[2021-07-06] MEDS: AMPICILLIN/SULBACTAM SOD 3,000 MG in 0.9 % SODIUM CHLORIDE 100 ML IV SCH ×3 (03:28→20:11)
[2021-07-06] MEDS: traMADol HCL 50 MG TABLET PO PRN (03:34)
[2021-07-06] MEDS: MoRPHine SULFATE 2 MG/ML CARP IV PRN ×3 (04:19→15:28)
[2021-07-06] MEDS: NILOTINIB PO SCH ×2 (08:08→19:54)
--- NOTE | 2021-07-06 08:45 | Nephrology Progress Note ---
Date of Service July 06, 2021 Assessment & Plan (1) Chronic kidney disease, stage 3: Plan: * L nephrectomy due to RCCA * CKD w/ baseline Cr ~ 2.0 * Kidney function is stable at this time. Volume status and electrolyte balance are acceptable * Monitor UO, PRP (2) Hypertension: Plan: * BP 120 - 160 mm Hg * Continue Losartan, Furosemide, Hydralazine, and Amlodipine (3) CML (chronic myelocytic leukemia): Plan: * On Nilotinib (Tasigna) therapy (4) Ulcer of right foot: Plan: * 07/23 - R foot abcess s/p orthopedic I&D x2 Admission and Anticipated Discharge Date Admission Date: June 29, 2021 Subjective Mr. Arce was evaluated in his hospital room this morning. He c/o R foot incisional discomfort but did not that he was able to ambulate yesterday with the use of a rolling walker. Review of Systems Constitutional: + weakness; no fever Eyes: no problem reported Ear, Nose, Mouth, Throat: no problem reported Respiratory: no cough and no dyspnea Cardiovascular: no chest pain, no palpitations and no edema Gastrointestinal: no abdominal pain, no nausea, no vomiting and no diarrhea/loose stools Genitourinary: no dysuria, no urinary hesitancy or no hematuria Musculoskeletal: no back pain Integumentary: no rash Neurologic: no falls and no confusion Physical Exam Constitutional: not in distress Eyes: PERRL, conjunctivae normal, anicteric sclerae ENMT: external ear and nose normal, oropharynx normal Neck: trachea midline, no thyromegaly Respiratory: normal respiratory effort, lungs clear to auscultation Cardiovascular: Rate/Rhythm: regular rate and regular rhythm Extremities: + edema (trace pretibial edema) Gastrointestinal (Abdomen): normal bowel sounds, soft, nontender, no hepatosplenomegaly Skin: no rashes, warm and dry Neurologic: awake; not confused Results & Data ([facility]) Vital Signs (Past 12 Hours) Vital Signs Temp Pulse Resp BP Pulse Ox 07/06/21 08:08 36.5 C 59 L 16 148/58 H 97 07/05/21 23:08 37.5 C 63 18 160/67 H 95 Laboratory Results Laboratory Tests 07/05/21 07:51 WBC 23.50 H Hgb 10.3 L Hct 31.1 L Plt Count 316 Laboratory Tests 07/06/21 08:42 Sodium 132 L Potassium 4.0 Chloride 102 Carbon Dioxide 21 BUN 39 H Creatinine 1.47 H Glucose 157 H PG Care Time/CCT Total # of Minutes Spent Total Time Spent with Patient: Total time spent is greater than 50% in coordination of care (as documented) at patient's floor/unit and/or counseling patient: Coding Level of Care Code 94570 Subseq Hosp Care Lvl 3 Diagnoses Chronic kidney disease, stage 3 N18.30 Chronic kidney disease stage 3 subtype: unspecified whether 3a or 3b CML (chronic myelocytic leukemia) C92.10 Hypertension I10 Ulcer of right foot L97.519 (1) Chronic kidney disease, stage 3 Chronic kidney disease stage 3 subtype: unspecified whether 3a or 3b Qualified Code(s): N18.30 - Chronic kidney disease, stage 3 unspecified
[2021-07-06 08:52] LABS: Hematocrit (blood only) 32.7 % (42-52); Mean Corpuscular Hemoglobin 30.4 pg (25-34); Mean Corpuscular Hgb Conc 33.6 g/dL (32-36); Mean Corpuscular Volume 90.3 fL (80-100); Mean Platelet Volume 9.7 fL (7.4-10.4); Platelet Count 357 K/uL (130-400); RDW Coefficient of Variation 13.7 % (11.5-14.5); RDW Standard Deviation 45.7 fL (36.4-46.3); Red Blood Count 3.62 M/uL (4.7-6.1); White Blood Count 20.73 K/uL (4.8-10.8)
[2021-07-06 09:12] LABS: Albumin Globulin Ratio 0.9 (0.9-2); Albumin Level 3.3 gm/dl (3.4-5.0); BUN Creatinine Ratio 26.5 (10-20); Basophils # (auto) 0.04 K/uL (0-0.2); Basophils % (auto) 0.2 %; Bilirubin,Total 1.2 mg/dl (0.2-1.0); Calcium 8.7 mg/dl (8.5-10.1); Creatinine Clr Calc Pharmacy 67.2 ml/min; Echinocytes 1+; Eosinophils # (auto) 0.23 K/uL (0-0.5); Eosinophils % (auto) 1.1 %; Est GFR (African American) 57.2 ml/min; Est GFR (Non-African American) 49.4 ml/min; Globulin 3.8 gm/dl (2.5-4.0); Immature Granulocytes # (auto) 0.88 K/uL (0.00-0.02); Immature Granulocytes % (auto) 4.2 %; Lymphocytes # (auto) 1.84 K/uL (1.2-3.4); Lymphocytes % (auto) 8.9 %; Monocytes # (auto) 1.25 K/uL (0.11-0.59); Neutrophils # (auto) 16.49 K/uL (1.4-6.5); Neutrophils % (auto) 79.6 %; Total Protein 7.1 gm/dl (6.0-8.3)
[2021-07-06] MEDS: DUTASTERIDE PO SCH (09:16)
[2021-07-06] MEDS: INSULIN ASPART PER UNIT SC SCH ×4 (09:34→19:59)
[2021-07-06] MEDS: INSULIN GLARGINE SOLOSTAR 100 UNITS/ML 3 ML PEN SC SCH ×2 (09:35→20:17)
[2021-07-06] MEDS: hydrALAZINE TAB 50 MG TAB PO SCH ×3 (09:36→20:15)
[2021-07-06] MEDS: carvediloL 3.125 MG TAB PO SCH ×2 (09:36→20:16)
[2021-07-06] MEDS: amLODIPine BESYLATE 5 MG TAB PO SCH (09:37)
[2021-07-06] MEDS: SENNA 8.6 MG TAB PO SCH ×2 (09:37→20:15)
[2021-07-06] MEDS: LOSARTAN POTASSIUM 25 MG TAB PO SCH (09:37)
[2021-07-06] MEDS: FEBUXOSTAT 40 MG TABLET PO SCH (09:38)
[2021-07-06] MEDS: POLYETHYLENE (MIRALAX) 17 GM PACK PO SCH ×3 (09:38→19:56)
[2021-07-06] MEDS: bisacodyL 5 MG TABEC PO SCH (09:42)
[2021-07-06] MEDS: POTASSIUM CHLORIDE 10 MEQ TABCR PO SCH (09:42)
--- NOTE | 2021-07-06 10:35 | Hospitalist Progress Note ---
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 About 2 weeks ago he saw a [employer] as an outpatient to remove part of the callous on the sole of his right first toe. He was started on prednisone in the past 5 days HEALTH INFORMATION MANAGER for possible gout by his PCP.He is being managed for the following: #. Infected diabetic foot ulcer, flexor tenosynovitis, foot abscess #. Right great toe osteomyelitis #. 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 Admitting foot MRI: Suggestive of right first digit gout with superimposed infection including wound, cellulitis and osteomyelitis. Also suggestive of tenosynovitis of abductor hallucis tendon sheath. Admitting blood culture: Streptococcus mitis/oralis Admitting foot culture: Bacteroides fragilis 06/30 operative foot culture: Strep s/p (06/30/21): I&D of right diabetic foot ulcer, irrigation and debridement extensor tenosynovitis, arthrotomy and drainage great toe joint, saucerization osteomyelitis [right]- Da Morales MD 06/30 MRSA negative 07/01: ID evaluated the patient, repeat blood culture every 48 hours until clear, IV Vanco plus cefepime for now, check TTE, 6 weeks of IV antibiotics. IV cefepime 06/29 --> changed to Zosyn 07/02 for admitting for culture [Bacteroides fragilis]. 07/02 initiated vancomycin, DCd 07/03 sec to Cr. Was on Rocephin and Flagyl, Now Unasyn and LFTs coming down Wound care nurse. Follow-up with podiatry as an outpatient. Follow-up with ID as an outpatient. sent TTE. Pain Management, continue with pain medication/PT and OT. PICC placed (4) Diabetes mellitus, type II: Plan: - Last A1C was 9.0 a week ago HEALTH INFORMATION MANAGER, checked as an outpatient - ISS with accuchecks achs - Hold januvia (5) History of nephrectomy: (6) Acute Kidney injury on Chronic kidney disease, stage 3: Hyponatremia/Solitary Kidney-Hold NSAIDS (7) Elevated LFTs-GB US-Gallstones wo cholecystitis, Lipase normal, Hep Panel neg so far, Hold Tylenol Plan: - Cr. is down, Off Vanco, Gentle IVFs - Hx of left nephrectomy with RCC in 2018 - Urine Lytes, SOsm, UOsm, Renal c/s-reviewed #. CML: Continue home Tasigna for CML. communicated w/RN. #. Constipation-Milk of Mag #. Other chronic medical conditions: HTN, HLD, obesity Continue with/resume home medication as and when appropriate. #. DVT prophylaxis: Teds, SCDs, SC Heparin CODE: Full code MedSurg. Labs Checked Dispo: Transfer to [facility] hopefully tomorrow ROS-No Headache, No Visual Changes, No Nausea, No Vomiting, No Fever, No Chills, No Neck Pain or Stiffness, No Chest Pain, No Palpitations, No SOB, No KELLEY, No Cough, No Sputum, No Wheezing, No Abdominal Pain, No Diarrhea, No Hematemesis, No Hemoptysis, No Unexpected Weight Loss, No Flank pain, No Melena, No Hematochezia, No Frequency, No Urgency, No Burning, No Hematuria, No Rashes, No Diaphoresis. Appetite is Normal, +Foot Pain R Physical Exam Gen-AAO x 3, NAD, Afebrile Head-NCAT, EOMI, PERRLA, Anicteric Sclera, No Posterior Pharyngeal Erythema Neck-Supple, No JVD, No Thyromegaly, No Masses, No LAD, No Bruits Lungs-Clear to Auscultation Bilaterally, No Rales, No Rhonchi, No Wheezing, No Crepitus Chest-No S4, +S1, +S2, No S3, No Murmurs, No Rubs, No Gallops, No Ectopy Abdomen-Soft, Bowel Sounds Present, Non Tender, Non Distended, No Hepatomegaly, No Splenomegaly, No Palpable Masses, No Rebound, No Rigidity, No Guarding Musculoskeletal-Full Range of Motion Bilaterally, No CVAT Extremities-R Foot Dressed and Casted Nuero-Cranial Nerves II-XII grossly intact, Motor WNL, DTRs WNL, Strength WNL, Non Focal Psych-Odd Affect Admission and Anticipated Discharge Date Admission Date: June 29, 2021 Subjective DC cancelled, Elev LFTs, Feeling constipated Results & Data Results & Data ([facility]) Vital Signs (Past 12 Hours) Vital Signs Temp Pulse Resp BP Pulse Ox 07/06/21 08:08 36.5 C 59 L 16 148/58 H 97 07/05/21 23:08 37.5 C 63 18 160/67 H 95 (1) Osteomyelitis Laterality: right Osteomyelitis location: foot Osteomyelitis type: other acute Qualified Code(s): M86.171 - Other acute osteomyelitis, right ankle and foot
[2021-07-06] MEDS ORDERED: MAGNESIUM HYDROXIDE SUSP 30 ML UDC PO PRN (10:43)
[2021-07-06] MEDS: DOCUSATE SODIUM 100 MG CAP PO SCH ×2 (12:24→20:12)
--- NOTE | 2021-07-06 14:04 | Orthopedic Progress Note ---
Date of Service July 06, 2021 Assessment & Plan (1) Ulcer of right foot: Plan: Postoperative day #2/7 s/p I&D/repeat I&D of multiple right foot abscesses. -Appearance of foot looks significantly improved from preoperatively. All abscesses seen on preoperative MRI have been evacuated. -Currently receiving Unasyn, antibiotics per medical team -Daily dressing changes Admission and Anticipated Discharge Date Admission Date: June 29, 2021 Subjective Patient sleeping upon entering the room, but easily aroused. He complains of persistent pain in his right foot, but it does state it is slightly better than preoperatively. Physical Exam Physical Exam: Dressings were taken down and changed. All packing was removed from the right foot. No persistent purulence was noted on any of the packing. Erythema and swelling around the entire foot looks improved compared to preoperatively. Results & Data ([facility]) Vital Signs (Past 12 Hours) Vital Signs Temp Pulse Resp BP Pulse Ox 07/06/21 08:08 36.5 C 59 L 16 148/58 H 97 Laboratory Results Intraoperative cultures from June 30 showed Bacteroides fragilis. Intraoperative cultures from July 04 have pinpoint growth, but still pending.
[2021-07-06 15:01] LABS: BUN Creatinine Ratio 27.2 (10-20); Calcium 9.1 mg/dl (8.5-10.1); Creatinine Clr Calc Pharmacy 72.7 ml/min; Est GFR (African American) 62.8 ml/min; Est GFR (Non-African American) 54.2 ml/min
[2021-07-06] MEDS: NORMOSOL-R 1,000 ML IV SCH ×2 (15:28→20:11)
[2021-07-06] MEDS: MELATONIN 3 MG TAB PO PRN (20:11)
[2021-07-06] MEDS: ASPIRIN 81 MG ECTAB PO SCH (20:16)
[2021-07-06] MEDS: TAMSULOSIN HCL 0.4 MG CAP PO SCH (20:16)
[2021-07-07] MEDS: AMPICILLIN/SULBACTAM SOD 3,000 MG in 0.9 % SODIUM CHLORIDE 100 ML IV SCH ×2 (04:10→09:32)
[2021-07-07 04:26] LABS: Hepatitis A Antibody IgM NON-REACTIVE (NON-REACTIVE); Hepatitis B Core Antibody IgM NON-REACTIVE (NON-REACTIVE)
[2021-07-07 06:17] LABS: Hematocrit (blood only) 27.4 % (42-52); Hemoglobin 9.3 g/dL (14.0-18.0); Mean Corpuscular Hemoglobin 30.6 pg (25-34); Mean Corpuscular Hgb Conc 33.9 g/dL (32-36); Mean Corpuscular Volume 90.1 fL (80-100); Mean Platelet Volume 9.8 fL (7.4-10.4); Platelet Count 299 K/uL (130-400); RDW Coefficient of Variation 13.9 % (11.5-14.5); Red Blood Count 3.04 M/uL (4.7-6.1); White Blood Count 12.77 K/uL (4.8-10.8)
[2021-07-07 06:42] LABS: Albumin Globulin Ratio 0.9 (0.9-2); Albumin Level 2.8 gm/dl (3.4-5.0); BUN Creatinine Ratio 26.9 (10-20); Bilirubin,Total 1.2 mg/dl (0.2-1.0); Est GFR (African American) 66.4 ml/min; Est GFR (Non-African American) 57.3 ml/min; Globulin 3.1 gm/dl (2.5-4.0); Potassium 4.2 mmol/L (3.5-5.1); Total Protein 5.9 gm/dl (6.0-8.3)
[2021-07-07] MEDS: NILOTINIB PO SCH (08:03)
--- NOTE | 2021-07-07 08:51 | Nephrology Progress Note ---
Date of Service July 07, 2021 Assessment & Plan (1) Chronic kidney disease, stage 3: Plan: * L nephrectomy due to RCCA * CKD w/ baseline Cr ~ 2.0 * Kidney function is stable at this time. Volume status and electrolyte balance are acceptable * Serum sodium is trending down and patient is becoming volume positive. Will stop Plasmalyte and resume outpatient dose of oral Furosemide (2) Hypertension: Plan: * BP 120 - 160 mm Hg * Continue Losartan, Furosemide, Hydralazine, and Amlodipine (3) CML (chronic myelocytic leukemia): Plan: * On Nilotinib (Tasigna) therapy (4) Ulcer of right foot: Plan: * 07/23 - R foot abcess s/p orthopedic I&D x2 Admission and Anticipated Discharge Date Admission Date: June 29, 2021 Subjective Mr. Arce was evaluated in his hospital room this morning. He has been ambulating w/ the use of a rolling walker. He hopes to transfer to [facility] today Review of Systems Constitutional: + weakness; no fever Eyes: no problem reported Ear, Nose, Mouth, Throat: no problem reported Respiratory: no cough and no dyspnea Cardiovascular: no chest pain, no palpitations and no edema Gastrointestinal: no abdominal pain, no nausea, no vomiting and no diarrhea/loose stools Genitourinary: no dysuria, no urinary hesitancy or no hematuria Musculoskeletal: no back pain Integumentary: no rash Neurologic: no falls and no confusion Physical Exam Constitutional: not in distress Eyes: PERRL, conjunctivae normal, anicteric sclerae ENMT: external ear and nose normal, oropharynx normal Neck: trachea midline, no thyromegaly Respiratory: normal respiratory effort, lungs clear to auscultation Cardiovascular: Rate/Rhythm: regular rate and regular rhythm Extremities: + edema (trace pretibial edema) Gastrointestinal (Abdomen): normal bowel sounds, soft, nontender, no hepatosplenomegaly Skin: no rashes, warm and dry Neurologic: awake; not confused Results & Data ([facility]) Vital Signs (Past 12 Hours) Vital Signs Temp Pulse Resp BP Pulse Ox 07/07/21 07:48 36.6 C 52 L 16 168/69 H 94 07/06/21 23:01 37.0 C 60 18 145/65 H 97 Laboratory Results Laboratory Tests 03/06/22 03/06/22 05:44 05:44 WBC 12.77 H Hgb 9.3 L Hct 27.4 L Plt Count 299 Sodium 131 L Potassium 4.2 Chloride 104 Carbon Dioxide 22 BUN 35 H Creatinine 1.30 Glucose 145 H AST 43 H ALT 71 H Albumin 2.8 L PG Care Time/CCT Total # of Minutes Spent Total Time Spent with Patient: Total time spent is greater than 50% in coordination of care (as documented) at patient's floor/unit and/or counseling patient: Coding Level of Care Code 94917 Subseq Hosp Care Lvl 3 Diagnoses Chronic kidney disease, stage 3 N18.30 Chronic kidney disease stage 3 subtype: unspecified whether 3a or 3b Hypertension I10 CML (chronic myelocytic leukemia) C92.10 Ulcer of right foot L97.519 (1) Chronic kidney disease, stage 3 Chronic kidney disease stage 3 subtype: unspecified whether 3a or 3b Qualified Code(s): N18.30 - Chronic kidney disease, stage 3 unspecified
--- NOTE | 2021-07-07 08:56 | Orthopedic Progress Note ---
Date of Service July 07, 2021 Assessment & Plan (1) Ulcer of right foot: Plan: 65 yo male stable POD #3 s/p right foot I&D 1. Med management- cont IV abx 2. DVT prophylaxis- ASA, SCDs 3. PT/OT 4. D/C planning- per pt, he's to be discharged to [facility]. Stable for orthopedics, will sign off, call with questions/concerns Admission and Anticipated Discharge Date Admission Date: June 29, 2021 Subjective Pt resting in bed without complaints. Pain controlled. Physical Exam Physical Exam: Dressing intact, toes mobile. Results & Data ([facility]) Vital Signs (Past 12 Hours) Vital Signs Temp Pulse Resp BP Pulse Ox 07/07/21 07:48 36.6 C 52 L 16 168/69 H 94 07/06/21 23:01 37.0 C 60 18 145/65 H 97 Laboratory Results 07/07/21 07/07/21 07/07/21 Range/Units 07:40 05:44 05:44 WBC 12.77 H (4.8-10.8) K/uL RBC 3.04 L (4.7-6.1) M/uL Hgb 9.3 L (14.0-18.0) g/dL Hct 27.4 L (42-52) % MCV 90.1 (80-100) fL MCH 30.6 (25-34) pg MCHC 33.9 (32-36) g/dL RDW Std Deviation 46.0 (36.4-46.3) fL RDW Coeff of Joce 13.9 (11.5-14.5) % Plt Count 299 (130-400) K/uL MPV 9.8 (7.4-10.4) fL Immature Gran % (Auto) % Neut % (Auto) % Lymph % (Auto) % [place] % (Auto) % Eos % (Auto) % Baso % (Auto) % Neut # (Auto) (1.4-6.5) K/uL Lymph # (Auto) (1.2-3.4) K/uL [place] # (Auto) (0.11-0.59) K/uL Eos # (Auto) (0-0.5) K/uL Baso # (Auto) (0-0.2) K/uL Immature Gran # (Auto) (0.00-0.02) K/uL Echinocytes Sodium 131 L (136-145) mmol/L Potassium 4.2 (3.5-5.1) mmol/L Chloride 104 (98-107) mmol/L Carbon Dioxide 22 (21-32) mmol/L Anion Gap 5 (3-11) BUN 35 H (6-23) mg/dl Creatinine 1.30 (0.6-1.4) mg/dl Est Cr Clr Drug Dosing 76.0 ml/min Est GFR ( Amer) 66.4 ml/min Est GFR (Non-Af Amer) 57.3 ml/min BUN/Creatinine Ratio 26.9 H (10-20) Glucose 145 H (70-99(Fasting)) mg/dl POC Glucose 137 H (70-99) mg/dl Calcium 8.0 L (8.5-10.1) mg/dl Total Bilirubin 1.2 H (0.2-1.0) mg/dl AST 43 H (13-39) U/L ALT 71 H (7-52) U/L Alkaline Phosphatase 98 (34-104) U/L Total Protein 5.9 L (6.0-8.3) gm/dl Albumin 2.8 L (3.4-5.0) gm/dl Globulin 3.1 (2.5-4.0) gm/dl Albumin/Globulin Ratio 0.9 (0.9-2) Hepatitis A IgM Ab (NON-REACTIVE) Hep B Core IgM Ab (NON-REACTIVE) 07/06/21 07/06/21 07/06/21 Range/Units 19:52 16:37 14:32 WBC (4.8-10.8) K/uL RBC (4.7-6.1) M/uL Hgb (14.0-18.0) g/dL Hct (42-52) % MCV (80-100) fL MCH (25-34) pg MCHC (32-36) g/dL RDW Std Deviation (36.4-46.3) fL RDW Coeff of Joce (11.5-14.5) % Plt Count (130-400) K/uL MPV (7.4-10.4) fL Immature Gran % (Auto) % Neut % (Auto) % Lymph % (Auto) % [place] % (Auto) % Eos % (Auto) % Baso % (Auto) % Neut # (Auto) (1.4-6.5) K/uL Lymph # (Auto) (1.2-3.4) K/uL [place] # (Auto) (0.11-0.59) K/uL Eos # (Auto) (0-0.5) K/uL Baso # (Auto) (0-0.2) K/uL Immature Gran # (Auto) (0.00-0.02) K/uL Echinocytes Sodium 132 L (136-145) mmol/L Potassium 4.0 (3.5-5.1) mmol/L Chloride 102 (98-107) mmol/L Carbon Dioxide 22 (21-32) mmol/L Anion Gap 8 (3-11) BUN 37 H (6-23) mg/dl Creatinine 1.36 (0.6-1.4) mg/dl Est Cr Clr Drug Dosing 72.7 ml/min Est GFR ( Amer) 62.8 ml/min Est GFR (Non-Af Amer) 54.2 ml/min BUN/Creatinine Ratio 27.2 H (10-20) Glucose 144 H (70-99(Fasting)) mg/dl POC Glucose 143 H 151 H (70-99) mg/dl Calcium 9.1 (8.5-10.1) mg/dl Total Bilirubin (0.2-1.0) mg/dl AST (13-39) U/L ALT (7-52) U/L Alkaline Phosphatase (34-104) U/L Total Protein (6.0-8.3) gm/dl Albumin (3.4-5.0) gm/dl Globulin (2.5-4.0) gm/dl Albumin/Globulin Ratio (0.9-2) Hepatitis A IgM Ab (NON-REACTIVE) Hep B Core IgM Ab (NON-REACTIVE) 07/06/21 07/06/21 07/06/21 Range/Units 11:46 08:42 08:42 WBC (4.8-10.8) K/uL RBC (4.7-6.1) M/uL Hgb (14.0-18.0) g/dL Hct (42-52) % MCV (80-100) fL MCH (25-34) pg MCHC (32-36) g/dL RDW Std Deviation (36.4-46.3) fL RDW Coeff of Joce (11.5-14.5) % Plt Count (130-400) K/uL MPV (7.4-10.4) fL Immature Gran % (Auto) 4.2 % Neut % (Auto) 79.6 % Lymph % (Auto) 8.9 % [place] % (Auto) 6.0 % Eos % (Auto) 1.1 % Baso % (Auto) 0.2 % Neut # (Auto) 16.49 H (1.4-6.5) K/uL Lymph # (Auto) 1.84 (1.2-3.4) K/uL [place] # (Auto) 1.25 H (0.11-0.59) K/uL Eos # (Auto) 0.23 (0-0.5) K/uL Baso # (Auto) 0.04 (0-0.2) K/uL Immature Gran # (Auto) 0.88 H (0.00-0.02) K/uL Echinocytes 1+ Sodium 132 L (136-145) mmol/L Potassium 4.0 (3.5-5.1) mmol/L Chloride 102 (98-107) mmol/L Carbon Dioxide 21 (21-32) mmol/L Anion Gap 9 (3-11) BUN 39 H (6-23) mg/dl Creatinine 1.47 H (0.6-1.4) mg/dl Est Cr Clr Drug Dosing 67.2 ml/min Est GFR ( Amer) 57.2 ml/min Est GFR (Non-Af Amer) 49.4 ml/min BUN/Creatinine Ratio 26.5 H (10-20) Glucose 157 H (70-99(Fasting)) mg/dl POC Glucose 185 H (70-99) mg/dl Calcium 8.7 (8.5-10.1) mg/dl Total Bilirubin 1.2 H (0.2-1.0) mg/dl AST 50 H (13-39) U/L ALT 85 H (7-52) U/L Alkaline Phosphatase 119 H (34-104) U/L Total Protein 7.1 (6.0-8.3) gm/dl Albumin 3.3 L (3.4-5.0) gm/dl Globulin 3.8 (2.5-4.0) gm/dl Albumin/Globulin Ratio 0.9 (0.9-2) Hepatitis A IgM Ab (NON-REACTIVE) Hep B Core IgM Ab (NON-REACTIVE) 07/05/21 Range/Units 14:37 WBC (4.8-10.8) K/uL RBC (4.7-6.1) M/uL Hgb (14.0-18.0) g/dL Hct (42-52) % MCV (80-100) fL MCH (25-34) pg MCHC (32-36) g/dL RDW Std Deviation (36.4-46.3) fL RDW Coeff of Joce (11.5-14.5) % Plt Count (130-400) K/uL MPV (7.4-10.4) fL Immature Gran % (Auto) % Neut % (Auto) % Lymph % (Auto) % [place] % (Auto) % Eos % (Auto) % Baso % (Auto) % Neut # (Auto) (1.4-6.5) K/uL Lymph # (Auto) (1.2-3.4) K/uL [place] # (Auto) (0.11-0.59) K/uL Eos # (Auto) (0-0.5) K/uL Baso # (Auto) (0-0.2) K/uL Immature Gran # (Auto) (0.00-0.02) K/uL Echinocytes Sodium (136-145) mmol/L Potassium (3.5-5.1) mmol/L Chloride (98-107) mmol/L Carbon Dioxide (21-32) mmol/L Anion Gap (3-11) BUN (6-23) mg/dl Creatinine (0.6-1.4) mg/dl Est Cr Clr Drug Dosing ml/min Est GFR ( Amer) ml/min Est GFR (Non-Af Amer) ml/min BUN/Creatinine Ratio (10-20) Glucose (70-99(Fasting)) mg/dl POC Glucose (70-99) mg/dl Calcium (8.5-10.1) mg/dl Total Bilirubin (0.2-1.0) mg/dl AST (13-39) U/L ALT (7-52) U/L Alkaline Phosphatase (34-104) U/L Total Protein (6.0-8.3) gm/dl Albumin (3.4-5.0) gm/dl Globulin (2.5-4.0) gm/dl Albumin/Globulin Ratio (0.9-2) Hepatitis A IgM Ab NON-REACTIVE (NON-REACTIVE) Hep B Core IgM Ab NON-REACTIVE (NON-REACTIVE) Microbiology 07/04/21 Unknown Gram Stain - Final Foot,Right Aerobic and Anaerobic Culture - Preliminary Pin-point growth present, reincubating. 07/01/21 10:22 Aerobic Blood Culture - Final Blood No growth in Aerobic bottle after 5 days. Anaerobic Blood Culture - Final No growth in Anaerobic bottle after 5 days. 07/01/21 10:35 Aerobic Blood Culture - Final Blood No growth in Aerobic bottle after 5 days. Anaerobic Blood Culture - Final No growth in Anaerobic bottle after 5 days. 06/30/21 Unknown Gram Stain - Final Foot,Right Aerobic and Anaerobic Culture - Final Bacteroides fragilis
[2021-07-07] MEDS: SENNA 8.6 MG TAB PO SCH (09:22)
[2021-07-07] MEDS: POLYETHYLENE (MIRALAX) 17 GM PACK PO SCH ×2 (09:22)
[2021-07-07] MEDS: DOCUSATE SODIUM 100 MG CAP PO SCH (09:22)
[2021-07-07] MEDS: bisacodyL 5 MG TABEC PO SCH (09:22)
[2021-07-07] MEDS: carvediloL 3.125 MG TAB PO SCH (09:23)
[2021-07-07] MEDS: hydrALAZINE TAB 50 MG TAB PO SCH (09:23)
[2021-07-07] MEDS: FEBUXOSTAT 40 MG TABLET PO SCH (09:24)
[2021-07-07] MEDS: DUTASTERIDE PO SCH (09:24)
[2021-07-07] MEDS: LOSARTAN POTASSIUM 25 MG TAB PO SCH (09:24)
[2021-07-07] MEDS: INSULIN GLARGINE SOLOSTAR 100 UNITS/ML 3 ML PEN SC SCH (09:25)
[2021-07-07] MEDS: INSULIN ASPART PER UNIT SC SCH ×2 (09:31→12:00)
--- NOTE | 2021-07-07 10:06 | Hospitalist Progress Note ---
Date of Service July 07, 2021 Assessment & Plan (1) Osteomyelitis: Plan: 65-year-old male with PMHx of DM type II, CKD stage III, HTN, HLD, chronic myelocytic leukemia diagnosed August 2017 under Tasigna, renal cell carcinoma s/p left nephrectomy April 2012, vitamin D deficiency presents with right foot redness and ulceration on the bottom of his foot for 3-5 days ago TICK SEWER. About 2 weeks ago he saw a director of content marketing as an outpatient to remove part of the callous on the sole of his right first toe. He was started on prednisone in the past 5 days TICK SEWER for possible gout by his PCP.He is being managed for the following: #. Infected diabetic foot ulcer, flexor tenosynovitis, foot abscess #. Right great toe osteomyelitis #. GPC bacteremia Patient presented with right foot redness and ulceration on the bottom of his foot for 3 to 5 days ago TICK SEWER Patient does not smoke tobacco, occasionally drinks alcohol, does not use recreational drugs, did not have any heart problems in the past per him, no implants in the body per patient. Admitting foot MRI: Suggestive of right first digit gout with superimposed infection including wound, cellulitis and osteomyelitis. Also suggestive of tenosynovitis of abductor hallucis tendon sheath. Admitting blood culture: Streptococcus mitis/oralis Admitting foot culture: Bacteroides fragilis 06/30 operative foot culture: Strep s/p (06/30/21): I&D of right diabetic foot ulcer, irrigation and debridement extensor tenosynovitis, arthrotomy and drainage great toe joint, saucerization osteomyelitis [right]- Da Morales MD 06/30 MRSA negative 07/01: ID evaluated the patient, repeat blood culture every 48 hours until clear, IV Vanco plus cefepime for now, check TTE, 6 weeks of IV antibiotics. IV cefepime 06/29 --> changed to Zosyn 07/02 for admitting for culture [Bacteroides fragilis]. 07/02 initiated vancomycin, DCd 07/03 sec to Cr. Wound care nurse. Follow-up with podiatry as an outpatient. Follow-up with ID as an outpatient. sent TTE. Pain Management, continue with pain medication/PT and OT. PICC consent Obtained, Placement ordered (4) Diabetes mellitus, type II: Plan: - Last A1C was 9.0 a week ago TICK SEWER, checked as an outpatient - ISS with accuchecks achs - Hold januvia (5) History of nephrectomy: (6) Acute Kidney injury on Chronic kidney disease, stage 3: Hyponatremia/Solitary Kidney Plan: Resolved-DC to [facility] #. CML: Continue home Tasigna for CML. communicated w/RN. #. Other chronic medical conditions: HTN, HLD, obesity Continue with/resume home medication as and when appropriate. #. DVT prophylaxis: Teds, SCDs, SC Heparin CODE: Full code MedSurg. Labs Checked Dispo: Transfer to [facility] today ROS-No Headache, No Visual Changes, No Nausea, No Vomiting, No Fever, No Chills, No Neck Pain or Stiffness, No Chest Pain, No Palpitations, No SOB, No KELLEY, No Cough, No Sputum, No Wheezing, No Abdominal Pain, No Diarrhea, No Hematemesis, No Hemoptysis, No Unexpected Weight Loss, No Flank pain, No Melena, No Hematochezia, No Frequency, No Urgency, No Burning, No Hematuria, No Rashes, No Diaphoresis. Appetite is Normal, +Foot Pain R Physical Exam Gen-AAO x 3, NAD, Afebrile Head-NCAT, EOMI, PERRLA, Anicteric Sclera, No Posterior Pharyngeal Erythema Neck-Supple, No JVD, No Thyromegaly, No Masses, No LAD, No Bruits Lungs-Clear to Auscultation Bilaterally, No Rales, No Rhonchi, No Wheezing, No Crepitus Chest-No S4, +S1, +S2, No S3, No Murmurs, No Rubs, No Gallops, No Ectopy Abdomen-Soft, Bowel Sounds Present, Non Tender, Non Distended, No Hepatomegaly, No Splenomegaly, No Palpable Masses, No Rebound, No Rigidity, No Guarding Musculoskeletal-Full Range of Motion Bilaterally, No CVAT Extremities-R Foot Dressed and Casted Nuero-Cranial Nerves II-XII grossly intact, Motor WNL, DTRs WNL, Strength WNL, Non Focal Psych-normal Admission and Anticipated Discharge Date Admission Date: June 29, 2021 Subjective Pt resting in bed without complaints. Pain controlled. Results & Data Results & Data ([facility]) Vital Signs (Past 12 Hours) Vital Signs Temp Pulse Resp BP Pulse Ox 07/07/21 07:48 36.6 C 52 L 16 168/69 H 94 07/06/21 23:01 37.0 C 60 18 145/65 H 97 (1) Osteomyelitis Laterality: right Osteomyelitis location: foot Osteomyelitis type: other acute Qualified Code(s): M86.171 - Other acute osteomyelitis, right ankle and foot
[2021-07-07] MEDS: amLODIPine BESYLATE 5 MG TAB PO SCH (10:15)
[2021-07-07] MEDS: POTASSIUM CHLORIDE 10 MEQ TABCR PO SCH (10:15)
[2021-07-07] MEDS: FUROSEMIDE 20 MG TAB PO SCH (10:36)
[2021-07-07] MEDS: MoRPHine SULFATE 2 MG/ML CARP IV PRN (11:15)
[2021-07-08 15:40] LABS: Anti Nuclear Antibody Screen POSITIVE (NEGATIVE); Smooth Muscle Antibody NEGATIVE (NEGATIVE)
[2021-07-11 13:44] LABS: ANA Pattern Nuclear, Homogeneous
== END 2021-07-07 12:49 | DRG 623 ==
LOC: ED 09:14 → 2W 12:14 → SUATTDRO 12:14 → 2W 13:49

== ENCOUNTER 2024-05-19 13:08 | Inpatient (IN) ==
[2024-05-19 14:12] LABS: Basophils # (auto) 0.07 K/uL (0.00-0.20); Basophils % (auto) 0.8 %; Eosinophils # (auto) 0.25 K/uL (0.00-0.50); Eosinophils % (auto) 2.7 %; Hematocrit (blood only) 31.4 % (42.0-52.0); Hemoglobin 10.6 g/dl (14.0-18.0); Immature Granulocytes % (auto) 1.1 %; Lymphocytes % (auto) 9.7 %; Mean Corpuscular Hemoglobin 29.9 pg (25.0-34.0); Mean Corpuscular Hgb Conc 33.8 g/dL (32.0-36.0); Mean Corpuscular Volume 88.5 fL (80.0-100.0); Mean Platelet Volume 10.3 fL (9.4-12.4); Monocytes # (auto) 0.82 K/uL (0.11-0.59); Monocytes % (auto) 8.9 %; Neutrophils # (auto) 7.11 K/uL (1.40-6.50); Neutrophils % (auto) 76.8 %; Platelet Count 370 K/uL (130-400); RDW Coefficient of Variation 14.6 % (11.5-14.5); RDW Standard Deviation 47.4 fL (36.4-46.3); Red Blood Count 3.55 M/uL (4.70-6.10); White Blood Count 9.25 K/ul (4.8-10.8)
[2024-05-19 14:30] LABS: Albumin Globulin Ratio 1.6 (0.9-2); Albumin Level 4.4 gm/dl (3.4-5.0); Calcium 10.3 mg/dl (8.6-10.3); Creatinine Clr Calc Pharmacy 43.5 ml/min; Globulin 2.8 gm/dl (2.5-4.0); Total Protein 7.2 gm/dl (6.0-8.3)
[2024-05-19 14:41] LABS: Partial Thromboplastin Time 28 Seconds (21-31); Prothrombin Time 11.3 Seconds (9.0-12.0)
[2024-05-19 15:30] LABS: Magnesium 2.2 mg/dl (1.7-2.4); Phosphorus 2.7 mg/dl (2.5-4.9)
--- NOTE | 2024-05-19 15:33 | XRay Report ---
XR chest 1V portable CLINICAL HISTORY: htn TECHNIQUE: Single frontal radiograph of the chest was obtained. Comparison: Comparison is made to chest radiograph 04/21/2024 FINDINGS: No lines and tubes are seen. Cardiomegaly is noted. The lungs are clear. No evidence of pleural effus ion or pneumothorax. IMPRESSION: No acute chest disease. ACT 112: Negative or not required by law. Electronically signed by: Jose Gutierrez M.D. 05/19/2024 3:31 PM
[2024-05-19 15:37] LABS: Troponin I High Sensitivity 33.6 pg/ml (0-20)
[2024-05-19 15:46] LABS: Thyroid Stimulating Hormone 1.301 uIu/ml (0.300-4.500)
--- NOTE | 2024-05-19 17:11 | Emergency Department Note ---
Impression & Plan Hypertensive urgency, CML (chronic myelocytic leukemia), Chronic kidney disease, stage 3 ED Provider Note NAME: WILNER Giron SHARER AGE: 68 SEX: M : 1955 ARRIVES VIA: Walk-In INFORMANT: Patient ED PROVIDER(S): Donell Birmingham MD CHIEF COMPLAINT: Hypertension, referred. PLAN: Disposition: Admit MEDICAL DECISION MAKING: The patient a pleasant 68-year-old gentleman with a past medical history of CKD, history of renal cell carcinoma status post nephrectomy, MEE, hypertension, hyperlipidemia, CML, status post [place] on 04/05/20[place] [facility] [place] which was subsequently complicated by COVID-19 who presents to emergency department via walk-in referred by his outpatient provider for ongoing uncontrolled blood pressure since his procedure but reports his blood pressure fluctuates from the 150s- 200s. Patient reports he checked this today and it was in the 200s. Patient reports he did not take his 2 PM hydralazine and Lasix as he was checking into the emergency department at the time. He denies chest pain, shortness of breath, fevers, chills, cough and congestion. He reports sensing his pulse in his head but denies headache or changes in vision. Per records there is suspicion that the patient CML therapy may be contributing to his blood pressure. Of note, the patient did arrive to emergency department during time of high volume, acuity and prolonged emergency department waiting times. Critical pathways initiated from triage. On arrival the patient is no distress, afebrile blood pressure 180s/70s and vital signs otherwise stable. Exam is otherwise unremarkable. EKG with LVH with repositioning abnormality and nonspecific anterior ventricular conduction block, similar to prior without overt acute ischemia. CXR negative for acute cardiopulmonary process per my personal preliminary review/interpretation. WBC and platelets within normal limits. H/H similar to prior. Chemistry without metabolic acidosis. Creatinine 1.8, similar to prior values in the setting of CKD. ALT mildly elevated 56, nonspecific and LFTs otherwise unremarkable. Initial high-sensitivity troponin 33.6, nonspecific in the setting of CKD. TSH within normal limits. Given the patient's comorbidities with persistence of uncontrolled blood pressure despite outpatient management patient agrees with plan for admission for further treatment. Patient's home Lasix was administered and was additionally given IV hydralazine and labetalol for improved blood pressure control. Case was discussed with Dr. Fuller, [facility] hospitalist, who will evaluate the patient for admission. Further management per admitting team. Triage Nursing notes reviewed and agree them. Prior/external medical records reviewed Vital Signs: reviewed Differential diagnosis: Infection, dehydration, metabolic abnormality, hypo/hyperglycemia, electrolyte disturbance, anemia, hypoxia, cardiac sources, intracerebral event, toxicologic, neurologic, as well as other pathologies. ER treatment provided: See below. Diagnostics interpreted by me: ECG: Sinus rhythm first-degree AV block, 67 bpm, LVH with QRS widening and repolarization abnormality, nonspecific intraventricular conduction block, no sgarbossa criteria. QTc 483, QRS 126. Cardiac Monitoring: An order for continuous cardiac monitoring was placed and demonstrated Sinus rhythm first-degree AV block, 67 bpm. Laboratory studies: See below Imaging studies: See below Consultation(s): [facility] will [facility] the patient for [facility]. HPI: The patient a pleasant 68-year-old gentleman with a past medical history of CKD, history of renal cell carcinoma status post nephrectomy, MEE, hypertension, hyperlipidemia, CML, status post [place]AVR on 04/05/2024 at [facility] which was subsequently complicated by COVID-19 who presents to emergency department via walk-in referred by his outpatient provider for ongoing uncontrolled blood pressure since his procedure but reports his blood pressure fluctuates from the 150s- 200s. Patient reports he checked this today and it was in the 200s. Patient reports he did not take his 2 PM hydralazine and Lasix as he was checking into the emergency department at the time. He denies chest pain, shortness of breath, fevers, chills, cough and congestion. He reports sensing his pulse in his head but denies headache or changes in vision. Per records there is suspicion that the patient CML therapy may be contributing to his blood pressure. ROS: See above HPI for pertinent positives & negatives. A total of 10 systems reviewed and were otherwise negative. VITALS:See Below PHYSICAL EXAMINATION: GENERAL: Awake, alert, in no distress, BMI 27.1. HENT: Normocephalic, atraumatic. Oropharynx unremarkable. EYES: Normal conjunctiva. Sclera non-icteric. NECK: Supple. No nuchal rigidity. FROM. No JVD. RESPIRATORY: Clear to auscultation. CARDIAC: Regular rate, normal rhythm. Extremities warm and well perfused. Pulses equal. ABDOMEN: Soft, non-distended. No tenderness to palpation. No rebound or guarding. No masses. MUSCULOSKELETAL: Chest examination reveals no tenderness. The back is symmetrical on inspection without obvious abnormality. There is no CVA tenderness to palpation. No joint edema. LOWER EXTREMITIES: Calves are equal size bilaterally and non-tender. No edema. No discoloration. NEURO: Normal sensorium. No sensory or motor deficits noted. SKIN: No rash or jaundice noted. Donell Birmingham MD Past Med/Surg History Problem List (Updated 05/20/24 @ 01:38 by Donell Birmingham MD) Hypertensive urgency (Acute) Hypertensive urgency COVID-19 (Acute) Renal carcinoma (Chronic) History of nephrolithiasis (Chronic) Kidney stones (Chronic) Hypertriglyceridemia (Chronic) Atypical chest pain (Acute) Chest pain Elevated d-dimer Hematuria BPH loc w urin obs/LUTS Hematuria Elevated PSA Effusion, pericardium (Acute) Abdominal pain (Acute) Encounter for pre-operative examination Pleural effusion Exertional shortness of breath Obesity Neuropathy Cellulitis of right foot Ulcer of right foot Acute foot pain (Acute) Osteomyelitis (Acute) Elevated LFTs Hydrocele Pleural effusion on right (Acute) hx of 03/2020--had thoracentesis History of cataract surgery bilt Gout Diabetes mellitus, type II BPH (benign prostatic hyperplasia) MEE (obstructive sleep apnea) cpap Aortic stenosis, mild Renal cell carcinoma 2011--removed left kidney Chronic kidney disease, stage 3 (Chronic) Hyperlipidemia (Chronic) Hypertension (Chronic) Vitamin D deficiency (Chronic) History of nephrectomy left 2011 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 Brooks Surgical History History of foot surgery 1. Right foot irrigation and debridement of first intermetatarsal space abscess 2. Irrigation and debridement of infectious flexor tenosynovitis 3. Irrigation and debridement of abductor hallucis longus abscess 4. Irrigation and debridement of septic first metatarsophalangeal joint History of thoracentesis (~03/27/20) History of surgery on extremity right leg compound fx repair History of prostate biopsy benign History of colonoscopy with polypectomy History of wisdom tooth extraction History of cardiac cath 2001 @ [facility] [place] no stents Family History Brother Coronary heart disease fatal IN age 51 Father FH: brain aneurysm age 60 Other No family history of adverse response to anesthesia Social History Smoking Status: Never smoker Second Hand Exposure: No; Do You Dip or Chew Tobacco: No (N/a); Hx Alcohol Use: No Hx Substance Use: No Preferred Language: Bermudian Communication Ability: Effective Visual Impairment: No Limitations Hearing Ability: Normal Instrument Sterilizer Required: No Beliefs That Will Affect Care: None marital status: Current Living Situation: Spouse and Family Current Living Situation Comment: Lives with and 2 sons current occupational status: employed How many Children do You have: 2 Feels Safe at Home: Yes Diet: regular caffeine: Yes (12 oz mt dew daily) Physical Activity Frequency: Does not Exercise Do you think of yourself as: straight/heterosexual Gender Identity: Male Assistive Devices: CPAP Allergies Allergies Allergy/AdvReac Type Severity Reaction Status Date / Time allopurinol Allergy Mild fever, rash Verified 05/09/24 14:39 Home Meds Home Medications Medication Instructions Recorded Confirmed aspirin 81 mg tablet,delayed 81 mg PO HS 08/28/18 05/19/24 release (Yari Low Dose Aspirin) febuxostat 40 mg tablet (Uloric) 40 mg PO QAM 08/28/18 05/19/24 docusate sodium 50 mg capsule 50 mg PO HS PRN Constipation 11/09/19 05/19/24 nilotinib HCl 200 mg capsule 400 mg PO Q12H 03/26/20 05/19/24 (Tasigna) sennosides 8.6 mg capsule (senna) 8.6 mg PO BID PRN Constipation 10/18/20 05/19/24 hydralazine 100 mg tablet 100 mg PO TID 01/31/21 05/19/24 atorvastatin 80 mg tablet 80 mg PO DAILY 11/15/21 05/19/24 dulaglutide 0.75 mg/0.5 mL 1.5 mg subcut WK 10/02/22 05/19/24 subcutaneous pen injector (Trulicity) furosemide 40 mg tablet 60 mg PO UD 10/02/22 05/19/24 polyethylene glycol 3350 17 gram 17 g PO DAILY PRN Constipation 10/14/22 05/19/24 oral powder packet (Miralax) losartan 50 mg tablet 50 mg PO DAILY 05/09/24 05/19/24 spironolactone 25 mg tablet 12.5 mg PO DAILY 05/09/24 05/19/24 potassium chloride 10 mEq 10 meq PO UD 05/19/24 05/19/24 tablet,extended release (Klor-Con) prazosin 2 mg capsule 2 mg PO PM 05/19/24 05/19/24 Previous Rx's Medication Instructions Recorded bisacodyl 5 mg tablet,delayed 5 mg PO DAILY #30 tabs 07/05/21 release (Gentle Laxative (bisacodyl)) tramadol 50 mg tablet 50 mg PO Q6H PRN pain #60 tabs 07/05/21 amlodipine 5 mg tablet 5 mg PO QAM #90 tabs 06/05/22 tamsulosin 0.4 mg capsule 0.4 mg PO DAILY #90 caps 06/01/23 cholecalciferol (vitamin D3) 50 50 mcg PO DAILY #90 caps 10/06/23 mcg (2,000 unit) capsule dutasteride 0.5 mg capsule 0.5 mg PO DAILY #90 caps 11/11/23 Results & Data (ED) Vital Signs Vital Signs - 24 hr 05/19/24 13:16 05/19/24 15:42 05/19/24 15:45 Temperature 36.7 C Temperature Source Temporal Artery Scan Pulse Rate 71 63 61 Respiratory Rate 20 23 Respiratory Effort / Characteristics Non-Labored Spontaneous Respiratory Depth Normal Respiratory Pattern Regular Blood Pressure 189/73 H 173/77 H Blood Pressure Mean 111 109 Pulse Oximetry 97 Oxygen Delivery Method Room Air Sepsis Recent Fever Within 48 Hours No Sepsis New/Unexplained Change in Mental Status No Sepsis Action Taken by Nursing No Action Required 05/19/24 17:24 Temperature Temperature Source Pulse Rate 83 Respiratory Rate 20 Respiratory Effort / Characteristics Respiratory Depth Respiratory Pattern Blood Pressure 202/79 H Blood Pressure Mean 120 Pulse Oximetry 97 Oxygen Delivery Method Sepsis Recent Fever Within 48 Hours Sepsis New/Unexplained Change in Mental Status Sepsis Action Taken by Nursing Laboratory Data Attestation: I reviewed the patient's lab results. 05/19/24 13:55 05/19/24 13:55 Lab Results 05/19/24 Range/Units 13:55 WBC 9.25 (4.8-10.8) K/ul RBC 3.55 L (4.70-6.10) M/uL Hgb 10.6 L (14.0-18.0) g/dl Hct 31.4 L (42.0-52.0) % MCV 88.5 (80.0-100.0) fL MCH 29.9 (25.0-34.0) pg MCHC 33.8 (32.0-36.0) g/dL RDW Std Deviation 47.4 H (36.4-46.3) fL RDW Coeff of Joce 14.6 H (11.5-14.5) % Plt Count 370 (130-400) K/uL MPV 10.3 (9.4-12.4) fL Immature Gran % (Auto) 1.1 % Neut % (Auto) 76.8 % Lymph % (Auto) 9.7 % Marion % (Auto) 8.9 % Eos % (Auto) 2.7 % Baso % (Auto) 0.8 % Neut # (Auto) 7.11 H (1.40-6.50) K/uL Lymph # (Auto) 0.90 L (1.20-3.40) K/uL Marion # (Auto) 0.82 H (0.11-0.59) K/uL Eos # (Auto) 0.25 (0.00-0.50) K/uL Baso # (Auto) 0.07 (0.00-0.20) K/uL Immature Gran # (Auto) 0.10 (0.01-0.20) K/uL PT 11.3 (9.0-12.0) Seconds INR 1.0 (0.9-1.1) APTT 28 (21-31) Seconds PTT Ratio 1.0 Sodium 139 (136-145) mmol/L Potassium 4.0 (3.5-5.1) mmol/L Chloride 109 H (98-107) mmol/L Carbon Dioxide 23 (21-32) mmol/L Anion Gap 7 (3-11) BUN 53 H (6-23) mg/dl Creatinine 1.89 H (0.6-1.4) mg/dl Est Cr Clr Drug Dosing 43.5 ml/min eGFR 38.19 BUN/Creatinine Ratio 28.0 H (10-20) Glucose 159 H (70-99(Fasting)) mg/dl Calcium 10.3 (8.6-10.3) mg/dl Phosphorus 2.7 (2.5-4.9) mg/dl Magnesium 2.2 (1.7-2.4) mg/dl Total Bilirubin 1.0 (0.2-1.0) mg/dl AST 34 (13-39) U/L ALT 56 H (7-52) U/L Alkaline Phosphatase 107 H (34-104) U/L Troponin I High Sens 33.6 H (0-20) pg/ml Total Protein 7.2 (6.0-8.3) gm/dl Albumin 4.4 (3.4-5.0) gm/dl Globulin 2.8 (2.5-4.0) gm/dl Albumin/Globulin Ratio 1.6 (0.9-2) TSH 1.301 (0.300-4.500) uIu/ml Administered Medications Aspirin (Aspirin 81 Mg Ectab) 81 mg PO HS SÁNCHEZ Stop: 06/18/24 21:14 Last Admin: 05/19/24 21:30 Dose: 81 mg Documented By: DOC Hydralazine HCl (Hydralazine Tab 50 Mg Tab) 100 mg PO TID SÁNCHEZ Stop: 06/18/24 21:14 Last Admin: 05/19/24 21:30 Dose: 100 mg Documented By: DOC Melatonin (Melatonin 3 Mg Tab) 3 mg PO HS PRN PRN Reason: Sleep Stop: 06/18/24 21:49 Last Admin: 05/19/24 21:55 Dose: 3 mg Documented By: DOC Miscellaneous (Order Awaiting Action) 1 each N/A QS SÁNCHEZ Stop: 06/19/24 00:00 Last Admin: 05/19/24 22:52 Dose: Not Given Documented By: DOC Nilotinib HCl (Nilotinib 400mg Tab) 2 each PO Q12H SÁNCHEZ Stop: 06/18/24 19:29 Last Admin: 05/19/24 19:58 Dose: 2 each Documented By: HUYEN Co-signed By: Prazosin HCl (Prazosin Hcl 1 Mg Cap) 2 mg PO PM SÁNCHEZ Stop: 06/18/24 21:14 Last Admin: 05/19/24 21:55 Dose: 2 mg Documented By: DOC Discontinued Medications Furosemide (Furosemide 40 Mg Tab) 40 mg PO NOW ONE Stop: 05/19/24 16:56 Last Admin: 05/19/24 17:13 Dose: 40 mg Documented By: HUYEN Hydralazine HCl (Hydralazine Hcl 20 Mg/Ml Vial) 5 mg IV NOW ONE Stop: 05/19/24 16:56 Last Admin: 05/19/24 17:14 Dose: 5 mg Documented By: HUYEN Hydralazine HCl (Hydralazine Tab 50 Mg Tab) 50 mg PO ONE ONE Stop: 05/19/24 18:53 Last Admin: 05/19/24 19:36 Dose: 50 mg Documented By: HUYEN Hydralazine HCl (Hydralazine Hcl 20 Mg/Ml Vial) 5 mg IV ONE ONE Stop: 05/19/24 19:01 Last Admin: 05/19/24 19:16 Dose: 5 mg Documented By: HUYEN Labetalol HCl (Labetalol Hcl Iv 5 Mg/Ml 20ml) 10 mg IV NOW STA Stop: 05/19/24 17:46 Last Admin: 05/19/24 17:52 Dose: 10 mg Documented By: HUYEN Imaging Data Radiologist's Impression: Chest X-Ray 05/19/24 15:07 XR chest 1V portable CLINICAL HISTORY: htn TECHNIQUE: Single frontal radiograph of the chest was obtained. Comparison: Comparison is made to chest radiograph 04/21/2024 FINDINGS: No lines and tubes are seen. Cardiomegaly is noted. The lungs are clear. No evidence of pleural effusion or pneumothorax. IMPRESSION: No acute chest disease. ACT 112: Negative or not required by law. Electronically signed by: Jose Gutierrez M.D. 05/19/2024 3:31 PM Discharge Plan Visit Data Chief Complaint: Hypertension Stated Complaint: HIGH BP ED Provider: Donell Birmingham Discharge Problem: Hypertensive urgency, CML (chronic myelocytic leukemia), Chronic kidney disease, stage 3 Patient Disposition: Admitted As Inpatient Discharge Instructions Interventions: ED Discharge Assessment Last Done: 05/19/24 20:38 Discharge Problem: Chronic kidney disease, stage 3 Qualifiers: Chronic kidney disease stage 3 subtype: unspecified whether 3a or 3b Qualified Code(s): N18.30 - Chronic kidney disease, stage 3 unspecified
[2024-05-19] MEDS: FUROSEMIDE 40 MG TAB PO ONE (17:13)
[2024-05-19] MEDS: hydrALAZINE HCL 20 MG/ML VIAL IV ONE ×2 (17:14→19:16)
[2024-05-19] MEDS ORDERED: ACETAMINOPHEN 325 MG TAB PO PRN (17:44)
--- NOTE | 2024-05-19 17:44 | History & Physical Report ---
Date of Service May 19, 2024 Assessment & Plan (1) Hypertensive urgency: Plan: Pt reports difficulty to control BP since his TAVR procedure reports feeling "pulsations" in his head and over his body s/p TAVR in April 2024 LBBB, high degree AV block - per outpt note from Thiago Crews (cardiology) - Ambulatory EKG abnormal, with high degree AV block and ventricular pauses both at night and during anticipated hours of being awake. - currently on amlodipine 10, furosemide 60 am, 40 early pm, losartan 50, hydralazine 100 tid, spironolactone 12.5 - have to avoid AV mel blockers, plan for EP eval - follows w/ [facility] cardiology - in ED received IV hydralazine 5 , and po furosemide 40, then later required 10 IV labetolol - will admit to tele, cont. to closely monitor BP - resume home meds, iv hydralazine prn, cardiology consult for further eval and management CKD stage 3 - baseline Cr 2.5 - follows w/ Dr. Dhaliwal ([facility] [place] - current Cr 1.9, cont. to monitor while inpt DM 2 Hgb A1c 6.0 % in 04/2024 - cont. to monitor blood glc level while inpt Sleep apnea - cont. 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 Matthew - onc. Hx of renal cell carcinoma, s/p nephrectomy History of Present Illness Chief Complaint: Elevated BP, hx of TAVR Primary Care Provider: Prisca Estrada MD 68 yo M with CML (follows w/ [facility] - Dr. Matthew), DM type 2 (last A1c 6.0% in 04/2024) , renal cell carcinoma s/p nephrectomy, sleep apnea on cpap, CKD 3 ( follows ginny/ [facility] Dhaliwal, baseline Cr 2.5), diast. HF, Aortic valve dz s/p TAVR (in 04/2024 at [facility] [place] - follows ginny/ [facility] cardiology) presents with hypertensive urgency. Pt states he has had elevated BP since TAVR, and difficulty to normalize BP despite multiple medications. Feels "pulsations in his head and over his body". Denies any chest pain, has some shortness of breath on exertion which is not new. Denies any fevers or chills, or cough. Denies abdominal pain, n/v/d. Denies MIXON. Follows w/ [facility] cardiology, recently noted pt will need EP eval d/t high degree AV block and ventricular pauses. Pt was in contact w/ his providers and was advised to present to ED for his uncontrolled BP. Allergies Allergy/AdvReac Type Severity Reaction Status Date / Time allopurinol Allergy Mild fever, rash Verified 05/09/24 14:39 Home Medications Medication Instructions Recorded Confirmed Type aspirin 81 mg tablet,delayed 81 mg PO HS 08/28/18 05/19/24 History release (Yari Low Dose Aspirin) febuxostat 40 mg tablet (Uloric) 40 mg PO QAM 08/28/18 05/19/24 History docusate sodium 50 mg capsule 50 mg PO HS PRN Constipation 11/09/19 05/19/24 History nilotinib HCl 200 mg capsule 400 mg PO Q12H 03/26/20 05/19/24 History (Tasigna) sennosides 8.6 mg capsule (senna) 8.6 mg PO BID PRN Constipation 10/18/20 05/19/24 History hydralazine 100 mg tablet 100 mg PO TID 01/31/21 05/19/24 History bisacodyl 5 mg tablet,delayed 5 mg PO DAILY #30 tabs 07/05/21 05/19/24 Rx release (Gentle Laxative (bisacodyl)) tramadol 50 mg tablet 50 mg PO Q6H PRN pain #60 tabs 07/05/21 05/19/24 Rx atorvastatin 80 mg tablet 80 mg PO DAILY 11/15/21 05/19/24 History amlodipine 5 mg tablet 5 mg PO QAM #90 tabs 06/05/22 05/19/24 Rx dulaglutide 0.75 mg/0.5 mL 1.5 mg subcut WK 10/02/22 05/19/24 History subcutaneous pen injector (Trulicity) furosemide 40 mg tablet 60 mg PO UD 10/02/22 05/19/24 History polyethylene glycol 3350 17 gram 17 g PO DAILY PRN Constipation 10/14/22 05/19/24 History oral powder packet (Miralax) tamsulosin 0.4 mg capsule 0.4 mg PO DAILY #90 caps 06/01/23 05/19/24 Rx cholecalciferol (vitamin D3) 50 50 mcg PO DAILY #90 caps 10/06/23 05/19/24 Rx mcg (2,000 unit) capsule dutasteride 0.5 mg capsule 0.5 mg PO DAILY #90 caps 11/11/23 05/19/24 Rx losartan 50 mg tablet 50 mg PO DAILY 05/09/24 05/19/24 History spironolactone 25 mg tablet 12.5 mg PO DAILY 05/09/24 05/19/24 History potassium chloride 10 mEq 10 meq PO UD 05/19/24 05/19/24 History tablet,extended release (Klor-Con) prazosin 2 mg capsule 2 mg PO PM 05/19/24 05/19/24 History Past Med/Surg History Problem List Hypertensive urgency COVID-19 (Acute) Renal carcinoma (Chronic) History of nephrolithiasis (Chronic) Kidney stones (Chronic) Hypertriglyceridemia (Chronic) Atypical chest pain (Acute) Chest pain Elevated d-dimer Hematuria BPH loc w urin obs/LUTS Hematuria Elevated PSA Effusion, pericardium (Acute) Abdominal pain (Acute) Encounter for pre-operative examination Pleural effusion Exertional shortness of breath Obesity Neuropathy Cellulitis of right foot Ulcer of right foot Acute foot pain (Acute) Osteomyelitis (Acute) Elevated LFTs Hydrocele Pleural effusion on right (Acute) hx of 03/2020--had thoracentesis History of cataract surgery bilt Gout Diabetes mellitus, type II BPH (benign prostatic hyperplasia) MEE (obstructive sleep apnea) cpap Aortic stenosis, mild Renal cell carcinoma 2011--removed left kidney Chronic kidney disease, stage 3 (Chronic) Hyperlipidemia (Chronic) Hypertension (Chronic) Vitamin D deficiency (Chronic) History of nephrectomy left 2011 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 Brooks Surgical History History of foot surgery 1. Right foot irrigation and debridement of first intermetatarsal space abscess 2. Irrigation and debridement of infectious flexor tenosynovitis 3. Irrigation and debridement of abductor hallucis longus abscess 4. Irrigation and debridement of septic first metatarsophalangeal joint History of thoracentesis (~03/27/20) History of surgery on extremity right leg compound fx repair History of prostate biopsy benign History of colonoscopy with polypectomy History of wisdom tooth extraction History of cardiac cath 2001 @ [facility] [place] no stents Family History Brother Coronary heart disease fatal [place] age 51 Father FH: brain aneurysm age 60 Other No family history of adverse response to anesthesia Social History Smoking Status: Never smoker Second Hand Exposure: No; Do You Dip or Chew Tobacco: No (N/a); Hx Alcohol Use: No Hx Substance Use: No Preferred Language: Bengali Communication Ability: Effective Visual Impairment: No Limitations Hearing Ability: Normal Cutter Out Required: No Beliefs That Will Affect Care: None marital status: Current Living Situation: Spouse and Family Current Living Situation Comment: Lives with and 2 sons current occupational status: employed How many Children do You have: 2 Feels Safe at Home: Yes Diet: regular caffeine: Yes (12 oz mt dew daily) Physical Activity Frequency: Does not Exercise Do you think of yourself as: straight/heterosexual Gender Identity: Male Assistive Devices: CPAP Review of Systems Review of Systems: All systems reviewed & are unremarkable except as noted in HPI & below Physical Exam Constitutional: WD/WN, vitals as above Eyes: PERRL, conjunctivae normal, anicteric sclerae ENMT: external ear and nose normal, oropharynx normal Neck: + thick neck Respiratory: normal respiratory effort, lungs clear to auscultation Cardiovascular: Rate/Rhythm: regular rate and regular rhythm Chest (Breasts): Chest: normal inspection of chest Gastrointestinal (Abdomen): normal bowel sounds, soft, nontender, no hepatosplenomegaly Musculoskeletal: no cyanosis or clubbing, extremities motor strength 5/5 Skin: no rashes, warm and dry Neurologic: PERRL, EOMI, accommodation nl, no face palsy, no dysarthria Psychiatric: A+Ox3, euthymic affect Results & Data Results & Data Vital Signs (Past 12 Hours) Vital Signs Temp Pulse Resp BP Pulse Ox O2 Del Method 05/19/24 17:24 83 20 202/79 H 97 05/19/24 15:45 61 23 173/77 H 05/19/24 15:42 63 05/19/24 13:16 36.7 C 71 20 189/73 H 97 Room Air Laboratory Results 05/19/24 Range/Units 13:55 WBC 9.25 (4.8-10.8) K/ul RBC 3.55 L (4.70-6.10) M/uL Hgb 10.6 L (14.0-18.0) g/dl Hct 31.4 L (42.0-52.0) % MCV 88.5 (80.0-100.0) fL MCH 29.9 (25.0-34.0) pg MCHC 33.8 (32.0-36.0) g/dL RDW Std Deviation 47.4 H (36.4-46.3) fL RDW Coeff of Joce 14.6 H (11.5-14.5) % Plt Count 370 (130-400) K/uL MPV 10.3 (9.4-12.4) fL Immature Gran % (Auto) 1.1 % Neut % (Auto) 76.8 % Lymph % (Auto) 9.7 % [place] % (Auto) 8.9 % Eos % (Auto) 2.7 % Baso % (Auto) 0.8 % Neut # (Auto) 7.11 H (1.40-6.50) K/uL Lymph # (Auto) 0.90 L (1.20-3.40) K/uL [place] # (Auto) 0.82 H (0.11-0.59) K/uL Eos # (Auto) 0.25 (0.00-0.50) K/uL Baso # (Auto) 0.07 (0.00-0.20) K/uL Immature Gran # (Auto) 0.10 (0.01-0.20) K/uL PT 11.3 (9.0-12.0) Seconds INR 1.0 (0.9-1.1) APTT 28 (21-31) Seconds PTT Ratio 1.0 Sodium 139 (136-145) mmol/L Potassium 4.0 (3.5-5.1) mmol/L Chloride 109 H (98-107) mmol/L Carbon Dioxide 23 (21-32) mmol/L Anion Gap 7 (3-11) BUN 53 H (6-23) mg/dl Creatinine 1.89 H (0.6-1.4) mg/dl Est Cr Clr Drug Dosing 43.5 ml/min eGFR 38.19 BUN/Creatinine Ratio 28.0 H (10-20) Glucose 159 H (70-99(Fasting)) mg/dl Calcium 10.3 (8.6-10.3) mg/dl Phosphorus 2.7 (2.5-4.9) mg/dl Magnesium 2.2 (1.7-2.4) mg/dl Total Bilirubin 1.0 (0.2-1.0) mg/dl AST 34 (13-39) U/L ALT 56 H (7-52) U/L Alkaline Phosphatase 107 H (34-104) U/L Troponin I High Sens 33.6 H (0-20) pg/ml Total Protein 7.2 (6.0-8.3) gm/dl Albumin 4.4 (3.4-5.0) gm/dl Globulin 2.8 (2.5-4.0) gm/dl Albumin/Globulin Ratio 1.6 (0.9-2) TSH 1.301 (0.300-4.500) uIu/ml
[2024-05-19] MEDS: LABETALOL HCL IV 5 MG/ML 20ML IV STA (17:52)
--- OUTSIDE RECORDS SUMMARY | 2024-05-19 19:18 | External Medical Summary | Summary of Care ---
Author Name Unknown Organization [facility] Address [address] [facility] [place] [address] Phone [phone] Care Team Providers Care Motor Equipment Captain Name Role Phone Prisca Temple MD Primary Care Prov ider Reason for Visit * Reason Comments eRx-Medication Refill Encounter Details Date Type Department Care Team (Late st Contact Info) Description 05/12/2024 Refill Dermatology [address] [place] [phone] Aleksander Eisenberg PA-C [address] [place] [address] [place] [phone] Allergies Active Allergy Reactions Criticality Noted Date Comments Allopurinol Hives High 07/30/2000 Penicillin V Hives 03/16/2023 documented as of this encounter (statuses as of 05/12/2024) Medications docusate sodium (COLACE) 100 MG Capsule Take 1 Capsule by mouth 2 times a day as needed. Active CPAP every night at bedtime. Active Dutasteride 0.5 MG Oral Capsule (Avodart) Take 1 Capsule by mouth in the morning. Pt taking in evening. 021 Active Nilotinib HCl 200 MG Oral Capsule Take 2 Capsules by mouth in the morning and 2 Capsules before bedtime. Tazigna Cannot eat two prior to administration of medicine and can eat 1 hour after. Active OneTouch Verio In Vitro Strip (Glucose Blood)Indications :Type 2 diabetes mellitus with hemoglobin A1c goal of less than 7.0% (HCC) Use to test blood sugar twice a day DX e11.9 200 Strip 3 Active OneTouch Delica Plus [id number] ons:Type 2 diabetes mellitus with hemoglobin A1c goal of less than 7.0% (HCC) Use as directed . Test blood sugar TWICE a day dx e11.9 200 Each 3 Active Metamucil 48.57 % Oral Powder (Psyllium) Take by mouth. Acti ve Tums Chewy Bites 750 MG Oral Tablet Chewable (calcium CARBonate) Take 1 Tablet by mouth daily as needed for Heartburn. Active Dulaglutide 1.5 MG/0.5ML Subcutaneous Solution Pen-injector (Trulicity)Indica tions:Type 2 diabetes mellitus with hemoglobin A1c goal of less than 7.0% (HCC) Inject 1.5 mg under the skin once a week. Obtaining through [employer] PAP 2 mL 3 023 Active hydrALAZINE HCl 100 MG Oral TabletIndications :HTN, goal below 130/80 Take 1 Tablet by mouth 3 times a day. 270 Tablet 3 024 Active Potassium Chloride Kirsten ER 10 MEQ Oral Tablet Extended ReleaseIndication s:Heart failure, diastolic, with acute decompensation (HCC) One pill every OTHER day 90 Tablet 3 024 Active Additional Information Patient not taking.Reported on 05/11/2024 Ezetimibe 10 MG Oral Tablet (Zetia)Indication s:Dyslipidemia, goal LDL below 100 TAKE ONE TABLET BY MOUTH IN THE MORNING 90 Tablet 3 024 Active Febuxostat 40 MG Oral Tablet (Uloric)Indicatio ns:Tophaceous gout TAKE ONE TABLET BY MOUTH IN THE MORNING 90 Tablet 3 024 Active Vitamin D3 50 MCG Oral Capsule Take 50 mcg by mouth in the morning. Active Furosemide 40 MG Oral Tablet (Lasix)Indication s:Heart failure, diastolic, with acute decompensation (HCC) TAKE 1 AND 1/2 TABLETS IN THE MORNING AND 1 TABLET IN THE EARLY AFTERNOON 225 Tablet 1 024 Active Aspirin Low Dose 81 MG Oral Tablet Delayed Release (aspirin enteric coated)Indication s:Type 2 diabetes mellitus with hemoglobin A1c goal of less than 7.0% ([facility]) TAKE 1 TABLET BY MOUTH EVERY DAY 100 Tablet 1 024 Active Losartan Potassium 50 MG Oral Tablet (Cozaar)Indicatio ns:Type 2 diabetes mellitus with stage 3b chronic kidney disease, without long-term current use of insulin (HCC),Primary hypertension Take 1 Tablet by mouth daily. 30 Tablet 024 Active amLODIPine Besylate 10 MG Oral Tablet (Norvasc)Indicati ons:Primary hypertension TAKE 1 TABLET IN THE MORNING 30 Tablet 024 Active Atorvastatin Calcium 80 MG Oral Tablet (Lipitor)Indicati ons:Dyslipidemia, goal LDL below 100 TAKE ONE TABLET BY MOUTH IN THE MORNING 90 Tablet 024 Active Prazosin HCl 2 MG Oral Capsule (Minipress)Indica tions:Primary hypertension Take 1 Capsule by mouth at bedtime. 90 Capsule 1 025 Active Additional Information Patient not taking.Reported on 05/11/2024 Spironolactone 25 MG Oral Tablet (Aldactone) Take 0.5 Tablets by mouth in the morning. 30 Tablet 5 025 Active Triamcinolone Acetonide 0.1 % External Ointment (Aristocort) APPLY 2X DAILY TO INTERMITTENT ITCH/RASH ON LEFT LOWER LEG WHEN FLARING 30 g 025 Active Triamcinolone Acetonide 0.1 % External Ointment (Aristocort) Apply 2x daily to intermittent itch/rash on L lower leg when flaring 30 g 024 2024 Discontinued Hospital, Clinic, or Other Facility Administered Medication Ordered Dose Route Frequency Start Date End Date Status albuterol sulfate (PROVENTIL) (2.5 MG/3ML) 0.083% inhalation solution 2.5 mgIndications:KELLEY (dyspnea on exertion) 2.5 mg NEBULIZER Q4H PRN 08/30/2018 Act david documented as of this encounter (statuses as of 05/12/2024) Active Problems Problem Noted Date Diagnosed Date Status post transcatheter aortic valve replaceme nt 04/05/2024 LBBB (left bundle branch block) 04/05/2024 First degree AV block 04/05/2024 Hx of nonmelanoma skin cancer 01/21/2023 Overview (05/11/2023): 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, R spiritism 01/24, L neck 03/26) Diastolic heart failure secondary to hypertensio n 05/08/2022 Multiple actinic keratoses 10/29/2021 Type 2 diabetes mellitus wit h stage 3b chronic kidney disease, without long-term current use of insulin 07/18/2021 BMI 31.0-31.9,adult 01/16/2021 Overview (01/16/2021): 241 Calculus of gallbladder with out cholecystitis without obstruction 03/26/2020 Stage 3b chronic kidney disease 03/12/2020 Overview: Per CKD protocol Elevated prostate specific antigen (PSA) 019 CML (chronic myelocytic leukemia) 08/27/2017 History of renal cell cancer 02/20/2017 Overview (02/20/2017): Left nephrectomy Mixed dyslipidemia 08/12/2016 Lumbar degenerative disc disease 01/25/2014 Nocturnal muscle cramp 01/25/2014 Tophaceous gout 12/12/2013 Type 2 diabetes mellitus wit h hemoglobin A1c goal of less than 7.0% 09/14/2013 Overview (08/28/2015): ICD-10 update of inactive term S/p nephrectomy 09/01/2012 Overview (09/01/2012): S/p left nephrectomy 04/15/12 at [facility], Dr Rajesh Santiago, Contained renal cell carcinoma Sleep apnea 12/14/2008 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 Renal cyst, left BPH (benign prostatic hyperplasia) Fatty liver Primary hypertension documented as of this encounter (statuses as of 05/12/2024) Resolved Problems Problem Noted Date Diagnosed Date Resolved Date Type 2 diabetes mellitus wit h chronic kidney disease 09/16/2018 06/04/2022 Essential hypertension with goal blood pressure less than 140/90 01/30/2016 04/18/2019 Low HDL (under 40) 07/08/2015 7 Hypertriglyceridemia 07/08/2015 017 Dyslipidemia, goal LDL below 100 11/16/2013 08/12/2016 Chronic kidney disease (CKD) , stage III (moderate) 09/01/2012 03/15/2020 Overview: Per CKD protocol Genetic Sleep Disorder Resea [facility] Other*[id number] 03/04/2011 12/05/2015 Dyslipidemia, goal LDL below 130 02/12/2011 11/16/2013 Severe obesity with body mas s index (BMI) of 35.0 to 39.9 with serious comorbidity 07/30/2009 Overview (02/17/2018): Per Obesity Taxonomy ICD-10 update of inactive diagnosis Dyslipidemia, goal to be determined 04/12/2009 04/20/2012 Overview (04/12/2009): Per Lipid Taxonomy. Obesity, BMI not known 12/14/200807/30 Overview (07/30/2009): Per Obesity Taxonomy Benign neoplasm of colon 05/28/2007 Overview (06/02/2007): adenomatous polyps--repeat 3 years HTN, goal below 140/90 01/29 PURE HYPERCHOLESTEROLEM 04/03 Overview (04/12/2009): Per Lipid Taxonomy. Dermatitis 11/16/2013 Calculus of kidney 9 Gout 12/12/2013 Chest pain 11/16/2013 Tubular adenoma of colon 02/2021 documented as of this encounter (statuses as of 05/12/2024) Immunizations Name Administration Dates Next Due COVID-19 mRNA, LNP-s, No Pre serve, 2-Dose Series (Beryllium) 07/27/2020,07/06/2020 COVID-19, LNP-s, No Preserve , Igor-sucrose, Ages 12+ (Pfizer) 11/28/2021 Covid-19, Mrna, Lnp-s, Pf, B ivalent, 30 Mcg, IM, 12 yrs and above (Beryllium) 03/10/2022 Influenza, Whole Virus 02/18/2019 Pneumococcal Conjugate Vacc, 13 Valent (Prevnar) 08/12/2016 Pneumococcal Polysaccharide PPV23 (Pneumovax) 04/18/2019,01/25/2014 Seasonal Influenza Vac., MDV , IM, 0.5 mL (Fluzone) 01/25/2014,01/13/2013,02/21/2012,02/12,02/01/2010,02/15/2009,03/04/2008 ,06/03/2007 Seasonal Influenza Virus Vac cine, Unspecified Formulation 02/18/2019,02/25/2018,02/20/2017,03/12,03/19/2015,01/25/2014,01/13/2013 ,02/21/2012,02/12/2011,02/15/2010,05/2009,02/16/2009,02/15/2009, 8,02/17/2008,06/03/2007,02/23/2007,12/2005,03/28/2002,03/01/1999,03/29/19 97,02/11/1996,03/18/1994 Seasonal Influenza, High Dos e, Trivalent, PF, IM (Fluzone HD) 02/26/2024 Seasonal Influenza, PF, 6 M & above, IM , (FluLaval or Fluzone) 02/25/2018,02/20/2017 Seasonal Influenza, Quadriva lent Hd (Fluzone Hd) 04/03/2023,01/23/2022,01/16/2021 Seasonal Influenza, Quadriva lent, No Preserve, IM 03/12/2016,03/19/2015 Seasonal Influenza, Trivalen t, Adjuvanted, 65+ YRS, PF, (Fluad) 02/17/2020 TDAP (age 10 and older)(Boostrix) 03/30/2018 TDAP, Age 7 and older, IM (Adacel) 03/15/2008 Varicella Zoster Vaccine (Adult) 03/12/2016 Zoster Vaccine Recombinant (Shingrix) 11/10/2022 ,11/28/2021 documented as of this encounter Social History Tobacco Use Types Packs/Day Years Used Date Smoking Tobacco: Never Smokeless Tobacco: Never Alcohol Use Standard Drinks/Week Comments No 0 (1 standard drink = 0.6 oz pur e alcohol) PHQ-2 Answer Date Recorded PHQ Adult Total Score 0 06/11/2023 Hunger Vital Sign Answer Date Recorded Within the past 12 months, y ou worried that your food would run out before you got the money to buy more. Never true 06/11/19 24 Within the past 12 months, t he food you bought just didn't last and you didn't have money to get more. Never true 06/11/2023 Childcare Answer Date Recorded Do you feel overwhelmed with taking care of a child, family member or friend? No 06/11/2023 Does your family need help f inding childcare? (Household - for ages 0-17 years) Not on file 06/11/2023 Clothing Answer Date Recorded Have you been unable to get clothing when it was really needed? No 06/11/2023 Is your family able to get c lothes or diapers when needed? (Household - for ages 0-17 years) Not on file 06/11/2023 Personal Safety Answer Date Recorded Do you feel unsafe or have concerns for your saf ety? No 06/11/2023 Do you have concerns for you r family's safety? (Household - for ages 0-17 years) Not on file 06/11/2023 Utilities Answer Date Recorded Do you have trouble paying y our heating, water, or electric bill? No 06/11/2023 Is your family able to pay t he heat, water, or electric bill? (Household - for ages 0-17 years) Not on file 06/11/2023 Does your family have access to good internet? (Household - for ages 0-17 years) Not on file 06/11/2023 Employment Status Answer Date Recorded Are you unemployed or without regular income? No 06/11/2023 Does the household have a re gular source of income? (Household - for ages 0-17 years) Not on file 06/11/2023 Social Connections Answer Date Recorded How often do you feel lonely or isolated from th ose around you? Never 06/11/2023 Financial Resource Strain Answer Date R ecorded Do you have any trouble payi ng for your medications, or do you think you might in the future? No 06/11/2023 Does your family have troubl e paying for medicine? (Household - for ages 0-17 years) Not on file 06/11/2023 Transportation Needs Answer Date Record ed READ ONLY Do you have troubl e getting a ride to medical visits or work? Never True 06/11/2023 Does your family have a hard time getting a ride to doctors visits? (Household - for ages 0-17 years) Not on file 06/11/2023 Has lack of transportation k ept you from medical appointments, meetings, work, or from getting things needed for daily living? Check all that apply. (Adult - for ages 18 years and over) Not on file 06/11/2023 Do you (or your family) have trouble finding or paying for a ride (transportation)? (Household - for ages 0-17 years) Not on file 06/11/2023 Housing Stability Answer Date Recorded Do you currently live in a s helter or have no steady place to sleep at night? No 06/11/2023 READ ONLY Do you think you a re at risk of becoming homeless? No 06/11/2023 Does your family worry about paying for your home or becoming homeless? (Household - for ages 0-17 years) Not on file 0 06/11/2023 Are you homeless or worried that you might be in the future? (Adult - for ages 18 years and over) Not on file Are you (or your family) antonieta eless or worried that you might be in the future? (Household - for ages 0-17 years) Not on file Food Insecurity Answer Date Recorded Do you need food for this week? No 06/11/2023 Are you able to get enough f ood for your family? (Household - for ages 0-17 years) Not on file 06/11/2023 Does your family need food t his week? (Household - for ages 0-17 years) Not on file 06/11/2023 Do you always have enough fo od for your family? (Household - for ages 0-17 years) Not on file 06/11/2023 Sex and Gender Information Value Date Recorded Sex Assigned at Male 06/09/2022 11:25 AM EST Legal Sex Male 6:00 AM EST Gender Identity Male 06/09/2022 11:25 AM EST Sexual Orientation Straight 06/09/2022 11 :25 AM EST documented as of this encounter Functional Status * Are you deaf or do you have serious difficulty hearing? Answer Date of Assessment Author No 04/05/2024 6:15 PM Van Jansen RN * Are you blind or do you have serious difficulty seeing, even when wearing glasses? Answer Date of Assessment Author No 04/05/2024 6:15 PM Van Jansen RN * Do you have serious difficulty walking or climbing stairs? (5 years old or older) Answer Date of Assessment Author No 04/05/2024 6:15 PM Van Jansen RN * Do you have difficulty dressing or bathing? (5 years old or older) Answer Date of Assessment Author No 04/05/2024 6:15 PM Van Jansen RN * Because of a physical, mental, or emotional condition, do you have difficulty doing errands alone such as visiting a doctors office or shopping? (15 years old or older) Answer Date of Assessment Author No 04/05/2024 6:15 PM Van Jansen RN documented as of this encounter Mental Status * Because of a physical, mental, or emotional condition, do you have serious difficulty concentrating, remembering, or making decisions? (5 years old or older) Answer Entry Date Author No 04/05/2024 6:15 PM Van Jansen RN documented in this encounter Miscellaneous Notes * Telephone Encounter - Aleksander Eisenberg PA-C - 05/12/2024 2:01 PM EST Signed Prescriptions: Disp Refills Triamcinolone Acetonide 0.1 % External Oin*30 g 0 Sig: APPLY 2X DAILY TO INTERMITTENT ITCH/RASH ON LEFT LOWER LEG WHEN FLARINGAuthorizing Provider: ALEKSANDER EISENBERG * Telephone Encounter - Mary Peres LPN - 05/12/2024 1:53 PM ESTPending Prescriptions: Disp Refills Triamcinolone Acetonide 0.1 % External Oin*30 g 0 Sig: APPLY 2XDAILY TO INTERMITTENT ITCH/RASH ON LEFT LOWER LEG WHEN FLARING documented in this encounter Plan of Treatment Upcoming Encounters Date Type Department Care Team (Late st Contact Info) Description 06/06/2024 11:20 AM EST Office Visit Dermatology [address] [place] [phone] Aleksander Eisenberg PA-C [address] [place] [address] [place] [phone] 06/14/2024 11:00 AM EST Nurse Only Ancillary [address] [place] [phone] Dianaalley, Nurse Annual [address] [place] [phone] 06/23/2024 12:30 PM EST Office Visit Cardiology [address] [place] [phone] Peterson Crews PA-C [address] [facility] [place] [address] 07/18/2024 2:00 PM EDT Office Visit Family Medicine [address] [place] [phone] Prisca Temple MD [address] [place] [address] [place] [phone] 10/19/2024 3:20 PM EDT Office Visit Sleep Disorders [facility] [address] [place] [phone] Rukhsana Nava DO [address] [place] [phone] 11/03/2024 11:00 AM EDT Office Visit Cardiology, [facility] [address] [place] [phone] Bette Quintana CRNP [address] [place] [phone] 12/05/2024 11:20 AM EDT Office Visit Family Medicine [address] [place] [phone] Prisca Temple MD [address] [place] [address] [place] [phone] Scheduled Procedures Name Priority Associated Diagnoses Date/Ti me COLONOSCOPY FLEXIBLE PROXIMA L DIAGNOSTIC Recall History of colonic polyps Health Maintenance Due Date Last Done Comments Cologuard 07/28/2000 Fecal Occult Blood Test 07/28/2000 Sigmoidoscopy 07/28/2000 COVID-19 Vaccine ( season) 2024 03/10/2022, 11/28/2021, 07/27/2020, Additional history exists *NEPHROLOGY REFERRAL DUE TO RESISTANT HTN 03/04/2024 Pneumococcal Vaccine: 50+ Years (4 of 4 - PCV20 or PCV21) 04/18/2024 04/18/2019, 08/12/2016, 01/25/2014 Diabetic Eye Exam 06/08/2024 06/08/2023, , 07/05/2020, Additional history exists Adult Wellness Visit 06/11/2024 06/11/2023, 06/09/19 Depression Screening 06/11/2024 06/11/2023 HbA1c 10/06/2024 04/07/2024, 07/05/2023, 04/22/2023, Additional history exists Colonoscopy 10/24/2024 10/24/2022, 04/03, 04/16/2021, Additional history exists Colorectal Cancer Screening 10/24/2024 GFR 10/31/2024 05/02/2024, 09/2023, 04/06/2024, Additional history exists Albumin/Creatinine Ratio 12/01/2024 024, 09/08/2022, 11/20/2021, Additional history exists Diabetic Foot Exam 12/01/2024 12/02/2023, 0 11/03/2022, 11/20/2021, Additional history exists CKD PHOS USE SMARTSET 27557 02/25/202502/02, 12/02/2023, 03/05/2022, Additional history exists CKD HGB USE SMARTSET 02809 04/07/202504/07, 04/06/2024, 04/05/2024, Additional history exists DTap/Tdap Vaccines (3 - Td or Tdap) 03/30/2028 03/30/2018, 03/15/2008 Lipid Panel 05/02/2029 05/02/2024, 12/2022, 03/05/2022, Additional history exists RETIRED - COLONOSCOPY-ANNUAL AGES 18-100 Discontinued 10/24/2022, 04/16/2021, 04/16/2021, Additional history exists RETIRED - COLONOSCOPY-EVERY 2 YRS AGES 18-100 Discontinued 10/24/2022, 04/16/2021, 04/16/2021, Additional history exists Zoster Vaccines Completed 11/10/2022, 11/02, 03/12/2016 Influenza Vaccine (FLU shot) Completed 02/26/2024, 04/03/2023, 01/23/2022, Additional history exists HPV (Gardasil) Vaccine Aged Out No lo nger eligible based on patient's age to complete this topic Hepatitis B Vaccine Aged Out No longe r eligible based on patient's age to complete this topic MENINGOCOCCAL (MENACTRA/MENVEO) Aged Out No longer eligible based on patient's age to complete this topic documented as of this encounter Medical Devices Implanted Type Area Statistics Teacher Device Identifier Shelf Expiration Date Model / Serial / Lot Valve Aortic Navitor With Radiopaque Marker 35mm - [id number] Implanted:Qty: 1 on 04/05/2024 by Ld Serrano MD at [facility] Suite 10/19/2024 NVRO-35 / / documented as of this encounter Advance Directives * Full Code (Latest Code Status on File) Date Activated Date Inactivated Comments 04/05/2024 4:12 PM 04/07/2024 7:20 PM This order r eflects the patients wishes and were consensually agreed upon. Question Answer Comments Discussion of Advance Directives occurred with: Patient Care Teams Motor Equipment Captain Relationship Specialty Start Date End Date Prisca Temple MD [address] [place] [address] [place] [phone] PCP - General Family Medicine 12/07/23 documented as of this encounter
--- OUTSIDE RECORDS SUMMARY | 2024-05-19 19:18 | External Medical Summary | Summary of Care ---
Author Name Unknown Organization [facility] Address [address] [place] [address] Phone [phone] Care Team Providers Care Sports Book Server Name Role Phone Prisca Temple MD Primary Care Prov ider Reason for Visit * Reason Comments Follow Up Encounter Details Date Type Department Care Team (Late st Contact Info) Description 05/11/2024 2:00 PM EST Office Visit Cardiology, [facility] [address] [place] [address] Bette Quintana CRNP [address] [place] [id number] Nonrheumatic aortic valve stenosis*; History of transcatheter aortic valve replacement (TAVR); HTN, goal below 130/80 Allergies Active Allergy Reactions Criticality Noted Date Comments Allopurinol Hives High 07/30/2000 Penicillin V Hives 03/16/2023 documented as of this encounter (statuses as of 05/11/2024) Medications docusate sodium (COLACE) 100 MG Capsule [...] the morning and 2 Capsules before bedtime. Isaac Cannot eat two prior to administration of medicine and can eat 1 hour after. Active OneTouch Verio In Vitro Strip (Glucose Blood)Indication s:Type 2 diabetes mellitus with hemoglobin A1c goal of less than 7.0% (HCC) Use to test blood sugar twice a day DX e11.9 200 Strip 3 Active OneTouch Delica Plus [id number] ions:Type 2 diabetes mellitus with hemoglobin A1c goal [...] Active Dulaglutide 1.5 MG/0.5ML Subcutaneous Solution Pen-injector ([employer])Indic ations:Type 2 diabetes mellitus with hemoglobin A1c goal of less than 7.0% (HCC) Inject 1.5 mg under the skin once a week. Obtaining through [employer] PAP 2 mL 3 023 Active hydrALAZINE HCl 100 MG Oral TabletIndication s:HTN, goal below 130/80 Take 1 Tablet by mouth 3 times a day. 270 Tablet 3 024 Active Potassium Chloride Kirsten ER 10 MEQ Oral Tablet Extended ReleaseIndicatio ns:Heart failure, diastolic, with acute decompensation (HCC) One pill every OTHER day 90 Tablet 3 024 Active Additional Information Patient not taking.Reported on 05/11/2024 Ezetimibe 10 MG Oral Tablet (Zetia)Indicatio ns:Dyslipidemia, goal LDL below 100 TAKE ONE TABLET BY MOUTH IN THE MORNING 90 Tablet 3 024 Active Febuxostat 40 MG Oral Tablet (Uloric)Indicati ons:Tophaceous gout TAKE ONE TABLET BY MOUTH IN THE MORNING 90 Tablet 3 024 Active Vitamin D3 50 MCG Oral Capsule Take 50 mcg by mouth in the morning. Active Furosemide 40 MG Oral Tablet (Lasix)Indicatio ns:Heart failure, diastolic, with acute decompensation (HCC) TAKE 1 AND 1/2 TABLETS IN THE MORNING AND 1 TABLET IN THE EARLY AFTERNOON 225 Tablet 1 Active Aspirin Low Dose 81 MG Oral Tablet Delayed Release (aspirin enteric coated)Indicatio ns:Type 2 diabetes mellitus with hemoglobin A1c goal of less than 7.0% ([facility]) TAKE 1 TABLET BY MOUTH EVERY DAY 100 Tablet 1 Active Triamcinolone Acetonide 0.1 % External Ointment (Aristocort) Apply 2x daily to intermittent itch/rash on L lower leg when flaring 30 g Active Losartan Potassium 50 MG Oral Tablet (Cozaar)Indicati ons:Type 2 diabetes mellitus with stage 3b chronic kidney disease, without long-term current use of insulin ([facility]),Primary hypertension Take 1 Tablet by mouth daily. 30 Tablet Active amLODIPine Besylate 10 MG Oral Tablet (Norvasc)Indicat ions:Primary hypertension TAKE 1 TABLET IN THE MORNING 30 Tablet Active Atorvastatin Calcium 80 MG Oral Tablet (Lipitor)Indicat ions:Dyslipidemi a, goal LDL below 100 TAKE ONE TABLET BY MOUTH IN THE MORNING 90 Tablet Active Prazosin HCl 2 MG Oral Capsule (Minipress)Indic ations:Primary hypertension Take 1 Capsule by mouth at bedtime. 90 Capsule 1 Active Additional Information Patient not taking.Reported on 05/11/2024 Spironolactone 25 MG Oral Tablet (Aldactone) Take 0.5 Tablets by mouth in the morning. 30 Tablet 5 025 Active Spironolactone 25 MG Oral Tablet (Aldactone)Indic ations:Primary hypertension Take 0.5 Tablets by mouth in the morning. 30 Tablet 5 024 2024 Discontinued(R efill) Doxycycline Hyclate 100 MG Oral CapsuleIndicatio ns:Acute non-recurrent frontal sinusitis Take 1 Capsule by mouth in the morning and 1 Capsule before bedtime. 20 Capsule 024 2024 Discontinued Hospital, Clinic, or Other Facility Administered Medication Ordered Dose Route Frequency Start Date End Date Status albuterol sulfate (PROVENTIL) (2.5 MG/3ML) 0.083% inhalation solution 2.5 mgIndications:KELLEY (dyspnea on exertion) 2.5 mg NEBULIZER Q4H PRN 08/30/2018 Act david documented as of this encounter (statuses as of 05/11/2024) Active Problems Problem Noted Date Diagnosed Date Status post transcatheter aortic valve replaceme nt 04/05/2024 LBBB (left bundle branch block) 04/05/2024 First degree AV block 04/05/2024 Hx of nonmelanoma skin cancer 01/21/2023 Overview (05/11/2023): 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.] as of this encounter (statuses as of 05/11/2024) Immunizations Name Administration Dates Next Due COVID-19 mRNA, LNP-s, No Pre serve, 2-Dose Series ([employer]) 07/27/2020,07/06/2020 COVID-19, LNP-s, No Preserve , Igor-sucrose, Ages 12+ (Pfizer) 11/28/2021 Covid-19, Mrna, Lnp-s, Pf, B ivalent, 30 Mcg, IM, 12 yrs and above (Pfizer) 03/10/2022 Influenza, Whole Virus 02/18/2019 Pneumococcal Conjugate [...] AM EST documented as of this encounter Last Filed Vital Signs Vital Sign Reading Time Taken Comments Blood Pressure 160/60 05/11/2024 1:55 PM EST Pulse 76 05/11/2024 1:55 PM EST Temperature - - Respiratory Rate - - Oxygen Saturation - - Inhaled Oxygen Concentration - - Weight 115.7 kg (255 lb) 05/11/2024 1:55 PM EST Height - - Body Mass Index 33.64 04/13/2024 10:33 AM EST documented in this encounter Functional Status * Are you [...] Van Jansen RN documented in this encounter Progress Notes * Mariano, Bette Nicholas, SENIOR COMPENSATION CONSULTANT - 05/11/2024 2:00 PM EST 05/11/2024 Valve Clinic Return: 1 month Primary Instrument Maker: Peterson Crews PA-C Cardiac Problems: Valvular heart disease, borderline severe aortic valve stenosis. Compensated diastolic heart failure signs and symptoms. Dilated ascending aorta Hypertension, controlled. Dyslipidemia. Fasting lipid panel on September 08, 2022 demonstrated the following: Total cholesterol 107.LDL 50. HDL 31. Triglycerides 131 mg/day. Continue atorvastatin 80 mg/day along with Ezetimibe 10 mg/day. ALT mildly elevated, in the setting of fatty liver as well as other possible culprits. 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 Dhaliwal Hyponatremia Right renal mass followed by Urology Chronic myelogenous leukemia Status post hospitalization in July 2021 with an infected diabetic foot ulcer, right great toe osteomyelitis, GPC bacteremia HPI: Alberto Arce is a 68 year old male presents for one month post TAVR follow up with valve clinic. Patient underwent successful transfemoral implantation of a #35mm Geronimo Navitor Aortic valve (postdilated with 28mm balloon). Patient was found to have developed a new Left bundle branch block postoperatievely as well as 1st degree AVR and therefore was discharged on an ambulatory cardiac/vascular sonographer for close follow up. Intraoperative and post operative echocardiography are as noted below. Presents today feeling well overall. He is having a lot of issues with elevated blood pressures. Patient was seen at [facility] right before [place] with systolic BP readings over 200mmHg. They increased his Amlodipine from 5mg to 10mg. Home health nursing continues to follow the patient and states that his blood pressures remain elevated. His home BP check was comparable to today's with a systolic reading of 160mmHg. He follows with Dr. Dhaliwal at [facility] who recently stopped his potassium supplementation, patient only has one kidney. His PCP had placed him on Prazosin for nightmares, but patient had only taken for a few days and discontinued, wonders if he should restart. Compliant on all medication therapies with no untoward effects. Denies any fluid overload, and while he doesn't feel like he has seen a big increase in functional capacity, he also states he doesn't do a lot over the winter as far as increased physical demand. REVIEW OF SYSTEMS: See HPI for pertinent positives. All others negative other than those noted in the HPI. CONSTITUTIONAL: No change in weight, No weakness, No fatigue and No fevers, No sweats or chills. PULMONARY: No cough, sputum, or hemoptysis, No wheezing, No shortness or breath and No recent change in breathing. CARDIOVASCULAR: No chest pain, No dyspnea on exertion, No edema, No palpitations and No syncope. GASTROINTESTINAL: No abdominal pain, No change in bowel habits, No significant heartburn, No nausea, No vomiting, No diarrhea, No constipation, No blood in stools or black tarry stools. No dysphagia. HEMATOLOGIC: No abnormal bleeding and No bruising. NEUROLOGICAL: Normal balance, No headaches and No weakness. Review of patient's allergies indicates: Allergen Reactions Allopurinol Hives Penicillin V Hives Current Outpatient Medications Medication Sig Dispense Refill docusate sodium (COLACE) 100 MG Capsule Take 1 Capsule by mouth 2 times a day as needed. CPAP every night at bedtime. Dutasteride 0.5 MG Oral Capsule (Avodart) Take 1 Capsule by mouth in the morning. Pt taking in evening. Nilotinib HCl 200 MG Oral Capsule Take 2 Capsules by mouth in the morning and 2 Capsules before bedtime. Isaac Cannot eat two prior to administration of medicine and can eat 1 hour after. OneTouch Verio In Vitro Strip (Glucose Blood) Use to test blood sugar twice a day DX e11.9 200 Strip 3 OneTouch Delica Plus [id number] Use as directed . Test blood sugar TWICE a day dx e11.9 200 Each 3 Metamucil 48.57 % Oral Powder (Psyllium) Take by mouth. Tums Chewy Bites 750 MG Oral Tablet Chewable (calcium CARBonate) Take 1 Tablet by mouth daily as needed for Heartburn. Dulaglutide 1.5 MG/0.5ML Subcutaneous Solution Pen-injector ([employer]) Inject 1.5 mg under the skin once a week. Obtaining through [employer] PAP 2 mL 3 hydrALAZINE HCl 100 MG Oral Tablet Take 1 Tablet by mouth 3 times a day. 270 Tablet 3 Ezetimibe 10 MG Oral Tablet (Zetia) TAKE ONE TABLET BY MOUTH IN THE MORNING 90 Tablet 3 Febuxostat 40 MG Oral Tablet (Uloric) TAKE ONE TABLET BY MOUTH IN THE MORNING 90 Tablet 3 Vitamin D3 50 MCG Oral Capsule Take 50 mcg by mouth in the morning. Furosemide 40 MG Oral Tablet (Lasix) TAKE 1 AND 1/2 TABLETS IN THE MORNING AND 1 TABLET IN THE EARLY AFTERNOON 225 Tablet 1 Aspirin Low Dose 81 MG Oral Tablet Delayed Release (aspirin enteric coated) TAKE 1 TABLET BY MOUTH EVERY DAY 100 Tablet 1 Triamcinolone Acetonide 0.1 % External Ointment (Aristocort) Apply 2x daily to intermittent itch/rash on L lower leg when flaring 30 g 0 Losartan Potassium 50 MG Oral Tablet (Cozaar) Take 1 Tablet by mouth daily. 30 Tablet 0 amLODIPine Besylate 10 MG Oral Tablet (Norvasc) TAKE 1 TABLET IN THE MORNING 30 Tablet 0 Atorvastatin Calcium 80 MG Oral Tablet (Lipitor) TAKE ONE TABLET BY MOUTH IN THE MORNING 90 Tablet 0 Spironolactone 25 MG Oral Tablet (Aldactone) Take 0.5 Tablets by mouth in the morning. 30 Tablet 5 Potassium Chloride Kirsten ER 10 MEQ Oral Tablet Extended Release One pill every OTHER day (Patient not taking: Reported on 05/11/2024) 90 Tablet 3 Prazosin HCl 2 MG Oral Capsule (Minipress) Take 1 Capsule by mouth at bedtime. (Patient not taking:Reported on 05/11/2024) 90 Capsule 1 Current Facility-Administered Medications Medication Dose Route Frequency Provider Last Rate Last Admin albuterol sulfate (PROVENTIL) (2.5 MG/3ML) 0.083% inhalation solution 2.5 mg 2.5 mg Nebulizer Q4H PRN Gloria Alvarez, PATRICIAC Past Medical History: Diagnosis Date Benign neoplasm of colon 05/28/2007 adenomatous polyps--repeat 3 years Benign neoplasm of colon 04/03/2011 polyps--adenomatous tissue repeat in 3 yrs BMI 35.0-35.9,adult BPH (benign prostatic hyperplasia) Calculus of gallbladder without cholecystitis without obstruction 03/26/2020 Calculus of kidney Chest pain Chronic kidney disease (CKD), stage III (moderate) (HCC) 09/01/2012 CML (chronic myelocytic leukemia) (HCC) 08/27/2017 Dermatitis Diastolic heart failure secondary to hypertension ([facility]) 05/08/2022 DISACCHARIDASE DEF-MALAB 12/14/2008 DM type 2, goal A1c below 7 09/14/2013 Dyslipidemia, goal LDL below 100 11/16/2013 Elevated prostate specific antigen (PSA) 09/16/2018 Encounter for hepatitis C screening test for low risk patient 09/08/2022 negative Fatty liver Gout Hypertriglyceridemia 07/08/2015 Low HDL (under 40) 07/08/2015 Lumbar degenerative disc disease 01/25/2014 Mixed dyslipidemia 08/12/2016 Nocturnal muscle cramp 01/25/2014 Osteomyelitis of great toe of right foot (HCC) 06/29/2021 [facility], Rocephin and clindamycin for strep mitis and bacteroides fragilis Pleural effusion Pleural effusion on right 03/26/2020 admitted [facility] Primary hypertension Renal cyst, left S/p nephrectomy 09/01/2012 S/p left nephrectomy 04/15/12 at [facility], Dr Rajesh Santiago, Contained renal cell carcinoma SLEEP APNEA, UNSPECIFIED 12/14/2008 Tophaceous gout 12/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 Tubular adenoma of colon Family History Problem Relation Name Age of Onset Irritable Bowel Syndrome Brother Other (aneurysm) Father brain, age 60 Other (Natural causes) Mother in her 80s No Known Problems Brother No Known Problems Sister Heart attack Brother (Half) Fatal [place] age 51 Melanoma Brother (Half) No Known Problems Sister No Known Problems Sister Social History Socioeconomic History Marital status: Tobacco Use Smoking status: Never Smokeless tobacco: Never Vaping Use Vaping status: Never Used Substance and Sexual Activity Alcohol use: No Drug use: No Social History Narrative for 34 yrs as of 06/11/2023 1 cat in his home. Occasional mold in the shower. Works for [employer] Social Needs Financial Resource Strain: Low Risk (06/11/2023) Financial Resource Strain Do you have any trouble paying for your medications, or do you think you might in the future? (Adult - for ages 18 years and over): No Food Insecurity: No Food Insecurity (06/11/2023) Food Insecurity Do you need food for this week? (Adult - for ages 18 years and over): No Transportation Needs: No Transportation Needs (06/11/2023) Transportation Needs Do you have trouble getting a ride to medical visits or work? (Adult - for ages 18 years and over):Never True Social Connections: Socially Integrated (06/11/2023) Social Connections How often do you feel lonely or isolated from those around you? (Adult - for ages 18 years and over): Never Housing Stability: Low Risk (06/11/2023) Housing Stability Do you currently live in a longterm or have no steady place to sleep at night? (Adult - for ages 18 years and over): No Do you think you are at risk of becoming homeless? (Adult - for ages 18 years and over): No OBJECTIVE/PHYSICAL EXAMINATION: BP 160/60 | Pulse 76 | Wt 115.7 kg (255 lb) | BMI 33.64 kg/m | BSA 2.44 m General: No acute distress. A+Ox3. HEENT: Normocephalic. Atraumatic. PERRL. EOMI. Conjunctiva and sclera clear. NECK: No carotid bruits. No JVD. Carotid upstrokes are brisk. Heart: RRR. S1 and S2 noted. +2/6 systolic murmur. No rubs or gallops. PMI non displaced. Lungs: Clear to auscultation. No wheezes.No rhonchi. No rales. Abdomen: Normal bowel sounds. Soft. Nontender. No masses or organomegaly. No abdominal bruits. Extremities: No edema. No clubbing or cyanosis. Pulses: radial=2/4, posterior tibial=2/4, dorsalis pedis = 2/4. NEURO: No focal deficits. PSYCH: Appropriate affect and insight. DATA Labs & Imaging Reviewed Below: Echocardiogram 05/05/2024 Interpretation Summary The left ventricular cavity size is normal. The LV wall thickness is moderately increased (concentric). The left ventricular wall motion is normal. The qualitative LV ejection fraction is 60-64% (normal). The patient is status post TAVR with Abott Navitor prosthetic valve. The aortic valve prosthesis systolic gradients are normal for this type prosthesis. The mean systolic gradient through the TAVR is 13 mmHg. Trivial paravalvular aortic valve prosthesis regurgitation is present. The left atrium is severely enlarged. Mild mitral regurgitation is present. EKG 04/05/24 post op CONCLUSIONS: Sinus bradycardia with 1st degree AV block Left bundle branch block Abnormal ECG When compared with ECG of 26-Feb-2024 08:38, MD interval has increased Left bundle branch block is now Present Minimal criteria for Septal infarct are no longer Present Ventricular Rate: 53 EKG 1 Week s/p TAVR Personally reviewed SR with 1st degree AV Block, Left BBB, Rate 72bpm *Live Zioin place also* Echo POD # 1 s/p TAVR Interpretation Summary The examination is adequate to evaluate the referral indication. Calculated LV ejection Fraction = 61% (bi-plane method of discs). The LV wall thickness is mildly increased (concentric). No LV segmental wall motion abnormalities. The right ventricular cavity is mildly dilated. The right ventricular systolic function is qualitatively normal. A #35mm TAVR Geronimo Navitor aortic valve prosthesis is present Aortic valve prosthesis stenosis is absent. Trivial paravalvular aortic valve prosthesis regurgitation is present. The aortic root and proximal ascending aorta are mildly enlarged. Intra-Op TAVR Echo 04/05/2024 Interpretation Summary The examination is limited quality but adequate for evaluation of the referral indication. PRE TAVR: The qualitative LV ejection fraction is 55-59% (normal). The right ventricular systolic function is qualitatively normal. Severe aortic stenosis is present. ECHO guidance was used to position the valve. POST TAVR: The patient is status post TAVR with Abott Navitor prosthetic valve. ROBERT 35 Navitor Titan There was initially moderate paravalvular leak. After post dilation with balloon ,two jets of mild paravalvular aortic valve prosthesis regurgitation is present best seen in apical views. Aortic valve prosthesis stenosis is absent. A small left lateral loculated pericardial effusion is present. Cardiac tamponade is absent. Pre-TAVR Cardiac Catheterization 02/26/2024 Dr. Wild Mild non-obstructive coronary disease. ASSESSMENT/PLAN: 68 year old year old male 1. Nonrheumatic aortic valve stenosis 2. History of transcatheter aortic valve replacement (TAVR) -Patient is doing well with regards to post TAVR. -Euvolemic on exam. -Completed KCCQ-12 questionnaire which shows improvement in functional capacity, will fax to office. -plan for 6 month post TAVR valve return. - EKG 3. HTN, goal below 130/80 -Above target. -Recommend that patient restart his Prazosin. Request that home health nurse continue to check BP's, ideal reading would be two hours after AM medications and report back after patient has been back on Prazosin for at least one week. -Continue current medications including Furosemide, Losartan, Hydralazine, spironolactone, and Amlodipine. DISPOSITION: Follow up 6 weeks with general cardiology (as scheduled), 6 months with Valve return or if symptomsworsen/fail to improve. All questions were answered to the patients satisfaction. Patient advised to report to ED with any and all emergencies. The patient agrees to the above plan and will call with additional questions or concerns. [facility], [address] [place] [address] I spent a total of 35 minutes on the date of service in preparation, delivery, and documentation ofthe care provided to Alberto Arce excluding any time spent in the performance of separately billedservices. This chart was completed in part utilizing [employer] Speech Voice Recognition Software. Grammatical errors, random word insertions, pronoun errors, and incomplete sentences are an occasional consequence of this system due to software limitations, ambient noise, and hardware issues. Any formal questions or concerns about the content, text, or information contained within the body of this dictation should be directly addressed to the provider for clarification. documented in this encounter Nursing Notes * Sade Perez CMA - 05/11/2024 1:54 PM EST Examination Room: 4 Name: Alberto Arce Date of : (1955) Reason for Visit: 1m s/p TAVR Interim Hospitalization(s): 04/21 HTN Problems/Concerns: questions regarding medications, HTN Chest Pain/SOB: denied My [facility] is a way you can talk to your provider online through e-mail. Would you like to sign up? I can activate it for you? ALREADY ACTIVE Patient was instructed to not get up on the exam table until directed and assisted by their provider; patient is to remain seated in the chair/ wheelchair/ exam table for fall prevention and safety reasons. Patient is aware to have assistance to step down off exam table with personnel. Patient voiced full comprehension of instructions. documented in this encounter Plan of Treatment Upcoming Encounters Date Type Department Care Team (Late st Contact Info) Description 06/06/2024 11:20 AM EST Office Visit Dermatology [address] [place] [address] Bridget Eisenberg PA-C [address] [place] [address] [place] [id number] 06/14/2024 11:00 AM EST Nurse Only Ancillary [address] [place] [address] [place], Nurse Annual [address] [place] [address] 06/23/2024 12:30 PM EST Office Visit Cardiology [address] [place] [address] Peterson Crews PA-C [address] [place] [address] 07/18/2024 2:00 PM EDT Office Visit Family Medicine [address] [place] [phone] Prisca Temple MD [address] [place] [address] [place] [address] 10/19/2024 3:20 PM EDT Office Visit Sleep Disorders [facility] [address] [place] [phone] Rukhsana Nava DO [address] [place] [address] 11/03/2024 11:00 AM EDT Office Visit Cardiology, [facility] [address] [place] [address] Bette Quintana CRNP [address] [place] [address] 12/05/2024 11:20 AM EDT Office Visit Family Medicine [address] [place] [phone] Prisca Temple MD [address] [place] [address] [place] [phone] Scheduled Orders Name Type Priority Associated Diagnoses Orde r Schedule EKG EKG Routine Nonrheumatic aortic valve stenosis History of transcatheter aortic valve replacement (TAVR) Ordered: 05/11/2024 Scheduled Procedures Name Priority Associated Diagnoses Date/Ti [...] exists Adult Wellness Visit 06/11/2024 06/11/2023, 06/09/19 23 Depression Screening 06/11/2024 06/11/2023 HbA1c 10/06/2024 04/07/2024, 11/03, 04/22/2023, Additional history exists Colonoscopy 10/24/2024 10/24/2022, 04/03, 04/16/2021, Additional history exists Colorectal Cancer Screening 10/24/2024 GFR 10/31/2024 05/02/2024, 09/2023, 04/06/2024, Additional history exists Albumin/Creatinine Ratio 12/01/2024 024, 09/08/2022, 11/20/2021, Additional history exists Diabetic Foot Exam 12/01/2024 12/02/2023, 0 11/03/2022, 11/20/2021, Additional history exists CKD PHOS USE SMARTSET 56890 02/25/202502/02, 12/02/2023, 03/05/2022, Additional history exists CKD HGB USE SMARTSET 21359 04/07/202504/07, 04/06/2024, 04/05/2024, Additional history exists DTap/Tdap Vaccines (3 - Td or Tdap) 03/30/2028 03/30/2018, 03/15/2008 Lipid Panel 05/02/2029 05/02/2024, 05/0 12/2022, 03/05/2022, Additional history exists RETIRED - [...] this encounter Medical Devices Implanted Type Area Resource Teacher Device Identifier Shelf Expiration Date Model / Serial / Lot Valve Aortic Navitor With Radiopaque Marker 35mm - [id number] Implanted:Qty: 1 on 04/05/2024 by Ld Serrano MD at [facility] [place] [employer] 10/19/2024 NVRO-35 / / documented as of this encounter Visit Diagnoses Diagnosis Nonrheumatic aortic valve stenosis- Primary Aortic valve disorders History of transcatheter aortic valve replacement (TAVR) HTN, goal below 130/80 Unspecified essential hypertension documented in this encounter Advance Directives * Full Code (Latest Code Status on File) Date Activated Date Inactivated Comments 04/05/2024 4:12 PM 04/07/2024 7:20 PM This order r eflects the patients wishes and were consensually agreed upon. Question Answer Comments Discussion of Advance Directives occurred with: Patient Care Teams Sports Book Server Relationship Specialty Start Date End Date Prisca Temple MD [address] [place] [address] [place] [phone] PCP - General Family Medicine 12/07/23 documented as of this encounter"
--- OUTSIDE RECORDS SUMMARY | 2024-05-19 19:18 | External Medical Summary | Summary of Care ---
Author Name Unknown Organization [facility] Address [address] [place] [address] Phone [phone] Care Team Providers Care Router Operator Name Role Phone Prisac Temple MD Primary Care Prov ider Reason for Referral * Evaluate & Treat - Unlimited Visits (Within 3 days (urgent)) - Authorized Specialty Diagnoses / Procedures Referred By Contac t Referred To Contact Nephrology Diagnoses Hyperuricemia Stage 3b chronic kidney disease (HCC) Diastolic heart failure secondary to hypertension (HCC) Prisca Temple MD [address] [place] [address] [place] [address] Phone: tel: fax: Referral ID Status Reason Start Date Expiration Date Visits Requested Visits Authorized [id number] Authorized Specialty Services Required 05/05/[phone] Question Answer Referral Priority Within 3 days (urgent) Where should this appointment be scheduled? [facility] What condition is this patient being seen for? Acute kidney injury Comments Acute on Chronic CKD with recent h/o Aortic valve replacement and hyperuricemia. Encounter Details Date Type Department Care Team (Late st Contact Info) Description 05/05/[address] [address] Prisca Temple MD [address] [place] [address] [place] [phone] Allergies Active Allergy Reactions Criticality Noted Date [...] in the morning. Pt taking in evening. Active Nilotinib HCl 200 MG Oral Capsule Take 2 Capsules by mouth in the morning and 2 Capsules before bedtime. Tazigna Cannot eat two prior to administration of medicine and can eat 1 hour after. 022 Active OneTouch Verio In Vitro Strip (Glucose Blood)Indications :Type 2 diabetes mellitus with hemoglobin A1c goal of less than 7.0% (HCC) Use to test blood sugar twice a day DX e11.9 200 Strip 3 Active OneTouch Delica Plus [id number] ons:Type 2 diabetes mellitus with hemoglobin A1c goal of less than 7.0% (HCC) Use as directed . Test blood sugar TWICE a day dx e11.9 200 Each 3 022 Active Metamucil 48.57 % Oral Powder (Psyllium) [...] the skin once a week. Obtaining through [facility] PAP 2 mL 3 023 Active hydrALAZINE [...] A1c goal of less than 7.0% (HCC) TAKE 1 TABLET BY MOUTH EVERY DAY [...] Additional Information Patient not taking.Reported on 05/11/2024 Triamcinolone Acetonide 0.1 % External Ointment (Aristocort) [...] carcinoma (L lateral dorsal hand 01/24, R judaism 01/24, L neck 03/26) Diastolic heart failure [...] Overview (09/01/2012): S/p left nephrectomy 04/15/12 at [place], Dr Rajesh Santiago, Contained renal cell carcinoma [...] Per CKD protocol Genetic Sleep Disorder Resea [facility] Other*[id number] 03/04/2011 12/05/2015 Dyslipidemia, goal LDL below 130 [...] mRNA, LNP-s, No Pre serve, 2-Dose Series ([facility]) 07/27/2020,07/06/2020 COVID-19, LNP-s, No Preserve , Igor-sucrose, [...] encounter Miscellaneous Notes * Telephone Encounter - Prisca Temple MD - 05/12/2024 1:47 PM EST Noted * Telephone Encounter - Linn Tim CMA - 05/11/2024 5:08 PM EST Pt advised of message below, states saw nephrology just the other day. [facility] note scannedinto chart. FYI * Telephone Encounter - Prisca Temple MD - 05/05/2024 4:18 PM EST Recent labs show drop in kidney function and elevated uric acid level (which can predispose to goutand kidney problems). Recommend urgent referral to nephrology. Please call patient to primary substance abuse counselor - he had a nephrology appt in December that he canceled. It is important he make it this time. documented in this encounter Plan of Treatment Upcoming Encounters Date Type Department Care Team (Late st Contact Info) Description 06/06/2024 11:20 AM EST Office Visit Dermatology [address] [place] [phone] Bridget Eisenberg PA-C [address] [place] [address] [place] [phone] 06/14/2024 11:00 AM EST Nurse Only Ancillary [address] [place] [phone] Dianaalley, Nurse [address] [place] [address] 06/23/2024 12:30 PM EST Office Visit Cardiology [address] [place] [address] Peterson Crews PA-C [address] [place] [address] 07/18/2024 2:00 PM EDT Office Visit Family Medicine [address] [place] [phone] Prisca Temple MD [address] [place] [address] [place] [address] 10/19/2024 3:20 PM EDT Office Visit Sleep Disorders Ctr [facility] [address] [place] [phone] Rukhsana Nava DO [address] [place] [address] 11/03/2024 11:00 AM EDT Office Visit Cardiology, [facility] [address] [place] [address] Bette Quintana CRNP [address] [place] [address] 12/05/2024 11:20 AM EDT Office Visit Family Medicine [address] [place] [phone] Prisca Temple MD [address] [place] [address] [place] [phone] Scheduled Orders Name Type Priority Associated Diagnoses Orde r Schedule URINALYSIS, REFLEX TO MICROSCOPIC Lab Routine Stage 3b chronic kidney disease (HCC) Expected: 05/05/2024, Expires: 05/05/2025 ALBUMIN / CREATININE RATIO, URINE Lab Routine Stage 3b chronic kidney disease (HCC) Expected: 05/05/2024, Expires: 05/05/2025 US RENAL Medical Imaging Routine Hyperuricemia Stage 3b chronic kidney disease (HCC) Diastolic heart failure secondary to hypertension (HCC) Expected: 05/06/2024, Expires: 06/05/2025 Scheduled Procedures Name Priority Associated Diagnoses Date/Ti me COLONOSCOPY FLEXIBLE PROXIMA L DIAGNOSTIC Recall History of colonic polyps Scheduled Referrals Name Type Priority Associated Diagnoses Orde r Schedule NEPHROLOGY REFERRAL OP Referral Within 3 days (urgent) Hyperuricemia Stage 3b chronic kidney disease (HCC) Diastolic heart failure secondary to hypertension (HCC) Ordered: 05/05/2024 Health Maintenance Due Date Last Done Comments [...] Additional history exists CKD PHOS USE SMARTSET 73170 02/25/2025 1009/2023, 12/02/2023, 03/05/2022, Additional history exists CKD HGB USE SMARTSET 52755 04/07/202504/07, 04/06/2024, 04/05/2024, Additional history exists DTap/Tdap [...] this encounter Medical Devices Implanted Type Area Drug Safety Coordinator Device Identifier Shelf Expiration Date Model / Serial / Lot Valve Aortic Navitor With Radiopaque Marker 35mm - [id number] Implanted:Qty: 1 on 04/05/2024 by Ld Serrano MD at [facility] [place] [employer] 10/19/2024 NVRO-35 / / documented as of this encounter Visit Diagnoses Diagnosis Hyperuricemia- Primary Other abnormal blood chemistry Stage 3b chronic kidney disease (HCC) Diastolic heart failure secondary to hypertension (HCC) 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 Question Answer Comments Discussion of Advance Directives occurred with: Patient Care Teams Router Operator Relationship Specialty Start Date End Date Prisca Temple MD [address] [place] [address] [place] [phone] PCP - General Family Medicine 12/07/23 documented as of this encounter
--- OUTSIDE RECORDS SUMMARY | 2024-05-19 19:18 | External Medical Summary | Summary of Care ---
Author Name Unknown Organization [facility] [address] [facility] [address] Phone [phone] Care Team Providers Care Vegetable Preparer Name Role Phone Prisca Temple MD Primary Care Prov ider Reason for Visit * Reason Onset Date Comments Test Results 05/18/2024 Encounter Details Date Type Department Care Team (Late st Contact Info) Description 05/18/2024 Telephone Cardiology, [facility] [address] [place] [address] Peterson Crews PA-C [address] [place] [phone] Test Results Allergies Active Allergy Reactions Criticality Noted Date Comments Allopurinol Hives High 07/30/2000 Penicillin V Hives 03/16/2023 documented as of this encounter (statuses as of 05/18/2024) Medications docusate sodium (COLACE) 100 MG Capsule Take 1 Capsule by mouth 2 times a day as needed. Active CPAP every night at bedtime. Active Dutasteride 0.5 MG Oral Capsule (Avodart) Take 1 Capsule by mouth in the morning. Pt taking in evening. 07/28/19 21 Active Nilotinib HCl 200 MG Oral Capsule Take 2 Capsules by mouth in the morning and 2 Capsules before bedtime. Isaac Cannot eat two prior to administration of medicine and can eat 1 hour after. 06/13/19 Active OneTouch Verio In Vitro Strip (Glucose Blood)Indications: Type 2 diabetes mellitus with hemoglobin A1c goal of less than 7.0% (HCC) Use to test blood sugar twice a day DX e11.9 200 Strip 3 08/23/19 22 Active OneTouch Delica Plus [id number] ns:Type 2 diabetes mellitus with hemoglobin A1c goal of less than 7.0% (HCC) Use as directed . Test blood sugar TWICE a day dx e11.9 200 Each 3 08/23/19 Active Metamucil 48.57 % Oral Powder (Psyllium) Take by mouth. Acti ve Tums Chewy Bites 750 MG Oral Tablet Chewable (calcium CARBonate) Take 1 Tablet by mouth daily as needed for Heartburn. Active Dulaglutide 1.5 MG/0.5ML Subcutaneous Solution Pen-injector (TrulicLamahui)Indicat ions:Type 2 diabetes mellitus with hemoglobin A1c goal of less than 7.0% (HCC) Inject 1.5 mg under the skin once a week. Obtaining through [facility] PAP 2 mL 3 04/22/20 23 Active hydrALAZINE HCl 100 MG Oral TabletIndications: HTN, goal below 130/80 Take 1 Tablet by mouth 3 times a day. 270 Tablet 3 07/05/19 24 Active Potassium Chloride Kirsten ER 10 MEQ Oral Tablet Extended ReleaseIndications :Heart failure, diastolic, with acute decompensation (HCC) One pill every OTHER day 90 Tablet 3 08/03/19 24 Active Additional Information Patient not taking.Reported on 05/11/2024 Ezetimibe 10 MG Oral Tablet (Zetia)Indications :Dyslipidemia, goal LDL below 100 TAKE ONE TABLET BY MOUTH IN THE MORNING 90 Tablet 3 11/10/19 24 Active Febuxostat 40 MG Oral Tablet (Uloric)Indication s:Tophaceous gout TAKE ONE TABLET BY MOUTH IN THE MORNING 90 Tablet 3 11/23/19 24 Active Vitamin D3 50 MCG Oral Capsule Take 50 mcg by mouth in the morning. Active Furosemide 40 MG Oral Tablet (Lasix)Indications :Heart failure, diastolic, with acute decompensation (HCC) TAKE 1 AND 1/2 TABLETS IN THE MORNING AND 1 TABLET IN THE EARLY AFTERNOON 225 Tablet 1 03/03/20 24 Active Aspirin Low Dose 81 MG Oral Tablet Delayed Release (aspirin enteric coated)Indications :Type 2 diabetes mellitus with hemoglobin A1c goal of less than 7.0% (HCC) TAKE 1 TABLET BY MOUTH EVERY DAY 100 Tablet 1 03/03/20 24 Active Losartan Potassium 50 MG Oral Tablet (Cozaar)Indication s:Type 2 diabetes mellitus with stage 3b chronic kidney disease, without long-term current use of insulin (HCC),Primary hypertension Take 1 Tablet by mouth daily. 30 Tablet 04/07/20 24 Active amLODIPine Besylate 10 MG Oral Tablet (Norvasc)Indicatio ns:Primary hypertension TAKE 1 TABLET IN THE MORNING 30 Tablet 04/07/20 24 Active Atorvastatin Calcium 80 MG Oral Tablet (Lipitor)Indicatio ns:Dyslipidemia, goal LDL below 100 TAKE ONE TABLET BY MOUTH IN THE MORNING 90 Tablet 04/15/20 24 Active Prazosin HCl 2 MG Oral Capsule (Minipress)Indicat ions:Primary hypertension Take 1 Capsule by mouth at bedtime. 90 Capsule 1 05/05/19 25 Active Additional Information Patient not taking.Reported on 05/11/2024 Spironolactone 25 MG Oral Tablet (Aldactone) Take 0.5 Tablets by mouth in the morning. 30 Tablet 5 05/11/19 25 Active Triamcinolone Acetonide 0.1 % External Ointment (Aristocort) APPLY 2X DAILY TO INTERMITTENT ITCH/RASH ON LEFT LOWER LEG WHEN FLARING 30 g 05/12/19 25 Active Hospital, Clinic, or Other Facility Administered Medication Ordered Dose Route Frequency Start Date End Date Status albuterol sulfate (PROVENTIL) (2.5 MG/3ML) 0.083% inhalation solution 2.5 mgIndications:KELLEY (dyspnea on exertion) 2.5 mg NEBULIZER Q4H PRN 08/30/2018 Act david documented as of this encounter (statuses as of 05/18/2024) Active Problems Problem Noted Date Diagnosed Date Status post transcatheter aortic valve replaceme nt 04/05/2024 LBBB (left bundle branch block) 04/05/2024 First degree AV block 04/05/2024 Hx of nonmelanoma skin cancer 01/21/2023 Overview (05/11/2023): 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, 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, L neck 03/26) Diastolic heart failure [...] Overview (09/01/2012): S/p left nephrectomy 04/15/12 at [place], Dr Rajesh Santiago, Contained renal cell carcinoma Sleep apnea 12/14/2008 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 Renal cyst, left BPH (benign prostatic hyperplasia) Fatty liver Primary hypertension documented as of this encounter (statuses as of 05/18/2024) Resolved Problems Problem Noted Date Diagnosed Date [...] Per CKD protocol Genetic Sleep Disorder Resea [facility] Other*[id number] 03/04/2011 12/05/2015 Dyslipidemia, goal LDL below 130 [...] as of this encounter (statuses as of 05/18/2024) Immunizations Name Administration Dates Next Due COVID-19 mRNA, LNP-s, No Pre serve, 2-Dose Series ([facility]) 07/27/2020,07/06/2020 COVID-19, LNP-s, No Preserve , Igor-sucrose, Ages 12+ ([facility]) 11/28/2021 Covid-19, Mrna, Lnp-s, Pf, B ivalent, 30 Mcg, IM, 12 yrs and above ([facility]) 03/10/2022 Influenza, Whole Virus 02/18/2019 Pneumococcal Conjugate Vacc, 13 Valent (Prevnar) 08/12/2016 Pneumococcal Polysaccharide PPV23 (Pneumovax) 04/18/2019,01/25/2014 Seasonal Influenza Vac., MDV , IM, 0.5 mL (Fluzone) 01/25/2014,01/13/2013,02/21/2012,02/12,02/01/2010,02/15/2009,03/04/2008 ,06/03/2007 Seasonal Influenza Virus Vac cine, Unspecified Formulation 02/18/2019,02/25/2018,02/20/2017,03/12,03/19/2015,01/25/2014,01/13/2013 ,02/21/2012,02/12/2011,02/15/2010,1005/2009,02/16/2009,02/15/2009, 8,02/17/2008,06/03/2007,02/23/2007,12/2005,03/28/2002,03/01/1999,03/29/19 97,02/11/1996,03/18/1994 Seasonal Influenza, High Dos e, [...] No 06/11/2023 Does the household have a [facility] source of income? (Household - for ages [...] of Assessment Author No 04/05/2024 6:15 PM EST Van Singh RN * Are you blind or do [...] encounter Miscellaneous Notes * Telephone Encounter - Janay Gardner LPN - 05/18/2024 4:01 PM EST Noted by general cardiology nursing. * Telephone Encounter - Janay Gardner LPN - 05/18/2024 4:01 PM EST ----- Message from Peterson Crews sent at 05/18/2024 3:17 PM EST ----- CC'ed on Ambulatory EKG monitoring post TAVR. I have not recently evaluated this patient. Ambulatory EKG abnormal, with high degree AV block and ventricular pauses both at night and during anticipated hours of being awake. Active medication list without current AV mel blockers If symptomatic, dizziness, near syncope, syncope, etc refer to the ER. Otherwise, please arrange for prompt EP evaluation. documented in this encounter Plan of Treatment Upcoming Encounters Date Type Department Care Team (Late st Contact Info) Description 06/06/2024 11:20 AM EST Office Visit Dermatology [address] [place] [phone] Bridget Eisenberg PA-C [address] [place] [address] [place] [phone] 06/14/2024 11:00 AM EST Nurse Only Ancillary [address] [place] [address] Dianaalley, Nurse [facility] [address] [place] [address] [place] [address] 06/23/2024 12:30 PM EST Office Visit Cardiology [address] [place] [address] Peterson Crews PA-C [address] [place] [address] 07/18/2024 2:00 PM EDT Office Visit Family Medicine [address] [place] [phone] Prisca Temple MD [address] [place] [address] [place] [address] 10/19/2024 3:20 PM EDT Office Visit Sleep Disorders Ctr [facility] [address] [place] [phone] Rukhsana Nava DO [address] [place] [address] 11/03/2024 11:00 AM EDT Office Visit Cardiology, [facility] [address] [place] [address] Bette Quintana CRNP [address] [place] [address] 12/05/2024 11:20 AM EDT Office Visit Family Medicine [address] [place] [phone] Prisca Temple MD [address] [place] [address] [place] [phone] Scheduled Procedures Name Priority Associated Diagnoses Date/Ti [...] Additional history exists CKD PHOS USE SMARTSET 48075 02/25/202502/02, 12/02/2023, 03/05/2022, Additional history exists CKD HGB USE SMARTSET 52773 04/07/202504/07, 04/06/2024, 04/05/2024, Additional history exists DTap/Tdap [...] this encounter Medical Devices Implanted Type Area Pharmaceutical Plant Operator Device Identifier Shelf Expiration Date Model / Serial / Lot Valve Aortic Navitor With Radiopaque Marker 35mm - [id number] Implanted:Qty: 1 on 04/05/2024 by Ld Serrano MD at [facility] [place] [employer] 10/19/2024 NVRO-35 / / documented as of this encounter Advance Directives * Full Code (Latest Code Status on File) Date Activated Date Inactivated Comments 04/05/2024 4:12 PM 04/07/2024 7:20 PM This order r eflects the patients wishes and were consensually agreed upon. Question Answer Comments Discussion of Advance Directives occurred with: Patient Care Teams Vegetable Preparer Relationship Specialty Start Date End Date Prisca Temple MD [address] [place] [address] [place] [phone] PCP - General Family Medicine 12/07/23 documented as of this encounter
[2024-05-19] MEDS ORDERED: NILOTINIB PO SCH (19:30)
[2024-05-19] MEDS: hydrALAZINE TAB 50 MG TAB PO ONE (19:36)
[2024-05-19] MEDS: NILOTINIB PO SCH (19:58)
[2024-05-19] MEDS ORDERED: POLYETHYLENE (MIRALAX) 17 GM PACK PO PRN (21:06)
[2024-05-19] MEDS ORDERED: traMADol HCL 50 MG TABLET PO PRN (21:06)
[2024-05-19] MEDS ORDERED: SENNA 8.6 MG TAB PO PRN (21:14)
[2024-05-19] MEDS ORDERED: DOCUSATE SODIUM 100 MG CAP PO PRN (21:16)
[2024-05-19] MEDS: hydrALAZINE TAB 50 MG TAB PO SCH (21:30)
[2024-05-19] MEDS: ASPIRIN 81 MG ECTAB PO SCH (21:30)
--- NOTE | 2024-05-19 21:47 | Electrocardiogram Report ---
Test Reason : Blood Pressure : */* mmHG Vent. Rate : 67 BPM Atrial Rate : 67 BPM P-R Int : 220 ms QRS Dur : 126 ms QT Int : 458 ms P-R-T Axes : 48 -25 84 degrees QTcB Int : 483 ms Sinus rhythm with 1st degree A-V block Left ventricular hypertrophy with QRS widening and repolarization abnormality ( R in aVL , Saud pr oduct ) Cannot rule out Septal infarct , age undetermined Non-specific intra-ventricular conduction block Abnormal ECG When compared with ECG of 21-Apr-2024 13:43, Premature supraventricular complexes are no longer Present IN interval has increased Left bundle branch block is no longer Present Minimal criteria for Septal infarct are now Present Confirmed by Ronny Coley ([id number]) on 05/19/2024 9:47:38 PM Referred By: REFERRED SELF Confirmed By: Ronny Coley
[2024-05-19] MEDS ORDERED: hydrALAZINE HCL 20 MG/ML VIAL IV PRN (21:50)
[2024-05-19] MEDS: MELATONIN 3 MG TAB PO PRN (21:55)
[2024-05-19] MEDS: PRAZOSIN HCL 1 MG CAP PO SCH (21:55)
[2024-05-20] MEDS ORDERED: hydrALAZINE HCL 20 MG/ML VIAL IV SCH (01:00)
[2024-05-20] MEDS: SPIRONOLACTONE 12.5 MG TAB PO SCH (08:12)
[2024-05-20] MEDS: FUROSEMIDE 20 MG TAB PO SCH ×2 (08:12→13:13)
[2024-05-20] MEDS: FEBUXOSTAT 40 MG TABLET PO SCH (08:12)
[2024-05-20] MEDS: LOSARTAN POTASSIUM 50 MG TAB PO SCH ×2 (08:12→21:04)
[2024-05-20] MEDS: ATORVASTATIN 40 MG TAB PO SCH (08:12)
[2024-05-20] MEDS: TAMSULOSIN HCL 0.4 MG CAP PO SCH (08:12)
[2024-05-20] MEDS: CHOLECALCIFEROL 25 MCG (1000 UNITS) TAB PO SCH (08:12)
[2024-05-20] MEDS: FINASTERIDE 5 MG TAB PO SCH (08:13)
[2024-05-20] MEDS: amLODIPine BESYLATE 5 MG TAB PO SCH (08:13)
[2024-05-20] MEDS: bisacodyL 5 MG TABEC PO SCH (08:17)
--- NOTE | 2024-05-20 09:22 | Cardiology Consultation ---
Date of Consultation May 20, 2024 Assessment & Plan (1) Hypertensive urgency: (2) MEE (obstructive sleep apnea): (3) Chronic kidney disease, stage 3: Plan Assessment: 68 year old male presents with hypertensive urgency and feelings of a bounding pulse. Plan: 1. Hypertensive urgency -Patient with multiple co-morbidities including prior renal cancer and stage 3 CKD with recent TAVR, struggling to maintain adequate BP control. -BP today demonstrates significant clinical improvement. Continue amlodipine 10mg daily, spironolactone 12.5mg daily, Furosemide 60mg daily, Prazosin 2mg HS, Losartan 50mg daily and hydralazine 100mg TID. -patient also follows with [facility] Nephrology outpatient. 2. MEE -maintain compliance on CPAP 3. CKD, Stage III -Follows outpatient with [facility] nephrology outpatient. -At this time, BP demonstrates significant improvement, would recommend patient follow closely outpatient for further input. Case has been discussed with Dr. Brooks. Further recommendations regarding plan of care as per his assessment. I spent a total of 40 minutes on the date of service in preparation, delivery, documentation of the care provided to the patient excluding any time spent in the performance of separately billed services. JOHNSON Muller [facility] Cardiology [facility] Supervising Physician Co-Signing Physician Notes Attending attestation: Case reviewed with the advanced practitioner. I have personally performed a history and physical examination on the patient. I have reviewed the advanced practitioner's documentation on the date of service referenced in note, and I agree with, and take responsibility for the plan of care. Subjective: Patient overall feeling improved. Blood pressure trended toward improvement but is a little bit higher with most recent reading of 165/68. Telemetry reveals sinus rhythm in the 50s to 60s without pauses. Patient denies any symptoms suggestive of symptomatic bradycardia. Exam: Cardiovascular: Regular rhythm , 1/6 systolic murmur, no edema Data: Impression/ Plan: s/p TAVR on 04/05/25 Coreg stoppled during TAVR hospitalization due to bradycardia. Asymptomatic pauses noted on follow up Zio Patch, but no issues on telemetry at present. Avoid AV mel blockers. Prazosin resumed. Increase losartan to 50 mg BID and monitor renal function. Pt only on low dose spironolactone due to history of renal insufficiency. Pt prefers to remain in hospital tonight until blood pressure improved. Cardiology to follow peripherally. Call with questions or concerns. I spent a total of 25 minutes coordinating, documenting, and providing care for this patient excluding time spent in the performance of separately billed services or time spent by another provider. Nathaniel Brooks DO History of Present Illness Reason for Consultation: Hypertensive urgency Requesting Physician: [facility] albarranist Attending Physician: Ella Mathews MD History of Present Illness HPI: Patient is a 68 year old male with pMHx as listed below that presents with poorly controlled blood pressures and a feeling of "pulsations all over his body". Patient states that he had checked his home blood pressure and it was 170's systolic, rechecked 190's systolic and when checked in the opposite arm was 206 systolic which prompted him to present. Denies any chest pain or pressure, no shortness of breath, no edema, no pres-syncope or syncope. Of note, patient had a recent ambulatory ZIO monitor post TAVR for concerns of high grade heart block. This was read on 05/18/24 which evidence of Mobitz II and sinus pause of up to 4.3 seconds. patient is being set up outpatient with EP for consideration for PPM. Review of telemetry today demonstrates SB/SR rates 50- 60s with no ectopy, no profound bradycardia, no high grade heart block or pauses. BP upon examination today is 140's systolic. Cardiac Problems: 1. Valvular heart disease, borderline severe aortic valve stenosis. 2. Compensated diastolic heart failure signs and symptoms. 3. Dilated ascending aorta 4. Hypertension, controlled. 5. Dyslipidemia. Fasting lipid panel on September 08, 2022 demonstrated the following: Total cholesterol 107. LDL 50. HDL 31. Triglycerides 131 mg/day. Continue atorvastatin 80 mg/day along with Ezetimibe 10 mg/day. ALT mildly elevated, in the setting of fatty liver as well as other possible culprits. 6. History of pericardial effusion 7. 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 Stage 3 chronic kidney disease, followed by Dr. Dhaliwal 9. Hyponatremia 10. Right renal mass followed by Urology 11. Chronic myelogenous leukemia 12. Status post hospitalization in July 2021 with an infected diabetic foot ulcer, right great toe osteomyelitis, GPC bacteremia EKG demonstrates SR with 1st degree AVB Chest xray : Negative HST: 33.6 Allergies Allergy/AdvReac Type Severity Reaction Status Date / Time allopurinol Allergy Mild fever, rash Verified 05/09/24 14:39 Home Medications Medication Instructions Recorded Confirmed Type aspirin 81 mg tablet,delayed 81 mg PO HS 08/28/18 05/19/24 History release (Yari Low Dose Aspirin) febuxostat 40 mg tablet (Uloric) 40 mg PO QAM 08/28/18 05/19/24 History docusate sodium 50 mg capsule 50 mg PO HS PRN Constipation 11/09/19 05/19/24 History nilotinib HCl 200 mg capsule 400 mg PO Q12H 03/26/20 05/19/24 History (Tasigna) sennosides 8.6 mg capsule (senna) 8.6 mg PO BID PRN Constipation 10/18/20 05/19/24 History hydralazine 100 mg tablet 100 mg PO TID 01/31/21 05/19/24 History bisacodyl 5 mg tablet,delayed 5 mg PO DAILY #30 tabs 07/05/21 05/19/24 Rx release (Gentle Laxative (bisacodyl)) tramadol 50 mg tablet 50 mg PO Q6H PRN pain #60 tabs 07/05/21 05/19/24 Rx atorvastatin 80 mg tablet 80 mg PO DAILY 11/15/21 05/19/24 History dulaglutide 0.75 mg/0.5 mL 1.5 mg subcut WK 10/02/22 05/19/24 History subcutaneous pen injector (Trulicity) furosemide 40 mg tablet 60 mg PO UD 10/02/22 05/19/24 History polyethylene glycol 3350 17 gram 17 g PO DAILY PRN Constipation 10/14/22 05/19/24 History oral powder packet (Miralax) tamsulosin 0.4 mg capsule 0.4 mg PO DAILY #90 caps 06/01/23 05/19/24 Rx cholecalciferol (vitamin D3) 50 50 mcg PO DAILY #90 caps 10/06/23 05/19/24 Rx mcg (2,000 unit) capsule dutasteride 0.5 mg capsule 0.5 mg PO DAILY #90 caps 11/11/23 05/19/24 Rx losartan 50 mg tablet 50 mg PO DAILY 05/09/24 05/19/24 History spironolactone 25 mg tablet 12.5 mg PO DAILY 05/09/24 05/19/24 History potassium chloride 10 mEq 10 meq PO UD 05/19/24 05/19/24 History tablet,extended release (Klor-Con) prazosin 2 mg capsule 2 mg PO PM 05/19/24 05/19/24 History amlodipine 10 mg tablet 10 mg PO DAILY 05/20/24 05/20/24 History Patient History Medical History Nausea and vomiting after administration of anesthetic agent Cardiac murmur follows with Dr. Brooks Surgical History History of foot surgery 1. Right foot irrigation and debridement of first intermetatarsal space abscess 2. Irrigation and debridement of infectious flexor tenosynovitis 3. Irrigation and debridement of abductor hallucis longus abscess 4. Irrigation and debridement of septic first metatarsophalangeal joint History of thoracentesis (~03/27/20) History of surgery on extremity right leg compound fx repair History of prostate biopsy benign History of colonoscopy with polypectomy History of wisdom tooth extraction History of cardiac cath 2001 @ [facility] [place] no stents Family History Brother Coronary heart disease fatal MD age 51 Father FH: brain aneurysm age 60 Other No family history of adverse response to anesthesia Social History Smoking Status: Never smoker Second Hand Exposure: No; Do You Dip or Chew Tobacco: No (N/a); Hx Alcohol Use: No Hx Substance Use: No Preferred Language: Romansh Communication Ability: Effective Visual Impairment: No Limitations Hearing Ability: Normal Climatology Professor Required: No Beliefs That Will Affect Care: None marital status: Current Living Situation: Spouse and Family Current Living Situation Comment: Lives with and 2 sons current occupational status: employed How many Children do You have: 2 Feels Safe at Home: Yes Diet: regular caffeine: Yes (12 oz mt dew daily) Physical Activity Frequency: Does not Exercise Do you think of yourself as: straight/heterosexual Gender Identity: Male Assistive Devices: None Review of Systems Review of Systems: All systems reviewed & are unremarkable except as noted in HPI & below Physical Exam Constitutional: WD/WN, vitals as above no acute distress and not ill appearing Neck: normal visual inspection and trachea midline Respiratory: normal respiratory effort, lungs clear to auscultation Auscultation: no crackles, no rales, no rhonchi and no wheezes Cardiovascular: Rate/Rhythm: regular rate, regular rhythm and + bradycardic (SB/SR) Heart Sounds: normal S1, normal S2 and + murmur (+2/6 systolic ) Vessels: dorsalis pedis pulses present; no JVD Extremities: no edema Skin: no rashes, warm and dry Psychiatric: A+Ox3, euthymic affect Results & Data Vital Signs (Past 12 Hours) Vital Signs Temp Pulse Pulse Resp BP Pulse Ox O2 Del Method 05/20/24 07:29 36.7 C 56 L 16 143/62 H 97 Room Air 05/20/24 07:20 51 L 05/20/24 03:53 36.3 C L 56 L 18 133/57 L 98 CPAP 05/20/24 03:17 16 96 05/19/24 23:45 80 20 96 05/19/24 23:34 36.7 C 61 16 155/67 H 96 Room Air FiO2 05/20/24 07:29 05/20/24 07:20 05/20/24 03:53 05/20/24 03:17 21 05/19/24 23:45 21 05/19/24 23:34 Laboratory Results Cardiac Enzymes 05/19/24 Range/Units 13:55 AST 34 (13-39) U/L Troponin I High Sens 33.6 H (0-20) pg/ml Coagulation 05/19/24 Range/Units 13:55 PT 11.3 (9.0-12.0) Seconds APTT 28 (21-31) Seconds CBC 05/19/24 Range/Units 13:55 WBC 9.25 (4.8-10.8) K/ul RBC 3.55 L (4.70-6.10) M/uL Hgb 10.6 L (14.0-18.0) g/dl Hct 31.4 L (42.0-52.0) % Plt Count 370 (130-400) K/uL Neut # (Auto) 7.11 H (1.40-6.50) K/uL Lymph # (Auto) 0.90 L (1.20-3.40) K/uL Cedar # (Auto) 0.82 H (0.11-0.59) K/uL Eos # (Auto) 0.25 (0.00-0.50) K/uL Baso # (Auto) 0.07 (0.00-0.20) K/uL Comprehensive Metabolic Panel 05/19/24 Range/Units 13:55 Sodium 139 (136-145) mmol/L Potassium 4.0 (3.5-5.1) mmol/L Chloride 109 H (98-107) mmol/L Carbon Dioxide 23 (21-32) mmol/L BUN 53 H (6-23) mg/dl Creatinine 1.89 H (0.6-1.4) mg/dl Glucose 159 H (70-99(Fasting)) mg/dl Calcium 10.3 (8.6-10.3) mg/dl AST 34 (13-39) U/L ALT 56 H (7-52) U/L Alkaline Phosphatase 107 H (34-104) U/L Total Protein 7.2 (6.0-8.3) gm/dl Albumin 4.4 (3.4-5.0) gm/dl Intake and Output 05/19/24 05/20/24 05/20/24 22:59 06:59 14:59 Output Total 400 / 950 550 / 950 Balance -400 / -950 -550 / -950 Output: Urine 400 / 950 550 / 950 Other: # Unmeasured Voids 1 Diagnostic Findings Ambulatory monitor post TAVR 05/18/2024 CONCLUSIONS: Final Interpretation the underlying rhythm was predominantly sinus. Overall PAC and PVC burden was low. Ventricular pauses and second-degree type 2 block were recorded during nighttime and morning hours Preliminary Findings Prepared by LUBA Burris 05/03/24 Patient had a min HR of 21 bpm, max HR of 125 bpm, and avg HR of 60 bpm. Predominant underlying rhythm was Sinus Rhythm. First Degree AV Block was present. Bundle Branch Block/IVCD was present. 6 Supraventricular Tachycardia runs occurred, the run with the fastest interval lasting 6 beats with a max rate of 125 bpm, the longest lasting 13.4 secs with an avg rate of 111 bpm. 18 Pauses occurred, the longest lasting 4.3 secs (14 bpm). Pause(s) occurred due to Possible High Grade AV Block and Second Degree AV Block-Mobitz II. 99 episode(s) of AV Block (High Grade, 2nd Mobitz II) occurred, lasting a total of 4 mins 28 secs. Isolated SVEs were rare (<1.0%), SVE Couplets were rare (<1.0%), and SVE Triplets were rare (<1.0%). Isolated VEs were rare (<1.0%), VE Couplets were rare (<1.0%), and no VE Triplets were present. MD notification criteria for High Grade AV Block (4.3 Seconds of Ventricular Asystole) and Second Degree AV Block, Mobitz II met - report posted prior to notification per account request (NM). Echocardiogram, obtained from [facility] 05/05/24 Interpretation Summary The left ventricular cavity size is normal. The LV wall thickness is moderately increased (concentric). The left ventricular wall motion is normal. The qualitative LV ejection fraction is 60-64% (normal). The patient is status post TAVR with Abott Navitor prosthetic valve. The aortic valve prosthesis systolic gradients are normal for this type prosthesis. The mean systolic gradient through the TAVR is 13 mmHg. Trivial paravalvular aortic valve prosthesis regurgitation is present. The left atrium is severely enlarged. Mild mitral regurgitation is present. (3) Chronic kidney disease, stage 3 Chronic kidney disease stage 3 subtype: unspecified whether 3a or 3b Qualified Code(s): N18.30 - Chronic kidney disease, stage 3 unspecified
--- NOTE | 2024-05-20 13:41 | Hospitalist Progress Note ---
Date of Service May 20, 2024 Assessment & Plan (1) Diabetes mellitus, type II: (2) Chronic kidney disease, stage 3: (3) Hypertensive urgency: Plan: This is a 68 yo M with CML (follows w/ [facility] - Dr. Matthew), DM type 2 (last A1c 6.0% in 04/2024) , renal cell carcinoma s/p nephrectomy, sleep apnea on cpap, CKD 3 (follows w/ [place] Dr. Dhaliwal, baseline Cr 2.5), diast. HF, Aortic valve dz s/p TAVR (in 04/2024 at [facility] [place] - follows w/ [facility]ology) presents with hypertensive urgency. HTNive urgency Pt reports difficulty to control BP since his TAVR procedure Reports feeling "pulsations" in his head and over his body s/p TAVR in April 2024 LBBB, high degree AV block, avoid AV mel blockers - per outpt note from [facility] Crews (cardiology) - Ambulatory EKG abnormal, with high degree AV block and ventricular pauses both at night and during anticipated hours of being awake. - BP today demonstrates significant clinical improvement - currently on amlodipine 10, furosemide 60 am, 40 early pm, losartan 50, hydralazine 100 tid, spironolactone 12.5 - continue current regimen, per cards - IV hydralazine prn CKD stage 3 - baseline Cr 2.5 - follows w/ Dr. Dhaliwal ([facility] [place]) - current Cr 1.9, cont. to monitor while inpt DM 2 Hgb A1c 6.0 % in 04/2024 - cont. to monitor blood glc level while inpt Sleep apnea - cont. 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 Matthew - onc. Hx of renal cell carcinoma, s/p nephrectomy DVT Ppx: SQ heparin Code status: FULL PCP: Natalie Dispo: admitted to med/tele, [place] dc tomorrow Care coordinated with Dr. Mathews. I spent a total of 45 minutes coordinating, documenting, and providing care for this patient excluding time spent in the performance of separately billed services. Admission and Anticipated Discharge Date Admission Date: May 19, 2024 Supervising Physician Co-Signing Physician Notes Patient seen and examined I spent a total of 30 minutes coordinating, documenting and providing care for this patient excluding time spent in performance of separately billed services Subjective Seen and examined in [facility]. Feeling well today, no "pulsating" feeling he attributes to high blood pressure today. Is anxious about this recurring at home. No lightheadedness, MIXON, CP, SOB, N/V/, abd pain, dysuria, diarrhea or constipation. Review of Systems Review of Systems: At least ten systems reviewed and negative except as noted in the HPI. Physical Exam Physical Exam: Gen: WD/WN, NAD, sitting in bedside chair watching TV, A&Ox3 HEENT: Normocephalic, atraumatic, conjunctivae moist, sclerae anicteric, mucous membranes moist Lung: Clear to Auscultation bilaterally, no wheezes/rales/rhonchi Heart: Regular rate, regular rhythm, + systolic murmur Abdomen: Soft, NT, ND +BS x 4 Extremities: no edema Skin: Warm, no rash Results & Data Results & Data Vital Signs (Past 12 Hours) Vital Signs Temp Pulse Pulse Resp BP Pulse Ox O2 Del Method 05/20/24 11:06 36.6 C 73 17 144/78 H 96 Room Air 05/20/24 07:29 36.7 C 56 L 16 143/62 H 97 Room Air 05/20/24 07:20 51 L 05/20/24 03:53 36.3 C L 56 L 18 133/57 L 98 CPAP 05/20/24 03:17 16 96 FiO2 05/20/24 11:06 05/20/24 07:29 05/20/24 07:20 05/20/24 03:53 05/20/24 03:17 21 Diagnostic Findings Chest X-Ray 05/19/24 15:07 XR chest 1V portable CLINICAL HISTORY: htn TECHNIQUE: Single frontal radiograph of the chest was obtained. Comparison: Comparison is made to chest radiograph 04/21/2024 FINDINGS: No lines and tubes are seen. Cardiomegaly is noted. The lungs are clear. No evidence of pleural effusion or pneumothorax. IMPRESSION: No acute chest disease. ACT 112: Negative or not required by law. Electronically signed by: Jose Gutierrez M.D. 05/19/2024 3:31 PM (2) Chronic kidney disease, stage 3 Chronic kidney disease stage 3 subtype: unspecified whether 3a or 3b Qualified Code(s): N18.30 - Chronic kidney disease, stage 3 unspecified
[2024-05-20] MEDS: HEPARIN SOD 5,000 UNIT/0.5 ML VIAL SQ SCH (21:05)
[2024-05-20 23:33] VITALS: O2SAT 96
[2024-05-21 03:34] VITALS: RESP 16
--- NOTE | 2024-05-21 06:44 | Hospitalist Progress Note ---
Date of Service May 21, 2024 Assessment & Plan (1) Diabetes mellitus, type II: (2) Chronic kidney disease, stage 3: (3) Hypertensive urgency: Plan: This is a 68 yo M with CML (follows w/ [facility] - Dr. Matthew), DM type 2 (last A1c 6.0% in 04/2024) , renal cell carcinoma s/p nephrectomy, sleep apnea on cpap, CKD 3 (follows w/ [facility] Dr. Dhaliwal, baseline Cr 2.5), diast. HF, Aortic valve dz s/p TAVR (in 04/2024 at [facility] [place] - follows w/ [facility]ology) presents with hypertensive urgency. HTNive urgency Pt reports difficulty to control BP since his TAVR procedure Reports feeling "pulsations" in his head and over his body s/p TAVR in April 2024 LBBB, high degree AV block, avoid AV mel blockers - per outpt note from Thi[facility] Crews (cardiology) - Ambulatory EKG abnormal, with high degree AV block and ventricular pauses both at night and during anticipated hours of being awake. - BP today demonstrates significant clinical improvement - currently on amlodipine 10, furosemide 60 am, 40 early pm, losartan 50, hydralazine 100 tid, spironolactone 12.5 - continue current regimen, per cards - IV hydralazine prn CKD stage 3 - baseline Cr 2.5 - follows w/ Dr. Dhaliwal ([facility] [place]) - current Cr 1.9, cont. to monitor while inpt DM 2 Hgb A1c 6.0 % in 04/2024 - cont. to monitor blood glc level while inpt Sleep apnea - cont. 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 Matthew - onc. Hx of renal cell carcinoma, s/p nephrectomy DVT Ppx: SQ heparin Code status: FULL PCP: Natalie Dispo: admitted to med/tele, likely dc tomorrow Care coordinated with Dr. Mathews. I spent a total of 45 minutes coordinating, documenting, and providing care for this patient excluding time spent in the performance of separately billed services. Admission and Anticipated Discharge Date Admission Date: May 19, 2024 Results & Data Results & Data Vital Signs (Past 12 Hours) Vital Signs Temp Pulse Pulse Resp BP BP Pulse Ox 05/21/24 03:32 54 L 16 96 05/21/24 03:14 36.5 C 81 20 119/62 93 05/20/24 23:10 36.3 C L 62 20 138/53 L 96 05/20/24 21:00 62 05/20/24 21:00 19 98 05/20/24 19:22 36.7 C 65 18 175/71 H 94 O2 Del Method FiO2 05/21/24 03:32 21 05/21/24 03:14 Room Air, CPAP 05/20/24 23:10 CPAP 05/20/24 21:00 05/20/24 21:00 21 05/20/24 19:22 Room Air (2) Chronic kidney disease, stage 3 Chronic kidney disease stage 3 subtype: unspecified whether 3a or 3b Qualified Code(s): N18.30 - Chronic kidney disease, stage 3 unspecified
[2024-05-21 06:49] LABS: BUN Creatinine Ratio 27.1 (10-20); Calcium 9.8 mg/dl (8.6-10.3); Creatinine Clr Calc Pharmacy 45.4 ml/min; Potassium 4.1 mmol/L (3.5-5.1)
[2024-05-21 07:21] VITALS: BP 134/66; PULSE 60; TEMP 97.9
--- NOTE | 2024-05-21 09:02 | Discharge Summary ---
Discharge Summary Date of Service May 21, 2024 Principal Dx & Hospital Course #1 = Principal Diagnosis (1) Hypertensive urgency: Reynaldo Arce is a 68y/o M with PMHx significant for CML [follows with [facility] - Dr. Matthew], DMII, left renal cell carcinoma s/p left nephrectomy, MEE on CPAP, CKD stage IIIb [follows with Dr. Dhaliwal; baseline Cr ~2.5], diastolic HF, HTN, HLD, aortic valve stenosis s/p TAVR in 04/2024 [follows with [facility]iology] and BPH who was admitted on 05/19/2024 with hypertensive urgency. Hypertensive Urgency: BP was initially quite elevated in the 200s/90s upon presentation to the ED on 05/19/2024. He was experiencing feelings of a bounding pulse prior to arrival to the ED and his SBP was in the 170s-190s at home. Of note - patient required IV hydralazine, IV labetalol and po Lasix in the ED. Patient was on the following antihypertensive regimen prior to admission: amlodipine 10mg QAM, furosemide 60mg QAM, furosemide 40mg Qafternoon, hydralazine 100mg TID, losartan 50mg QAM, prazosin 2mg HS and spironolactone 12.5mg QAM. Cardiology was consulted --> losartan dosing increased to 50mg BID from 50mg QAM. BP improved to the 110s- 130s/60s on day of discharge. Telemetry monitoring remained benign this admission. Aortic Valve Stenosis S/P TAVR in April 2024 High-Degree AV Block on Outpatient EKG Monitoring S/P TAVR: S/p TAVR in 04/2024. Patient was having difficulty controlling his BP since the TAVR procedure. Ambulatory EKG monitoring s/p TAVR abnormal with high-degree AV block and ventricular pauses both a night and during anticipated hours of being awake. AV mel blockers therefore avoided. Patient to have o/p EP evaluation with Dr. Hughes - referral already placed by [facility] cardiology on 05/20/2024. Patient aware to ensure close f/u appointment with EP. CKD Stage IIIb: Follows with Dr. Dhaliwal ([facility] [place] nephrology). Baseline Cr ~2.5; Cr remained stable this admission, Cr 2.07 at time of discharge. L Renal Cell Carcinoma S/P Nephrectomy: S/p L nephrectomy in 04/2012. Follows with Dr. Felix ([facility] [place] urology). DM Type II: Hgb A1c 6% in 04/2024. SSI regimen while he was admitted. Can resume o/p diabetic medications at time of discharge. Other Chronic Medical Conditions: * MEE - Continue CPAP HS. * CML - Follows with [facility], Dr. Matthew; continue Tasigna. PCP: Prisca Estrada MD Disposition: Patient is being discharged home in good condition with [facility] services [already established prior to admission]. Patient seen in collaboration with Dr. Mathews. Please see addendum. I spent a total of 60 minutes coordinating, documenting, and providing care for this patient excluding time spent in the performance of separately billed services. This included personally reviewing all current laboratories and imaging studies, medical reconciliation, outpatient chart review and discussion with specialists. This chart was completed in part utilizing Speech Voice Recognition Software. Grammatical errors, random word insertions, pronoun errors, and incomplete sentences are an occasional consequence of this system due to software limitations, ambient noise, and hardware issues. Any formal questions or concerns about the content, text, or information contained within the body of this dictation should be directly addressed to the provider for clarification. Notes For Next Care Provider Patient will need close follow-up with cardiac EP, Dr. Hughes, regarding high- degree AV block noted on ambulatory EKG monitoring s/p TAVR in 04/2024. Medication Changes From Visit Losartan dose INCREASED to 50mg BID instead of 50mg daily. All other home BP medications remain the same at time of discharge including: amlodipine 10mg QAM, furosemide 60mg QAM, furosemide 40mg Qafternoon, hydralazine 100mg TID, prazosin 2mg HS and spironolactone 12.5mg QAM. Admission HPI Per Admitting Provider 68 yo M with CML (follows w/ [facility] - Dr. Matthew), DM type 2 (last A1c 6.0% in 04/2024) , renal cell carcinoma s/p nephrectomy, sleep apnea on cpap, CKD 3 (follows w/ [facility] Dhaliwal, baseline Cr 2.5), diast. HF, Aortic valve dz s/p [place] [facility] [place] [facility] cardiology[place] presents with hypertensive urgency. Pt states he has had elevated BP since TAVR, and difficulty to normalize BP despite multiple medications. Feels "pulsations in his head and over his body". Denies any chest pain, has some shortness of breath on exertion which is not new. Denies any fevers or chills, or cough. Denies abdominal pain, n/v/d. Denies MIXON. Follows / [facility] cardiology, recently noted pt will need EP eval d/t high degree AV block and ventricular pauses. Pt was in contact w/ his providers and was advised to present to ED for his uncontrolled BP. Admission Exam Per Admitting Provider Constitutional: WD/WN, vitals as above Eyes: PERRL, conjunctivae normal, anicteric sclerae ENMT: external ear and nose normal, oropharynx normal Neck: + thick neck Respiratory: normal respiratory effort, lungs clear to auscultation Cardiovascular: Rate/Rhythm: regular rate and regular rhythm Chest (Breasts): Chest: normal inspection of chest Gastrointestinal (Abdomen): normal bowel sounds, soft, nontender, no hepatosplenomegaly Musculoskeletal: no cyanosis or clubbing, extremities motor strength 5/5 Skin: no rashes, warm and dry Neurologic: PERRL, EOMI, accommodation nl, no face palsy, no dysarthria Psychiatric: A+Ox3, euthymic affect Discharge Exam General: WD/WN, NAD, sitting up in bed, pleasant, conversing appropriately. A+Ox3, euthymic affect. HEENT: Normocephalic, atraumatic. Conjunctivae normal. External ear and nose normal, oropharynx normal. Respiratory: Normal respiratory effort, lungs clear to auscultation, no wheeze/rales/rhonchi. No accessory muscle use. Cardiovascular: Bradycardic rate, regular rhythm, + systolic murmur, normal peripheral pulses, no BLE edema. Vessels: No JVD. Abdomen/GI: Normal bowel sounds, soft, nondistended, nontender to palpation in all quadrants. Extremities/Musculoskeletal: No cyanosis or clubbing, extremities motor strength intact, moves all extremities. Updated Medication List Medication Instructions Recorded Confirmed Type aspirin 81 mg tablet,delayed 81 mg PO HS 08/28/18 05/19/24 History release (Yari Low Dose Aspirin) febuxostat 40 mg tablet (Uloric) 40 mg PO QAM 08/28/18 05/19/24 History docusate sodium 50 mg capsule 50 mg PO HS PRN Constipation 11/09/19 05/19/24 History nilotinib HCl 200 mg capsule 400 mg PO Q12H 03/26/20 05/19/24 History (Tasigna) sennosides 8.6 mg capsule (senna) 8.6 mg PO BID PRN Constipation 10/18/20 05/19/24 History hydralazine 100 mg tablet 100 mg PO TID 01/31/21 05/19/24 History bisacodyl 5 mg tablet,delayed 5 mg PO DAILY #30 tabs 07/05/21 05/19/24 Rx release (Gentle Laxative (bisacodyl)) tramadol 50 mg tablet 50 mg PO Q6H PRN pain #60 tabs 07/05/21 05/19/24 Rx atorvastatin 80 mg tablet 80 mg PO DAILY 11/15/21 05/19/24 History dulaglutide 0.75 mg/0.5 mL 1.5 mg subcut WK 10/02/22 05/19/24 History subcutaneous pen injector (Trulicity) polyethylene glycol 3350 17 gram 17 g PO DAILY PRN Constipation 10/14/22 05/19/24 History oral powder packet (Miralax) tamsulosin 0.4 mg capsule 0.4 mg PO DAILY #90 caps 06/01/23 05/19/24 Rx cholecalciferol (vitamin D3) 50 50 mcg PO DAILY #90 caps 10/06/23 05/19/24 Rx mcg (2,000 unit) capsule dutasteride 0.5 mg capsule 0.5 mg PO DAILY #90 caps 11/11/23 05/19/24 Rx spironolactone 25 mg tablet 12.5 mg PO DAILY 05/09/24 05/19/24 History potassium chloride 10 mEq 10 meq PO UD 05/19/24 05/19/24 History tablet,extended release (Klor-Con) prazosin 2 mg capsule 2 mg PO PM 05/19/24 05/19/24 History amlodipine 10 mg tablet 10 mg PO DAILY 05/20/24 05/20/24 History furosemide 40 mg tablet 60 mg (1.5 x 40 mg) PO UD #0 tabs 05/21/24 05/19/24 Rx losartan 50 mg tablet 50 mg PO BID #60 tabs 05/21/24 Rx Hospital Stay Data Consultations 05/19/24 17:13 ED Decision to Admit Stat 05/19/24 17:44 Consult Cardiology Routine Discharge Instructions Given to Patient (Per Discharging Provider) Mr. Arce, you were admitted to the hospital for management of hypertensive urgency - meaning a significantly elevated blood pressure. You were seen and evaluated by the on-call [facility] cardiology service while you were admitted to assist with improving your blood pressure control. The only change made to your home blood pressure medications was that your LOSARTAN was INCREASED from 50mg once daily to 50mg TWICE daily. Your new home blood pressure medication list is outlined below. Please continue to monitor your blood pressure at least twice a day at home. It is recommended to check your blood pressure at least 2 hours AFTER taking your morning blood pressure medications. Please attend your PCP follow-up appointment as scheduled below! You are being discharged home on the following blood pressure medications: 1.) Amlodipine 10mg ONCE daily in the morning. 2.) Furosemide 60mg ONCE daily in the morning. 3.) Furosemide 40mg ONCE daily in the afternoon. 4.) Hydralazine 100mg THREE TIMES daily (morning/afternoon/evening). 5.) Losartan 50mg TWICE daily (morning/evening). 6.) Prazosin 2mg ONCE daily in the evening. 7.) Spironolactone 12.5mg ONCE daily in the morning. Scheduled PCP follow-up appointment: Date & Time: , 05/26/2024 @ 2:00PM Provider: JOHNSON Doll Location: [facility] Other recommendations for follow-up: Ensure that you schedule an appointment with Dr. Alma Hughes, cardiac senior information security consultant (EP), to further discuss the finding of high-degree AV block on ambulatory EKG monitoring following your TAVR in April 2024. A high-degree AV block is a condition where the electrical signals in your heart are not passing through properly from the atria (the upper chambers) to the ventricles (the lower chambers). This can slow down or even completely block the heart's normal rhythm. A referral has already been placed by your primary cardiology provider (JOHNSON Hanley) for you to see Dr. Hughes. Please make sure to schedule this appointment as soon as possible! Seek medical attention if you have: * temperature above 101F * chest pain or trouble breathing * abdominal pain, nausea, vomiting * diarrhea, dark stools or bloody stools * any unanswered questions or concerns Call 911 if symptoms are severe. Please take good care of yourself. It has been a pleasure taking care of you. If you have any questions regarding your recent hospitalization please contact [facility] and request [facility] @ [phone]. Total Time Total Time Spent Total Time Spent (In Minutes): 60 Supervising Physician Co-Signing Physician Notes Patient seen and examined I spent a total of 25 minutes coordinating, documenting and providing care for this patient excluding time spent in performance of separately billed services
== END 2024-05-21 11:16 | disposition home health service (06) | DRG 305 ==
LOC: ED 13:08 → SUATTDRO 17:44 → 4W 17:44